=== PATIENT | female | born 1945 | race Caucasian/White ===

== ENCOUNTER 2021-02-02 10:59 | Inpatient (IN) | payer MEDICARE, OTHER ==
[~2021-02-02] VITALS: Ht 162.6 cm; Wt 61.1 kg
[~2021-02-02 10:59] MED LIST: CALC-80 PO; CALC3.7S2 NS; CHOL100011 PO; FEXO180T84 PO; GLUC500C2 PO; HYDR-3714 PO; MULT-974 PO; NAPR-689 PO; PANT40TA PO; TML.25OP OU
[2021-02-02] MEDS ORDERED: CALCIUM CARBONATE 500 MG (TUMS) TAB.CHEW PO PRN (11:15)
[2021-02-02] MEDS ORDERED: diphenhydrAMINE 25 MG TAB (BENADRYL) PO PRN (11:15)
[2021-02-02] MEDS ORDERED: ONDANSETRON 4 MG (ZOFRAN) ORAL DISSOLVE TAB PO PRN (11:15)
[2021-02-02] MEDS ORDERED: BISACODYL 10 MG SUPP (DULCOLAX) PR PRN (11:15)
[2021-02-02] MEDS ORDERED: ALPRAZolam 0.25 MG (XANAX) TAB PO PRN (11:15)
[2021-02-02] MEDS ORDERED: DOCUSATE SODIUM 100 MG (COLACE) CAP PO PRN (11:15)
[2021-02-02] MEDS ORDERED: LACTULOSE SYRUP 10GM/15ML (ENULOSE) 30ML UDC PO PRN (11:15)
[2021-02-02] MEDS ORDERED: MELATONIN 3 MG TABLET PO PRN (11:15)
[2021-02-02] MEDS ORDERED: LOPERAMIDE 2 MG (IMODIUM) TABLET PO PRN (11:15)
[2021-02-02] MEDS ORDERED: guaiFENesin/CODEINE (ROBITUSSIN AC) 10ML UDC PO PRN (11:15)
[2021-02-02] MEDS ORDERED: FLEET ENEMA ADULT 1 EA BTL PR PRN (11:15)
[2021-02-02] MEDS ORDERED: EST30C VG (13:31)
[2021-02-02] MEDS ORDERED: ASPI-999 PO (13:31)
[2021-02-02] MEDS ORDERED: TIMO5DRO27 OU (13:31)
[2021-02-02] MEDS ORDERED: PANT40TA52 PO (13:31)
[2021-02-02] MEDS ORDERED: ATOR40TA70 PO (13:31)
[2021-02-02] MEDS ORDERED: CHOL10007 PO (13:31)
[2021-02-02] MEDS ORDERED: FEXO-46 PO (13:31)
[2021-02-02] MEDS ORDERED: DENO60DI SQ (13:31)
[2021-02-02] MEDS ORDERED: CLOP75TA28 PO (13:31)
[2021-02-02] MEDS ORDERED: LISI2.5T PO (13:31)
[2021-02-02] MEDS ORDERED: GLUC1TAB20 PO (13:31)
[2021-02-02] MEDS ORDERED: PREG75CA PO (13:31)
[2021-02-02] MEDS ORDERED: CALC-935 PO (13:31)
[2021-02-02 16:23] VITALS: BP 113/70
--- NOTE | 2021-02-02 18:31 | PM&R Post Admission Assessment ---
PM&R Date of Visit: Feb 02, 2021 Time of Visit: 18:00 History of Present Illness Chief complaint: CVA with right-sided weakness HPI: This is a 75[address]WF pt of Dr[address] Amber Patricia in [place] who presents to the inpatient rehab unit from [facility] after suffering an acute ischemic stroke from new diagnosed PFO with subsequent right sided weakness, decreased vision of the left eye secondary to shingles September 2020. She has a history of dyslipidemia, GERD and glaucoma. 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 Current level of functioning is 15 feet, moderate assistance and she will go home with her spouse once her rehab is completed. Cardiology will be consulted. Past Ildhawa-Xuywyv-Njojgu Hx Past Med/Social Hx: Reviewed Nursing Past Med/Soc Hx, Reviewed and Corrections made Patient Social History Marrital Status: Employed/Student: retired Alcohol Use: Occasionally Uses Smoking Status: Former Smoker Immunizations Up To Date Date of Pneumonia Vaccine: Jun 21, 2013 Past Medical History Neurological: Stroke Gastrointestinal: Gastroesophageal Reflux Musculoskeletal: Osteoporosis HEENT: Glaucoma PM&R Allergy/Meds/Data Review Allergies Coded Allergies: meperidine (Unverified Allergy, Unknown, HALLUCINATIONS, 12/31/13) Home Medications Scheduled Aspirin (Aspirin), 81 MG PO DAILY, (Reported) Atorvastatin Calcium (Atorvastatin Calcium), 40 MG PO HS, (Reported) Calcium Carbonate/Vitamin D3 (Calcium 600 + Vit D3 Tablet), 1 EACH PO DAILY, (Reported) Cholecalciferol (Vitamin D3) (Vitamin D3), 25 MCG PO DAILY, (Reported) Clopidogrel Bisulfate (Clopidogrel), 75 MG PO DAILY, (Reported) Denosumab (Prolia), 60 MG SQ EVERY 6 MONTHS, (Reported) Fexofenadine HCl (Fexofenadine HCl), 180 MG PO DAILY, (Reported) Gluc Yanez/Chondro Yanez A/Vit C/Mn (Glucosamine Chondroitin Tab), 1 EACH PO DAILY, (Reported) Lisinopril (Lisinopril), 2.5 MG PO DAILY, (Reported) Pantoprazole Sodium (Pantoprazole Sodium), 40 MG PO DAILY, (Reported) Pregabalin (Lyrica), 75 MG PO BID, (Reported) Timolol (Betimol), 1 DROP OU HS, (Reported) Scheduled PRN Estrogens Conjugated (Premarin), 1 APPLIC VG HS PRN for DRYNESS,BURNING, IRRITATION, (Reported) Discontinued Medications Calcitonin (Calcitonin-Arnold), 1 SPRAY NS DAILY, (Reported) Discontinued Reason: No Longer Taking Calcium Carbonate/Vitamin D3 (Calcium 600 + D Caplet), 1 TAB PO DAILY, (Reported) Discontinued Reason: No Longer Taking Cholecalciferol (Vitamin D3), 1,000 UNIT PO DAILY, (Reported) Discontinued Reason: No Longer Taking Fexofenadine Hcl (Tracy Allergy), 180 MG PO DAILY, (Reported) Discontinued Reason: No Longer Taking Glucosamine Sulfate (Glucosamine), 500 MG PO DAILY, (Reported) Discontinued Reason: No Longer Taking Hydrocodone Bit/Acetaminophen (Hydrocodone-Apap 5-325 Tab), 1 TAB PO Q4H PRN for PAIN Discontinued Reason: No Longer Taking Multivitamin (Multi Vitamin Daily), 1 TAB PO DAILY, (Reported) Discontinued Reason: No Longer Taking Naproxen (Naproxen), 500 MG PO DAILY, (Reported) Discontinued Reason: No Longer Taking Pantoprazole Sodium (Pantoprazole Sodium), 40 MG PO DAILY, (Reported) Discontinued Reason: No Longer Taking Timolol (Betimol), 1 DROP OU HS, (Reported) Discontinued Reason: No Longer Taking Current Medications Current Medications Reviewed Review of Systems Constitutional: see HPI, malaise, weakness EENTM: blurred vision Respiratory: no symptoms reported Cardiovascular: no symptoms reported Gastrointestinal: no symptoms reported Genitourinary: no symptoms reported Musculoskeletal: back pain Skin: no symptoms reported Psychiatric/Neurological: Depressed, Weakness All Other Systems Reviewed Negative Unless Noted: Yes Physical Exam Physical Exam Vital Signs Vital Signs - First Documented 02/02/21 16:23 Temp 37.0 Pulse 79 Resp 18 B/P (MAP) 113/70 (84) Pulse Ox 92 O2 Delivery Room Air Capillary Refill : Height, Weight, BMI Height: 5'4.00" Weight: 130lbs. oz. 58.496707aq; 22.27 BMI Method: General Appearance: No Apparent Distress, WD/WN Eyes: Bilateral Eye Normal Inspection, Bilateral Eye PERRL HEENT: PERRL/EOMI, Normal ENT Inspection, Pharynx Normal Neck: Full Range of Motion, Normal Inspection, Non Tender, Supple, Carotid Bruit Respiratory: Chest Non Tender, Lungs Clear, Normal Breath Sounds, No Accessory Muscle Use, No Respiratory Distress Cardiovascular: Regular Rate, Rhythm, No Edema, No Gallop, No JVD, No Murmur, Normal Peripheral Pulses Gastrointestinal: Normal Bowel Sounds, No Organomegaly, No Pulsatile Mass, Non Tender, Soft Back: Normal Inspection, No CVA Tenderness, No Vertebral Tenderness Extremity: Normal Capillary Refill, Normal Inspection, Normal Range of Motion (Except right sided weakness 1/5), Non Tender, No Calf Tenderness, No Pedal Edema Neurologic/Psychiatric: Alert, Oriented x3, No Motor/Sensory Deficits, Normal Mood/Affect, Abnormal Gait, Facial Droop (Right-sided) Skin: Normal Color, Warm/Dry Lymphatic: No Adenopathy PM&R Medical Assessment & Plan REHAB/MEDICAL ASSESSMENT AND PLAN: REHAB IMPAIRMENT GROUP: CVA ETIOLOGIC DIAGNOSIS: CVA The comorbidities that impact the patients function and/or functional outcome by: Advanced age, postherpetic neuralgia, severe right-sided weakness fall risk, PFO REHAB PLAN: The patient is being admitted to our comprehensive inpatient rehabilitation facility and can tolerate the intensity of service consisting of at least: 180 minutes of therapy a day, 5 out of 7 days a week Rehab treatment will consist of: PT and OT will focus on regaining function of the right side with the use of assistive devices to be able to return to live independently with her The patient/family has a good understanding of our discharge process and will benefit from an interdisciplinary inpatient rehabilitation program. The patient has potential to make improvement and is in need of at least two of the following multidisciplinary therapies including but not limited to physical, occupational, speech, and prosthetics and orthotics. Additionally the patient will need services from respiratory, nutritional services, wound care, psychology, etc. (Customize this to each patient). Given the patients complex condition and risk of further medical complications, rehabilitation services cannot be safely or effectively provided at a lower level of care such as a fci facility. BARRIERS TO DISCHARGE: Severe right-sided weakness ESTIMATED LOS: 14 days DISPOSITION: Home RELEVANT CHANGES SINCE PREADMISSION SCREENING: I have compared the patients medical and functional status at the time of the preadmission screening and there are: no changes PROGNOSIS: Good REHABILITATION GOALS: 1. PT and OT will focus on regaining function of the right side with the use of assistive devices to be able to return to live independently with her All the above goals were reviewed with the patient and he/she is in agreement. By signing this document, I acknowledge that I have personally performed a full physical examination on this patient within 24 hours of admission to this inpatient rehabilitation facility and have determined the patient to be able to tolerate the above course of treatment at an intensive level for a reasonable period of time. I will be completing a detailed individualized Plan of Care for this patient by day #4 of the patients stay based upon the Preadmission Screen, the Post-Admission Evaluation, and the therapy evaluations. Admission Dx/Comorbidities: (1) CVA (cerebral vascular accident) ICD Codes: I63.9 - Cerebral infarction, unspecified (2) PFO (patent foramen ovale) ICD Codes: Q21.1 - Atrial septal defect (3) GERD (gastroesophageal reflux disease) ICD Codes: K21.9 - Gastro-esophageal reflux disease without esophagitis (4) Hypertension ICD Codes: I10 - Essential (primary) hypertension (5) Hyperlipidemia ICD Codes: E78.5 - Hyperlipidemia, unspecified (6) Right sided weakness ICD Codes: R53.1 - Weakness (7) Osteoporosis ICD Codes: M81.0 - Age-related osteoporosis without current pathological fracture (8) Postherpetic neuralgia ICD Codes: B02.29 - Other postherpetic nervous system involvement (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
[2021-02-02] MEDS ORDERED: ESTROGENS CONJ. CREAM 30 GM (PREMARIN) TUBE VG PRN (18:45)
[2021-02-02] MEDS ORDERED: PATIENT MAY USE OWN MED,SINGLE MED PO SCH (19:00)
[2021-02-02 20:00] VITALS: BP 113/55
[2021-02-02] MEDS: DOCUSATE SODIUM 100 MG (COLACE) CAP PO SCH (20:09)
[2021-02-02] MEDS: SENNA W/DOCUSATE (SENOKOT S) TABLET PO SCH (20:10)
[2021-02-02] MEDS: polyethylene glycoL POWDER 17 GM (MIRALAX) PACK PO SCH (20:10)
[2021-02-02] MEDS: PREGABALIN 75 MG (LYRICA) CAP PO SCH (20:12)
[2021-02-02] MEDS: TIMOLOL MALEATE 0.5% 5 ML (TIMOPTIC) BTL OU SCH (20:12)
[2021-02-02] MEDS: ACETAMINOPHEN 325 MG TABLET PO PRN (20:18)
[2021-02-03 05:59] LABS: BASOPHILS # (AUTO) 0.1 10^3/uL (0.0-0.1); BASOPHILS % (AUTO) 1 % (0-10); EOSINOPHILS # (AUTO) 0.1 10^3/uL (0.0-0.3); EOSINOPHILS % (AUTO) 1 % (0-10); HEMATOCRIT 47 % (35-52); HEMOGLOBIN 15.6 g/dL (11.5-16.0); LYMPHOCYTES # (AUTO) 1.8 10^3/uL (1.0-4.0); LYMPHOCYTES % (AUTO) 24 % (12-44); MEAN CORPUSCULAR HEMOGLOBIN 30 pg (25-34); MEAN CORPUSCULAR HGB CONC 33 g/dL (32-36); MEAN CORPUSCULAR VOLUME 91 fL (80-99); MEAN PLATELET VOLUME 11.1 fL (9.0-12.2); MONOCYTES # (AUTO) 0.7 10^3/uL (0.0-1.0); MONOCYTES % (AUTO) 9 % (0-12); NEUTROPHILS # (AUTO) 4.9 10^3/uL (1.8-7.8); NEUTROPHILS % (AUTO) 64 % (42-75); PLATELET COUNT 216 10^3/uL (130-400); WHITE BLOOD COUNT 7.6 10^3/uL (4.3-11.0)
[2021-02-03 06:02] LABS: ALBUMIN 3.9 GM/DL (3.2-4.5); CHLORIDE 102 MMOL/L (98-107); POTASSIUM 3.9 MMOL/L (3.6-5.0); SODIUM 139 MMOL/L (135-145)
[2021-02-03 06:03] LABS: CALCIUM 9.6 MG/DL (8.5-10.1)
[2021-02-03 06:04] LABS: GLUCOSE 98 MG/DL (70-105); TOTAL PROTEIN 6.7 GM/DL (6.4-8.2)
[2021-02-03 06:05] LABS: CARBON DIOXIDE 25 MMOL/L (21-32)
[2021-02-03 06:06] LABS: BILIRUBIN,TOTAL 0.8 MG/DL (0.1-1.0)
[2021-02-03 06:08] LABS: ALKALINE PHOSPHATASE 81 U/L (40-136); CREATININE SERUM 0.75 MG/DL (0.60-1.30); GFR ESTIMATED > 60
[2021-02-03 06:09] LABS: BUN/CREATININE RATIO 21
[2021-02-03 06:11] LABS: ALANINE AMINOTRANSFERASE 27 U/L (0-55)
--- NOTE | 2021-02-03 06:23 | PM&R Progress Note ---
Subjective HPI/CC On Admission Date Seen by Provider: Feb 03, 2021 Time Seen by Provider: 11:00 Subjective/Events-last exam 02/03/21: Pt doing really well Dr. Sanchez consulted Bowels are a bit loose Frustrated that her right leg didnt work too well today but I reassured her Review of Systems General: Fatigue, Malaise Neurological: Weakness, Incoordination Objective Exam Vital Signs Vital Signs Date Time Temp Pulse Resp B/P (MAP) Pulse Ox O2 Delivery O2 Flow Rate FiO2 02/04/21 01:00 80 02/03/21 21:00 Room Air 02/03/21 20:00 36.6 14 103/59 (74) 95 Capillary Refill : General Appearance: No Apparent Distress, WD/WN HEENT: PERRL/EOMI, Normal ENT Inspection, Pharynx Normal Neck: Full Range of Motion, Normal Inspection, Non Tender, Supple, Carotid Bruit Respiratory: Chest Non Tender, Lungs Clear, Normal Breath Sounds, No Accessory Muscle Use, No Respiratory Distress Cardiovascular: Regular Rate, Rhythm, No Edema, No Gallop, No JVD, No Murmur, Normal Peripheral Pulses Gastrointestinal: Normal Bowel Sounds, No Organomegaly, No Pulsatile Mass, Non Tender, Soft Back: Normal Inspection, No CVA Tenderness, No Vertebral Tenderness Extremity: Normal Capillary Refill, Normal Inspection, Normal Range of Motion (Except right sided weakness 1/5), Non Tender, No Calf Tenderness, No Pedal Edema Neurologic/Psychiatric: Alert, Oriented x3, No Motor/Sensory Deficits, Normal Mood/Affect, Abnormal Gait, Facial Droop (Right-sided) Skin: Normal Color, Warm/Dry Lymphatic: No Adenopathy Results/Procedures Lab Laboratory Tests 02/03/21 05:45 Patient resulted labs reviewed. FIM Transfers Therapy Code Descriptions/Definitions Functional [place] Measure: 0=Not Assessed/NA 4=Minimal Assistance 1=Total Assistance 5=Supervision or Setup 2=Maximal Assistance 6=Modified [place] 3=Moderate Assistance 7=Complete IndependenceSCALE: Activities may be completed with or without assistive devices. 4-Uxozsesxew-qxjqeep completes the activity by him/herself with no assistance from a helper. 5-Set-up or Clean-up Assistance-helper sets up or cleans up; patient completes a ctivity. [place] assists only prior to or following the activity. 4-Supervision or Touching Assistance-helper provides verbal cues and/or touching/steadying and/or contact guard assistance as patient completes activity. Assistance may be provided throughout the activity or intermittently. 3-Partial/Moderate Assistance-helper does LESS THAN HALF the effort. [place] lifts, holds or supports trunk or limbs, but provides less than half the effort. 2-Substantial/Maximal Assistance-helper does MORE THAN HALF the effort. [place] lifts or holds trunk or limbs and provides more than half the effort. 1-Ochlrkrob-hxfvhv does ALL the effort. Patient does none of the effort to complete the activity. Or, the assistance of 2 or more helpers is required for the patient to complete the activity. If activity was not attempted, code reason: 7-Patient Refused. 9-Not Applicable-not attempted and the patient did not perform the activity before the current illness, exacerbation or injury. 10-Not Attempted due to Environmental Limitations-(lack of equipment, weather restraints, etc.). 88-Not Attempted due to Medical Conditions or Safety Concerns. Assessment/Plan Assessment and Plan Assess & Plan/Chief Complaint Assessment: CVA with right sided weakness GERD Herpes ophtho left 10/11 OP HTN HLP Plan: Cardiology consultation Home meds Monitor closely (1) CVA (cerebral vascular accident) (2) PFO (patent foramen ovale) (3) GERD (gastroesophageal reflux disease) (4) Hypertension (5) Hyperlipidemia (6) Right sided weakness (7) Osteoporosis (8) Postherpetic neuralgia (9) Zoster ophthalmicus ALDEN CARCAMO DO Feb 03, 2021 06:23
[2021-02-03 07:55] VITALS: BP 126/84
[2021-02-03] MEDS: ASPIRIN 81 MG CHEW (CHILDREN'S ASA) PO SCH (08:48)
[2021-02-03] MEDS: LORATADINE (CLARITIN) 10 MG TAB PO SCH (08:48)
[2021-02-03] MEDS: PANTOPRAZOLE 40 MG (PROTONIX) TAB PO SCH (08:48)
[2021-02-03] MEDS: PREGABALIN 75 MG (LYRICA) CAP PO SCH ×2 (08:48→21:00)
[2021-02-03] MEDS: VITAMIN D3 25 MCG (1,000 UNITS) TABLET PO SCH (08:49)
[2021-02-03] MEDS: lisINopril 5 MG (PRINIVIL) TABLET PO SCH (08:49)
[2021-02-03] MEDS: CALCIUM CARB + VIT D 600 MG (CALCARB + D) TAB PO SCH (08:49)
[2021-02-03] MEDS: CLOPIDOGREL 75 MG (PLAVIX) TABLET PO SCH (08:49)
[2021-02-03] MEDS: SENNA W/DOCUSATE (SENOKOT S) TABLET PO SCH ×2 (08:50→21:00)
[2021-02-03] MEDS: polyethylene glycoL POWDER 17 GM (MIRALAX) PACK PO SCH ×2 (08:50→21:00)
[2021-02-03] MEDS: DOCUSATE SODIUM 100 MG (COLACE) CAP PO SCH ×2 (08:50→21:00)
[2021-02-03] MEDS ORDERED: NON-FORMULARY MEDICATION 1 EA EA (Gluc Su/Chondro Su A/Vit C/Mn (Glucosamine Chondroitin T PO SCH (09:00)
--- NOTE | 2021-02-03 10:39 | ST Cognitive Linguistic Eval ---
Speech Evaluation-General Medical Diagnosis CVA Onset Date: Jan 28, 2021 Therapy Diagnosis Therapy Diagnosis: Cognitive-communication Precautions Precautions/Isolations: Standard Precautions Referral Referring Physician: Dr. Ledbetter Medical History Pertinent Medical History: GERD, HTN Reviewed History: Yes Social History Current Living Status: Spouse Speech PLF-Current Status Prior Level of Function Patient lives in her own home with her . She was independent prior to CVA. Subjective Patient was pleasant and cooperative with the cognitive/speech assessment. Language Eval: Auditory Comprehends Simple Yes/No Ques: Functional Indent/Objects Multiple Powers: Functional Ident/Pics in Multiple Powers: Functional Follows 1-Step Commands: Functional Follows Complex Directions: Functional Follows General Conversations: Functional Language Eval: Verbal Language Completes Spontaneous Greeting: Functional Produces Auto, Serial Info: Functional Imitates Simple Words/Phrases: Functional Word Finding: Functional Requests Basic Needs: Functional States Basic Personal Info: Functional Expresses Complex Ideas: Functional Objective Cognitive Domain Attention: WNL Memory: WNL Problem Solving: Functional Executive Functions: WNL Visuospatial Skills: WNL Composite Severity Rating: WNL Clock Drawing Severity Rating: WNL Objective Formal/Standardized Tests [facility] Mental Status (UMS), informal speech tasks, chart review Results 28/30 within normal range of function Oral Motor/Speech Production Mild slurring due to right side facial weakness/droop, however she is able to exhibit intelligible speech. Impression Patient is a pleasant 75 y/o female who was admitted to the ARU s/p CVA. Patient exhibits right sided weakness including mild facial droop. Her speech is intelligible for effective communication. She does have a drool and decreased control on the right side with decreased buccal sensation. Patient's SLUMS score of 28/30 does not indicate the need for cognitive therapy. She would benefit from OM speech therapy with VItal Stim to improve right side oral function. Speech Patient Assess Expression of Ideas/Wants: Expression (4) Understanding Verbal Content: Understands (4) Brief Interview-Mental Status: Yes Repetition of Three Words: Three (3) Temporal Orientation: Year: Correct (3) Temporal Orientation: Month: Accurate within 5 days(2) Temporal Orientation: Day: Correct (1) Recall : Wear to say "Sock": Yes, no cue required (2) Recall : Color: Yes, no cue required (2) Recall : Bed: Yes, no cue required (2) Memory/Recall Ability: Current season, That he or she is in a hsp/hsp unit Speech Short Term Goals Short Term Goals Short Term Goals 1) Patient will complete OME x10 without cues at 90% or greater. 2) Patient will improve speech production at 100% intelligible. Speech Custodial Goals Ep Tech Goals Patient will demo effective communication and oral motor function at 100% intelligible. Speech-Plan Patient/Family Goals Patient/Family Goals: Patient plans on returning to her home where she lives with her . Treatment Plan Speech Therapy Treatment Plan: Continue Plan of Care Treatment Duration: Feb 17, 2021 Frequency: 4 times per week (Patient will receive skilled ST 4-5x per week) Estimated Hrs Per Day: .5 hour per day Rehab Potential: Good Barriers to Learning: Patient's recent CVA Pt/Family Agrees to Plan: Yes Safety Risks/Education Teaching Recipient: Patient Teaching Methods: Discussion Response to Teaching: Verbalize Understanding Education Topics Provided: Safety within her room, utilization of call light, communication of wants/needs Time Speech Therapy Time In: 10:00 Speech Therapy Time Out: 10:30 Total Billed Time: 30 Billed Treatment Time 1, JAKE ORTIZ [address] ST Feb 03, 2021 10:39
--- NOTE | 2021-02-03 11:01 | Physical Therapy Evaluation ---
PT Evaluation-General Medical Diagnosis Admission Date Feb 02, 2021 at 16:09 Medical Diagnosis: CVA Onset Date: Jan 28, 2021 Therapy Diagnosis Therapy Diagnosis: abnormal gait; right sided weakness Height/Weight Height (Feet): 5 Height (Inches): 4.00 Weight (Pounds): 130 Precautions Precautions/Isolations: Standard Precautions Referral Physician: Khloe Reason for Referral: Evaluation/Treatment Medical History Pertinent Medical History: GERD, HTN Additional Medical History Ocular shingles, Altamirano's esophagus Current History 01/26/2021 pt experienced right sided weakness and presented to her local hospital. She transferred to [facility] in . Found to have an ischemic CVA with resultant right sided weakness. She has transferred to this facility for continued skilled therapy services. Reviewed History: Yes Social History Home: Single Level Current Living Status: Spouse Entry Into Home: Ramp, Stairs With Railing PT Steps Into Home: 3 3 steps at her deck; ramp in her garage. Grab bars in her bathroom; she has a bed cane. Prior Prior Level of Function SCALE: Activities may be completed with or without assistive devices. 0-Qxhnvjqlvj-nieluaf completes the activity by him/herself with no assistance from a helper. 5-Set-up or Clean-up Assistance-helper sets up or cleans up; patient completes activity. [place] assists only prior to or following the activity. 4-Supervision or Touching Assistance-helper provides verbal cues and/or touching/steadying and/or contact guard assistance as patient completes activity. Assistance may be provided throughout the activity or intermittently. 3-Partial/Moderate Assistance-helper does LESS THAN HALF the effort. [place] lifts, holds or supports trunk or limbs, but provides less than half the effort. 2-Substantial/Maximal Assistance-helper does MORE THAN HALF the effort. [place] lifts or holds trunk or limbs and provides more than half the effort. 2-Ohrmppghl-revuqu does ALL the effort. Patient does none of the effort to complete the activity. Or, the assistance of 2 or more helpers is required for the patient to complete the activity. If activity was not attempted, code reason: 7-Patient Refused. 9-Not Applicable-not attempted and the patient did not perform the activity before the current illness, exacerbation or injury. 10-Not Attempted due to Environmental Limitations-(lack of equipment, weather restraints, etc.). 88-Not Attempted due to Medical Conditions or Safety Concerns. Bed Mobility: 6 Transfers (B,C,W/C): 6 Gait: 6 Stairs: 6 Indoor Mobility (Ambulation): Independent Stairs: Independent Prior Devices Use: None Community ambulator; able to work in her yard; drives; swims 3x/wk. PT Evaluation-Current Subjective Agrees to PT. Reports she has not had much therapy at the previous hospital. No complaints of pain. Reports intermittent double vision. Questions if her right UE will regain movement. Objective Patient Orientation: Person, Place, Time, Situation ROM/Strength ROM Lower Extremities ROM is WNL; unable to actively bend right knee but PROM is WNL unable to actively DF right foot but WNL ROM> Strength Lower Extremities LE LE Strength is WNL; right LE hip flexion 3/5; quads 2/5; hamstrings 2/5; DF 1/5. Integumentary/Posture Integumentary Intact Bowel Incontinence: No Bladder Incontinence: Yes (leaks) Posture Normal and symmetrical Neuromuscular (Tone, Coordination, Reflexes) Left LE WNL: right LE decreased coordinated movements with normal tone. Sensory Vision: OT to asse Hearing: Functional Hand Dominance: Right Sensation Right Lower Extremit: Intact Sensation Left Lower Extremity: Intact Transfers Roll Left & Right (QC): 3 Sit to Lying (QC): 3 Lying to Sitting/Side of Bed(Q: 3 Sit to Stand (QC): 3 Chair/Qzh-ni-Gcxpz Xfer(QC): 2 (max assist to manage walker and to turn safely) Toilet Transfer (QC): 2 Car Transfer (QC): 2 Max assist with transfers to manage walker as well as to coordinate LE movement and placement. Gait Does the Patient Walk?: Yes Mode of Locomotion: Walk Anticipated Mode of Locomotion: Walk Walk 10 feet (QC): 2 Walk 50 ft with 2 Turns(QC): 88 Walk 150 ft (QC): 88 Walking 10ft/uneven surface-QC: 88 Gait Assistive Device: FWW (platform) Comments/Gait Description Poor coordination and placement of right LE with gait; poor ability to selectively extend or flex right knee; lacks effective DF; Max assist for balance, walker management; difficulty with turning; requires rigid assist at times to maintain balance. Wheelchair Training Wheel 50 ft with 2 turns (QC): 9 Wheel 150 ft (QC): 9 Stairs 1 Step (curb) (QC): 88 4 Steps (QC): 88 12 Steps (QC): 88 unsafe to attempt steps this date due to poor coordination and use of right LE as well as impaired use of right UE Balance Sitting Static: Fair Sitting Dynamic: Fair Standing Static: Poor Standing Dynamic: Poor Picking up an Object (QC): 88 Treatment Co treat with OT as the skill of 2 clinicians to safely complete tasks. OT add ressed UE use and placement and management of right UE; PT managed gross transfers and gait as well as static and dynamic functional balance with transfers and toileting. Assessment/Needs Post CVA with right sided weakness; impaired coordinated movement rigth LE and strength deficits; impaired functional balance and requires assist with all bed mobility, transfers and gait. Requires use of FWW with platform with ambulation; and gait limited to short distances due to work effort for am bulation. Rehab Potential: Good PT Short Term Goals Short Term Goals Time Frame: Feb 17, 2021 Roll Left & Right: 5 Sit to lyin Lying to sitting on side of be: 5 Sit to stand: 4 Chair/edm-fg-ijrlu transfer: 4 Walk 50 feet with two turns: 4 Walk 150 feet: 4 PT Fruit Pitter Goals Halfway Goals PT Halfway Goals Time Frame: Mar 03, 2021 Roll Left & Right (QC): 6 Sit to Lying (QC): 6 Lying-Sitting on Side/Bed(QC): 6 Sit to Stand (QC): 6 Chair/Pfs-oy-Uetae Xfer(QC): 6 Toilet Transfer (QC): 6 Car Transfer (QC): 6 Does the Patient Walk: Yes Walk 10 feet (QC): 6 Walk 50ft with 2 Turns (QC): 6 Walk 150 ft (QC): 6 Walking 10ft on Uneven Surface: 5 1 Step (curb) (QC): 6 4 Steps (QC): 4 12 Steps (QC): 4 Picking up an Object (QC): 4 Does the Pt use WC or Scooter?: No Wheel 50 feet with 2 turns (QC: 9 Wheel 150 feet: 9 PT Plan Problem List Problem List: Activity Tolerance, Functional Strength, Safety, Balance, Gait, Transfer, Bed Mobility Treatment/Plan Treatment Plan: Continue Plan of Care Treatment Plan: Bed Mobility, Education, Functional Activity Marcos, Functional Strength, Group Therapy, Gait, Safety, Therapeutic Exercise Treatment Duration: Mar 03, 2021 Frequency: At least 5 of 7 days/Wk (IRF) Estimated Hrs Per Day: 1.5 hours per day Patient and/or Family Agrees t: Yes Safety Risks/Education Patient Education: Transfer Techniques, Safety Issues Teaching Recipient: Patient Teaching Methods: Demonstration, Discussion Response to Teaching: Reinforcement Needed Discharge Recommendations Therapy Discharge Recommendati: Post Acute PT Time/GCodes Time In: 900 Time Out: 910 (920-1000 (co treat with OT)) Total Billed Treatment Time: 50 Total Billed Treatment visit EVM 10 FA 20 NM 20 GILL JUAREZ PT Feb 03, 2021 11:01
--- NOTE | 2021-02-03 11:05 | Occupational Therapy Eval ---
OT Evaluation-General/PLF Medical Diagnosis Admission Date Feb 02, 2021 at 16:09 Medical Diagnosis: CVA/right sided weakness Onset Date: Jan 28, 2021 Therapy Diagnosis Therapy Diagnosis: Decreased ADL skills Height/Weight Height (Feet): 5 Height (Inches): 4.00 Weight (Pounds): 130 Precautions Precautions/Isolations: Standard Precautions Weight Bear Status Weight Bearing Restriction: Weight Bearing/Tolerated Referral Physician: Dr. Ledbetter Referral Reason: Activity Tolerance, Self Care, Evaluation/Treatment, Strengthening/ROM Medical History Pertinent Medical History: Atrial Fib, CAD, DM, GERD, HTN Additional Medical History Pt. had shingles in her left eye in Sep. Has since had weakness and scarring. States that when she gets tired, she doesn't track well and she has double vision. Pt. states that her stroke affected her right eye. Current History Pt. had CVA with onset on 01-28-21. Residual weakness in right UE/LE, and decreased vision/tracking in right eye. Reviewed History: Yes Social History Home: Single Level Current Living Status: Spouse Entry Into Home: Ramp (from [employer]) ADL-Prior Level of Function SCALE: Activities may be completed with or without assistive devices. 4-Qmqivqwmgz-sivihfr completes the activity by him/herself with no assistance from a helper. 5-Set-up or Clean-up Assistance-helper sets up or cleans up; patient completes activity. [place] assists only prior to or following the activity. 4-Supervision or Touching Assistance-helper provides verbal cues and/or to uching/steadying and/or contact guard assistance as patient completes activity. Assistance may be provided throughout the activity or intermittently. 3-Partial/Moderate Assistance-helper does LESS THAN HALF the effort. [place] lifts, holds or supports trunk or limbs, but provides less than half the effort. 2-Substantial/Maximal Assistance-helper does MORE THAN HALF the effort. [place] lifts or holds trunk or limbs and provides more than half the effort. 4-Osuponyzj-afyxwl does ALL the effort. Patient does none of the effort to complete the activity. Or, the assistance of 2 or more helpers is required for the patient to complete the activity. If activity was not attempted, code reason: 7-Patient Refused. 9-Not Applicable-not attempted and the patient did not perform the activity before the current illness, exacerbation or injury. 10-Not Attempted due to Environmental Limitations-(lack of equipment, weather restraints, etc.). 88-Not Attempted due to Medical Conditions or Safety Concerns. ADL PLOF Comments Pt. was fully independent with daily skills prior to this hospitalization and illness. She retired approximately one year ago. 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 Her spouse is a retired [employer], but still treats his 400 head of cattle. Self Care: Independent Functional Cognition: Independent DME/Equipment Comments Pt. does not have adaptive equipment such as walker. 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 Drive Self: Yes OT Current Status Subjective No pain reported. Mental Status/Objective Patient Orientation: Person, Place, Time, Situation Current Hand Dominance: Right Upper Extremity ROM Right- No active movement Left- intact Upper Extremity Coordination Left intact Right impaired. Upper Extremity Strength light touch intact Pt. has no active movement in right UE. She does detect light touch. No subluxation or pain noted. No abnormal tone. Good scapular glide. Pt. educated on and aware of proper positioning of right UE for best possible outcome. ADL-Treatment Eating (QC): 4 (per pt.) Oral Hygiene (QC): 88 Shower/Bathe Self (QC): 88 Upper Body Dressing (QC): 3 (Mod assist overall to don shirt.) Lower Body Dressing (QC): 1 (Mod assist to don pants over feet. Assist of one person to stand, and assist of another person to don over hips.) On/Off Footwear (QC): 2 Toileting Hygiene (QC): 1 (Pt. is able to cleanse self after urinating while seated on toilet, however, requires assistance of two people in stance to doff/don pants and brief over hips.) Other Treatments Pt. seen for co-treatment with PT/OT due to need of skilled assistance x 2 for fatigue, decreased movement, and overall functional abilities. OT facilitated ADL skills, visual assessment, and UE assessment while PT focused on transfers, mobility, and LE assessment. Pt. able to transfer supine-sit with mod assist. Stood at platform walker with mod assist, but requires max assist for support during ambulation, and assist of another person for wheelchair follow and control at times during transfers and turns. Pt. has difficulty picking up right LE when ambulating and progressing it forward. Fatigues very easily. Ambulated to toilet, but on way back, required for wheelchair to be placed for pt. to have ride. All needs met. Will complete full visual assessment at later date for increased insight into pt's visual deficits. Education OT Patient Education: Correct positioning, Exercise program, Modified ADL techniques, Progress toward Goal/Update tx plan, Purpose of tx/functional activities, Reviewed precautions, Rehab process, Transfer techniques Teaching Recipient: Patient Teaching Methods: Demonstration, Discussion Response to Teaching: Verbalize Understanding, Return Demonstration OT Short Term Goals Short Term Goals Time Frame: Feb 17, 2021 Eatin Oral hygiene: 4 Toileting hygiene: 4 Shower/bathe self: 3 Upper body dressin Lower body dressin Putting on/taking off footwear: 4 OT Data Entry Technician Goals Long-Term Goals Time Frame: Mar 03, 2021 Eating (QC): 6 Oral Hygiene (QC): 6 Toileting Hygiene (QC): 6 Shower/Bathe Self (QC): 4 Upper Body Dressing (QC): 5 Lower Body Dressing (QC): 5 On/Off Footwear (QC): 6 Pt. will participate in Occupational therapy visual assessment, and goals will be made as necessary. Additional Goals: 1-Demonstrate ADL Tasks, 2-Verbalize Understanding, 3- ImproveStrength/Marcos 1=Demonstrate adherence to instructed precautions during ADL tasks. 2=Patient will verbalize/demonstrate understanding of assistive devices/mod ifications for ADL. 3=Patient will improve strength/tolerance for activity to enable patient to perform ADL's. OT Education/Plan Problem List/Assessment Assessment: Decreased Activ Tolerance, Decreased UE Strength, Dependent Transfers, Impaired Bed Mobility, Impaired Coordination, Impaired Funct Balance, Impaired I ADL's, Impaired Self-Care Skills, Restricted Funct UE ROM, Visual- Perceptual Deficit Discharge Recommendations Plan/Recommendations: Continue POC Therapy Discharge Recommendati: Home & Family, Post Acute OT Comment To be determined. Treatment Plan/Plan of Care Treatment,Training & Education: Yes Patient would benefit from OT for education, treatment and training to promote independence in ADL's, mobility, safety and/or upper extremity function for ADL's. Plan of Care: ADL Retraining, Functional Mobility, UE Funct Exercise/Act Treatment Duration: Mar 03, 2021 Frequency: At least 5 of 7 days/Wk (IRF) Estimated Hrs Per Day: 1.5 hours per day Agreement: Yes Rehab Potential: Good Time/GCodes Start Time: 09:10 Stop Time: 10:00 Total Time Billed (hr/min): 50 Billed Treatment Time 2516-9806- 1, EVH x 10minutes [id number] ADL x 40minutes- Co-treat with PT. Please see above note for designated roles. MARKO DELACRUZ OT Feb 03, 2021 11:05
--- NOTE | 2021-02-03 13:33 | Consultation-Cardiology ---
HPI-Cardiology Cardiology Consultation Date of Consultation 02/03/21 Date of Admission Time Seen by Provider: 09:45 Indication: CVA HPI Patient is a 75 y/o female with history of HTN, GERD, osteoporosis. Was hospitalized at [facility] on 01/28/21 with acute CVA with right sided weakness. W/u done at [facility] showed PFO on echocardiogram, otherwise negative workup. Denies any chest pain, dypsnea, dizziness or lightheadedness. Still having right sided weakness. Denies any history of atrial fibrillation or CAD. PCP is Dr. Amber Patricia at [place], [place]. Home Medications & Allergies Allergies: Coded Allergies: meperidine (Unverified Allergy, Unknown, HALLUCINATIONS, 12/31/13) Home Medication List Reviewed: Yes [id number]-Hisfhq Hx Patient Social History Marital Status: Employed/Student: retired Smoking Status: Former Smoker Have you traveled recently?: No Alcohol Use?: No Immunizations Up To Date Date of Pneumonia Vaccine: Jun 21, 2013 Past Medical History HTN, GERD, osteoporosis Family Medical History Significant Family History: No Pertinent Family Hx Review of Systems-General Review of Systems Constitutional: see HPI, malaise, weakness EENTM: see HPI, blurred vision Respiratory: no symptoms reported, see HPI; No cough, No dyspnea on exertion, No short of breath Cardiovascular: no symptoms reported; No chest pain Gastrointestinal: no symptoms reported Genitourinary: no symptoms reported Musculoskeletal: back pain Skin: no symptoms reported Psychiatric/Neurological: Depressed, Weakness All Other Systems Reviewed Negative Unless Noted: Yes Reviewed Test Results Reviewed Test Results Lab Laboratory Tests 02/03/21 05:45: White Blood Count 7.6, Red Blood Count 5.15H, Hemoglobin 15.6, Hematocrit 47, Mean Corpuscular Volume 91, Mean Corpuscular Hemoglobin 30, Mean Corpuscular Hemoglobin Concent 33, Red Cell Distribution Width 12.5, Platelet Count 216, Mean Platelet Volume 11.1, Immature Granulocyte % (Auto) 0, Neutrophils (%) (Auto) 64, Lymphocytes (%) (Auto) 24, Monocytes (%) (Auto) 9, Eosinophils (%) (Auto) 1, Basophils (%) (Auto) 1, Neutrophils # (Auto) 4.9, Lymphocytes # (Auto) 1.8, Monocytes # (Auto) 0.7, Eosinophils # (Auto) 0.1, Basophils # (Auto) 0.1, Immature Granulocyte # (Auto) 0.0, Sodium Level 139, Potassium Level 3.9, Chloride Level 102, Carbon Dioxide Level 25, Anion Gap 12, Blood Urea Nitrogen 16, Creatinine 0.75, Estimat Glomerular Filtration Rate > 60, BUN/Creatinine Ratio 21, Glucose Level 98, Calcium Level 9.6, Corrected Calcium 9.7, Total Bilirubin 0.8, Aspartate Amino Transf (AST/SGOT) 29, Alanine Aminotransferase (ALT/SGPT) 27, Alkaline Phosphatase 81, Total Protein 6.7, Albumin 3.9 Physical Exam Physical Exam Vital Signs Vital Signs - First Documented 02/02/21 16:23 Temp 37.0 Pulse 79 Resp 18 B/P (MAP) 113/70 (84) Pulse Ox 92 O2 Delivery Room Air Capillary Refill : Height, Weight, BMI Height: 5'4.00" Weight: 130lbs. oz. 58.099744kl; 22.27 BMI Method: General Appearance: No Apparent Distress, WD/WN Eyes: Bilateral Eye Normal Inspection, Bilateral Eye PERRL HEENT: PERRL/EOMI, Normal ENT Inspection, Pharynx Normal Neck: Full Range of Motion, Normal Inspection, Non Tender, Supple, Carotid Bruit Respiratory: Chest Non Tender, Lungs Clear, Normal Breath Sounds, No Accessory Muscle Use, No Respiratory Distress Cardiovascular: Regular Rate, Rhythm, No Edema, No Gallop, No JVD, No Murmur, Normal Peripheral Pulses Gastrointestinal: Normal Bowel Sounds, No Organomegaly, No Pulsatile Mass, Non Tender, Soft Back: Normal Inspection, No CVA Tenderness, No Vertebral Tenderness Extremity: Normal Capillary Refill, Normal Inspection, Normal Range of Motion (Except right sided weakness 1/5), Non Tender, No Calf Tenderness, No Pedal Edema Neurologic/Psychiatric: Alert, Oriented x3, No Motor/Sensory Deficits, Normal Mood/Affect, Abnormal Gait, Facial Droop (Right-sided) Skin: Normal Color, Warm/Dry Lymphatic: No Adenopathy A/P-Cardiology Admission Diagnosis CVA HTN HLP GERD Assessment/Plan 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 No evidence of carotid artery stenosis per CTA Head/neck done at [facility]. 2D Echo done 01/29/21 showing normal LV size with EF 65%, mild to moderate mitral regurgitation, moderate tricuspid regurgitation. PFO present. Maintained on ASA and Plavix. Continues to have right sided weakness. Continue with PT/OT. Patient reports telemetry at [facility] revealed SR. HTN, controlled, continue to monitor. HLP, recently started on statin. Continue to monitor as outpatient GERD Hx of shingles resulting in decreased vision in left eye Osteoporosis Thank you for allowing us to participate in the management of Ms. Moss. This is Little Irby PA-C, as a scribe for Dr. Sanchez. Patient was seen and evaluated with Little, has been doing well, feeling bett er, still have right hemiplegia, worse on the upper extremity than the lower extremity Work-up showed PFO, could be the source of her stroke, patient is maintained on aspirin and Plavix Continue to monitor blood pressure and lipids, no other changes are recommended LITTLE BONILLA Feb 03, 2021 1:33 pm BARTOLO SANCHEZ MD Feb 03, 2021 6:59 pm
--- NOTE | 2021-02-03 14:50 | Therapy Group Daily Note ---
Therapy Daily Group Note Patient Education Topic Other List Below (memory) Exercises LE Seated Exercise, UE Exercise Session Ratio (pt:therapist): 4:1 Goal of Session: Education on ARU Expectations, Memory Strategies, UE/LE Strengthing Goal Met for this Session: Yes Pt Benefit of Group: Contributions to Others, F/U Use of Strategies @Home, Increased Functional Safety, Increased Functional Strength, Improved Cognition, Recognition of Peers, Socialization Other/Notes Pt transported via w/c to [facility] for OT/PT group. Group consisted of introductions (name, place living, happiest place), socialization, seated B UE/LE exercises, education on ARU and memory. Pt introduced self appropriately and actively listened to peers. Pt able to complete L UE and B UE exercises correctly and tolerated well. Pt acknowledged understanding of educational topics by affirmative gestures and giving own personal examples/strategies. After session, pt lying in bed with call light/phone in reach. All needs met in room. Start Time: 13:00 Stop Time: 14:15 Total Billed Treatment Time: 75 Total Billed Treatment 1-GILL GONZALEZ Feb 03, 2021 14:50
[2021-02-03] MEDS ORDERED: FOSAMAX 70 MG PO SCH (17:15)
[2021-02-03] MEDS: [UNRECOGNIZED DRUG - REMARK] PO SCH (18:39)
[2021-02-03 20:00] VITALS: BP 103/59
[2021-02-03] MEDS: TIMOLOL MALEATE 0.5% 5 ML (TIMOPTIC) BTL OU SCH (21:00)
--- NOTE | 2021-02-04 05:29 | Individualized Plan of Care ---
Individualized Plan of Care Rehab Nursing IPOC Order Admission Date Feb 02, 2021 at 16:09 Current Orders Orders Admission Order(Inpt,Obs,Sdc) (02/02/21 11:09) Vital Signs: Per Unit Policy ( (02/02/21 11:09) Sergio Painter (02/02/21 11:09) Sequential Compression Device .admit (02/02/21 11:09) Speech Pathology Teacher-Inpt Rehab Con (02/02/21 11:09) Rehab Nursing Orders-Ipoc (02/02/21 11:09) Physical Therapy Rehab Orders (02/02/21 11:09) Occupational Therapy Rehab Ord (02/02/21 11:09) Speech Therapy Rehab Orders (02/02/21 11:09) Cbc With Automated Diff (02/03/21 06:00) Comprehensive Metabolic Panel (02/03/21 06:00) Precautions (Aru) (02/02/21 11:09) Rehab-Intensity Of Therapy (02/02/21 11:09) Initiate Admission Nursing Pro .admission (02/02/21 11:09) Acetaminophen Tablet/Caplet (Tylenol T (02/02/21 11:15) Alprazolam Tablet (Xanax Tablet) (02/02/21 11:15) Calcium Carbonate Chew Tablet (Antacid C (02/02/21 11:15) Diphenhydramine Tablet (Benadryl Tablet) (02/02/21 11:15) Docusate Sodium Capsule (Colace Capsule) (02/02/21 21:00) Docusate Sodium Capsule (Colace Capsule) (02/02/21 11:15) Bisacodyl Suppository (Dulcolax Supposit (02/02/21 11:15) Lactulose Oral Solution (Enulose Oral So (02/02/21 11:15) Na Phos/Na Biphos Enema (Fleet Enema Willi (02/02/21 11:15) Guaifenesin/Codeine Syrup (Robitussin Ac (02/02/21 11:15) Hydrocodone/Apap 5/325 Tablet (Lortab 5 (02/02/21 11:15) Loperamide Tablet (Imodium Tablet) (02/02/21 11:15) Melatonin Tablet (Melatonin Tablet) (02/02/21 11:15) Polyethylene Glycol Powder Pkt (Miralax (02/02/21 21:00) Ondansetron Oral Dissolve Tab (Zofran (02/02/21 11:15) Senna S Tablet (Senokot S Tablet) (02/02/21 21:00) Initiate Admission Nursing Pro .admission (02/02/21 11:09) Admission Arrival Bed Request (02/02/21 16:13) General/Regular (02/02/21 Dinner) Aspirin Chewable Tablet (Baby Aspirin Ch (02/03/21 09:00) Atorvastatin Tablet (Lipitor) (02/02/21 21:00) Clopidogrel Tablet (Plavix Tablet) (02/03/21 09:00) Estrogens Conjugated Vag Cream (Premarin (02/02/21 18:45) Pantoprazole Tablet (Protonix Tablet) (02/03/21 09:00) Pregabalin Capsule (Lyrica Capsule) (02/02/21 21:00) Calcium Carbonate W/Vitamin D3 (Calcarb (02/03/21 09:00) Cholecalciferol Capsule/Tablet (Vitamin (02/03/21 09:00) Loratadine Tablet (Claritin Tablet) (02/03/21 09:00) (Nf) Gluc Yanez/Chondro Yanez A/Vit C/Mn (Gluc (02/03/21 09:00) Lisinopril Tablet (Zestril Tablet) (02/03/21 09:00) Timolol 0.5% Ophthalmic Soln (Timoptic 0 (02/02/21 21:00) Patient May Use Own Med,Single (Patient (02/02/21 19:00) Consult Cardiology (02/02/21 18:52) Patient Visit (02/03/21 ) Speech Sound Lang Comp (02/03/21 ) Treat. Speech/Lang/Voice (02/03/21 ) Patient Visit (02/03/21 ) Patient Visit (02/03/21 ) Pt Eval Moderate Complexity (02/03/21 ) Functional Activities, Ea 15 (02/03/21 ) Ex Neuromuscular, Ea 15 Min (02/03/21 ) (Nf) Fosamax (02/03/21 17:15) (Nf) Fosamax (02/03/21 17:15) Patient Visit (02/04/21 ) Treat. Speech/Lang/Voice (02/04/21 ) Telemetry (02/04/21 14:51) Telemetry Nursing Assessment ( (02/04/21 14:51) Telemetry Nursing Assessment ( (02/04/21 14:51) Patient Visit (02/04/21 ) Functional Activities, Ea 15 (02/04/21 ) Exercise Therap, Ea 15 Min (02/04/21 ) Rehab Nursing Orders: Ongoing Assess. of Cognitive Status, Ongoing Assess. of Function Status, Bladder Management, Bladder Scan, Bladder Training, Bowel Management, Bowel Training, Disease Management & Educaiton, DVT Prophylaxis, Fall Prevention, Fluid/Electrolyte/Nutrition Mgmt, Infection Prevention, Medication Management & Education, Management of Risks & Complications, Management of Skin Intergrity, Nutrition Management, Pain Management, Patient/Family Support, Safety Management Intensity of Therapy to be met Patient to be seen: Min.3h per day/5 of 7d PT IPOC Problem List: Activity Tolerance, Functional Strength, Safety, Balance, Gait, Transfer, Bed Mobility Treatment Plan: Continue Plan of Care Bed Mobility, Education, Functional Activity Marcos, Functional Strength, Group Therapy, Gait, Safety, Therapeutic Exercise Treatment Duration: Mar 03, 2021 Frequency: At least 5 of 7 days/Wk (IRF) Estimated Hrs Per Day: 1.5 hours per day OT IPOC Problems: Decreased Activ Tolerance, Decreased UE Strength, Dependent Transfers, Impaired Coordination, Impaired Funct Balance, Impaired I ADL's, Impaired Self-Care Skills, Restricted Funct UE ROM OT Treatment, Training and Edu: Yes Plan of Care: ADL Retraining, Functional Mobility, UE Funct Exercise/Act Treatment Duration: Mar 03, 2021 Frequency: At least 5 of 7 days/Wk (IRF) Estimated Hrs Per Day: 1.[address] IPOC Speech Therapy Treatment Plan: Continue Plan of Care Treatment Duration: Feb 17, 2021 Frequency: 4 times per week (Patient will receive skilled ST 4-5x per week) Estimated Hrs Per Day: .5 hour per day Speech Pathology Teacher/Case Mgmt Speech Pathology Teacher/Case Managemen: Discharge Planning Dietitian/Associate Professor Of Theatre Dietitian/Associate Professor Of Theatre to monitor nutritional status and make changes and/or recommendations as needed and work with speech pathology on dietary upgrades as the occur. Physician IPOC Medical Issues being managed closely and that require the 24 hour availability of a physician: Recent catastrophic stroke with right-sided weakness is at high risk for extension of stroke close monitoring from a cardiology standpoint for recurrent stroke from PFO Medical Issues: Bowel/Bladder Function, DVT Prophylaxis, Falls Precautions, Fluid/Electrolyte/Nutrition Balance, Infection Protection, Pain Management Brief Synthesis of Preadmission Screen, Post-Admission Evaluation, and Therapy Evaluations: PT and OT will focus on regaining function of the right sided weakness from stroke and learn how to use assistive devices to increase the independence in ADLs and ambulatory function with fall risk prevention Medical Prognosis: Good Anticipated Length of Stay: 10 days ALDEN CARCAMO DO Feb 04, 2021 05:29
--- NOTE | 2021-02-04 05:57 | PM&R Progress Note ---
Subjective HPI/CC On Admission Date Seen by Provider: Feb 04, 2021 Time Seen by Provider: 12:00 Subjective/Events-last exam 02/04/2021: Patient doing pretty well Right leg is cooperating today she reports Bowels moved yesterday Event monitor from [facility] was discussed We will reach out to Dr. Sanchez 02/03/21: Pt doing really well Dr. Sanchez consulted Bowels are a bit loose Frustrated that her right leg didnt work too well today but I reassured her Review of Systems General: Fatigue, Malaise Neurological: Weakness, Incoordination Objective Exam Vital Signs Vital Signs Date Time Temp Pulse Resp B/P (MAP) Pulse Ox O2 Delivery O2 Flow Rate FiO2 02/04/21 20:30 Room Air 02/04/21 20:00 36.6 85 18 108/59 (75) 97 Capillary Refill : General Appearance: No Apparent Distress, WD/WN HEENT: PERRL/EOMI, Normal ENT Inspection, Pharynx Normal Neck: Full Range of Motion, Normal Inspection, Non Tender, Supple, Carotid Bruit Respiratory: Chest Non Tender, Lungs Clear, Normal Breath Sounds, No Accessory Muscle Use, No Respiratory Distress Cardiovascular: Regular Rate, Rhythm, No Edema, No Gallop, No JVD, No Murmur, Normal Peripheral Pulses Gastrointestinal: Normal Bowel Sounds, No Organomegaly, No Pulsatile Mass, Non Tender, Soft Back: Normal Inspection, No CVA Tenderness, No Vertebral Tenderness Extremity: Normal Capillary Refill, Normal Inspection, Normal Range of Motion (Except right sided weakness 1/5), Non Tender, No Calf Tenderness, No Pedal Edema Neurologic/Psychiatric: Alert, Oriented x3, No Motor/Sensory Deficits, Normal Mood/Affect, Abnormal Gait, Facial Droop (Right-sided) Skin: Normal Color, Warm/Dry Lymphatic: No Adenopathy Results/Procedures Lab Patient resulted labs reviewed. FIM Transfers Therapy Code Descriptions/Definitions Functional [place] Measure: 0=Not Assessed/NA 4=Minimal Assistance 1=Total Assistance 5=Supervision or Setup 2=Maximal Assistance 6=Modified [place] 3=Moderate Assistance 7=Complete IndependenceSCALE: Activities may be completed with or without assistive devices. 1-Xfjsgonojk-blwljbg completes the activity by him/herself with no assistance from a helper. 5-Set-up or Clean-up Assistance-helper sets up or cleans up; patient completes activity. [place] assists only prior to or following the activity. 4-Supervision or Touching Assistance-helper provides verbal cues and/or touching/steadying and/or contact guard assistance as patient completes activity. Assistance may be provided throughout the activity or intermittently. 3-Partial/Moderate Assistance-helper does LESS THAN HALF the effort. [place] lifts, holds or supports trunk or limbs, but provides less than half the effort. 2-Substantial/Maximal Assistance-helper does MORE THAN HALF the effort. [place] lifts or holds trunk or limbs and provides more than half the effort. 0-Pxnkyzeve-mcotfu does ALL the effort. Patient does none of the effort to complete the activity. Or, the assistance of 2 or more helpers is required for the patient to complete the activity. If activity was not attempted, code reason: 7-Patient Refused. 9-Not Applicable-not attempted and the patient did not perform the activity before the current illness, exacerbation or injury. 10-Not Attempted due to Environmental Limitations-(lack of equipment, weather restraints, etc.). 88-Not Attempted due to Medical Conditions or Safety Concerns. Roll Left to Right (QC): 3 Sit to Lying (QC): 3 Sit to Stand (QC): 3 Chair/Xzy-mf-Kpzbl Xfer(QC): 2 (max assist to manage walker and to turn safely) Car Transfer (QC): 2 Gait Training Does the Patient Walk?: Yes Walk 10 feet (QC): 2 Walk 50 ft with 2 Turns(QC): 88 Walk 150 ft (QC): 88 Walking 10ft/uneven surface-QC: 88 Gait Assistive Device: FWW (platform) Wheelchair Training Wheel 50 ft with 2 turns (QC): 9 Wheel 150 ft (QC): 9 Stair Training 1 Step (curb) (QC): 88 4 Steps (QC): 88 12 Steps (QC): 88 Balance Picking up an Object (QC): 88 ADL-Treatment Eating (QC): 4 Oral Hygiene (QC): 88 Shower/Bathe Self (QC): 88 Upper Body Dressing (QC): 3 Lower Body Dressing (QC): 1 On/Off Footwear (QC): 2 Toileting Hygiene (QC): 1 Assessment/Plan Assessment and Plan Assess & Plan/Chief Complaint Assessment: CVA with right sided weakness GERD Herpes ophtho left 10/11 OP HTN HLP Plan: Cardiology consultation Home meds Monitor closely 02/04/2021: Monitor closely Blood pressure monitored Event monitor versus loop recorder (1) CVA (cerebral vascular accident) (2) PFO (patent foramen ovale) (3) GERD (gastroesophageal reflux disease) (4) Hypertension (5) Hyperlipidemia (6) Right sided weakness (7) Osteoporosis (8) Postherpetic neuralgia (9) Zoster ophthalmicus ALDEN CARCAMO DO Feb 04, 2021 05:57
[2021-02-04 07:46] VITALS: BP 169/77
--- NOTE | 2021-02-04 08:06 | Cardiology Progress Note ---
Subjective Date Seen by Provider: Feb 04, 2021 Time Seen by Provider: 08:05 Subjective/Events-last exam Patient sitting up in chair, no new complaints. Denies any chest pain or dy spnea. Denies any palpitations. Objective-Cardiology Exam Last Set of Vital Signs Vital Signs 02/04/21 02/04/21 08:10 09:00 Temp 36.0 Pulse 92 Resp 18 B/P (MAP) 113/72 (86) Pulse Ox 97 O2 Delivery Room Air Capillary Refill : General: Alert, Oriented X3, Cooperative HEENT: Atraumatic, PERRLA Neck: Supple, No JVD, No Thyromegaly Lungs: Clear to Auscultation, Normal Air Movement Heart: Regular Rate, Normal S1, Normal S2, No Murmurs Abdomen: Normal Bowel Sounds, Soft, No Tenderness, No Hepatosplenomegaly, No Masses Extremities: No Clubbing, No Cyanosis, No Edema, Normal Pulses, No Tenderness/Swelling Skin: No Rashes, No Breakdown, No Significant Lesion Neuro: Normal Gait, Normal Speech, Strength at 5/5 X4 Ext, Normal Tone, Sensation Intact Psych/Mental Status: Mental Status NL, Mood NL A/P-Cardiology Admission Diagnosis CVA HTN HLP GERD Assessment/Plan 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 No evidence of carotid artery stenosis per CTA Head/neck done at [facility]. 2D Echo done 01/29/21 showing normal LV size with EF 65%, mild to moderate mitral regurgitation, moderate tricuspid regurgitation. PFO present. Maintained on ASA and Plavix. Continues to have right sided weakness. Continue with PT/OT. Patient reports telemetry at [facility] revealed SR. 30 day event monitor ordered and being placed today. HTN, controlled, continue to monitor. HLP, recently started on statin. Continue to monitor as outpatient GERD Hx of shingles resulting in decreased vision in left eye Osteoporosis Patient was seen and evaluated with Smita today, has been doing better, receiving physical therapy, was concerned about her event recorder that was ordered by [facility] care attendant, it was mailed to her and she was asking about explanation about device, no way to place it. Explained to her that we will assign back to our freezer laboratory technician, overall continue with physical therapy and monitor. Continue to monitor blood pressure and lipids Supervisory-Addendum Brief Supervisory Addendum Participated in pt care: history, MDM, physical Personally performed: exam, history, MDM Care discussed with: SMITA DASH Feb 04, 2021 08:06 BARTOLO WESTON MD Feb 04, 2021 13:05
[2021-02-04 08:10] VITALS: BP 113/72
[2021-02-04] MEDS: CLOPIDOGREL 75 MG (PLAVIX) TABLET PO SCH (08:31)
[2021-02-04] MEDS: SENNA W/DOCUSATE (SENOKOT S) TABLET PO SCH ×2 (08:31→21:41)
[2021-02-04] MEDS: DOCUSATE SODIUM 100 MG (COLACE) CAP PO SCH ×2 (08:31→21:00)
[2021-02-04] MEDS: PREGABALIN 75 MG (LYRICA) CAP PO SCH ×2 (08:31→20:19)
[2021-02-04] MEDS: VITAMIN D3 25 MCG (1,000 UNITS) TABLET PO SCH (08:31)
[2021-02-04] MEDS: PANTOPRAZOLE 40 MG (PROTONIX) TAB PO SCH (08:31)
[2021-02-04] MEDS: CALCIUM CARB + VIT D 600 MG (CALCARB + D) TAB PO SCH (08:32)
[2021-02-04] MEDS: LORATADINE (CLARITIN) 10 MG TAB PO SCH (08:32)
[2021-02-04] MEDS: ASPIRIN 81 MG CHEW (CHILDREN'S ASA) PO SCH (08:32)
[2021-02-04] MEDS: lisINopril 5 MG (PRINIVIL) TABLET PO SCH (08:32)
--- NOTE | 2021-02-04 08:57 | Physical Therapy Daily Note ---
PT Daily Note-Current Subjective Patient in recliner pre tx, agrees to PT, has no complaints of pain. Appearance Patient in restroom post tx in WC to transfer to toilet, patient would rather not have a male therapist help her with this, nurse is aware and will be able to assist her soon. Mental Status Patient Orientation: Person, Place, Situation Transfers SCALE: Activities may be completed with or without assistive devices. 6-Mtnfjwwndx-aikbssv completes the activity by him/herself with no assistance from a helper. 5-Set-up or Clean-up Assistance-helper sets up or cleans up; patient completes activity. [place] assists only prior to or following the activity. 4-Supervision or Touching Assistance-helper provides verbal cues and/or touching/steadying and/or contact guard assistance as patient completes activity. Assistance may be provided throughout the activity or intermittently. 3-Partial/Moderate Assistance-helper does LESS THAN HALF the effort. [place] lifts, holds or supports trunk or limbs, but provides less than half the effort. 2-Substantial/Maximal Assistance-helper does MORE THAN HALF the effort. [place] lifts or holds trunk or limbs and provides more than half the effort. 5-Edlpefbku-epmgjh does ALL the effort. Patient does none of the effort to complete the activity. Or, the assistance of 2 or more helpers is required for the patient to complete the activity. If activity was not attempted, code reason: 7-Patient Refused. 9-Not Applicable-not attempted and the patient did not perform the activity before the current illness, exacerbation or injury. 10-Not Attempted due to Environmental Limitations-(lack of equipment, weather restraints, etc.). 88-Not Attempted due to Medical Conditions or Safety Concerns. Sit to Stand (QC): 3 Chair/Rjq-th-Xuhgn Xfer(QC): 3 Patient needs a lot of cues for positioning when turning to sit, she gets confused or tries to perform it in awkward positions Gait Training Distance: 20'x4 Walk 10 feet (QC): 3 Gait Persons Needed: 1 Gait Assistive Device: Walker Mauro Patient used a right AFO and cast shoe which also has some ankle support, without this her ankle will roll, patient needs a lot of cues for sequencing and step placement and weight shifting Wheelchair Training Does the Pt Use a Wheelchair?: Yes Wheel 50 ft with 2 turns (QC): 3 Type of Wheelchair: Manual 120'x2 Treatments transfers, ambulation, WC mobility Assessment Current Status: Fair Progress improving ambulation, has some right knee hyperextension PT Short Term Goals Short Term Goals Time Frame: Feb 17, 2021 Roll Left & Right: 5 Sit to lyin Lying to sitting on side of be: 5 Sit to stand: 4 Chair/djb-se-bctww transfer: 4 Walk 50 feet with two turns: 4 Walk 150 feet: 4 PT Bilingual [employer] Goals Bilingual [employer] Goals PT Bilingual [employer] Goals Time Frame: Mar 03, 2021 Roll Left & Right (QC): 6 Sit to Lying (QC): 6 Lying-Sitting on Side/Bed(QC): 6 Sit to Stand (QC): 6 Chair/Vzr-px-Mbozq Xfer(QC): 6 Toilet Transfer (QC): 6 Car Transfer (QC): 6 Does the Patient Walk: Yes Walk 10 feet (QC): 6 Walk 50ft with 2 Turns (QC): 6 Walk 150 ft (QC): 6 Walking 10ft on Uneven Surface: 5 1 Step (curb) (QC): 6 4 Steps (QC): 4 12 Steps (QC): 4 Picking up an Object (QC): 4 Does the Pt use WC or Scooter?: No Wheel 50 feet with 2 turns (QC: 9 Wheel 150 feet: 9 PT Plan Problem List Problem List: Activity Tolerance, Functional Strength, Safety, Balance, Gait, Transfer, Bed Mobility, ROM Treatment/Plan Treatment Plan: Continue Plan of Care Treatment Plan: Bed Mobility, Education, Functional Activity Marcos, Functional Strength, Group Therapy, Gait, Safety, Therapeutic Exercise, Transfers Treatment Duration: Mar 03, 2021 Frequency: At least 5 of 7 days/Wk (IRF) Estimated Hrs Per Day: 1.5 hours per day Patient and/or Family Agrees t: Yes Safety Risks/Education Patient Education: Gait Training, Transfer Techniques, Correct Positioning, W/C Management, Safety Issues Teaching Recipient: Patient Teaching Methods: Demonstration, Discussion Response to Teaching: Reinforcement Needed Time/GCodes Time In: 0800 Time Out: 0900 Total Billed Treatment Time: 60 Total Billed Treatment 1 visit FA 60' LAUREANO OTT PT Feb 04, 2021 08:57
[2021-02-04] MEDS: polyethylene glycoL POWDER 17 GM (MIRALAX) PACK PO SCH ×2 (09:19→21:41)
--- NOTE | 2021-02-04 09:50 | Speech Therapy Daily Note ---
Speech Daily Progress Note Subjective Date Seen by Provider: Feb 04, 2021 Time Seen by Provider: 00:30 Patient was resting in her recliner following her PT session. She states she feels like she did well with her walking today. Objective Patient completed a series of OME x10 with visual cues and Vital Stim at 4.0. Assessment Assessment Current Status: Good Progress Treatment Plan Continue Plan of Care Speech Short Term Goals Short Term Goals Short Term Goals 1) Patient will complete OME x10 without cues at 90% or greater. 2) Patient will improve speech production at 100% intelligible. Speech Usp Goals Usp Goals Patient will demo effective communication and oral motor function at 100% intelligible. Speech-Plan Patient/Family Goals Patient/Family Goals: Patient plans on returning home where she lives with the . Treatment Plan Speech Therapy Treatment Plan: Continue Plan of Care Treatment Duration: Feb 17, 2021 Frequency: 4 times per week (Patient will receive skilled ST 4-5x per week) Estimated Hrs Per Day: .5 hour per day Rehab Potential: Good Barriers to Learning: Patient's recent CVA Pt/Family Agrees to Plan: Yes Safety Risks/Education Teaching Recipient: Patient Teaching Methods: Demonstration, Discussion Response to Teaching: Verbalize Understanding, Return Demonstration Education Topics Provided: Safety with oral intake due to decreased sensation, safety within her room Time Speech Therapy Time In: 09:00 Speech Therapy Time Out: 09:30 Total Billed Time: 30 Billed Treatment Time 1, MARCELA Duong Feb 04, 2021 09:50
--- NOTE | 2021-02-04 12:46 | Occupational Ther Daily Note ---
OT Current Status-Daily Note Subjective No pain reported. Mental Status/Objective Patient Orientation: Person, Place, Time, Situation ADL-Treatment Therapy Code Descriptions/Definitions Functional [place] Measure: 0=Not Assessed/NA 4=Minimal Assistance 1=Total Assistance 5=Supervision or Setup 2=Maximal Assistance 6=Modified [place] 3=Moderate Assistance 7=Complete IndependenceSCALE: Activities may be completed with or without assistive devices. 9-Mqgrjbrkzr-hsmhlzw completes the activity by him/herself with no assistance from a helper. 5-Set-up or Clean-up Assistance-helper sets up or cleans up; patient completes activity. [place] assists only prior to or following the activity. 4-Supervision or Touching Assistance-helper provides verbal cues and/or touching/steadying and/or contact guard assistance as patient completes activity. Assistance may be provided throughout the activity or intermittently. 3-Partial/Moderate Assistance-helper does LESS THAN HALF the effort. [place] lifts, holds or supports trunk or limbs, but provides less than half the effort. 2-Substantial/Maximal Assistance-helper does MORE THAN HALF the effort. [place] lifts or holds trunk or limbs and provides more than half the effort. 3-Jopxzzbhk-jymesl does ALL the effort. Patient does none of the effort to complete the activity. Or, the assistance of 2 or more helpers is required for the patient to complete the activity. If activity was not attempted, code reason: 7-Patient Refused. 9-Not Applicable-not attempted and the patient did not perform the activity before the current illness, exacerbation or injury. 10-Not Attempted due to Environmental Limitations-(lack of equipment, weather restraints, etc.). 88-Not Attempted due to Medical Conditions or Safety Concerns. Eating (QC): 4 Oral Hygiene (QC): 4 (Seated at sink in wheelchair.) Shower/Bathe Self (QC): 3 (Mod assist overall. Requires assistance to wash rear rodolfo area and for balance in stance.) Upper Body Dressing (QC): 3 (Mod assist overall. Max assist for bra, and min assist to don shirt.) Lower Body Dressing (QC): 2 On/Off Footwear: 2 Toileting Hygiene (QC): 2 (Pt. able to cleanse self after urination, but required assistance to doff/don pants over hips.) Toilet Transfer (QC): 3 (Mod assist) Other Treatment Pt. doing better with transfers to left side than to right. She is able to pull up with left UE and pivot with min assist. Transferred into/out of shower and toilet. After ADLs, OT performed gentle PROM to right UE in all planes. Pt. has slight shoulder shrug, but no other functional movement. Pt. does indicate light touch, no pain, and no subluxation in shoulder. Transferred back to bed and transferred sit-supine with min assist. All needs met. Education OT Patient Education: Correct positioning, Exercise program, Modified ADL techniques, Progress toward Goal/Update tx plan, Purpose of tx/functional ac tivities, Reviewed precautions, Rehab process, Transfer techniques Teaching Recipient: Patient Teaching Methods: Demonstration, Discussion Response to Teaching: Verbalize Understanding, Return Demonstration OT Short Term Goals Short Term Goals Time Frame: Feb 17, 2021 Eatin Oral hygiene: 4 Toileting hygiene: 4 Shower/bathe self: 3 Upper body dressin Lower body dressin Putting on/taking off footwear: 4 OT Heading Matcher And Assembler Goals Penitentiary Goals Time Frame: Mar 03, 2021 Eating (QC): 6 Oral Hygiene (QC): 6 Toileting Hygiene (QC): 6 Shower/Bathe Self (QC): 4 Upper Body Dressing (QC): 5 Lower Body Dressing (QC): 5 On/Off Footwear (QC): 6 Pt. will participate in Occupational therapy visual assessment, and goals will be made as necessary. Additional Goals: 1-Demonstrate ADL Tasks, 2-Verbalize Understanding, 3- ImproveStrength/Marcos 1=Demonstrate adherence to instructed precautions during ADL tasks. 2=Patient will verbalize/demonstrate understanding of assistive devices/modifications for ADL. 3=Patient will improve strength/tolerance for activity to enable patient to perform ADL's. OT Education/Plan Problem List/Assessment Assessment: Decreased Activ Tolerance, Decreased UE Strength, Dependent Transfers, Impaired Bed Mobility, Impaired Coordination, Impaired Funct Balance, Impaired I ADL's, Impaired Self-Care Skills, Restricted Funct UE ROM, Visual- Perceptual Deficit Discharge Recommendations Plan/Recommendations: Continue POC Therapy Discharge Recommendati: Home & Family, Post Acute OT Treatment Plan/Plan of Care Treatment,Training & Education: Yes Patient would benefit from OT for education, treatment and training to promote independence in ADL's, mobility, safety and/or upper extremity function for ADL's. Plan of Care: ADL Retraining, Functional Mobility, UE Funct Exercise/Act Treatment Duration: Mar 03, 2021 Frequency: At least 5 of 7 days/Wk (IRF) Estimated Hrs Per Day: 1.5 hours per day Agreement: Yes Rehab Potential: Good Time/GCodes Start Time: 09:30 Stop Time: 10:45 Total Time Billed (hr/min): 75 Billed Treatment Time 1, ADL x 60minutes, Ex x 15minutes MARKO DELACRUZ OT Feb 04, 2021 12:46
--- NOTE | 2021-02-04 13:25 | Physical Therapy Daily Note ---
PT Daily Note-Current Subjective Patient in recliner pre tx, agrees to PT, has no complaints of pain. Appearance Patient in bed post tx with nurse call, phone, tray, all needs met. Mental Status Patient Orientation: Normal For Age Transfers SCALE: Activities may be completed with or without assistive devices. 5-Glwxpnlsnx-kxvxgur completes the activity by him/herself with no assistance from a helper. 5-Set-up or Clean-up Assistance-helper sets up or cleans up; patient completes activity. [place] assists only prior to or following the activity. 4-Supervision or Touching Assistance-helper provides verbal cues and/or touching/steadying and/or contact guard assistance as patient completes activity. Assistance may be provided throughout the activity or intermittently. 3-Partial/Moderate Assistance-helper does LESS THAN HALF the effort. [place] lifts, holds or supports trunk or limbs, but provides less than half the effort. 2-Substantial/Maximal Assistance-helper does MORE THAN HALF the effort. [place] lifts or holds trunk or limbs and provides more than half the effort. 0-Tulghvlyt-zhheap does ALL the effort. Patient does none of the effort to complete the activity. Or, the assistance of 2 or more helpers is required for the patient to complete the activity. If activity was not attempted, code reason: 7-Patient Refused. 9-Not Applicable-not attempted and the patient did not perform the activity before the current illness, exacerbation or injury. 10-Not Attempted due to Environmental Limitations-(lack of equipment, weather restraints, etc.). 88-Not Attempted due to Medical Conditions or Safety Concerns. Roll Left & Right (QC): 6 Sit to Lying (QC): 3 Sit to Stand (QC): 3 Chair/Ccr-zc-Plzxo Xfer(QC): 3 Wheelchair Training Does the Pt Use a Wheelchair?: Yes Wheel 50 ft with 2 turns (QC): 3 Type of Wheelchair: Manual 120'x2 Exercises NuStep Minutes: 15 NuStep Workload: 4 Treatments bed mobility and transfers, WC mobility, functional strengthening Assessment Current Status: Fair Progress improved transfers to the left side PT Short Term Goals Short Term Goals Time Frame: Feb 17, 2021 Roll Left & Right: 5 Sit to lyin Lying to sitting on side of be: 5 Sit to stand: 4 Chair/kca-gx-cygdd transfer: 4 Walk 50 feet with two turns: 4 Walk 150 feet: 4 PT Assisted Goals Bander Goals PT [place]ander Goals Time Frame: Mar 03, 2021 Roll Left & Right (QC): 6 Sit to Lying (QC): 6 Lying-Sitting on Side/Bed(QC): 6 Sit to Stand (QC): 6 Chair/Rkf-cn-Ljhrw Xfer(QC): 6 Toilet Transfer (QC): 6 Car Transfer (QC): 6 Does the Patient Walk: Yes Walk 10 feet (QC): 6 Walk 50ft with 2 Turns (QC): 6 Walk 150 ft (QC): 6 Walking 10ft on Uneven Surface: 5 1 Step (curb) (QC): 6 4 Steps (QC): 4 12 Steps (QC): 4 Picking up an Object (QC): 4 Does the Pt use WC or Scooter?: No Wheel 50 feet with 2 turns (QC: 9 Wheel 150 feet: 9 PT Plan Problem List Problem List: Activity Tolerance, Functional Strength, Safety, Balance, Gait, Transfer, Bed Mobility, ROM Treatment/Plan Treatment Plan: Continue Plan of Care Treatment Plan: Bed Mobility, Education, Functional Activity Marcos, Functional Strength, Group Therapy, Gait, Safety, Therapeutic Exercise, Transfers Treatment Duration: Mar 03, 2021 Frequency: At least 5 of 7 days/Wk (IRF) Estimated Hrs Per Day: 1.5 hours per day Patient and/or Family Agrees t: Yes Safety Risks/Education Patient Education: Transfer Techniques, Correct Positioning, W/C Management, Safety Issues Teaching Recipient: Patient Teaching Methods: Demonstration, Discussion Response to Teaching: Reinforcement Needed Time/GCodes Time In: 1300 Time Out: 1325 Total Billed Treatment Time: 25 Total Billed Treatment 1 visit EX 15' FA 10' LAUREANO OTT PT Feb 04, 2021 13:25
[2021-02-04] MEDS ORDERED: ALEN70TA80 PO (14:34)
[2021-02-04] MEDS ORDERED: ACET-2267 PO (14:34)
[2021-02-04] MEDS ORDERED: NAPR-1211 PO (14:34)
[2021-02-04] MEDS ORDERED: CALC600T80 PO (14:34)
[2021-02-04 20:00] VITALS: BP 108/59
[2021-02-04] MEDS: TIMOLOL MALEATE 0.5% 5 ML (TIMOPTIC) BTL OU SCH (20:20)
--- NOTE | 2021-02-05 05:51 | PM&R Progress Note ---
Subjective HPI/CC On Admission Date Seen by Provider: Feb 05, 2021 Time Seen by Provider: 12:00 Subjective/Events-last exam 02/05/2021: Patient doing really well Bowels moved yesterday No major issues Talked about her MRI and CT scan and November graciously sent me copies so we will discuss later 02/04/2021: Patient doing pretty well Right leg is cooperating today she reports Bowels moved yesterday Event monitor from [facility] was discussed We will reach out to Dr. Sanchez 02/03/21: Pt doing really well Dr. Sanchez consulted Bowels are a bit loose Frustrated that her right leg didnt work too well today but I reassured her Review of Systems General: Fatigue Neurological: Weakness, Incoordination Objective Exam Vital Signs Vital Signs Date Time Temp Pulse Resp B/P (MAP) Pulse Ox O2 Delivery O2 Flow Rate FiO2 02/05/21 20:54 Room Air 02/05/21 12:43 79 02/05/21 07:24 36.6 18 129/61 (83) 96 Capillary Refill : General Appearance: No Apparent Distress, WD/WN HEENT: PERRL/EOMI, Normal ENT Inspection, Pharynx Normal Neck: Full Range of Motion, Normal Inspection, Non Tender, Supple, Carotid Bruit Respiratory: Chest Non Tender, Lungs Clear, Normal Breath Sounds, No Accessory Muscle Use, No Respiratory Distress Cardiovascular: Regular Rate, Rhythm, No Edema, No Gallop, No JVD, No Murmur, Normal Peripheral Pulses Gastrointestinal: Normal Bowel Sounds, No Organomegaly, No Pulsatile Mass, Non Tender, Soft Back: Normal Inspection, No CVA Tenderness, No Vertebral Tenderness Extremity: Normal Capillary Refill, Normal Inspection, Normal Range of Motion (Except right sided weakness 1/5), Non Tender, No Calf Tenderness, No Pedal Edema Neurologic/Psychiatric: Alert, Oriented x3, No Motor/Sensory Deficits, Normal Mood/Affect, Abnormal Gait, Facial Droop (Right-sided) Skin: Normal Color, Warm/Dry Lymphatic: No Adenopathy Results/Procedures Lab Patient resulted labs reviewed. FIM Transfers Therapy Code Descriptions/Definitions Functional [place] Measure: 0=Not Assessed/NA 4=Minimal Assistance 1=Total Assistance 5=Supervision or Setup 2=Maximal Assistance 6=Modified [place] 3=Moderate Assistance 7=Complete IndependenceSCALE: Activities may be completed with or without assistive devices. 1-Cpftkzfcdo-faplftw completes the activity by him/herself with no assistance from a helper. 5-Set-up or Clean-up Assistance-helper sets up or cleans up; patient completes activity. [place] assists only prior to or following the activity. 4-Supervision or Touching Assistance-helper provides verbal cues and/or touching/steadying and/or contact guard assistance as patient completes activity. Assistance may be provided throughout the activity or intermittently. 3-Partial/Moderate Assistance-helper does LESS THAN HALF the effort. [place] lifts, holds or supports trunk or limbs, but provides less than half the effort. 2-Substantial/Maximal Assistance-helper does MORE THAN HALF the effort. [place] lifts or holds trunk or limbs and provides more than half the effort. 7-Neekccyzd-dabdbs does ALL the effort. Patient does none of the effort to complete the activity. Or, the assistance of 2 or more helpers is required for the patient to complete the activity. If activity was not attempted, code reason: 7-Patient Refused. 9-Not Applicable-not attempted and the patient did not perform the activity before the current illness, exacerbation or injury. 10-Not Attempted due to Environmental Limitations-(lack of equipment, weather restraints, etc.). 88-Not Attempted due to Medical Conditions or Safety Concerns. Roll Left to Right (QC): 6 Sit to Lying (QC): 3 Sit to Stand (QC): 3 Chair/Mle-ys-Hqhjm Xfer(QC): 3 Car Transfer (QC): 2 Gait Training Does the Patient Walk?: Yes Distance: 20'x4 Walk 10 feet (QC): 3 Walk 50 ft with 2 Turns(QC): 88 Walk 150 ft (QC): 88 Walking 10ft/uneven surface-QC: 88 Gait Persons Needed: 1 Gait Assistive Device: Walker Mauro Wheelchair Training Does the Pt Use a Wheelchair?: Yes Wheel 50 ft with 2 turns (QC): 3 Wheel 150 ft (QC): 9 Type of Wheelchair: Manual Stair Training 1 Step (curb) (QC): 88 4 Steps (QC): 88 12 Steps (QC): 88 Balance Picking up an Object (QC): 88 ADL-Treatment Eating (QC): 4 Oral Hygiene (QC): 4 (Seated at sink in wheelchair.) Shower/Bathe Self (QC): 3 (Mod assist overall. Requires assistance to wash rear rodolfo area and for balance in stance.) Upper Body Dressing (QC): 3 (Mod assist overall. Max assist for bra, and min assist to don shirt.) Lower Body Dressing (QC): 2 On/Off Footwear (QC): 2 Toileting Hygiene (QC): 2 (Pt. able to cleanse self after urination, but required assistance to doff/don pants over hips.) Toilet Transfer (QC): 3 (Mod assist) Assessment/Plan Assessment and Plan Assess & Plan/Chief Complaint Assessment: CVA with right sided weakness GERD Herpes ophtho left 10/11 OP HTN HLP Plan: Cardiology consultation Home meds Monitor closely 02/04/2021: Monitor closely Blood pressure monitored Event monitor versus loop recorder 02/05/2021: Monitor closely Discussed MRI and CT scans once obtained (1) CVA (cerebral vascular accident) (2) PFO (patent foramen ovale) (3) GERD (gastroesophageal reflux disease) (4) Hypertension (5) Hyperlipidemia (6) Right sided weakness (7) Osteoporosis (8) Postherpetic neuralgia (9) Zoster ophthalmicus ALDEN CARCAMO DO Feb 05, 2021 05:51
[2021-02-05] MEDS: lisINopril 5 MG (PRINIVIL) TABLET PO SCH (07:23)
[2021-02-05] MEDS: CALCIUM CARB + VIT D 600 MG (CALCARB + D) TAB PO SCH (07:23)
[2021-02-05] MEDS: VITAMIN D3 25 MCG (1,000 UNITS) TABLET PO SCH (07:23)
[2021-02-05] MEDS: CLOPIDOGREL 75 MG (PLAVIX) TABLET PO SCH (07:23)
[2021-02-05] MEDS: PANTOPRAZOLE 40 MG (PROTONIX) TAB PO SCH (07:23)
[2021-02-05] MEDS: PREGABALIN 75 MG (LYRICA) CAP PO SCH ×2 (07:23→20:14)
[2021-02-05] MEDS: ASPIRIN 81 MG CHEW (CHILDREN'S ASA) PO SCH (07:23)
[2021-02-05 07:24] VITALS: BP 129/61
[2021-02-05] MEDS: LORATADINE (CLARITIN) 10 MG TAB PO SCH (07:24)
[2021-02-05] MEDS: polyethylene glycoL POWDER 17 GM (MIRALAX) PACK PO SCH ×2 (07:35→20:14)
[2021-02-05] MEDS: SENNA W/DOCUSATE (SENOKOT S) TABLET PO SCH ×2 (07:38→20:14)
[2021-02-05] MEDS: DOCUSATE SODIUM 100 MG (COLACE) CAP PO SCH ×2 (07:38→20:14)
--- NOTE | 2021-02-05 08:53 | Physical Therapy Daily Note ---
PT Daily Note-Current Subjective Patient in recliner pre tx, agrees to PT, has no complaints of pain. Needs dressed, max assist with pants and shoes and AFO, female PT tech helps her with bra and shirt. Appearance Patient in WC in room post tx, wants a female nurse to help her use the restroom, nurse notified. Mental Status Patient Orientation: Person, Place, Situation Transfers SCALE: Activities may be completed with or without assistive devices. 3-Obpjgulxif-weglkgq completes the activity by him/herself with no assistance from a helper. 5-Set-up or Clean-up Assistance-helper sets up or cleans up; patient completes activity. [place] assists only prior to or following the activity. 4-Supervision or Touching Assistance-helper provides verbal cues and/or touc flavia/steadying and/or contact guard assistance as patient completes activity. Assistance may be provided throughout the activity or intermittently. 3-Partial/Moderate Assistance-helper does LESS THAN HALF the effort. [place] lifts, holds or supports trunk or limbs, but provides less than half the effort. 2-Substantial/Maximal Assistance-helper does MORE THAN HALF the effort. [place] lifts or holds trunk or limbs and provides more than half the effort. 2-Tnnmixgvw-pvtiup does ALL the effort. Patient does none of the effort to complete the activity. Or, the assistance of 2 or more helpers is required for the patient to complete the activity. If activity was not attempted, code reason: 7-Patient Refused. 9-Not Applicable-not attempted and the patient did not perform the activity before the current illness, exacerbation or injury. 10-Not Attempted due to Environmental Limitations-(lack of equipment, weather restraints, etc.). 88-Not Attempted due to Medical Conditions or Safety Concerns. Sit to Stand (QC): 3 Chair/Kab-ll-Zfusz Xfer(QC): 3 Practiced stand pivot transfers x4 to the left and x4 to the right. Cues for proper positioning, she can do it to the left with CGA and to the right with min assist. Gait Training Distance: 20'x4 Walk 10 feet (QC): 3 Gait Persons Needed: 1 Gait Assistive Device: Walker Mauro slow, has trouble with sequencing, min assist for balance, uses right AFO Wheelchair Training Does the Pt Use a Wheelchair?: Yes Wheel 50 ft with 2 turns (QC): 3 Wheel 150 ft (QC): 3 Type of Wheelchair: Manual 150'x2 Treatments transfers, ambulation, WC mobility, dressing Assessment Current Status: Fair Progress improved endurance, less fatigue PT Short Term Goals Short Term Goals Time Frame: Feb 17, 2021 Roll Left & Right: 5 Sit to lyin Lying to sitting on side of be: 5 Sit to stand: 4 Chair/zsx-qh-mvert transfer: 4 Walk 50 feet with two turns: 4 Walk 150 feet: 4 PT Movie Machine Operator Goals Usp Goals PT Movie Machine Operator Goals Time Frame: Mar 03, 2021 Roll Left & Right (QC): 6 Sit to Lying (QC): 6 Lying-Sitting on Side/Bed(QC): 6 Sit to Stand (QC): 6 Chair/Phf-lk-Xtepw Xfer(QC): 6 Toilet Transfer (QC): 6 Car Transfer (QC): 6 Does the Patient Walk: Yes Walk 10 feet (QC): 6 Walk 50ft with 2 Turns (QC): 6 Walk 150 ft (QC): 6 Walking 10ft on Uneven Surface: 5 1 Step (curb) (QC): 6 4 Steps (QC): 4 12 Steps (QC): 4 Picking up an Object (QC): 4 Does the Pt use WC or Scooter?: No Wheel 50 feet with 2 turns (QC: 9 Wheel 150 feet: 9 PT Plan Problem List Problem List: Activity Tolerance, Functional Strength, Safety, Balance, Gait, Transfer, Bed Mobility, ROM Treatment/Plan Treatment Plan: Continue Plan of Care Treatment Plan: Bed Mobility, Education, Functional Activity Marcos, Functional Strength, Group Therapy, Gait, Safety, Therapeutic Exercise, Transfers Treatment Duration: Mar 03, 2021 Frequency: At least 5 of 7 days/Wk (IRF) Estimated Hrs Per Day: 1.5 hours per day Patient and/or Family Agrees t: Yes Safety Risks/Education Patient Education: Gait Training, Transfer Techniques, Correct Positioning, W/C Management, Safety Issues Teaching Recipient: Patient Teaching Methods: Demonstration, Discussion Response to Teaching: Reinforcement Needed Time/GCodes Time In: 0800 Time Out: 0900 Total Billed Treatment Time: 60 Total Billed Treatment 1 visit FA Tera' LAUREANO OTT PT Feb 05, 2021 08:53
--- NOTE | 2021-02-05 10:05 | Occupational Ther Daily Note ---
OT Current Status-Daily Note Subjective Pt upright in w/c upon OT entering room, pt agreeable to OT tx. Mental Status/Objective Patient Orientation: Person, Place, Time, Situation ADL-Treatment Therapy Code Descriptions/Definitions Functional [place] Measure: 0=Not Assessed/NA 4=Minimal Assistance 1=Total Assistance 5=Supervision or Setup 2=Maximal Assistance 6=Modified [place] 3=Moderate Assistance 7=Complete IndependenceSCALE: Activities may be completed with or without assistive devices. 9-Eqxfjshsve-ryzvszv completes the activity by him/herself with no assistance from a helper. 5-Set-up or Clean-up Assistance-helper sets up or cleans up; patient completes activity. [place] assists only prior to or following the activity. 4-Supervision or Touching Assistance-helper provides verbal cues and/or touching/steadying and/or contact guard assistance as patient completes activity. Assistance may be provided throughout the activity or intermittently. 3-Partial/Moderate Assistance-helper does LESS THAN HALF the effort. [place] lifts, holds or supports trunk or limbs, but provides less than half the effort. 2-Substantial/Maximal Assistance-helper does MORE THAN HALF the effort. [place] lifts or holds trunk or limbs and provides more than half the effort. 9-Gvktgbyzk-pkyimt does ALL the effort. Patient does none of the effort to complete the activity. Or, the assistance of 2 or more helpers is required for the patient to complete the activity. If activity was not attempted, code reason: 7-Patient Refused. 9-Not Applicable-not attempted and the patient did not perform the activity before the current illness, exacerbation or injury. 10-Not Attempted due to Environmental Limitations-(lack of equipment, weather restraints, etc.). 88-Not Attempted due to Medical Conditions or Safety Concerns. Other Treatment Pt seated in w/c, propelled self to therapy gym. OT tx with focus on neuromuscular reeducation of RUE. OT performed PROM RUE all planes. Pt demo'd ability to complete shoulder shrugs, performing 2x5 reps BUEs. Pt attempted to perform shoulder protraction and retraction with limited movement noted. OT educated pt on self PROM for RUE in all planes, pt demo'd and verbalized unde rstanding, performing x5 reps each. Pt placed in gravity eliminated plane, completed x10 reps elbow flexion with tapping facilitation to biceps. Facilitation performed to triceps for extension, but no functional movement noted. In gravity eliminated plane, pt has some elbow flexion with towel, completing x2 reps without facilitation, pt reported fatigue. Pt propelled w/c back most of the way to her room, OT assisted the rest of the way due to pt's fatigue. Pt performed SPT from w/c to bed towards R side, min A. Post tx, pt laying in bed, call light in reach and all needs met. Education OT Patient Education: Correct positioning, Disease process, Energy conservation, Exercise program, Home exercise program, Modified ADL techniques, Progress toward Goal/Update tx plan, Purpose of tx/functional activities, Rehab process, Safety issues, Transfer techniques Teaching Recipient: Patient Teaching Methods: Demonstration, Discussion Response to Teaching: Verbalize Understanding, Return Demonstration OT Short Term Goals Short Term Goals Time Frame: Feb 17, 2021 Eatin Oral hygiene: 4 Toileting hygiene: 4 Shower/bathe self: 3 Upper body dressin Lower body dressin Putting on/taking off footwear: 4 OT Certified Pathology Assistant Goals Usp Goals Time Frame: Mar 03, 2021 Eating (QC): 6 Oral Hygiene (QC): 6 Toileting Hygiene (QC): 6 Shower/Bathe Self (QC): 4 Upper Body Dressing (QC): 5 Lower Body Dressing (QC): 5 On/Off Footwear (QC): 6 Pt. will participate in Occupational therapy visual assessment, and goals will be made as necessary. Additional Goals: 1-Demonstrate ADL Tasks, 2-Verbalize Understanding, 3- ImproveStrength/Marcos 1=Demonstrate adherence to instructed precautions during ADL tasks. 2=Patient will verbalize/demonstrate understanding of assistive devices/modif ications for ADL. 3=Patient will improve strength/tolerance for activity to enable patient to perform ADL's. OT Education/Plan Problem List/Assessment Assessment: Decreased Activ Tolerance, Decreased UE Strength, Impaired Bed Mobility, Impaired Coordination, Impaired Funct Balance, Impaired I ADL's, Impaired Self-Care Skills, Restricted Funct UE ROM Discharge Recommendations Plan/Recommendations: Continue POC Treatment Plan/Plan of Care Patient would benefit from OT for education, treatment and training to promote independence in ADL's, mobility, safety and/or upper extremity function for ADL's. Plan of Care: ADL Retraining, Functional Mobility, UE Funct Exercise/Act Treatment Duration: Mar 03, 2021 Frequency: At least 5 of 7 days/Wk (IRF) Estimated Hrs Per Day: 1.5 hours per day Agreement: Yes Rehab Potential: Good Time/GCodes Start Time: 09:00 Stop Time: 10:00 Total Time Billed (hr/min): 60 Billed Treatment Time 1, NM 4 MARIA LUISA BATISTA OT Feb 05, 2021 10:05
--- NOTE | 2021-02-05 11:47 | Speech Therapy Daily Note ---
Speech Daily Progress Note Subjective Date Seen by Provider: Feb 05, 2021 Time Seen by Provider: 00:30 Patient was resting in her recliner following her other therapies. Objective Patient completed OME x10 with minimal cues with Vital Stim at 4.5. Assessment Assessment Current Status: Good Progress Treatment Plan Continue Plan of Care Speech Short Term Goals Short Term Goals Short Term Goals 1) Patient will complete OME x10 without cues at 90% or greater. 2) Patient will improve speech production at 100% intelligible. Speech Heater Worker Goals Heater Worker Goals Patient will demo effective communication and oral motor function at 100% intelligible. Speech-Plan Patient/Family Goals Patient/Family Goals: Patient plans to return to her home where she lives with her . Treatment Plan Speech Therapy Treatment Plan: Continue Plan of Care Treatment Duration: Feb 17, 2021 Frequency: 4 times per week (Patient will receive skilled ST 4-5x per week) Estimated Hrs Per Day: .5 hour per day Rehab Potential: Good Barriers to Learning: Patient's recent CVA Pt/Family Agrees to Plan: Yes Safety Risks/Education Teaching Recipient: Patient Teaching Methods: Demonstration, Discussion Response to Teaching: Verbalize Understanding, Return Demonstration Education Topics Provided: Continued safety within her room Time Speech Therapy Time In: 11:00 Speech Therapy Time Out: 11:30 Total Billed Time: 30 Billed Treatment Time 1JAKE BETH[address] ST Feb 05, 2021 11:47
--- NOTE | 2021-02-05 13:05 | Cardiology Progress Note ---
Subjective Date Seen by Provider: Feb 05, 2021 Time Seen by Provider: 13:04 Subjective/Events-last exam Patient was seen at bedside sitting comfortably, still having weakness in the right side. No chest pain. Decided against proceeding with the event recorder Review of Systems General: No Chills, No Night Sweats, No Fatigue, No Malaise, No Appetite, No Other HEENT: No Head Aches, No Visual Changes, No Eye Pain, No Ear Pain, No Dysphasia, No Sinus Congestion, No Post Nasal Drip, No Sore Throat, No Other Pulmonary: No Dyspnea, No Cough, No Pleuritic Chest Pain, No Other Cardiovascular: No: Chest Pain, Palpitations, Orthopnea, Paroxysmal Noc. Dyspnea, Edema, Lt Headedness, Other Objective-Cardiology Exam Last Set of Vital Signs Vital Signs 02/05/21 02/05/21 02/05/21 07:24 09:00 12:43 Temp 36.6 Pulse 79 Resp 18 B/P (MAP) 129/61 (83) Pulse Ox 96 O2 Delivery Room Air Capillary Refill : General: Alert, Oriented X3, Cooperative HEENT: Atraumatic, PERRLA Neck: Supple, No JVD, No Thyromegaly Lungs: Clear to Auscultation, Normal Air Movement Heart: Regular Rate, Normal S1, Normal S2, No Murmurs Abdomen: Normal Bowel Sounds, Soft, No Tenderness, No Hepatosplenomegaly, No Masses Extremities: No Clubbing, No Cyanosis, No Edema, Normal Pulses, No Tenderness/Swelling Skin: No Rashes, No Breakdown, No Significant Lesion Neuro: Normal Gait, Normal Speech, Strength at 5/5 X4 Ext, Normal Tone, Sensation Intact Psych/Mental Status: Mental Status NL, Mood NL A/P-Cardiology Admission Diagnosis CVA HTN HLP GERD Assessment/Plan 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 No evidence of carotid artery stenosis per CTA Head[facility]neck done at [facility]. 2D Echo done 01/29/21 showing normal LV size with EF 65%, mild to moderate mitral regurgitation, moderate tricuspid regurgitation. PFO present. Maintained on ASA and Plavix. Continues to have right sided weakness. Continue with PT/OT. Patient reports telemetry at [facility] revealed SR. planning to proceed with loop monitor implant HTN, controlled, continue to monitor. HLP, recently started on statin. Continue to monitor as outpatient GERD Hx of shingles resulting in decreased vision in left eye Osteoporosis BARTOLO WESTON MD Feb 05, 2021 1:05 pm
--- NOTE | 2021-02-05 14:57 | Therapy Group Daily Note ---
Therapy Daily Group Note Patient Education Topic Home Safety, Exercises Exercises LE Seated Exercise, Gross Motor, UE Exercise Session Ratio (pt:therapist): 4:1 Goal of Session: Home Safety Strategies, UE/LE Strengthing Goal Met for this Session: Yes Pt Benefit of Group: Contributions to Others, Increased Functional Safety, Increased Functional Strength, Improved Cognition, Recognition of Peers, Socialization Other/Notes Patient transferred into and propelled to group therapy in the common area of rehab. Each patient introduced themselves and said where they were from and answered a question requiring recall and critical thinking. Each patient participated in a home safety activity involving flash cards and had to teach a couple of exercises (UE and LE) to the other patients from a card they were given, finally patients worked on UE strength with ball throw/catch. Patient then propelled back to her room and transferred to bed with nurse call, phone, tray, all needs met. Start Time: 13:00 Stop Time: 14:00 Total Billed Treatment Time: 60 Total Billed Treatment 1 visit [facility] LAUREANO GIRARD PT Feb 05, 2021 14:57
[2021-02-05 20:00] VITALS: BP 112/71
[2021-02-05] MEDS: TIMOLOL MALEATE 0.5% 5 ML (TIMOPTIC) BTL OU SCH (20:14)
[2021-02-06 07:30] VITALS: BP 123/63
--- NOTE | 2021-02-06 08:42 | PM&R Progress Note ---
Subjective HPI/CC On Admission Date Seen by Provider: Feb 06, 2021 Time Seen by Provider: 12:00 Subjective/Events-last exam 02/06/2021: Patient doing pretty well Working with therapy Bowels really moved very well Splint on right foot has been helpful Gave her a copy of her MRI as she requested 02/05/2021: Patient doing really well Bowels moved yesterday No major issues Talked about her MRI and CT scan and November graciously sent me copies so we will discuss later 02/04/2021: Patient doing pretty well Right leg is cooperating today she reports Bowels moved yesterday Event monitor from [facility] was discussed We will reach out to Dr. Sanchez 02/03/21: Pt doing really well Dr. Sanchez consulted Bowels are a bit loose Frustrated that her right leg didnt work too well today but I reassured her Review of Systems Neurological: Weakness, Incoordination Objective Exam Vital Signs Vital Signs Date Time Temp Pulse Resp B/P (MAP) Pulse Ox O2 Delivery O2 Flow Rate FiO2 02/06/21 13:00 80 02/06/21 09:00 Room Air 02/06/21 07:30 36.7 20 123/63 (83) 95 Capillary Refill : General Appearance: No Apparent Distress, WD/WN HEENT: PERRL/EOMI, Normal ENT Inspection, Pharynx Normal Neck: Full Range of Motion, Normal Inspection, Non Tender, Supple, Carotid Bruit Respiratory: Chest Non Tender, Lungs Clear, Normal Breath Sounds, No Accessory Muscle Use, No Respiratory Distress Cardiovascular: Regular Rate, Rhythm, No Edema, No Gallop, No JVD, No Murmur, Normal Peripheral Pulses Gastrointestinal: Normal Bowel Sounds, No Organomegaly, No Pulsatile Mass, Non Tender, Soft Back: Normal Inspection, No CVA Tenderness, No Vertebral Tenderness Extremity: Normal Capillary Refill, Normal Inspection, Normal Range of Motion (Except right sided weakness 1/5), Non Tender, No Calf Tenderness, No Pedal Edema Neurologic/Psychiatric: Alert, Oriented x3, No Motor/Sensory Deficits, Normal Mood/Affect, Abnormal Gait, Facial Droop (Right-sided) Skin: Normal Color, Warm/Dry Lymphatic: No Adenopathy Results/Procedures Lab Patient resulted labs reviewed. FIM Transfers Therapy Code Descriptions/Definitions Functional [place] Measure: 0=Not Assessed/NA 4=Minimal Assistance 1=Total Assistance 5=Supervision or Setup 2=Maximal Assistance 6=Modified Sellers 3=Moderate Assistance 7=Complete IndependenceSCALE: Activities may be completed with or without assistive devices. 4-Veytcqazlb-axedodo completes the activity by him/herself with no assistance from a helper. 5-Set-up or Clean-up Assistance-helper sets up or cleans up; patient completes activity. [place] assists only prior to or following the activity. 4-Supervision or Touching Assistance-helper provides verbal cues and/or touching/steadying and/or contact guard assistance as patient completes activity. Assistance may be provided throughout the activity or intermittently. 3-Partial/Moderate Assistance-helper does LESS THAN HALF the effort. [place] lifts, holds or supports trunk or limbs, but provides less than half the effort. 2-Substantial/Maximal Assistance-helper does MORE THAN HALF the effort. [place] lifts or holds trunk or limbs and provides more than half the effort. 7-Bxysmdwmd-ndwwxq does ALL the effort. Patient does none of the effort to complete the activity. Or, the assistance of 2 or more helpers is required for the patient to complete the activity. If activity was not attempted, code reason: 7-Patient Refused. 9-Not Applicable-not attempted and the patient did not perform the activity before the current illness, exacerbation or injury. 10-Not Attempted due to Environmental Limitations-(lack of equipment, weather restraints, etc.). 88-Not Attempted due to Medical Conditions or Safety Concerns. Roll Left to Right (QC): 6 Sit to Lying (QC): 3 Sit to Stand (QC): 3 Chair/Zfv-ft-Ckaco Xfer(QC): 3 Car Transfer (QC): 2 Gait Training Does the Patient Walk?: Yes Distance: 20'x4 Walk 10 feet (QC): 3 Walk 50 ft with 2 Turns(QC): 88 Walk 150 ft (QC): 88 Walking 10ft/uneven surface-QC: 88 Gait Persons Needed: 1 Gait Assistive Device: Walker Mauro Wheelchair Training Does the Pt Use a Wheelchair?: Yes Wheel 50 ft with 2 turns (QC): 3 Wheel 150 ft (QC): 3 Type of Wheelchair: Manual Stair Training 1 Step (curb) (QC): 88 4 Steps (QC): 88 12 Steps (QC): 88 Balance Picking up an Object (QC): 88 ADL-Treatment Eating (QC): 4 Oral Hygiene (QC): 4 (Seated at sink in wheelchair.) Shower/Bathe Self (QC): 3 (Mod assist overall. Requires assistance to wash rear rodolfo area and for balance in stance.) Upper Body Dressing (QC): 3 (Mod assist overall. Max assist for bra, and min assist to don shirt.) Lower Body Dressing (QC): 2 On/Off Footwear (QC): 2 Toileting Hygiene (QC): 2 (Pt. able to cleanse self after urination, but required assistance to doff/don pants over hips.) Toilet Transfer (QC): 3 (Mod assist) Assessment/Plan Assessment and Plan Assess & Plan/Chief Complaint Assessment: CVA with right sided weakness GERD Herpes ophtho left 10/11 OP HTN HLP Plan: Cardiology consultation Home meds Monitor closely 02/04/2021: Monitor closely Blood pressure monitored Event monitor versus loop recorder 02/05/2021: Monitor closely Discussed MRI and CT scans once obtained 02/06/2021: Continue aggressive therapy Splint on right foot (1) CVA (cerebral vascular accident) (2) PFO (patent foramen ovale) (3) GERD (gastroesophageal reflux disease) (4) Hypertension (5) Hyperlipidemia (6) Right sided weakness (7) Osteoporosis (8) Postherpetic neuralgia (9) Zoster ophthalmicus ALDEN CARCAMO DO Feb 06, 2021 08:42
[2021-02-06] MEDS: CALCIUM CARB + VIT D 600 MG (CALCARB + D) TAB PO SCH (08:59)
[2021-02-06] MEDS: VITAMIN D3 25 MCG (1,000 UNITS) TABLET PO SCH (08:59)
[2021-02-06] MEDS: lisINopril 5 MG (PRINIVIL) TABLET PO SCH (08:59)
[2021-02-06] MEDS: polyethylene glycoL POWDER 17 GM (MIRALAX) PACK PO SCH ×2 (08:59→20:10)
[2021-02-06] MEDS: ASPIRIN 81 MG CHEW (CHILDREN'S ASA) PO SCH (08:59)
[2021-02-06] MEDS: SENNA W/DOCUSATE (SENOKOT S) TABLET PO SCH ×2 (09:00→20:10)
[2021-02-06] MEDS: LORATADINE (CLARITIN) 10 MG TAB PO SCH (09:00)
[2021-02-06] MEDS: CLOPIDOGREL 75 MG (PLAVIX) TABLET PO SCH (09:00)
[2021-02-06] MEDS: DOCUSATE SODIUM 100 MG (COLACE) CAP PO SCH ×2 (09:00→20:10)
[2021-02-06] MEDS: PANTOPRAZOLE 40 MG (PROTONIX) TAB PO SCH (09:00)
[2021-02-06] MEDS: PREGABALIN 75 MG (LYRICA) CAP PO SCH ×2 (09:00→20:10)
--- NOTE | 2021-02-06 10:42 | Occupational Ther Daily Note ---
OT Current Status-Daily Note Subjective Pt seen in room, up in recliner, agreeable to OT. No pain mentioned. Appearance Alert and cooperative. Actively involved in her treatment. ADL-Treatment Pt transferred to the left from recliner to [facility] with CGA. Transported to bathroom where she positioned w/c at sink and brushed her teeth without help. She also washed her face and combed her hair unaided. Transferred to toilet SPT CGA using grab bar (going L and R), with OT help to manage clothing. She completed hygiene after BM and transferred back to [facility]. She helped position w/c to transfer to shower bench (L and R), with CGA. She was able to take her slipper socks off while seated in shower.She washed and dried all parts except back, seated using hand held shower) with setup, completed while sitting CGA to dry bottom. After transfer back to [facility] she donned briefs with mod assist (help with R leg and help pulling pants up while she stood with grab bar). Donned shirt and bra min assist each, following modified techniques. She was able to get her socks on but needed a little help holding R leg up. She also needed help to don AFO on R and temporary shoe. Therapy Code Descriptions/Definitions Functional [place] Measure: 0=Not Assessed/NA 4=Minimal Assistance 1=Total Assistance 5=Supervision or Setup 2=Maximal Assistance 6=Modified [place] 3=Moderate Assistance 7=Complete IndependenceSCALE: Activities may be completed with or without assistive devices. 5-Cmcxljqqvc-bfbaobf completes the activity by him/herself with no assistance from a helper. 5-Set-up or Clean-up Assistance-helper sets up or cleans up; patient completes activity. [place] assists only prior to or following the activity. 4-Supervision or Touching Assistance-helper provides verbal cues and/or touching/steadying and/or contact guard assistance as patient completes activity. Assistance may be provided throughout the activity or intermittently. 3-Partial/Moderate Assistance-helper does LESS THAN HALF the effort. [place] lifts, holds or supports trunk or limbs, but provides less than half the effort. 2-Substantial/Maximal Assistance-helper does MORE THAN HALF the effort. [place] lifts or holds trunk or limbs and provides more than half the effort. 5-Qsqvbhtbd-fxtmom does ALL the effort. Patient does none of the effort to complete the activity. Or, the assistance of 2 or more helpers is required for the patient to complete the activity. If activity was not attempted, code reason: 7-Patient Refused. 9-Not Applicable-not attempted and the patient did not perform the activity before the current illness, exacerbation or injury. 10-Not Attempted due to Environmental Limitations-(lack of equipment, weather restraints, etc.). 88-Not Attempted due to Medical Conditions or Safety Concerns. Oral Hygiene (QC): 6 Shower/Bathe Self (QC): 4 Upper Body Dressing (QC): 3 (min with bra and min with shirt) Lower Body Dressing (QC): 2 On/Off Footwear: 3 (Help with AFO/shoe and sock) Toileting Hygiene (QC): 3 (Help managing clothing) Toilet Transfer (QC): 4 (CGA) Other Treatment Pt education/review on self ranging techniques for R UE, which she competed with 10 reps each, Also worked in shoulder elevation, retraction, protraction and depression. Initially R shoulder lagged behind L and did not have equal range but, after repetitions and facilitation, R shoulder moved at same time as L and had almost equal active range. Pt encouraged to do these on her own in her room. Pt left up in w/c all needs met. Education OT Patient Education: Exercise program, Modified ADL techniques, Progress toward Goal/Update tx plan, Purpose of tx/functional activities, Transfer techniques Teaching Recipient: Patient Teaching Methods: Demonstration, Discussion Response to Teaching: Verbalize Understanding, Return Demonstration, Reinforcement Needed OT Short Term Goals Short Term Goals Time Frame: Feb 17, 2021 Eatin Oral hygiene: 4 Toileting hygiene: 4 Shower/bathe self: 3 Upper body dressin Lower body dressin Putting on/taking off footwear: 4 OT Mcfp Goals Air Hose Coupler Goals Time Frame: Mar 03, 2021 Eating (QC): 6 Oral Hygiene (QC): 6 Toileting Hygiene (QC): 6 Shower/Bathe Self (QC): 4 Upper Body Dressing (QC): 5 Lower Body Dressing (QC): 5 On/Off Footwear (QC): 6 Pt. will participate in Occupational therapy visual assessment, and goals will be made as necessary. Additional Goals: 1-Demonstrate ADL Tasks, 2-Verbalize Understanding, 3- ImproveStrength/Marcos 1=Demonstrate adherence to instructed precautions during ADL tasks. 2=Patient will verbalize/demonstrate understanding of assistive devices/modifications for ADL. 3=Patient will improve strength/tolerance for activity to enable patient to perform ADL's. OT Education/Plan Discharge Recommendations Plan/Recommendations: Continue POC Treatment Plan/Plan of Care Patient would benefit from OT for education, treatment and training to promote independence in ADL's, mobility, safety and/or upper extremity function for ADL's. Plan of Care: ADL Retraining, Functional Mobility, UE Funct Exercise/Act Treatment Duration: Mar 03, 2021 Frequency: At least 5 of 7 days/Wk (IRF) Estimated Hrs Per Day: 1.5 hours per day Agreement: Yes Rehab Potential: Good Time/GCodes Start Time: 08:45 Stop Time: 10:15 Total Time Billed (hr/min): 90 Billed Treatment Time visit, 70 minutes ADL, 20 minutes neuromotor SUJEY HUNT OT Feb 06, 2021 10:42
--- NOTE | 2021-02-06 10:58 | Physical Therapy Daily Note ---
PT Daily Note-Current Subjective Pt states "I'm pretty strong today". Pt denies pain. Mental Status Patient Orientation: Person, Place, Situation Transfers SCALE: Activities may be completed with or without assistive devices. 1-Gbuwuvdgew-msekani completes the activity by him/herself with no assistance from a helper. 5-Set-up or Clean-up Assistance-helper sets up or cleans up; patient completes activity. [place] assists only prior to or following the activity. 4-Supervision or Touching Assistance-helper provides verbal cues and/or touching/steadying and/or contact guard assistance as patient completes activity. Assistance may be provided throughout the activity or intermittently. 3-Partial/Moderate Assistance-helper does LESS THAN HALF the effort. [place] lifts, holds or supports trunk or limbs, but provides less than half the effort. 2-Substantial/Maximal Assistance-helper does MORE THAN HALF the effort. [place] lifts or holds trunk or limbs and provides more than half the effort. 6-Mkjdufrfp-wwiyjq does ALL the effort. Patient does none of the effort to complete the activity. Or, the assistance of 2 or more helpers is required for the patient to complete the activity. If activity was not attempted, code reason: 7-Patient Refused. 9-Not Applicable-not attempted and the patient did not perform the activity before the current illness, exacerbation or injury. 10-Not Attempted due to Environmental Limitations-(lack of equipment, weather restraints, etc.). 88-Not Attempted due to Medical Conditions or Safety Concerns. Exercises Seated Therapy Exercises: Ankle pumps, Sit to stand, Long arc quads, Hip flexion, Hip abd/add Seated Reps: 20 Assessment Current Status: Good Progress Pt russell ther ex well. Pt able to stand with min A for balance. Pt in care of OT post therapy session. PT Short Term Goals Short Term Goals Time Frame: Feb 17, 2021 Roll Left & Right: 5 Sit to lyin Lying to sitting on side of be: 5 Sit to stand: 4 Chair/thm-ut-ftxyv transfer: 4 Walk 50 feet with two turns: 4 Walk 150 feet: 4 PT Jail Goals Jail Goals PT Portfolio Director Goals Time Frame: Mar 03, 2021 Roll Left & Right (QC): 6 Sit to Lying (QC): 6 Lying-Sitting on Side/Bed(QC): 6 Sit to Stand (QC): 6 Chair/Hhb-wv-Uudlb Xfer(QC): 6 Toilet Transfer (QC): 6 Car Transfer (QC): 6 Does the Patient Walk: Yes Walk 10 feet (QC): 6 Walk 50ft with 2 Turns (QC): 6 Walk 150 ft (QC): 6 Walking 10ft on Uneven Surface: 5 1 Step (curb) (QC): 6 4 Steps (QC): 4 12 Steps (QC): 4 Picking up an Object (QC): 4 Does the Pt use WC or Scooter?: No Wheel 50 feet with 2 turns (QC: 9 Wheel 150 feet: 9 PT Plan Treatment/Plan Treatment Plan: Continue Plan of Care Treatment Plan: Bed Mobility, Education, Functional Activity Marcos, Functional Strength, Group Therapy, Gait, Safety, Therapeutic Exercise, Transfers Treatment Duration: Mar 03, 2021 Frequency: At least 5 of 7 days/Wk (IRF) Estimated Hrs Per Day: 1.5 hours per day Patient and/or Family Agrees t: Yes Time/GCodes Time In: 830 Time Out: 845 Total Billed Treatment Time: 15 Total Billed Treatment 1, ther ex 15' WICHO CHAN CPTA Feb 06, 2021 10:58
--- NOTE | 2021-02-06 11:23 | Cardiology Progress Note ---
Subjective Date Seen by Provider: Feb 06, 2021 Time Seen by Provider: 11:23 Subjective/Events-last exam Patient was seen at bedside, feeling better today, no new complaint Review of Systems General: No Chills, No Night Sweats, No Fatigue, No Malaise, No Appetite, No Other HEENT: No Head Aches, No Visual Changes, No Eye Pain, No Ear Pain, No Dysphasia, No Sinus Congestion, No Post Nasal Drip, No Sore Throat, No Other Pulmonary: No Dyspnea, No Cough, No Pleuritic Chest Pain, No Other Cardiovascular: No: Chest Pain, Palpitations, Orthopnea, Paroxysmal Noc. Dyspnea, Edema, Lt Headedness, Other Objective-Cardiology Exam Last Set of Vital Signs Vital Signs 02/06/21 02/06/21 07:30 09:00 Temp 36.7 Pulse 86 Resp 20 B/P (MAP) 123/63 (83) Pulse Ox 95 O2 Delivery Room Air Capillary Refill : General: Alert, Oriented X3, Cooperative HEENT: Atraumatic, PERRLA Neck: Supple, No JVD, No Thyromegaly Lungs: Clear to Auscultation, Normal Air Movement Heart: Regular Rate, Normal S1, Normal S2, No Murmurs Abdomen: Normal Bowel Sounds, Soft, No Tenderness, No Hepatosplenomegaly, No Masses Extremities: No Clubbing, No Cyanosis, No Edema, Normal Pulses, No Tenderness/Swelling Skin: No Rashes, No Breakdown, No Significant Lesion Neuro: Normal Gait, Normal Speech, Strength at 5/5 X4 Ext, Normal Tone, Sensation Intact Psych/Mental Status: Mental Status NL, Mood NL A/P-Cardiology Admission Diagnosis CVA HTN HLP GERD Assessment/Plan 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 No evidence of carotid artery stenosis per CTA Head/neck done at [facility]. 2D Echo done 01/29/21 showing normal LV size with EF 65%, mild to moderate mitral regurgitation, moderate tricuspid regurgitation. PFO present. Maintained on ASA and Plavix. Continues to have right sided weakness. Continue with PT/OT. Patient reports telemetry at [facility] revealed SR. planning to proceed with loop monitor implant HTN, controlled, continue to monitor. HLP, recently started on statin. Continue to monitor as outpatient GERD Hx of shingles resulting in decreased vision in left eye Osteoporosis BARTOLO WESTON MD Feb 06, 2021 11:23
--- NOTE | 2021-02-06 11:43 | Physical Therapy Daily Note ---
PT Daily Note-Current Subjective Pt agreeable. Pt denies pain. Mental Status Patient Orientation: Person, Place, Situation Transfers SCALE: Activities may be completed with or without assistive devices. 7-Ztzmrvapqq-yppfjfa completes the activity by him/herself with no assistance f rom a helper. 5-Set-up or Clean-up Assistance-helper sets up or cleans up; patient completes activity. [place] assists only prior to or following the activity. 4-Supervision or Touching Assistance-helper provides verbal cues and/or touching/steadying and/or contact guard assistance as patient completes activity. Assistance may be provided throughout the activity or intermittently. 3-Partial/Moderate Assistance-helper does LESS THAN HALF the effort. [place] lifts, holds or supports trunk or limbs, but provides less than half the effort. 2-Substantial/Maximal Assistance-helper does MORE THAN HALF the effort. [place] lifts or holds trunk or limbs and provides more than half the effort. 3-Ndnipxwch-dctcza does ALL the effort. Patient does none of the effort to complete the activity. Or, the assistance of 2 or more helpers is required for the patient to complete the activity. If activity was not attempted, code reason: 7-Patient Refused. 9-Not Applicable-not attempted and the patient did not perform the activity before the current illness, exacerbation or injury. 10-Not Attempted due to Environmental Limitations-(lack of equipment, weather restraints, etc.). 88-Not Attempted due to Medical Conditions or Safety Concerns. Exercises NuStep Minutes: 15 NuStep Workload: 1 Neuromuscular Used (R) LE and UE attachments for alignment Treatments Pt amb with PW and CGA, vc's for sequence and min A to stabilize knee. Pt wearing AFO (R) LE for all transfers and gait. Pt SPT at [facility]. Pt performed transfer training on plinth, requires mod A for sit to supine and min A for supine to sit. Pt performed SAQ, bridge on bolster, ham curl with YTB (L) LE, heel slide mod A (R) LE all x 20 reps Assessment Current Status: Good Progress PT back to recliner with call light and all needs met. PT Short Term Goals Short Term Goals Time Frame: Feb 17, 2021 Roll Left & Right: 5 Sit to lyin Lying to sitting on side of be: 5 Sit to stand: 4 Chair/hlz-ek-xzhrz transfer: 4 Walk 50 feet with two turns: 4 Walk 150 feet: 4 PT Detention Goals Detention Goals PT Brim Curler Goals Time Frame: Mar 03, 2021 Roll Left & Right (QC): 6 Sit to Lying (QC): 6 Lying-Sitting on Side/Bed(QC): 6 Sit to Stand (QC): 6 Chair/Olx-xk-Zhoim Xfer(QC): 6 Toilet Transfer (QC): 6 Car Transfer (QC): 6 Does the Patient Walk: Yes Walk 10 feet (QC): 6 Walk 50ft with 2 Turns (QC): 6 Walk 150 ft (QC): 6 Walking 10ft on Uneven Surface: 5 1 Step (curb) (QC): 6 4 Steps (QC): 4 12 Steps (QC): 4 Picking up an Object (QC): 4 Does the Pt use WC or Scooter?: No Wheel 50 feet with 2 turns (QC: 9 Wheel 150 feet: 9 PT Plan Treatment/Plan Treatment Plan: Continue Plan of Care Treatment Plan: Bed Mobility, Education, Functional Activity Marcos, Functional Strength, Group Therapy, Gait, Safety, Therapeutic Exercise, Transfers Treatment Duration: Mar 03, 2021 Frequency: At least 5 of 7 days/Wk (IRF) Estimated Hrs Per Day: 1.5 hours per day Patient and/or Family Agrees t: Yes Time/GCodes Time In: 1015 Time Out: 1130 Total Billed Treatment Time: 75 Total Billed Treatment 1, EX x 45', Gait x x 25', FA 5' WICHO CHAN CPTA Feb 06, 2021 11:43
[2021-02-06 20:00] VITALS: BP 93/54
[2021-02-06] MEDS: TIMOLOL MALEATE 0.5% 5 ML (TIMOPTIC) BTL OU SCH (20:10)
--- NOTE | 2021-02-07 05:58 | PM&R Progress Note ---
Subjective HPI/CC On Admission Date Seen by Provider: Feb 07, 2021 Time Seen by Provider: 12:00 Subjective/Events-last exam 02/07/2021: Patient doing really well today Moving her shoulder and elbow on the right side Had a large bowel movement this morning No other issues 02/06/2021: Patient doing pretty well Working with therapy Bowels really moved very well Splint on right foot has been helpful Gave her a copy of her MRI as she requested 02/05/2021: Patient doing really well Bowels moved yesterday No major issues Talked about her MRI and CT scan and November graciously sent me copies so we will discuss later 02/04/2021: Patient doing pretty well Right leg is cooperating today she reports Bowels moved yesterday Event monitor from [facility] was discussed We will reach out to Dr. Sanchez 02/03/21: Pt doing really well Dr. Sanchez consulted Bowels are a bit loose Frustrated that her right leg didnt work too well today but I reassured her Review of Systems Neurological: Weakness, Incoordination Objective Exam Vital Signs Vital Signs Date Time Temp Pulse Resp B/P (MAP) Pulse Ox O2 Delivery O2 Flow Rate FiO2 02/08/21 01:00 77 02/07/21 20:31 Room Air 02/07/21 20:00 37.1 18 138/55 (82) 92 Capillary Refill : General Appearance: No Apparent Distress, WD/WN HEENT: PERRL/EOMI, Normal ENT Inspection, Pharynx Normal Neck: Full Range of Motion, Normal Inspection, Non Tender, Supple, Carotid Bruit Respiratory: Chest Non Tender, Lungs Clear, Normal Breath Sounds, No Accessory Muscle Use, No Respiratory Distress Cardiovascular: Regular Rate, Rhythm, No Edema, No Gallop, No JVD, No Murmur, Normal Peripheral Pulses Gastrointestinal: Normal Bowel Sounds, No Organomegaly, No Pulsatile Mass, Non Tender, Soft Back: Normal Inspection, No CVA Tenderness, No Vertebral Tenderness Extremity: Normal Capillary Refill, Normal Inspection, Normal Range of Motion (Except right sided weakness 1/5), Non Tender, No Calf Tenderness, No Pedal Edema Neurologic/Psychiatric: Alert, Oriented x3, No Motor/Sensory Deficits, Normal Mood/Affect, Abnormal Gait, Facial Droop (Right-sided) Skin: Normal Color, Warm/Dry Lymphatic: No Adenopathy Results/Procedures Lab Laboratory Tests 02/08/21 06:25 Patient resulted labs reviewed. FIM Transfers Therapy Code Descriptions/Definitions Functional [place] Measure: 0=Not Assessed/NA 4=Minimal Assistance 1=Total Assistance 5=Supervision or Setup 2=Maximal Assistance 6=Modified [place] 3=Moderate Assistance 7=Complete IndependenceSCALE: Activities may be completed with or without assistive devices. 1-Qggotakdak-bzcrrok completes the activity by him/herself with no assistance from a helper. 5-Set-up or Clean-up Assistance-helper sets up or cleans up; patient completes activity. [place] assists only prior to or following the activity. 4-Supervision or Touching Assistance-helper provides verbal cues and/or touching/steadying and/or contact guard assistance as patient completes activity. Assistance may be provided throughout the activity or intermittently. 3-Partial/Moderate Assistance-helper does LESS THAN HALF the effort. [place] lifts, holds or supports trunk or limbs, but provides less than half the effort. 2-Substantial/Maximal Assistance-helper does MORE THAN HALF the effort. [place] lifts or holds trunk or limbs and provides more than half the effort. 1-Ruefavmei-bchdxr does ALL the effort. Patient does none of the effort to complete the activity. Or, the assistance of 2 or more helpers is required for the patient to complete the activity. If activity was not attempted, code reason: 7-Patient Refused. 9-Not Applicable-not attempted and the patient did not perform the activity before the current illness, exacerbation or injury. 10-Not Attempted due to Environmental Limitations-(lack of equipment, weather restraints, etc.). 88-Not Attempted due to Medical Conditions or Safety Concerns. Roll Left to Right (QC): 6 Sit to Lying (QC): 3 Sit to Stand (QC): 3 Chair/Gyt-gf-Wtfdp Xfer(QC): 3 Car Transfer (QC): 2 Gait Training Does the Patient Walk?: Yes Distance: 20'x4 Walk 10 feet (QC): 3 Walk 50 ft with 2 Turns(QC): 88 Walk 150 ft (QC): 88 Walking 10ft/uneven surface-QC: 88 Gait Persons Needed: 1 Gait Assistive Device: Walker Mauro Wheelchair Training Does the Pt Use a Wheelchair?: Yes Wheel 50 ft with 2 turns (QC): 3 Wheel 150 ft (QC): 3 Type of Wheelchair: Manual Stair Training 1 Step (curb) (QC): 88 4 Steps (QC): 88 12 Steps (QC): 88 Balance Picking up an Object (QC): 88 ADL-Treatment Eating (QC): 4 Oral Hygiene (QC): 6 Shower/Bathe Self (QC): 4 Upper Body Dressing (QC): 3 (min with bra and min with shirt) Lower Body Dressing (QC): 2 On/Off Footwear (QC): 3 (Help with AFO/shoe and sock) Toileting Hygiene (QC): 3 (Help managing clothing) Toilet Transfer (QC): 4 (CGA) Assessment/Plan Assessment and Plan Assess & Plan/Chief Complaint Assessment: CVA with right sided weakness GERD Herpes ophtho left 10/11 OP HTN HLP Plan: Cardiology consultation Home meds Monitor closely 02/04/2021: Monitor closely Blood pressure monitored Event monitor versus loop recorder 02/05/2021: Monitor closely Discussed MRI and CT scans once obtained 02/06/2021: Continue aggressive therapy Splint on right foot 02/07/2021: Continue bowel regimen Continue aggressive therapy Monitor blood pressure Telemetry (1) CVA (cerebral vascular accident) (2) PFO (patent foramen ovale) (3) GERD (gastroesophageal reflux disease) (4) Hypertension (5) Hyperlipidemia (6) Right sided weakness (7) Osteoporosis (8) Postherpetic neuralgia (9) Zoster ophthalmicus ALDEN CARCAMO DO Feb 07, 2021 05:58
[2021-02-07 07:30] VITALS: BP 118/60
[2021-02-07] MEDS: PREGABALIN 75 MG (LYRICA) CAP PO SCH ×2 (08:19→20:25)
[2021-02-07] MEDS: VITAMIN D3 25 MCG (1,000 UNITS) TABLET PO SCH (08:19)
[2021-02-07] MEDS: CALCIUM CARB + VIT D 600 MG (CALCARB + D) TAB PO SCH (08:19)
[2021-02-07] MEDS: ASPIRIN 81 MG CHEW (CHILDREN'S ASA) PO SCH (08:19)
[2021-02-07] MEDS: CLOPIDOGREL 75 MG (PLAVIX) TABLET PO SCH (08:19)
[2021-02-07] MEDS: PANTOPRAZOLE 40 MG (PROTONIX) TAB PO SCH (08:19)
[2021-02-07] MEDS: LORATADINE (CLARITIN) 10 MG TAB PO SCH (08:19)
[2021-02-07] MEDS: DOCUSATE SODIUM 100 MG (COLACE) CAP PO SCH ×2 (09:16→20:26)
[2021-02-07] MEDS: SENNA W/DOCUSATE (SENOKOT S) TABLET PO SCH ×2 (09:17→21:24)
[2021-02-07] MEDS: polyethylene glycoL POWDER 17 GM (MIRALAX) PACK PO SCH ×2 (09:17→21:24)
--- NOTE | 2021-02-07 09:47 | Cardiology Progress Note ---
Subjective Date Seen by Provider: Feb 07, 2021 Time Seen by Provider: 09:46 Subjective/Events-last exam Patient was seen at bedside, sitting comfortably, no new complaint Review of Systems General: No Chills, No Night Sweats, No Fatigue, No Malaise, No Appetite, No Other HEENT: No Head Aches, No Visual Changes, No Eye Pain, No Ear Pain, No Dysphasia, No Sinus Congestion, No Post Nasal Drip, No Sore Throat, No Other Pulmonary: No Dyspnea, No Cough, No Pleuritic Chest Pain, No Other Cardiovascular: No: Chest Pain, Palpitations, Orthopnea, Paroxysmal Noc. Dyspnea, Edema, Lt Headedness, Other Objective-Cardiology Exam Last Set of Vital Signs Vital Signs 02/07/21 02/07/21 07:30 09:18 Temp 36.8 Pulse 87 Resp 20 B/P (MAP) 118/60 (79) Pulse Ox 97 O2 Delivery Room Air Capillary Refill : General: Alert, Oriented X3, Cooperative HEENT: Atraumatic, PERRLA Neck: Supple, No JVD, No Thyromegaly Lungs: Clear to Auscultation, Normal Air Movement Heart: Regular Rate, Normal S1, Normal S2, No Murmurs Abdomen: Normal Bowel Sounds, Soft, No Tenderness, No Hepatosplenomegaly, No Masses Extremities: No Clubbing, No Cyanosis, No Edema, Normal Pulses, No Tenderness/Swelling Skin: No Rashes, No Breakdown, No Significant Lesion Neuro: Normal Gait, Normal Speech, Strength at 5/5 X4 Ext, Normal Tone, Sensation Intact Psych/Mental Status: Mental Status NL, Mood NL A/P-Cardiology Admission Diagnosis CVA HTN HLP GERD Assessment/Plan 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 No evidence of carotid artery stenosis per CTA Head/neck done at [facility]. 2D Echo done 01/29/21 showing normal LV size with EF 65%, mild to moderate mitral regurgitation, moderate tricuspid regurgitation. PFO present. Maintained on ASA and Plavix. Continues to have right sided weakness. Continue with PT/OT. Patient reports telemetry at [facility] revealed SR. planning to proceed with loop monitor implant Hypotension, I will discontinue lisinopril and monitor blood pressure Hyperlipidemia maintained on statin, continue to monitor Gastroesophageal reflux disease Hx of shingles resulting in decreased vision in left eye Osteoporosis BARTOLO WESTON MD Feb 07, 2021 09:47
[2021-02-07 20:00] VITALS: BP 138/55
[2021-02-07] MEDS: TIMOLOL MALEATE 0.5% 5 ML (TIMOPTIC) BTL OU SCH (20:26)
[2021-02-07] MEDS: ACETAMINOPHEN 325 MG TABLET PO PRN (21:50)
[2021-02-08 06:36] LABS: BASOPHILS % (AUTO) 1 % (0-10); EOSINOPHILS # (AUTO) 0.2 10^3/uL (0.0-0.3); EOSINOPHILS % (AUTO) 3 % (0-10); HEMATOCRIT 43 % (35-52); HEMOGLOBIN 14.5 g/dL (11.5-16.0); LYMPHOCYTES # (AUTO) 1.9 10^3/uL (1.0-4.0); LYMPHOCYTES % (AUTO) 33 % (12-44); MEAN CORPUSCULAR HEMOGLOBIN 31 pg (25-34); MEAN CORPUSCULAR HGB CONC 34 g/dL (32-36); MEAN CORPUSCULAR VOLUME 91 fL (80-99); MEAN PLATELET VOLUME 11.2 fL (9.0-12.2); MONOCYTES # (AUTO) 0.7 10^3/uL (0.0-1.0); MONOCYTES % (AUTO) 12 % (0-12); NEUTROPHILS % (AUTO) 51 % (42-75); PLATELET COUNT 220 10^3/uL (130-400); WHITE BLOOD COUNT 5.8 10^3/uL (4.3-11.0)
[2021-02-08 06:47] LABS: ALBUMIN 3.6 GM/DL (3.2-4.5); CHLORIDE 106 MMOL/L (98-107); POTASSIUM 3.7 MMOL/L (3.6-5.0); SODIUM 140 MMOL/L (135-145)
[2021-02-08 06:48] LABS: CALCIUM 8.9 MG/DL (8.5-10.1)
[2021-02-08 06:49] LABS: GLUCOSE 90 MG/DL (70-105)
[2021-02-08 06:50] LABS: TOTAL PROTEIN 6.2 GM/DL (6.4-8.2)
[2021-02-08 06:51] LABS: BILIRUBIN,TOTAL 0.6 MG/DL (0.1-1.0); CARBON DIOXIDE 25 MMOL/L (21-32)
[2021-02-08 06:53] LABS: ALKALINE PHOSPHATASE 82 U/L (40-136); CREATININE SERUM 0.69 MG/DL (0.60-1.30); GFR ESTIMATED > 60
[2021-02-08 06:54] LABS: BUN/CREATININE RATIO 19
[2021-02-08 06:56] LABS: ALANINE AMINOTRANSFERASE 27 U/L (0-55)
[2021-02-08 07:38] VITALS: BP 110/65
--- NOTE | 2021-02-08 08:34 | Cardiology Progress Note ---
Subjective Date Seen by Provider: Feb 08, 2021 Time Seen by Provider: 08:33 Subjective/Events-last exam Patient is sitting up in bed, no new complaints. Continues to have right sided weakness. Denies any chest pain Review of Systems General: No Chills, No Night Sweats, No Fatigue, No Malaise, No Appetite, No Other HEENT: No Head Aches, No Visual Changes, No Eye Pain, No Ear Pain, No Dysphasia, No Sinus Congestion, No Post Nasal Drip, No Sore Throat, No Other Pulmonary: No Dyspnea, No Cough, No Pleuritic Chest Pain, No Other Cardiovascular: No: Chest Pain, Palpitations, Orthopnea, Paroxysmal Noc. Dyspnea, Edema, Lt Headedness, Other Objective-Cardiology Exam Last Set of Vital Signs Vital Signs 02/08/21 07:38 Temp 36.3 Pulse 86 Resp 16 B/P (MAP) 110/65 (80) Pulse Ox 100 O2 Delivery Room Air Capillary Refill : General: Alert, Oriented X3, Cooperative HEENT: Atraumatic, PERRLA Neck: Supple, No JVD, No Thyromegaly Lungs: Clear to Auscultation, Normal Air Movement Heart: Regular Rate, Normal S1, Normal S2, No Murmurs Abdomen: Normal Bowel Sounds, Soft, No Tenderness, No Hepatosplenomegaly, No Masses Extremities: No Clubbing, No Cyanosis, No Edema, Normal Pulses, No Tenderness/Swelling Skin: No Rashes, No Breakdown, No Significant Lesion Neuro: Normal Gait, Normal Speech, Strength at 5/5 X4 Ext, Normal Tone, Sensati on Intact Psych/Mental Status: Mental Status NL, Mood NL Results Lab Laboratory Tests 02/08/21 06:25 A/P-Cardiology Admission Diagnosis CVA HTN HLP GERD Assessment/Plan 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 No evidence of carotid artery stenosis per CTA Head/neck done at [facility]. 2D Echo done 01/29/21 showing normal LV size with EF 65%, mild to moderate mitral regurgitation, moderate tricuspid regurgitation. PFO present. Maintained on ASA and Plavix. Continues to have right sided weakness. Continue with PT/OT. Patient reports telemetry at [facility] revealed SR. planning to proceed with loop monitor implant Hypotension, blood pressure improved after discontinuing lisinopril Hyperlipidemia maintained on statin, continue to monitor Gastroesophageal reflux disease Hx of shingles resulting in decreased vision in left eye Osteoporosis Patient was seen and evaluated with Smita, examination performed, management plan was discussed, agree with the current scribed note, I made few changes to the note using Italic font Patient was scheduled for loop monitor implant Reporting improvement of her symptoms, continue with physical therapy Monitor blood pressure and lipids SMITA BONILLA Feb 08, 2021 08:34 BARTOLO WESTON MD Feb 08, 2021 10:25
--- NOTE | 2021-02-08 08:54 | Physical Therapy Daily Note ---
PT Daily Note-Current Subjective Patient in recliner pre tx, agrees to PT, has no complaints of pain. Patient only has a gown on, needs dressed, nurse assists patient with shirt and bra Appearance Patient in therapy gym post tx, has OT right after PT Mental Status Patient Orientation: Person, Place, Situation Transfers SCALE: Activities may be completed with or without assistive devices. 8-Reuubxlcer-svxruer completes the activity by him/herself with no assistance from a helper. 5-Set-up or Clean-up Assistance-helper sets up or cleans up; patient completes activity. [place] assists only prior to or following the activity. 4-Supervision or Touching Assistance-helper provides verbal cues and/or touching/steadying and/or contact guard assistance as patient completes activity. Assistance may be provided throughout the activity or intermittently. 3-Partial/Moderate Assistance-helper does LESS THAN HALF the effort. [place] lifts, holds or supports trunk or limbs, but provides less than half the effort. 2-Substantial/Maximal Assistance-helper does MORE THAN HALF the effort. [place] lifts or holds trunk or limbs and provides more than half the effort. 9-Oezkqfuyr-rbcryj does ALL the effort. Patient does none of the effort to complete the activity. Or, the assistance of 2 or more helpers is required for the patient to complete the activity. If activity was not attempted, code reason: 7-Patient Refused. 9-Not Applicable-not attempted and the patient did not perform the activity before the current illness, exacerbation or injury. 10-Not Attempted due to Environmental Limitations-(lack of equipment, weather restraints, etc.). 88-Not Attempted due to Medical Conditions or Safety Concerns. Sit to Stand (QC): 3 Chair/Lsx-ct-Uaqwl Xfer(QC): 3 Gait Training Does the Patient Walk?: Yes Distance: 30'x3 Walk 10 feet (QC): 3 Gait Assistive Device: Cane Large Base Quad Exercises NuStep Minutes: 15 NuStep Workload: 4 Treatments dressing, toileting (patient had to use the restroom after dressing, nurse assisted with this also), ambulation, transfers, functional strengthening Assessment Current Status: Fair Progress slowly improving ambulation. Patient gets distracted with sequencing during ambulation and has a very deviated path or may approach chair in the wrong way. Also patient is very focused on dressing and making sure everything is just right instead of performing therapy. PT Short Term Goals Short Term Goals Time Frame: Feb 17, 2021 Roll Left & Right: 5 Sit to lyin Lying to sitting on side of be: 5 Sit to stand: 4 Chair/itd-vb-ywtng transfer: 4 Walk 50 feet with two turns: 4 Walk 150 feet: 4 PT Custodial Goals Custodial Goals PT Custodial Goals Time Frame: Mar 03, 2021 Roll Left & Right (QC): 6 Sit to Lying (QC): 6 Lying-Sitting on Side/Bed(QC): 6 Sit to Stand (QC): 6 Chair/Cps-qn-Oqrsf Xfer(QC): 6 Toilet Transfer (QC): 6 Car Transfer (QC): 6 Does the Patient Walk: Yes Walk 10 feet (QC): 6 Walk 50ft with 2 Turns (QC): 6 Walk 150 ft (QC): 6 Walking 10ft on Uneven Surface: 5 1 Step (curb) (QC): 6 4 Steps (QC): 4 12 Steps (QC): 4 Picking up an Object (QC): 4 Does the Pt use WC or Scooter?: No Wheel 50 feet with 2 turns (QC: 9 Wheel 150 feet: 9 PT Plan Problem List Problem List: Activity Tolerance, Functional Strength, Safety, Balance, Gait, Transfer, Bed Mobility, ROM Treatment/Plan Treatment Plan: Continue Plan of Care Treatment Plan: Bed Mobility, Education, Functional Activity Mar[place], Functional Strength, Group Therapy, Gait, Safety, Therapeutic Exercise, Transfers Treatment Duration: Mar 03, 2021 Frequency: At least 5 of 7 days/Wk (IRF) Estimated Hrs Per Day: 1.5 hours per day Patient and/or Family Agrees t: Yes Safety Risks/Education Patient Education: Gait Training, Transfer Techniques, Correct Positioning, Safety Issues Teaching Recipient: Patient Teaching Methods: Demonstration, Discussion Response to Teaching: Reinforcement Needed Time/GCodes Time In: 0800 Time Out: 0900 Total Billed Treatment Time: 60 Total Billed Treatment 1 visit EX 15' FA 45' LAUREANO OTT PT Feb 08, 2021 08:54
[2021-02-08] MEDS: PREGABALIN 75 MG (LYRICA) CAP PO SCH ×2 (09:45→21:03)
[2021-02-08] MEDS: ASPIRIN 81 MG CHEW (CHILDREN'S ASA) PO SCH (09:45)
[2021-02-08] MEDS: LORATADINE (CLARITIN) 10 MG TAB PO SCH (09:45)
[2021-02-08] MEDS: CALCIUM CARB + VIT D 600 MG (CALCARB + D) TAB PO SCH (09:46)
[2021-02-08] MEDS: DOCUSATE SODIUM 100 MG (COLACE) CAP PO SCH ×2 (09:46→21:03)
[2021-02-08] MEDS: CLOPIDOGREL 75 MG (PLAVIX) TABLET PO SCH (09:46)
[2021-02-08] MEDS: PANTOPRAZOLE 40 MG (PROTONIX) TAB PO SCH (09:48)
--- NOTE | 2021-02-08 10:15 | PM&R Progress Note ---
Subjective HPI/CC On Admission Date Seen by Provider: Feb 08, 2021 Time Seen by Provider: 10:20 Subjective/Events-last exam 02/08/2021: Patient doing really well Status post loop recorder Had 3 loose bowel movements so we will hold laxatives Right arm is moving now 02/07/2021: Patient doing really well today Moving her shoulder and elbow on the right side Had a large bowel movement this morning No other issues 02/06/2021: Patient doing pretty well Working with therapy Bowels really moved very well Splint on right foot has been helpful Gave her a copy of her MRI as she requested 02/05/2021: Patient doing really well Bowels moved yesterday No major issues Talked about her MRI and CT scan and November graciously sent me copies so we will discuss later 02/04/2021: Patient doing pretty well Right leg is cooperating today she reports Bowels moved yesterday Event monitor from [facility] was discussed We will reach out to Dr. Sanchez 02/03/21: Pt doing really well Dr. Sanchez consulted Bowels are a bit loose Frustrated that her right leg didnt work too well today but I reassured her Review of Systems Neurological: Weakness, Incoordination Objective Exam Vital Signs Vital Signs Date Time Temp Pulse Resp B/P (MAP) Pulse Ox O2 Delivery O2 Flow Rate FiO2 02/09/21 01:00 64 02/08/21 21:08 Room Air 02/08/21 20:00 36.3 16 118/63 (81) 95 Capillary Refill : General Appearance: No Apparent Distress, WD/WN HEENT: PERRL/EOMI, Normal ENT Inspection, Pharynx Normal Neck: Full Range of Motion, Normal Inspection, Non Tender, Supple, Carotid Bruit Respiratory: Chest Non Tender, Lungs Clear, Normal Breath Sounds, No Accessory Muscle Use, No Respiratory Distress Cardiovascular: Regular Rate, Rhythm, No Edema, No Gallop, No JVD, No Murmur, Normal Peripheral Pulses Gastrointestinal: Normal Bowel Sounds, No Organomegaly, No Pulsatile Mass, Non Tender, Soft Back: Normal Inspection, No CVA Tenderness, No Vertebral Tenderness Extremity: Normal Capillary Refill, Normal Inspection, Normal Range of Motion (Except right sided weakness 1/5), Non Tender, No Calf Tenderness, No Pedal Edema Neurologic/Psychiatric: Alert, Oriented x3, No Motor/Sensory Deficits, Normal Mood/Affect, Abnormal Gait, Facial Droop (Right-sided) Skin: Normal Color, Warm/Dry Lymphatic: No Adenopathy Results/Procedures Lab Laboratory Tests 02/08/21 06:25 Patient resulted labs reviewed. FIM Transfers Therapy Code Descriptions/Definitions Functional [place] Measure: 0=Not Assessed/NA 4=Minimal Assistance 1=Total Assistance 5=Supervision or Setup 2=Maximal Assistance 6=Modified [place] 3=Moderate Assistance 7=Complete IndependenceSCALE: Activities may be completed with or without assistive devices. 3-Pcsvbpsrrj-hhohhsg completes the activity by him/herself with no assistance from a helper. 5-Set-up or Clean-up Assistance-helper sets up or cleans up; patient completes activity. [place] assists only prior to or following the activity. 4-Supervision or Touching Assistance-helper provides verbal cues and/or touching/steadying and/or contact guard assistance as patient completes activity. Assistance may be provided throughout the activity or intermittently. 3-Partial/Moderate Assistance-helper does LESS THAN HALF the effort. [place] lifts, holds or supports trunk or limbs, but provides less than half the effort. 2-Substantial/Maximal Assistance-helper does MORE THAN HALF the effort. [place] lifts or holds trunk or limbs and provides more than half the effort. 0-Gygmszvgc-jiwasc does ALL the effort. Patient does none of the effort to complete the activity. Or, the assistance of 2 or more helpers is required for the patient to complete the activity. If activity was not attempted, code reason: 7-Patient Refused. 9-Not Applicable-not attempted and the patient did not perform the activity before the current illness, exacerbation or injury. 10-Not Attempted due to Environmental Limitations-(lack of equipment, weather restraints, etc.). 88-Not Attempted due to Medical Conditions or Safety Concerns. Roll Left to Right (QC): 6 Sit to Lying (QC): 3 Sit to Stand (QC): 3 Chair/Rdm-xr-Qpywb Xfer(QC): 3 Car Transfer (QC): 2 Gait Training Does the Patient Walk?: Yes Distance: 30'x3 Walk 10 feet (QC): 3 Walk 50 ft with 2 Turns(QC): 88 Walk 150 ft (QC): 88 Walking 10ft/uneven surface-QC: 88 Gait Persons Needed: 1 Gait Assistive Device: Cane Large Base Quad Wheelchair Training Does the Pt Use a Wheelchair?: Yes Wheel 50 ft with 2 turns (QC): 3 Wheel 150 ft (QC): 3 Type of Wheelchair: Manual Stair Training 1 Step (curb) (QC): 88 4 Steps (QC): 88 12 Steps (QC): 88 Balance Picking up an Object (QC): 88 ADL-Treatment Eating (QC): 4 Oral Hygiene (QC): 6 Shower/Bathe Self (QC): 4 Upper Body Dressing (QC): 3 (min with bra and min with shirt) Lower Body Dressing (QC): 2 On/Off Footwear (QC): 3 (Help with AFO/shoe and sock) Toileting Hygiene (QC): 3 (Help managing clothing) Toilet Transfer (QC): 4 (CGA) Assessment/Plan Assessment and Plan Assess & Plan/Chief Complaint Assessment: CVA with right sided weakness GERD Herpes ophtho left 10/11 OP HTN HLP Status post loop recorder on 02/08/2021 Plan: Cardiology consultation Home meds Monitor closely 02/04/2021: Monitor closely Blood pressure monitored Event monitor versus loop recorder 02/05/2021: Monitor closely Discussed MRI and CT scans once obtained 02/06/2021: Continue aggressive therapy Splint on right foot 02/07/2021: Continue bowel regimen Continue aggressive therapy Monitor blood pressure Telemetry 02/08/2021: DC telemetry since loop recorder in place Monitor closely (1) CVA (cerebral vascular accident) (2) PFO (patent foramen ovale) (3) GERD (gastroesophageal reflux disease) (4) Hypertension (5) Hyperlipidemia (6) Right sided weakness (7) Osteoporosis (8) Postherpetic neuralgia (9) Zoster ophthalmicus ALDEN CARCAMO DO Feb 08, 2021 10:15
--- NOTE | 2021-02-08 10:26 | Implantation of Loop Monitor ---
Implant of Loop Monitior IMPLANTATION OF LOOP MONITOR REPORT DATE OF PROCEDURE: 02/08/21 PREOP DIAGNOSIS: Cryptogenic stroke POSTOP DIAGNOSIS: Cryptogenic stroke PROCEDURE DETAILS: The patient is a 75 female with history of cryptogenic stroke. Therefore implantable loop recorder was discussed and agreed with the patient. Informed consent was taken. All risks and complications were discussed at length. The patient was draped and prepped in the usual sterile fashion. Local anesthesia was lidocaine, which was given in the substernal area close to the 4th intercostal space. Loop monitor Sensorly with serial number [id number] was implanted according to the protocol. Steri-Strips were placed at the end of the procedure. There were no complications and the patient tolerated the procedure well. The device was interrogated with a voltage of. ANESTHESIA: Local anesthesia with lidocaine. COMPLICATIONS: None CONTRAST/FLUOROSCOPY: None CONCLUSION: Successful implantation of loop monitor with no complication FINAL DIAGNOSIS: Cryptogenic stroke Hypertension Hyperlipidemia BARTOLO WESTON MD Feb 08, 2021 10:26
--- NOTE | 2021-02-08 12:00 | Occupational Ther Daily Note ---
OT Current Status-Daily Note Subjective No pain reported. Appearance Pt. up in chair in therapy gym. Agrees to work with OT. Mental Status/Objective Patient Orientation: Person, Place, Time, Situation ADL-Treatment Therapy Code Descriptions/Definitions Functional [place] Measure: 0=Not Assessed/NA 4=Minimal Assistance 1=Total Assistance 5=Supervision or Setup 2=Maximal Assistance 6=Modified [place] 3=Moderate Assistance 7=Complete IndependenceSCALE: Activities may be completed with or without assistive devices. 3-Pigugnjhpy-ctklaud completes the activity by him/herself with no assistance from a helper. 5-Set-up or Clean-up Assistance-helper sets up or cleans up; patient completes activity. [place] assists only prior to or following the activity. 4-Supervision or Touching Assistance-helper provides verbal cues and/or touching/steadying and/or contact guard assistance as patient completes activity. Assistance may be provided throughout the activity or intermittently. 3-Partial/Moderate Assistance-helper does LESS THAN HALF the effort. [place] lifts, holds or supports trunk or limbs, but provides less than half the effort. 2-Substantial/Maximal Assistance-helper does MORE THAN HALF the effort. [place] lifts or holds trunk or limbs and provides more than half the effort. 3-Qwcunmbqv-zwhoxm does ALL the effort. Patient does none of the effort to complete the activity. Or, the assistance of 2 or more helpers is required for the patient to complete the activity. If activity was not attempted, code reason: 7-Patient Refused. 9-Not Applicable-not attempted and the patient did not perform the activity before the current illness, exacerbation or injury. 10-Not Attempted due to Environmental Limitations-(lack of equipment, weather restraints, etc.). 88-Not Attempted due to Medical Conditions or Safety Concerns. On/Off Footwear: 2 Other Treatment Pt. is already dressed. PT assisted her as she has just finished working with them. Pt. stood with quad cane and ambulated to another chair with min assistance. OT provided gentle PROM to right UE in all planes, to all joints, with joint compressions at all joints. Facilitated scapular glides, muscle tapping, and forearm rotation, and passive stretch as she tolerated. Pt. demonstrated increased movement in right shoulder, as well as some trace elbow extension. Unable to demonstrate elbow flexion, wrist extension, or finger flexion. Facilitated movement at gravity eliminated plane with pillow case on arm and elevated surface. Weight bearing exercises provided and elastic laces placed in shoes. Pt. able to doff shoe and AFO with mod assist and cues, but unable to don. Ambulated approximately 20 feet back to room with min assist with quad cane, but fatigues and required wheelchair. All needs met back in room. Education OT Patient Education: Correct positioning, Exercise program, Modified ADL techniques, Progress toward Goal/Update tx plan, Purpose of tx/functional activities, Reviewed precautions, Rehab process, Transfer techniques Teaching Recipient: Patient Teaching Methods: Demonstration, Discussion Response to Teaching: Verbalize Understanding, Return Demonstration OT Short Term Goals Short Term Goals Time Frame: Feb 17, 2021 Eatin Oral hygiene: 4 Toileting hygiene: 4 Shower/bathe self: 3 Upper body dressin Lower body dressin Putting on/taking off footwear: 4 OT Shelter Goals Shelter Goals Time Frame: Mar 03, 2021 Eating (QC): 6 Oral Hygiene (QC): 6 Toileting Hygiene (QC): 6 Shower/Bathe Self (QC): 4 Upper Body Dressing (QC): 5 Lower Body Dressing (QC): 5 On/Off Footwear (QC): 6 Pt. will participate in Occupational therapy visual assessment, and goals will be made as necessary. Additional Goals: 1-Demonstrate ADL Tasks, 2-Verbalize Understanding, 3- ImproveStrength/Marcos 1=Demonstrate adherence to instructed precautions during ADL tasks. 2=Patient will verbalize/demonstrate understanding of assistive devices/modif ications for ADL. 3=Patient will improve strength/tolerance for activity to enable patient to perform ADL's. OT Education/Plan Problem List/Assessment Assessment: Decreased Activ Tolerance, Decreased UE Strength, Dependent Transfers, Impaired Funct Balance, Impaired I ADL's, Impaired Self-Care Skills, Restricted Funct UE ROM Discharge Recommendations Plan/Recommendations: Continue POC Treatment Plan/Plan of Care Treatment,Training & Education: Yes Patient would benefit from OT for education, treatment and training to promote independence in ADL's, mobility, safety and/or upper extremity function for ADL's. Plan of Care: ADL Retraining, Functional Mobility, UE Funct Exercise/Act Treatment Duration: Mar 03, 2021 Frequency: At least 5 of 7 days/Wk (IRF) Estimated Hrs Per Day: 1.5 hours per day Agreement: Yes Rehab Potential: Good Time/GCodes Start Time: 09:00 Stop Time: 10:00 Total Time Billed (hr/min): 60 Billed Treatment Time 1, FA x 45minutes, ADL x 15minutes MARKO DELACRUZ OT Feb 08, 2021 12:00
[2021-02-08] MEDS: SENNA W/DOCUSATE (SENOKOT S) TABLET PO SCH ×2 (14:10→21:06)
[2021-02-08] MEDS: polyethylene glycoL POWDER 17 GM (MIRALAX) PACK PO SCH ×2 (14:10→21:05)
--- NOTE | 2021-02-08 14:22 | Therapy Group Daily Note ---
Therapy Daily Group Note Patient Education Topic Home Safety, Fall Prevention, Exercises Exercises LE Seated Exercise, UE Exercise Session Ratio (pt:therapist): 3:1 Goal of Session: Home Safety Strategies, Safety with Transfers Goal Met for this Session: Yes Pt Benefit of Group: Contributions to Others, F/U Use of Strategies @Home, Increased Functional Safety, Increased Functional Strength, Improved Cognition, Recognition of Peers, Socialization Other/Notes Patient was transferred from bed to and propelled to therapy gym for group therapy. Each person had to introduce themselves and state where they were from and answer a question involving memory and critical thinking. Then patient's played home safety and fall prevention jeopardy with intermittent UE and LE exercises. When done patient propelled back to room and transferred back to bed with nurse call, phone, tray, all needs met. Start Time: 13:00 Stop Time: 14:00 Total Billed Treatment Time: 60 Total Billed Treatment 1 visit GRP 60LAUREANO BEAL PT Feb 08, 2021 14:22
[2021-02-08] MEDS: VITAMIN D3 25 MCG (1,000 UNITS) TABLET PO SCH (17:56)
[2021-02-08 20:00] VITALS: BP 118/63
[2021-02-08] MEDS: TIMOLOL MALEATE 0.5% 5 ML (TIMOPTIC) BTL OU SCH (21:03)
[2021-02-08] MEDS: HYDROcodone/APAP 5 MG/325 MG (LORTAB) TAB PO PRN (21:04)
[2021-02-09] MEDS: LORATADINE (CLARITIN) 10 MG TAB PO SCH (07:52)
[2021-02-09] MEDS: ASPIRIN 81 MG CHEW (CHILDREN'S ASA) PO SCH (07:52)
[2021-02-09] MEDS: PREGABALIN 75 MG (LYRICA) CAP PO SCH ×2 (07:52→20:45)
[2021-02-09] MEDS: PANTOPRAZOLE 40 MG (PROTONIX) TAB PO SCH (07:52)
[2021-02-09] MEDS: CLOPIDOGREL 75 MG (PLAVIX) TABLET PO SCH (07:52)
[2021-02-09] MEDS: CALCIUM CARB + VIT D 600 MG (CALCARB + D) TAB PO SCH (07:52)
[2021-02-09] MEDS: VITAMIN D3 25 MCG (1,000 UNITS) TABLET PO SCH (07:52)
[2021-02-09 07:53] VITALS: BP 110/75
--- NOTE | 2021-02-09 08:09 | Cardiology Progress Note ---
Subjective Date Seen by Provider: Feb 09, 2021 Time Seen by Provider: 08:08 Subjective/Events-last exam Patient was seen at bedside, sitting comfortably, feeling better. No new c omplaint Review of Systems General: No Chills, No Night Sweats, No Fatigue, No Malaise, No Appetite, No Other HEENT: No Head Aches, No Visual Changes, No Eye Pain, No Ear Pain, No Dysphasia, No Sinus Congestion, No Post Nasal Drip, No Sore Throat, No Other Pulmonary: No Dyspnea, No Cough, No Pleuritic Chest Pain, No Other Cardiovascular: No: Chest Pain, Palpitations, Orthopnea, Paroxysmal Noc. Dyspnea, Edema, Lt Headedness, Other Objective-Cardiology Exam Last Set of Vital Signs Vital Signs 02/09/21 07:53 Temp 36.0 Pulse 81 Resp 14 B/P (MAP) 110/75 (87) Pulse Ox 98 O2 Delivery Room Air Capillary Refill : General: Alert, Oriented X3, Cooperative HEENT: Atraumatic, PERRLA Neck: Supple, No JVD, No Thyromegaly Lungs: Clear to Auscultation, Normal Air Movement Heart: Regular Rate, Normal S1, Normal S2, No Murmurs Abdomen: Normal Bowel Sounds, Soft, No Tenderness, No Hepatosplenomegaly, No Masses Extremities: No Clubbing, No Cyanosis, No Edema, Normal Pulses, No Tenderness/Swelling Skin: No Rashes, No Breakdown, No Significant Lesion Neuro: Normal Speech, Normal Tone, Sensation Intact, Other (Weakness on the right side) Psych/Mental Status: Mental Status NL, Mood NL A/P-Cardiology Admission Diagnosis CVA HTN HLP GERD Assessment/Plan 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 No evidence of carotid artery stenosis per CTA Head/neck done at [facility]. 2D Echo done 01/29/21 showing normal LV size with EF 65%, mild to moderate mitral regurgitation, moderate tricuspid regurgitation. PFO present. Maintained on ASA and Plavix. Continues to have right sided weakness. Continue with PT/OT. Status post loop monitor implant on 02/08/2021, site is healing well Hypotension, blood pressure improved after discontinuing lisinopril Hyperlipidemia maintained on statin, continue to monitor Gastroesophageal reflux disease Hx of shingles resulting in decreased vision in left eye Osteoporosis BARTOLO WESTON MD Feb 09, 2021 08:09
[2021-02-09] MEDS: DOCUSATE SODIUM 100 MG (COLACE) CAP PO SCH ×2 (09:11→20:45)
[2021-02-09] MEDS: SENNA W/DOCUSATE (SENOKOT S) TABLET PO SCH ×2 (09:12→20:45)
[2021-02-09] MEDS: polyethylene glycoL POWDER 17 GM (MIRALAX) PACK PO SCH ×2 (09:12→20:43)
--- NOTE | 2021-02-09 09:40 | PM&R Progress Note ---
Subjective HPI/CC On Admission Date Seen by Provider: Feb 09, 2021 Time Seen by Provider: 09:00 Subjective/Events-last exam 02/09/2021: Patient having no problems since loop recorder was placed Had a nightmare last night Right shoulder is much improved as far as range of motion Denies any significant pain 02/08/2021: Patient doing really well Status post loop recorder Had 3 loose bowel movements so we will hold laxatives Right arm is moving now 02/07/2021: Patient doing really well today Moving her shoulder and elbow on the right side Had a large bowel movement this morning No other issues 02/06/2021: Patient doing pretty well Working with therapy Bowels really moved very well Splint on right foot has been helpful Gave her a copy of her MRI as she requested 02/05/2021: Patient doing really well Bowels moved yesterday No major issues Talked about her MRI and CT scan and November graciously sent me copies so we will discuss later 02/04/2021: Patient doing pretty well Right leg is cooperating today she reports Bowels moved yesterday Event monitor from [facility] was discussed We will reach out to Dr. Sanchez 02/03/21: Pt doing really well Dr. Sanchez consulted Bowels are a bit loose Frustrated that her right leg didnt work too well today but I reassured her Review of Systems General: Fatigue Neurological: Weakness, Incoordination Objective Exam Vital Signs Vital Signs Date Time Temp Pulse Resp B/P (MAP) Pulse Ox O2 Delivery O2 Flow Rate FiO2 02/09/21 20:45 Room Air 02/09/21 20:00 36.8 96 16 116/64 (81) 95 Capillary Refill : General Appearance: No Apparent Distress, WD/WN HEENT: PERRL/EOMI, Normal ENT Inspection, Pharynx Normal Neck: Full Range of Motion, Normal Inspection, Non Tender, Supple, Carotid Bruit Respiratory: Chest Non Tender, Lungs Clear, Normal Breath Sounds, No Accessory Muscle Use, No Respiratory Distress Cardiovascular: Regular Rate, Rhythm, No Edema, No Gallop, No JVD, No Murmur, Normal Peripheral Pulses Gastrointestinal: Normal Bowel Sounds, No Organomegaly, No Pulsatile Mass, Non Tender, Soft Back: Normal Inspection, No CVA Tenderness, No Vertebral Tenderness Extremity: Normal Capillary Refill, Normal Inspection, Normal Range of Motion (Except right sided weakness 1/5), Non Tender, No Calf Tenderness, No Pedal Edema Neurologic/Psychiatric: Alert, Oriented x3, No Motor/Sensory Deficits, Normal Mood/Affect, Abnormal Gait, Facial Droop (Right-sided) Skin: Normal Color, Warm/Dry Lymphatic: No Adenopathy Results/Procedures Lab Patient resulted labs reviewed. FIM Transfers Therapy Code Descriptions/Definitions Functional [place] Measure: 0=Not Assessed/NA 4=Minimal Assistance 1=Total Assistance 5=Supervision or Setup 2=Maximal Assistance 6=Modified [place] 3=Moderate Assistance 7=Complete IndependenceSCALE: Activities may be completed with or without assistive devices. 5-Djpdbaldsb-ymbfrlo completes the activity by him/herself with no assistance from a helper. 5-Set-up or Clean-up Assistance-helper sets up or cleans up; patient completes activity. [place] assists only prior to or following the activity. 4-Supervision or Touching Assistance-helper provides verbal cues and/or touching/steadying and/or contact guard assistance as patient completes activity. Assistance may be provided throughout the activity or intermittently. 3-Partial/Moderate Assistance-helper does LESS THAN HALF the effort. [place] lifts, holds or supports trunk or limbs, but provides less than half the effort. 2-Substantial/Maximal Assistance-helper does MORE THAN HALF the effort. [place] lifts or holds trunk or limbs and provides more than half the effort. 1-Opdtzpplv-chkkpd does ALL the effort. Patient does none of the effort to complete the activity. Or, the assistance of 2 or more helpers is required for the patient to complete the activity. If activity was not attempted, code reason: 7-Patient Refused. 9-Not Applicable-not attempted and the patient did not perform the activity before the current illness, exacerbation or injury. 10-Not Attempted due to Environmental Limitations-(lack of equipment, weather restraints, etc.). 88-Not Attempted due to Medical Conditions or Safety Concerns. Roll Left to Right (QC): 6 Sit to Lying (QC): 3 Sit to Stand (QC): 3 Chair/Yjy-ll-Ccsns Xfer(QC): 3 Car Transfer (QC): 2 Gait Training Does the Patient Walk?: Yes Distance: 30'x3 Walk 10 feet (QC): 3 Walk 50 ft with 2 Turns(QC): 88 Walk 150 ft (QC): 88 Walking 10ft/uneven surface-QC: 88 Gait Persons Needed: 1 Gait Assistive Device: Cane Large Base Quad Wheelchair Training Does the Pt Use a Wheelchair?: Yes Wheel 50 ft with 2 turns (QC): 3 Wheel 150 ft (QC): 3 Type of Wheelchair: Manual Stair Training 1 Step (curb) (QC): 88 4 Steps (QC): 88 12 Steps (QC): 88 Balance Picking up an Object (QC): 88 ADL-Treatment Eating (QC): 4 Oral Hygiene (QC): 6 Shower/Bathe Self (QC): 4 Upper Body Dressing (QC): 3 (min with bra and min with shirt) Lower Body Dressing (QC): 2 On/Off Footwear (QC): 2 Toileting Hygiene (QC): 3 (Help managing clothing) Toilet Transfer (QC): 4 (CGA) Assessment/Plan Assessment and Plan Assess & Plan/Chief Complaint Assessment: CVA with right sided weakness GERD Herpes ophtho left 10/11 OP HTN HLP Status post loop recorder on 02/08/2021 Plan: Cardiology consultation Home meds Monitor closely 02/04/2021: Monitor closely Blood pressure monitored Event monitor versus loop recorder 02/05/2021: Monitor closely Discussed MRI and CT scans once obtained 02/06/2021: Continue aggressive therapy Splint on right foot 02/07/2021: Continue bowel regimen Continue aggressive therapy Monitor blood pressure Telemetry 02/08/2021: DC telemetry since loop recorder in place Monitor closely 02/09/2021: Monitor Loop recorder data Monitor closely Aggressive treatment for right-sided weakness (1) CVA (cerebral vascular accident) (2) PFO (patent foramen ovale) (3) GERD (gastroesophageal reflux disease) (4) Hypertension (5) Hyperlipidemia (6) Right sided weakness (7) Osteoporosis (8) Postherpetic neuralgia (9) Zoster ophthalmicus ALDEN CARCAMO DO Feb 09, 2021 09:40
--- NOTE | 2021-02-09 09:48 | Occupational Ther Daily Note ---
OT Current Status-Daily Note Subjective Pt seen in room, up in recliner, agreeable to OT. No pain mentioned. Appearance Alert, cooperative ADL-Treatment At end of tx, pt needed to toilet. She transferred from [facility] to toilet with [facility], using grab bar. Once she had her balance, she was able to pull her pants down to her knees with her L arm, which she was not able to do last week. She also sat down on toilet without help. Pt left on toilet with call light, nursing notified. Therapy Code Descriptions/Definitions Functional [place] Measure: 0=Not Assessed/NA 4=Minimal Assistance 1=Total Assistance 5=Supervision or Setup 2=Maximal Assistance 6=Modified [place] 3=Moderate Assistance 7=Complete IndependenceSCALE: Activities may be completed with or without assistive devices. 2-Siktndgjee-akxsqkk completes the activity by him/herself with no assistance from a helper. 5-Set-up or Clean-up Assistance-helper sets up or cleans up; patient completes activity. [place] assists only prior to or following the activity. 4-Supervision or Touching Assistance-helper provides verbal cues and/or touching/steadying and/or contact guard assistance as patient completes activity. Assistance may be provided throughout the activity or intermittently. 3-Partial/Moderate Assistance-helper does LESS THAN HALF the effort. [place] lifts, holds or supports trunk or limbs, but provides less than half the effort. 2-Substantial/Maximal Assistance-helper does MORE THAN HALF the effort. [place] lifts or holds trunk or limbs and provides more than half the effort. 1-Gyixrqfgi-iaetoz does ALL the effort. Patient does none of the effort to complete the activity. Or, the assistance of 2 or more helpers is required for the patient to complete the activity. If activity was not attempted, code reason: 7-Patient Refused. 9-Not Applicable-not attempted and the patient did not perform the activity before the current illness, exacerbation or injury. 10-Not Attempted due to Environmental Limitations-(lack of equipment, weather restraints, etc.). 88-Not Attempted due to Medical Conditions or Safety Concerns. Other Treatment Pt got up from recliner with CGA and walked CGA with marie walker to transfer into [facility], [facility]. She propelled herself to the gym, using both feet (requiring deliberate attention on her part). Gentle PROM performed to R UE, monitoring passive range and also checking for increased tone. She has a little increased tone with wrist flexion. With mirror for visual feedback, she did 10 reps shoulder elevation and retraction. Completed another set of 10 with facilitation. At end, R shoulder moving almost equally to L in range and speed. Worked with shoulder flexion and extension with gravity decreased, elbow flex and ext, wrist flex and ext and finger flex. She demonstrated mid range shoulder flex, trace+ extension, mid range horizontal abd, trace+ horizontal add, mid range elbow flex, trace+ elbow ext, trace wrist flex and ext and active finger flex to almost touch finger tips to palm, but without finger extension. Pt very pleased with progress. Pt returned to her room and toileted. Education OT Patient Education: Correct positioning, Modified ADL techniques, Progress toward Goal/Update tx plan, Purpose of tx/functional activities, Other (facilitation) Teaching Recipient: Patient Teaching Methods: Demonstration, Discussion Response to Teaching: Verbalize Understanding, Return Demonstration, Reinforcement Needed OT Short Term Goals Short Term Goals Time Frame: Feb 17, 2021 Eatin Oral hygiene: 4 Toileting hygiene: 4 Shower/bathe self: 3 Upper body dressin Lower body dressin Putting on/taking off footwear: 4 OT Jacquard Fixer Goals Care Home Goals Time Frame: Mar 03, 2021 Eating (QC): 6 Oral Hygiene (QC): 6 Toileting Hygiene (QC): 6 Shower/Bathe Self (QC): 4 Upper Body Dressing (QC): 5 Lower Body Dressing (QC): 5 On/Off Footwear (QC): 6 Pt. will participate in Occupational therapy visual assessment, and goals will be made as necessary. Additional Goals: 1-Demonstrate ADL Tasks, 2-Verbalize Understanding, 3- ImproveStrength/Marcos 1=Demonstrate adherence to instructed precautions during ADL tasks. 2=Patient will verbalize/demonstrate understanding of assistive devices/modifications for ADL. 3=Patient will improve strength/tolerance for activity to enable patient to perform ADL's. OT Education/Plan Discharge Recommendations Plan/Recommendations: Continue POC Treatment Plan/Plan of Care Patient would benefit from OT for education, treatment and training to promote independence in ADL's, mobility, safety and/or upper extremity function for ADL's. Plan of Care: ADL Retraining, Functional Mobility, UE Funct Exercise/Act Treatment Duration: Mar 03, 2021 Frequency: At least 5 of 7 days/Wk (IRF) Estimated Hrs Per Day: 1.5 hours per day Agreement: Yes Rehab Potential: Good Time/GCodes Start Time: 08:32 Stop Time: 09:32 Total Time Billed (hr/min): 60 Billed Treatment Time visit, 58 minutes neuromotor, 2 minutes ADL SUJEY HUNT OT Feb 09, 2021 09:47
--- NOTE | 2021-02-09 11:51 | Physical Therapy Daily Note ---
PT Daily Note-Current Subjective Pt is laying Supine in bed upon arrival. Pt agrees to PT. Mental Status Patient Orientation: Person, Place, Time, Situation Attachments: Other-See Comments (AFO & Small boot for R LE) Transfers SCALE: Activities may be completed with or without assistive devices. 8-Mzadadfftc-wqusjbs completes the activity by him/herself with no assistance from a helper. 5-Set-up or Clean-up Assistance-helper sets up or cleans up; patient completes activity. [place] assists only prior to or following the activity. 4-Supervision or Touching Assistance-helper provides verbal cues and/or touching/steadying and/or contact guard assistance as patient completes activity. Assistance may be provided throughout the activity or intermittently. 3-Partial/Moderate Assistance-helper does LESS THAN HALF the effort. [place] lifts, holds or supports trunk or limbs, but provides less than half the effort. 2-Substantial/Maximal Assistance-helper does MORE THAN HALF the effort. [place] lifts or holds trunk or limbs and provides more than half the effort. 0-Dbiqdgwna-kaqtsd does ALL the effort. Patient does none of the effort to com plete the activity. Or, the assistance of 2 or more helpers is required for the patient to complete the activity. If activity was not attempted, code reason: 7-Patient Refused. 9-Not Applicable-not attempted and the patient did not perform the activity before the current illness, exacerbation or injury. 10-Not Attempted due to Environmental Limitations-(lack of equipment, weather restraints, etc.). 88-Not Attempted due to Medical Conditions or Safety Concerns. Lying to Sitting/Side of Bed(Q: 3 Sit to Stand (QC): 3 Chair/Kpz-ql-Wjdvj Xfer(QC): 3 Weight Bearing Full Weight Bearing Full Weight Bearing Gait Training Does the Patient Walk?: Yes Distance: 75' Walk 10 feet (QC): 3 Walk 50 ft with 2 Turns(QC): 3 Gait Persons Needed: 1 Gait Assistive Device: Cane Large Base Quad Attempted FWW since pt had improved with flexion of R hand but doesn't have enough sr vice president strength at this time. Pt continues to use LBQC when ambulating. Wheelchair Training Does the Pt Use a Wheelchair?: Yes Wheel 50 ft with 2 turns (QC): 4 Type of Wheelchair: Manual Exercises Seated Therapy Exercises: Ankle pumps, Long arc quads, Hip flexion, Hip abd/add, Glut set Seated Reps: 15 NuStep Minutes: 10 NuStep Workload: 3 Treatments TF to EOB then SPT to [facility]. Pt propels in hallway then attempts amb. w/FWW before changing to LBQC. Pt completes Seated EX as well as uses NuStep. Pt returns to room at end of tx with all needs met, call light in hand. Assessment Current Status: Good Progress Pt is able to catch herself when she missteps a couple times during ambulation. Pt has improved with movement in R hand but not enough to sr vice president FWW yet. PT Short Term Goals Short Term Goals Time Frame: Feb 17, 2021 Roll Left & Right: 5 Sit to lyin Lying to sitting on side of be: 5 Sit to stand: 4 Chair/lcy-ml-xfuzs transfer: 4 Walk 50 feet with two turns: 4 Walk 150 feet: 4 PT Cooker Syrup Goals [facility] Goals PT Cooker Syrup Goals Time Frame: Mar 03, 2021 Roll Left & Right (QC): 6 Sit to Lying (QC): 6 Lying-Sitting on Side/Bed(QC): 6 Sit to Stand (QC): 6 Chair/Gcs-jl-Weklg Xfer(QC): 6 Toilet Transfer (QC): 6 Car Transfer (QC): 6 Does the Patient Walk: Yes Walk 10 feet (QC): 6 Walk 50ft with 2 Turns (QC): 6 Walk 150 ft (QC): 6 Walking 10ft on Uneven Surface: 5 1 Step (curb) (QC): 6 4 Steps (QC): 4 12 Steps (QC): 4 Picking up an Object (QC): 4 Does the Pt use WC or Scooter?: No Wheel 50 feet with 2 turns (QC: 9 Wheel 150 feet: 9 PT Plan Problem List Problem List: Activity Tolerance, Functional Strength, Balance Treatment/Plan Treatment Plan: Continue Plan of Care Treatment Plan: Bed Mobility, Education, Functional Activity Marcos, Functional Strength, Group Therapy, Gait, Safety, Therapeutic Exercise, Transfers Treatment Duration: Mar 03, 2021 Frequency: At least 5 of 7 days/Wk (IRF) Estimated Hrs Per Day: 1.5 hours per day Patient and/or Family Agrees t: Yes Safety Risks/Education Patient Education: Gait Training, Transfer Techniques, Correct Positioning, Safety Issues Teaching Recipient: Patient Teaching Methods: Discussion Response to Teaching: Verbalize Understanding Time/GCodes Time In: 1000 Time Out: 1115 Total Billed Treatment Time: 75 Total Billed Treatment 1, FA (15m), GT x2 (25m) & EX x2 (35m) AME JOSHUA STAMPING DIE MAKER BENCH Feb 09, 2021 11:51
--- NOTE | 2021-02-09 14:24 | Occupational Ther Daily Note ---
OT Current Status-Daily Note Subjective Pt seen in room, up in recliner, agreeable to OT. No pain mentioned. Appearance Alert, cooperative ADL-Treatment Therapy Code Descriptions/Definitions Functional [place] Measure: 0=Not Assessed/NA 4=Minimal Assistance 1=Total Assistance 5=Supervision or Setup 2=Maximal Assistance 6=Modified [place] 3=Moderate Assistance 7=Complete IndependenceSCALE: Activities may be completed with or without assistive devices. 7-Fprveryynu-azktukj completes the activity by him/herself with no assistance from a helper. 5-Set-up or Clean-up Assistance-helper sets up or cleans up; patient completes activity. [place] assists only prior to or following the activity. 4-Supervision or Touching Assistance-helper provides verbal cues and/or touching/steadying and/or contact guard assistance as patient completes acti vity. Assistance may be provided throughout the activity or intermittently. 3-Partial/Moderate Assistance-helper does LESS THAN HALF the effort. [place] lifts, holds or supports trunk or limbs, but provides less than half the effort. 2-Substantial/Maximal Assistance-helper does MORE THAN HALF the effort. [place] lifts or holds trunk or limbs and provides more than half the effort. 4-Arnnwjsjg-mjssmz does ALL the effort. Patient does none of the effort to complete the activity. Or, the assistance of 2 or more helpers is required for the patient to complete the activity. If activity was not attempted, code reason: 7-Patient Refused. 9-Not Applicable-not attempted and the patient did not perform the activity before the current illness, exacerbation or injury. 10-Not Attempted due to Environmental Limitations-(lack of equipment, weather restraints, etc.). 88-Not Attempted due to Medical Conditions or Safety Concerns. Other Treatment Pt transferred with CGA, quad cane to w/c. Occasionally R foot did not move as she had planned and she became unsteady with narrow base of support. She was transported to gym per w/c. She worked on active functional movements of R UE, with added facilitation as indicated. She was able to coordinate shoulder and elbow movements to practice reaching R hand forward and toward additional points toward her L side, sliding UE on table top, with fair accuracy. Cues to avoid compensatory movements. Also practiced pronation/supination, gross grasp and finger extension. On one occasion thumb flexion was facilitated. She was also able to attempt lifting and placing small cones and was successful about 20%. Pt pleased with progress. Pt care transferred to PT. Education OT Patient Education: Progress toward Goal/Update tx plan, Purpose of tx/functional activities, Other (facilitation techniques) OT Short Term Goals Short Term Goals Time Frame: Feb 17, 2021 Eatin Oral hygiene: 4 Toileting hygiene: 4 Shower/bathe self: 3 Upper body dressin Lower body dressin Putting on/taking off footwear: 4 OT Custodial Goals Custodial Goals Time Frame: Mar 03, 2021 Eating (QC): 6 Oral Hygiene (QC): 6 Toileting Hygiene (QC): 6 Shower/Bathe Self (QC): 4 Upper Body Dressing (QC): 5 Lower Body Dressing (QC): 5 On/Off Footwear (QC): 6 Pt. will participate in Occupational therapy visual assessment, and goals will be made as necessary. Additional Goals: 1-Demonstrate ADL Tasks, 2-Verbalize Understanding, 3-Impro veStrength/Marcos 1=Demonstrate adherence to instructed precautions during ADL tasks. 2=Patient will verbalize/demonstrate understanding of assistive devices/modifications for ADL. 3=Patient will improve strength/tolerance for activity to enable patient to perform ADL's. OT Education/Plan Discharge Recommendations Plan/Recommendations: Continue POC Treatment Plan/Plan of Care Patient would benefit from OT for education, treatment and training to promote independence in ADL's, mobility, safety and/or upper extremity function for ADL's. Plan of Care: ADL Retraining, Functional Mobility, UE Funct Exercise/Act Treatment Duration: Mar 03, 2021 Frequency: At least 5 of 7 days/Wk (IRF) Estimated Hrs Per Day: 1.5 hours per day Agreement: Yes Rehab Potential: Good Time/GCodes Start Time: 13:00 Stop Time: 13:30 Total Time Billed (hr/min): 30 Billed Treatment Time visit, 30 minutes neuromotor SUJEY HUNT OT Feb 09, 2021 14:24
--- NOTE | 2021-02-09 15:24 | Physical Therapy Daily Note ---
PT Daily Note-Current Subjective Pt sitting in Therapy Gym after just finishing with OT. Mental Status Patient Orientation: Person, Place, Time, Situation Attachments: Other-See Comments (AFO & small boot for R LE) Transfers SCALE: Activities may be completed with or without assistive devices. 9-Zelvlmgzim-oidbage completes the activity by him/herself with no assistance from a helper. 5-Set-up or Clean-up Assistance-helper sets up or cleans up; patient completes activity. [place] assists only prior to or following the activity. 4-Supervision or Touching Assistance-helper provides verbal cues and/or touching/steadying and/or contact guard assistance as patient completes activity. Assistance may be provided throughout the activity or intermittently. 3-Partial/Moderate Assistance-helper does LESS THAN HALF the effort. [place] lifts, holds or supports trunk or limbs, but provides less than half the effort. 2-Substantial/Maximal Assistance-helper does MORE THAN HALF the effort. [place] lifts or holds trunk or limbs and provides more than half the effort. 2-Vaijhjqvc-ogcjmq does ALL the effort. Patient does none of the effort to complete the activity. Or, the assistance of 2 or more helpers is required for the patient to complete the activity. If activity was not attempted, code reason: 7-Patient Refused. 9-Not Applicable-not attempted and the patient did not perform the activity before the current illness, exacerbation or injury. 10-Not Attempted due to Environmental Limitations-(lack of equipment, weather restraints, etc.). 88-Not Attempted due to Medical Conditions or Safety Concerns. Sit to Lying (QC): 4 Sit to Stand (QC): 3 Weight Bearing Full Weight Bearing Full Weight Bearing Wheelchair Training Does the Pt Use a Wheelchair?: Yes Wheel 50 ft with 2 turns (QC): 5 Wheel 150 ft (QC): 5 Type of Wheelchair: Manual Exercises Supine Ex: Ankle pumps, Quad Set, Glut sets, Heel Slides, Straight leg raise, Hip abd/add Supine Reps: 10 Treatments Pt propels [facility] in hallway and back to room. TF to bed and completes Supine EX i n bed. Pt has all needs met, call light in hand. Assessment Current Status: Good Progress Pt is improving with strength but as pt fatigues she needs reminders to slow down suyapa. with transfers as they worsen with fatigue. PT Short Term Goals Short Term Goals Time Frame: Feb 17, 2021 Roll Left & Right: 5 Sit to lyin Lying to sitting on side of be: 5 Sit to stand: 4 Chair/rgp-ql-lgbrl transfer: 4 Walk 50 feet with two turns: 4 Walk 150 feet: 4 PT Group Home Goals Parole Supervisor Goals PT Group Home Goals Time Frame: Mar 03, 2021 Roll Left & Right (QC): 6 Sit to Lying (QC): 6 Lying-Sitting on Side/Bed(QC): 6 Sit to Stand (QC): 6 Chair/Pze-ha-Dfwzy Xfer(QC): 6 Toilet Transfer (QC): 6 Car Transfer (QC): 6 Does the Patient Walk: Yes Walk 10 feet (QC): 6 Walk 50ft with 2 Turns (QC): 6 Walk 150 ft (QC): 6 Walking 10ft on Uneven Surface: 5 1 Step (curb) (QC): 6 4 Steps (QC): 4 12 Steps (QC): 4 Picking up an Object (QC): 4 Does the Pt use WC or Scooter?: No Wheel 50 feet with 2 turns (QC: 9 Wheel 150 feet: 9 PT Plan Problem List Problem List: Activity Tolerance, Transfer Treatment/Plan Treatment Plan: Continue Plan of Care Treatment Plan: Bed Mobility, Education, Functional Activity Marcos, Functional Strength, Group Therapy, Gait, Safety, Therapeutic Exercise, Transfers Treatment Duration: Mar 03, 2021 Frequency: At least 5 of 7 days/Wk (IRF) Estimated Hrs Per Day: 1.5 hours per day Patient and/or Family Agrees t: Yes Safety Risks/Education Patient Education: Transfer Techniques, Correct Positioning, Safety Issues Teaching Recipient: Patient Teaching Methods: Discussion Response to Teaching: Verbalize Understanding Time/GCodes Time In: 1330 Time Out: 1350 Total Billed Treatment Time: 20 Total Billed Treatment 1, EX (20m) AME JOSHUA COMMUNICATIONS INSTRUCTOR Feb 09, 2021 15:24
[2021-02-09 20:00] VITALS: BP 116/64
[2021-02-09] MEDS: TIMOLOL MALEATE 0.5% 5 ML (TIMOPTIC) BTL OU SCH (20:46)
[2021-02-10 07:43] VITALS: BP 107/57
[2021-02-10] MEDS: PANTOPRAZOLE 40 MG (PROTONIX) TAB PO SCH (08:29)
[2021-02-10] MEDS: ASPIRIN 81 MG CHEW (CHILDREN'S ASA) PO SCH (08:29)
[2021-02-10] MEDS: SENNA W/DOCUSATE (SENOKOT S) TABLET PO SCH ×3 (08:29→21:15)
[2021-02-10] MEDS: VITAMIN D3 25 MCG (1,000 UNITS) TABLET PO SCH (08:29)
[2021-02-10] MEDS: CALCIUM CARB + VIT D 600 MG (CALCARB + D) TAB PO SCH (08:29)
[2021-02-10] MEDS: DOCUSATE SODIUM 100 MG (COLACE) CAP PO SCH ×3 (08:29→21:15)
[2021-02-10] MEDS: LORATADINE (CLARITIN) 10 MG TAB PO SCH (08:29)
[2021-02-10] MEDS: PREGABALIN 75 MG (LYRICA) CAP PO SCH ×2 (08:29→21:15)
[2021-02-10] MEDS: CLOPIDOGREL 75 MG (PLAVIX) TABLET PO SCH (08:29)
[2021-02-10] MEDS: polyethylene glycoL POWDER 17 GM (MIRALAX) PACK PO SCH ×2 (08:30→21:15)
--- NOTE | 2021-02-10 08:34 | Cardiology Progress Note ---
Subjective Date Seen by Provider: Feb 10, 2021 Time Seen by Provider: 08:33 Subjective/Events-last exam Patient in bathroom doing ADL's. Denies any chest pain, palpitations, dizziness or lightheadeness. Review of Systems General: No Chills, No Night Sweats, No Fatigue, No Malaise, No Appetite, No Other HEENT: No Head Aches, No Visual Changes, No Eye Pain, No Ear Pain, No Dyspha bao, No Sinus Congestion, No Post Nasal Drip, No Sore Throat, No Other Pulmonary: No Dyspnea, No Cough, No Pleuritic Chest Pain, No Other Cardiovascular: No: Chest Pain, Palpitations, Orthopnea, Paroxysmal Noc. D yspnea, Edema, Lt Headedness, Other Objective-Cardiology Exam Last Set of Vital Signs Vital Signs 02/10/21 02/10/21 07:43 09:00 Temp 36.2 Pulse 89 Resp 18 B/P (MAP) 107/57 (74) Pulse Ox 97 O2 Delivery Room Air Capillary Refill : General: Alert, Oriented X3, Cooperative HEENT: Atraumatic, PERRLA Neck: Supple, No JVD, No Thyromegaly Lungs: Clear to Auscultation, Normal Air Movement Heart: Regular Rate, Normal S1, Normal S2, No Murmurs Abdomen: Normal Bowel Sounds, Soft, No Tenderness, No Hepatosplenomegaly, No Masses Extremities: No Clubbing, No Cyanosis, No Edema, Normal Pulses, No Tenderness/Swelling Skin: No Rashes, No Breakdown, No Significant Lesion Neuro: Normal Speech, Normal Tone, Sensation Intact, Other (Weakness on the right side) Psych/Mental Status: Mental Status NL, Mood NL A/P-Cardiology Admission Diagnosis CVA HTN HLP GERD Assessment/Plan 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 No evidence of carotid artery stenosis per CTA Head/neck done at [facility]. 2D Echo done 01/29/21 showing normal LV size with EF 65%, mild to moderate mitral regurgitation, moderate tricuspid regurgitation. PFO present. Maintained on ASA and Plavix. Continues to have right sided weakness. Continue with PT/OT. Status post loop monitor implant on 02/08/2021, site is healing well Hypotension, blood pressure improved after discontinuing lisinopril Hyperlipidemia maintained on statin, continue to monitor Gastroesophageal reflux disease Hx of shingles resulting in decreased vision in left eye Osteoporosis Supervisory-Addendum Brief Supervisory Addendum Participated in pt care: history, MDM, physical Personally performed: exam, history, MDM Care discussed with: NIALL Notes: Patient was seen and evaluated, has been doing well. Denied any chest pain Heart rate is better Continue on current medication monitor blood pressure and lipids. No changes are recommended Loop monitor site is healing well LITTLE BONILLA Feb 10, 2021 8:34 am BARTOLO WESTON MD Feb 10, 2021 11:51 am
--- NOTE | 2021-02-10 09:47 | PM&R Progress Note ---
Subjective HPI/CC On Admission Date Seen by Provider: Feb 10, 2021 Time Seen by Provider: 10:00 Subjective/Events-last exam 02/10/2021: Pt is able to walk with assistance with cane Much improved status Overall pt is having no new issues She wants to go home on 02/19 to prepare for her grandchildren to visit 02/09/2021: Patient having no problems since loop recorder was placed Had a nightmare last night Right shoulder is much improved as far as range of motion Denies any significant pain 02/08/2021: Patient doing really well Status post loop recorder Had 3 loose bowel movements so we will hold laxatives Right arm is moving now 02/07/2021: Patient doing really well today Moving her shoulder and elbow on the right side Had a large bowel movement this morning No other issues 02/06/2021: Patient doing pretty well Working with therapy Bowels really moved very well Splint on right foot has been helpful Gave her a copy of her MRI as she requested 02/05/2021: Patient doing really well Bowels moved yesterday No major issues Talked about her MRI and CT scan and November graciously sent me copies so we will discuss later 02/04/2021: Patient doing pretty well Right leg is cooperating today she reports Bowels moved yesterday Event monitor from [facility] was discussed We will reach out to Dr. Sanchez 02/03/21: Pt doing really well Dr. Sanchez consulted Bowels are a bit loose Frustrated that her right leg didnt work too well today but I reassured her Review of Systems Neurological: Weakness, Incoordination Objective Exam Vital Signs Vital Signs Date Time Temp Pulse Resp B/P (MAP) Pulse Ox O2 Delivery O2 Flow Rate FiO2 02/10/21 20:00 96 Room Air 02/10/21 20:00 36.6 77 20 107/56 (73) Capillary Refill : General Appearance: No Apparent Distress, WD/WN HEENT: PERRL/EOMI, Normal ENT Inspection, Pharynx Normal Neck: Full Range of Motion, Normal Inspection, Non Tender, Supple, Carotid Bruit Respiratory: Chest Non Tender, Lungs Clear, Normal Breath Sounds, No Accessory Muscle Use, No Respiratory Distress Cardiovascular: Regular Rate, Rhythm, No Edema, No Gallop, No JVD, No Murmur, Normal Peripheral Pulses Gastrointestinal: Normal Bowel Sounds, No Organomegaly, No Pulsatile Mass, Non Tender, Soft Back: Normal Inspection, No CVA Tenderness, No Vertebral Tenderness Extremity: Normal Capillary Refill, Normal Inspection, Normal Range of Motion (Except right sided weakness 1/5), Non Tender, No Calf Tenderness, No Pedal Edema Neurologic/Psychiatric: Alert, Oriented x3, No Motor/Sensory Deficits, Normal Mood/Affect, Abnormal Gait, Facial Droop (Right-sided) Skin: Normal Color, Warm/Dry Lymphatic: No Adenopathy Results/Procedures Lab Patient resulted labs reviewed. FIM Transfers Therapy Code Descriptions/Definitions Functional [place] Measure: 0=Not Assessed/NA 4=Minimal Assistance 1=Total Assistance 5=Supervision or Setup 2=Maximal Assistance 6=Modified [place] 3=Moderate Assistance 7=Complete IndependenceSCALE: Activities may be completed with or without assistive devices. 9-Oovhzmtqyy-ivqdrck completes the activity by him/herself with no assistance from a helper. 5-Set-up or Clean-up Assistance-helper sets up or cleans up; patient completes activity. [place] assists only prior to or following the activity. 4-Supervision or Touching Assistance-helper provides verbal cues and/or touching/steadying and/or contact guard assistance as patient completes activity. Assistance may be provided throughout the activity or intermittently. 3-Partial/Moderate Assistance-helper does LESS THAN HALF the effort. [place] lifts, holds or supports trunk or limbs, but provides less than half the effort. 2-Substantial/Maximal Assistance-helper does MORE THAN HALF the effort. [place] lifts or holds trunk or limbs and provides more than half the effort. 9-Qwtrljwfc-ukcndo does ALL the effort. Patient does none of the effort to complete the activity. Or, the assistance of 2 or more helpers is required for the patient to complete the activity. If activity was not attempted, code reason: 7-Patient Refused. 9-Not Applicable-not attempted and the patient did not perform the activity before the current illness, exacerbation or injury. 10-Not Attempted due to Environmental Limitations-(lack of equipment, weather restraints, etc.). 88-Not Attempted due to Medical Conditions or Safety Concerns. Roll Left to Right (QC): 6 Sit to Lying (QC): 4 Sit to Stand (QC): 3 Chair/Ett-ny-Ssumg Xfer(QC): 3 Car Transfer (QC): 2 Gait Training Does the Patient Walk?: Yes Distance: 75' Walk 10 feet (QC): 3 Walk 50 ft with 2 Turns(QC): 3 Walk 150 ft (QC): 88 Walking 10ft/uneven surface-QC: 88 Gait Persons Needed: 1 Gait Assistive Device: Cane Large Base Quad Wheelchair Training Does the Pt Use a Wheelchair?: Yes Wheel 50 ft with 2 turns (QC): 5 Wheel 150 ft (QC): 5 Type of Wheelchair: Manual Stair Training 1 Step (curb) (QC): 88 4 Steps (QC): 88 12 Steps (QC): 88 Balance Picking up an Object (QC): 88 ADL-Treatment Eating (QC): 4 Oral Hygiene (QC): 6 Shower/Bathe Self (QC): 4 Upper Body Dressing (QC): 3 (min with bra and min with shirt) Lower Body Dressing (QC): 2 On/Off Footwear (QC): 2 Toileting Hygiene (QC): 3 (Help managing clothing) Toilet Transfer (QC): 4 (CGA) Assessment/Plan Assessment and Plan Assess & Plan/Chief Complaint Assessment: CVA with right sided weakness GERD Herpes ophtho left 10/11 OP HTN HLP Status post loop recorder on 02/08/2021 Plan: Cardiology consultation Home meds Monitor closely 02/04/2021: Monitor closely Blood pressure monitored Event monitor versus loop recorder 02/05/2021: Monitor closely Discussed MRI and CT scans once obtained 02/06/2021: Continue aggressive therapy Splint on right foot 02/07/2021: Continue bowel regimen Continue aggressive therapy Monitor blood pressure Telemetry 02/08/2021: DC telemetry since loop recorder in place Monitor closely 02/09/2021: Monitor Loop recorder data Monitor closely Aggressive treatment for right-sided weakness 02/10/2021: Much improved status Monitor closely Continue aggressive therapy for right-sided weakness (1) CVA (cerebral vascular accident) (2) PFO (patent foramen ovale) (3) GERD (gastroesophageal reflux disease) (4) Hypertension (5) Hyperlipidemia (6) Right sided weakness (7) Osteoporosis (8) Postherpetic neuralgia (9) Zoster ophthalmicus ALDEN CARCAMO DO Feb 10, 2021 09:47
--- NOTE | 2021-02-10 10:26 | Occupational Ther Daily Note ---
OT Current Status-Daily Note Subjective Pt seated on toilet, agreeable to OT tx with focus on ADLs. Mental Status/Objective Patient Orientation: Normal For Age ADL-Treatment Therapy Code Descriptions/Definitions Functional [place] Measure: 0=Not Assessed/NA 4=Minimal Assistance 1=Total Assistance 5=Supervision or Setup 2=Maximal Assistance 6=Modified [place] 3=Moderate Assistance 7=Complete IndependenceSCALE: Activities may be completed with or without assistive devices. 4-Nitlxtqlzz-kaymusc completes the activity by him/herself with no assistance from a helper. 5-Set-up or Clean-up Assistance-helper sets up or cleans up; patient completes activity. [place] assists only prior to or following the activity. 4-Supervision or Touching Assistance-helper provides verbal cues and/or touching/steadying and/or contact guard assistance as patient completes activity. Assistance may be provided throughout the activity or intermittently. 3-Partial/Moderate Assistance-helper does LESS THAN HALF the effort. [place] lifts, holds or supports trunk or limbs, but provides less than half the effort. 2-Substantial/Maximal Assistance-helper does MORE THAN HALF the effort. [place] lifts or holds trunk or limbs and provides more than half the effort. 8-Gwyhbkmrx-vojxgf does ALL the effort. Patient does none of the effort to complete the activity. Or, the assistance of 2 or more helpers is required for the patient to complete the activity. If activity was not attempted, code reason: 7-Patient Refused. 9-Not Applicable-not attempted and the patient did not perform the activity before the current illness, exacerbation or injury. 10-Not Attempted due to Environmental Limitations-(lack of equipment, weather restraints, etc.). 88-Not Attempted due to Medical Conditions or Safety Concerns. Oral Hygiene (QC): 6 (IND seated in chair.) Shower/Bathe Self (QC): 4 (CGA in stand to wash/dry buttocks.) Upper Body Dressing (QC): 3 (Mod A donning conductor pullman bra and long sleeve shirt.) Lower Body Dressing (QC): 3 (Mod A overall. Pt able to thread BLEs into pants/underwear with min A, CGA in stand for pant hike, she was able to complete pant hike on L side, assistance with R side.) On/Off Footwear: 3 (Pt able to don BLE socks, slight assist with holding RLE. Pt donned LLE slip on shoe, assist with RLE AFO and shoe.) Toileting Hygiene (QC): 3 (Min A with pant hike on R side, pt able to complete pericare.) Toilet Transfer (QC): 4 (CGA ) Other Treatment Pt on toilet, finished toileting, then used quad cane to transfer from toilet to VT, CGA. Pt doffed clothes, then completed shower. Pt dried off, then transferred to w/c (Min A to R side) to don clothes. Please refer to QC scores above for level of assistance required with ADLs. With LE dressing, OT educated pt on hemiplegic dressing techniques, instructing her to thread RLE first. She then sat at sink to brush her hair (min A with back/right side) and completed oral care IND. Pt used hair belt conveyor drier to dry hair, requiring min A overall with task. Pt taken back into her room. Post tx, pt seated in w/c, call light in reach and all needs met. Education OT Patient Education: Correct positioning, Modified ADL techniques, Progress toward Goal/Update tx plan, Purpose of tx/functional activities Teaching Recipient: Patient Teaching Methods: Discussion Response to Teaching: Verbalize Understanding OT Short Term Goals Short Term Goals Time Frame: Feb 17, 2021 Eatin Oral hygiene: 4 Toileting hygiene: 4 Shower/bathe self: 3 Upper body dressin Lower body dressin Putting on/taking off footwear: 4 OT Care Home Goals Truck Switcher Goals Time Frame: Mar 03, 2021 Eating (QC): 6 Oral Hygiene (QC): 6 Toileting Hygiene (QC): 6 Shower/Bathe Self (QC): 4 Upper Body Dressing (QC): 5 Lower Body Dressing (QC): 5 On/Off Footwear (QC): 6 Pt. will participate in Occupational therapy visual assessment, and goals will be made as necessary. Additional Goals: 1-Demonstrate ADL Tasks, 2-Verbalize Understanding, 3-I mproveStrength/Marcos 1=Demonstrate adherence to instructed precautions during ADL tasks. 2=Patient will verbalize/demonstrate understanding of assistive devices/modifications for ADL. 3=Patient will improve strength/tolerance for activity to enable patient to perform ADL's. OT Education/Plan Problem List/Assessment Assessment: Decreased Activ Tolerance, Decreased UE Strength, Impaired Funct Balance, Impaired I ADL's, Impaired Self-Care Skills, Restricted Funct UE ROM Discharge Recommendations Plan/Recommendations: Continue POC Treatment Plan/Plan of Care Patient would benefit from OT for education, treatment and training to promote independence in ADL's, mobility, safety and/or upper extremity function for ADL's. Plan of Care: ADL Retraining, Functional Mobility, UE Funct Exercise/Act Treatment Duration: Mar 03, 2021 Frequency: At least 5 of 7 days/Wk (IRF) Estimated Hrs Per Day: 1.5 hours per day Agreement: Yes Rehab Potential: Good Time/GCodes Start Time: 09:00 Stop Time: 10:00 Total Time Billed (hr/min): 60 Billed Treatment Time 1, ADL 4 MARIA LUISA BATISTA OT Feb 10, 2021 10:26
--- NOTE | 2021-02-10 11:57 | Physical Therapy Daily Note ---
PT Daily Note-Current Subjective Pt sitting in [facility] upon arrival. Pt agrees to PT. Pain Location: No Pain Reported Mental Status Patient Orientation: Person, Place, Time, Situation Attachments: Other-See Comments (AFO & small boot on R LE) Transfers SCALE: Activities may be completed with or without assistive devices. 7-Vjpklmqxxs-izqoirg completes the activity by him/herself with no assistance from a helper. 5-Set-up or Clean-up Assistance-helper sets up or cleans up; patient completes activity. [place] assists only prior to or following the activity. 4-Supervision or Touching Assistance-helper provides verbal cues and/or touching/steadying and/or contact guard assistance as patient completes activity. Assistance may be provided throughout the activity or intermittently. 3-Partial/Moderate Assistance-helper does LESS THAN HALF the effort. O[place] lifts, holds or supports trunk or limbs, but provides less than half the effort. 2-Substantial/Maximal Assistance-helper does MORE THAN HALF the effort. Ora lifts or holds trunk or limbs and provides more than half the effort. 9-Cslkxczov-udgzwm does ALL the effort. Patient does none of the effort to complete the activity. Or, the assistance of 2 or more helpers is required for the patient to complete the activity. If activity was not attempted, code reason: 7-Patient Refused. 9-Not Applicable-not attempted and the patient did not perform the activity before the current illness, exacerbation or injury. 10-Not Attempted due to Environmental Limitations-(lack of equipment, weather restraints, etc.). 88-Not Attempted due to Medical Conditions or Safety Concerns. Lying to Sitting/Side of Bed(Q: 3 Sit to Stand (QC): 4 Toilet Transfer (QC): 4 Weight Bearing Full Weight Bearing Full Weight Bearing Gait Training Does the Patient Walk?: Yes Distance: 75', 30' x2, 20' Walk 10 feet (QC): 4 Walk 50 ft with 2 Turns(QC): 4 Gait Persons Needed: 1 Gait Assistive Device: Cane Large Base Quad Pt needs VC for prevention of NBOS and to walk in straight line as pt tends to vear slightly R. Wheelchair Training Does the Pt Use a Wheelchair?: Yes Wheel 50 ft with 2 turns (QC): 5 Type of Wheelchair: Manual Exercises NuStep Minutes: 15 NuStep Workload: 4 Treatments Propels [facility] in hallway then amb. Pt uses NuStep then takes RB before amb. again. As patient fatigues, pt returns to [facility] and propels back to room. Pt transfers to bed to rest. All needs met, call light in hand. Assessment Current Status: Good Progress Pt's walking is improving but still requiring VC (see Gait). PT Short Term Goals Short Term Goals Time Frame: Feb 17, 2021 Roll Left & Right: 5 Sit to lyin Lying to sitting on side of be: 5 Sit to stand: 4 Chair/cmm-sv-fgmax transfer: 4 Walk 50 feet with two turns: 4 Walk 150 feet: 4 PT Longterm Goals Casting Trucker Goals PT Longterm Goals Time Frame: Mar 03, 2021 Roll Left & Right (QC): 6 Sit to Lying (QC): 6 Lying-Sitting on Side/Bed(QC): 6 Sit to Stand (QC): 6 Chair/Wdq-lg-Gxyer Xfer(QC): 6 Toilet Transfer (QC): 6 Car Transfer (QC): 6 Does the Patient Walk: Yes Walk 10 feet (QC): 6 Walk 50ft with 2 Turns (QC): 6 Walk 150 ft (QC): 6 Walking 10ft on Uneven Surface: 5 1 Step (curb) (QC): 6 4 Steps (QC): 4 12 Steps (QC): 4 Picking up an Object (QC): 4 Does the Pt use WC or Scooter?: No Wheel 50 feet with 2 turns (QC: 9 Wheel 150 feet: 9 PT Plan Problem List Problem List: Activity Tolerance, Balance, Gait Treatment/Plan Treatment Plan: Continue Plan of Care Treatment Plan: Bed Mobility, Education, Functional Activity Marcos, Functional Strength, Group Therapy, Gait, Safety, Therapeutic Exercise, Transfers Treatment Duration: Mar 03, 2021 Frequency: At least 5 of 7 days/Wk (IRF) Estimated Hrs Per Day: 1.5 hours per day Patient and/or Family Agrees t: Yes Safety Risks/Education Patient Education: Gait Training, Correct Positioning, Safety Issues Teaching Recipient: Patient Teaching Methods: Discussion Response to Teaching: Verbalize Understanding Time/GCodes Time In: 1000 Time Out: 1100 Total Billed Treatment Time: 60 Total Billed Treatment 1, GT x2 (25m), FA (15m) & EX (20m) AME JOSHUA MARKETING STRATEGY LEAD Feb 10, 2021 11:57
--- NOTE | 2021-02-10 14:36 | Therapy Group Daily Note ---
Therapy Daily Group Note Patient Education Topic Exercises Exercises LE Seated Exercise, UE Exercise Session Ratio (pt:therapist): 3:1 Goal of Session: UE/LE Strengthing Goal Met for this Session: Yes Pt Benefit of Group: Contributions to Others, F/U Use of Strategies @Home, Increased Functional Safety, Increased Functional Strength, Improved Cognition, Recognition of Peers, Socialization Other/Notes Pt propelled w/c to therapy gym for OT/PT group. Group consisted of introductions (name, place living, trivia question), socialization, B UE/LE seated exercises and education on benefits of exercise. Pt introduced self appropriately and actively listened to peers. Pt able to complete exercises with L UE and tolerated well. Pt given light resistance theraband and HEP for use in room and home. Pt gave personal strategies and examples of educational topics. After session, pt in bathroom, nrsg aware of position, call light in reach. All needs met in room. Start Time: 13:00 Stop Time: 14:00 Total Billed Treatment Time: 60 Total Billed Treatment 1-[facility] GILL PALACIOS Feb 10, 2021 14:36
[2021-02-10 20:00] VITALS: BP 107/56
[2021-02-10] MEDS: TIMOLOL MALEATE 0.5% 5 ML (TIMOPTIC) BTL OU SCH (21:19)
[2021-02-11 07:37] VITALS: BP 111/75
--- NOTE | 2021-02-11 08:21 | Cardiology Progress Note ---
Subjective Date Seen by Provider: Feb 11, 2021 Time Seen by Provider: 08:21 Subjective/Events-last exam Patient was seen at bedside, has been feeling well. No new complaint Review of Systems General: No Chills, No Night Sweats, No Fatigue, No Malaise, No Appetite, No Other HEENT: No Head Aches, No Visual Changes, No Eye Pain, No Ear Pain, No Dysphasia, No Sinus Congestion, No Post Nasal Drip, No Sore Throat, No Other Pulmonary: No Dyspnea, No Cough, No Pleuritic Chest Pain, No Other Cardiovascular: No: Chest Pain, Palpitations, Orthopnea, Paroxysmal Noc. Dyspnea, Edema, Lt Headedness, Other Objective-Cardiology Exam Last Set of Vital Signs Vital Signs 02/11/21 07:37 Temp 36.0 Pulse 83 Resp 14 B/P (MAP) 111/75 (87) Pulse Ox 100 O2 Delivery Room Air Capillary Refill : General: Alert, Oriented X3, Cooperative HEENT: Atraumatic, PERRLA Neck: Supple, No JVD, No Thyromegaly Lungs: Clear to Auscultation, Normal Air Movement Heart: Regular Rate, Normal S1, Normal S2, No Murmurs Abdomen: Normal Bowel Sounds, Soft, No Tenderness, No Hepatosplenomegaly, No Masses Extremities: No Clubbing, No Cyanosis, No Edema, Normal Pulses, No Tenderness/Swelling Skin: No Rashes, No Breakdown, No Significant Lesion Neuro: Normal Speech, Normal Tone, Sensation Intact, Other (Weakness on the right side) Psych/Mental Status: Mental Status NL, Mood NL A/P-Cardiology Admission Diagnosis CVA HTN HLP GERD Assessment/Plan 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 No evidence of carotid artery stenosis per CTA Head/neck done at [facility]. 2D Echo done 01/29/21 showing normal LV size with EF 65%, mild to moderate mitral regurgitation, moderate tricuspid regurgitation. PFO present. Maintained on ASA and Plavix. Continues to have right sided weakness. Continue with PT/OT. Status post loop monitor implant on 02/08/2021, site is healing well Hypotension, blood pressure improved after discontinuing lisinopril Hyperlipidemia maintained on statin, continue to monitor Gastroesophageal reflux disease Hx of shingles resulting in decreased vision in left eye Osteoporosis BARTOLO WESTON MD Feb 11, 2021 8:21 am
[2021-02-11] MEDS: SENNA W/DOCUSATE (SENOKOT S) TABLET PO SCH ×2 (08:38→21:30)
[2021-02-11] MEDS: DOCUSATE SODIUM 100 MG (COLACE) CAP PO SCH ×2 (08:38→21:30)
--- NOTE | 2021-02-11 09:04 | Speech Therapy Progress Note ---
Therapy Progress Note Patient did not receive ST 02/08 to 02/10 due to unavailability of clinician. Resumed care 02/11/2021. MARCELA MANTILLA Feb 11, 2021 09:04
--- NOTE | 2021-02-11 09:08 | Speech Therapy Daily Note ---
Speech Daily Progress Note Subjective Date Seen by Provider: Feb 11, 2021 Time Seen by Provider: 00:30 Patient resting in her recliner when I entered her room. Objective Patient completed oral motor exercises x10 with Vital Stim on at 5.0 for 25 minutes. Assessment Assessment Current Status: Good Progress Treatment Plan Continue Plan of Care Speech Short Term Goals Short Term Goals Short Term Goals 1) Patient will complete OME x10 without cues at 90% or greater. 2) Patient will improve speech production at 100% intelligible. Speech Cosmetic Surgeon Goals Halfway Goals Patient will demo effective communication and oral motor function at 100% intelligible. Speech-Plan Patient/Family Goals Patient/Family Goals: Patient will return to her home upon discharge. Treatment Plan Speech Therapy Treatment Plan: Continue Plan of Care Treatment Duration: Feb 17, 2021 Frequency: 4 times per week (Patient will receive skilled ST 4-5x per week) Estimated Hrs Per Day: .5 hour per day Rehab Potential: Good Barriers to Learning: None at this time. Pt/Family Agrees to Plan: Yes Safety Risks/Education Teaching Recipient: Patient Teaching Methods: Demonstration, Discussion Response to Teaching: Verbalize Understanding, Return Demonstration Education Topics Provided: Continued safety and communication Time Speech Therapy Time In: 08:30 Speech Therapy Time Out: 09:00 Total Billed Time: 30 Billed Treatment Time 1, MARCELA Duong Feb 11, 2021 09:08
[2021-02-11] MEDS: polyethylene glycoL POWDER 17 GM (MIRALAX) PACK PO SCH ×2 (09:12→21:30)
[2021-02-11] MEDS: PANTOPRAZOLE 40 MG (PROTONIX) TAB PO SCH (09:12)
[2021-02-11] MEDS: LORATADINE (CLARITIN) 10 MG TAB PO SCH (09:12)
[2021-02-11] MEDS: CALCIUM CARB + VIT D 600 MG (CALCARB + D) TAB PO SCH (09:12)
[2021-02-11] MEDS: ASPIRIN 81 MG CHEW (CHILDREN'S ASA) PO SCH (09:12)
[2021-02-11] MEDS: VITAMIN D3 25 MCG (1,000 UNITS) TABLET PO SCH (09:12)
[2021-02-11] MEDS: PREGABALIN 75 MG (LYRICA) CAP PO SCH ×2 (09:12→21:44)
[2021-02-11] MEDS: CLOPIDOGREL 75 MG (PLAVIX) TABLET PO SCH (09:12)
--- NOTE | 2021-02-11 10:10 | Occupational Ther Daily Note ---
OT Current Status-Daily Note Subjective Pt agreeable to OT Tx. Mental Status/Objective Patient Orientation: Normal For Age ADL-Treatment Therapy Code Descriptions/Definitions Functional [place] Measure: 0=Not Assessed/NA 4=Minimal Assistance 1=Total Assistance 5=Supervision or Setup 2=Maximal Assistance 6=Modified [place] 3=Moderate Assistance 7=Complete IndependenceSCALE: Activities may be completed with or without assistive devices. 2-Frrzlxnkzv-txnlgjy completes the activity by him/herself with no assistance from a helper. 5-Set-up or Clean-up Assistance-helper sets up or cleans up; patient completes activity. [place] assists only prior to or following the activity. 4-Supervision or Touching Assistance-helper provides verbal cues and/or touching/steadying and/or contact guard assistance as patient completes activity . Assistance may be provided throughout the activity or intermittently. 3-Partial/Moderate Assistance-helper does LESS THAN HALF the effort. [place] lifts, holds or supports trunk or limbs, but provides less than half the effort. 2-Substantial/Maximal Assistance-helper does MORE THAN HALF the effort. [place] lifts or holds trunk or limbs and provides more than half the effort. 1-Gehwyyejy-xwpihu does ALL the effort. Patient does none of the effort to complete the activity. Or, the assistance of 2 or more helpers is required for the patient to complete the activity. If activity was not attempted, code reason: 7-Patient Refused. 9-Not Applicable-not attempted and the patient did not perform the activity before the current illness, exacerbation or injury. 10-Not Attempted due to Environmental Limitations-(lack of equipment, weather restraints, etc.). 88-Not Attempted due to Medical Conditions or Safety Concerns. Upper Body Dressing (QC): 3 (Min A overall with bra and t-shirt, min cues for sequencing of hemiplegic technique) Lower Body Dressing (QC): 4 (SBA, min verbal cues required to recall hemiplegic dressing techniques) On/Off Footwear: 3 (Pt able to don BLE socks, LLE shoe, assist donning RLE AFO and shoe.) Toileting Hygiene (QC): 4 (CGA, pt able to manage clothing and perform hygiene) Toilet Transfer (QC): 4 (CGA SPT to/from w/c and toilet.) Other Treatment Pt seated in recliner, SPT to w/c, CGA. Pt taken into bathroom, transferring to toilet. Pt completed toileting, then transferred back to w/c. Pt completed dressing as outlined above at w/c level. OT provided pt with dycem to assist with holding her R leg up in figure 4 method in order to don socks. She propelled w/c to therapy gym. Pt completed x15 reps AROM for shoulder elevation/depression, protraction/retraction. x5 reps towel slides on elevated surface, gravity eliminated plane for shoulder flexion, scaption, elbow flexion, and wrist flexion. Pt completed towel slides on table, reaching towards cones in various planes in gravity eliminated plane. OT provided gentle PROM and joint compression in all planes and all joints. Post tx, pt seated in w/c in therapy gym, PT present to take over tx. All needs met. Education OT Patient Education: Correct positioning, Modified ADL techniques, Progress toward Goal/Update tx plan, Purpose of tx/functional activities, Rehab process Teaching Recipient: Patient Teaching Methods: Discussion Response to Teaching: Verbalize Understanding OT Short Term Goals Short Term Goals Time Frame: Feb 17, 2021 Eatin Oral hygiene: 4 Toileting hygiene: 4 Shower/bathe self: 3 Upper body dressin Lower body dressin Putting on/taking off footwear: 4 OT Cat Sitter Goals Senior Care Goals Time Frame: Mar 03, 2021 Eating (QC): 6 Oral Hygiene (QC): 6 Toileting Hygiene (QC): 6 Shower/Bathe Self (QC): 4 Upper Body Dressing (QC): 5 Lower Body Dressing (QC): 5 On/Off Footwear (QC): 6 Pt. will participate in Occupational therapy visual assessment, and goals will be made as necessary. Additional Goals: 1-Demonstrate ADL Tasks, 2-Verbalize Understanding, 3- ImproveStrength/Marcos 1=Demonstrate adherence to instructed precautions during ADL tasks. 2=Patient will verbalize/demonstrate understanding of assistive devices/modifications for ADL. 3=Patient will improve strength/tolerance for activity to enable patient to perform ADL's. OT Education/Plan Problem List/Assessment Assessment: Decreased Activ Tolerance, Decreased UE Strength, Impaired Funct Balance, Impaired I ADL's, Impaired Self-Care Skills, Restricted Funct UE ROM Discharge Recommendations Plan/Recommendations: Continue POC Treatment Plan/Plan of Care Patient would benefit from OT for education, treatment and training to promote independence in ADL's, mobility, safety and/or upper extremity function for ADL's. Plan of Care: ADL Retraining, Functional Mobility, UE Funct Exercise/Act Treatment Duration: Mar 03, 2021 Frequency: At least 5 of 7 days/Wk (IRF) Estimated Hrs Per Day: 1.5 hours per day Agreement: Yes Rehab Potential: Good Time/GCodes Start Time: 09:15 Stop Time: 10:30 Total Time Billed (hr/min): 75 Billed Treatment Time 1, ADL (15'), EX 2 (30'), FA 2 (30') MARIA LUISA BATISTA OT Feb 11, 2021 10:10
--- NOTE | 2021-02-11 10:56 | PM&R Progress Note ---
Subjective HPI/CC On Admission Date Seen by Provider: Feb 11, 2021 Time Seen by Provider: 11:00 Subjective/Events-last exam 02/11/2021: Patient having no new issues Progressing nicely Has received a lot of quinones from her friends Check meds and labs Bowels are moving well 02/10/2021: Pt is able to walk with assistance with cane Much improved status Overall pt is having no new issues She wants to go home on 02/19 to prepare for her grandchildren to visit 02/09/2021: Patient having no problems since loop recorder was placed Had a nightmare last night Right shoulder is much improved as far as range of motion Denies any significant pain 02/08/2021: Patient doing really well Status post loop recorder Had 3 loose bowel movements so we will hold laxatives Right arm is moving now 02/07/2021: Patient doing really well today Moving her shoulder and elbow on the right side Had a large bowel movement this morning No other issues 02/06/2021: Patient doing pretty well Working with therapy Bowels really moved very well Splint on right foot has been helpful Gave her a copy of her MRI as she requested 02/05/2021: Patient doing really well Bowels moved yesterday No major issues Talked about her MRI and CT scan and November graciously sent me copies so we will discuss later 02/04/2021: Patient doing pretty well Right leg is cooperating today she reports Bowels moved yesterday Event monitor from [facility] was discussed We will reach out to Dr. Sanchez 02/03/21: Pt doing really well Dr. Sanchez consulted Bowels are a bit loose Frustrated that her right leg didnt work too well today but I reassured her Review of Systems General: Fatigue, Malaise Neurological: Weakness, Incoordination Objective Exam Vital Signs Vital Signs Date Time Temp Pulse Resp B/P (MAP) Pulse Ox O2 Delivery O2 Flow Rate FiO2 02/11/21 20:00 36.9 91 20 115/69 (84) 95 Room Air Capillary Refill : General Appearance: No Apparent Distress, WD/WN HEENT: PERRL/EOMI, Normal ENT Inspection, Pharynx Normal Neck: Full Range of Motion, Normal Inspection, Non Tender, Supple, Carotid Bruit Respiratory: Chest Non Tender, Lungs Clear, Normal Breath Sounds, No Accessory Muscle Use, No Respiratory Distress Cardiovascular: Regular Rate, Rhythm, No Edema, No Gallop, No JVD, No Murmur, Normal Peripheral Pulses Gastrointestinal: Normal Bowel Sounds, No Organomegaly, No Pulsatile Mass, Non Tender, Soft Back: Normal Inspection, No CVA Tenderness, No Vertebral Tenderness Extremity: Normal Capillary Refill, Normal Inspection, Normal Range of Motion (Except right sided weakness 1/5), Non Tender, No Calf Tenderness, No Pedal Edema Neurologic/Psychiatric: Alert, Oriented x3, No Motor/Sensory Deficits, Normal Mood/Affect, Abnormal Gait, Facial Droop (Right-sided) Skin: Normal Color, Warm/Dry Lymphatic: No Adenopathy Results/Procedures Lab Patient resulted labs reviewed. FIM Transfers Therapy Code Descriptions/Definitions Functional [place] Measure: 0=Not Assessed/NA 4=Minimal Assistance 1=Total Assistance 5=Supervision or Setup 2=Maximal Assistance 6=Modified [place] 3=Moderate Assistance 7=Complete IndependenceSCALE: Activities may be completed with or without assistive devices. 1-Gopmtrknwj-qqjaxsp completes the activity by him/herself with no assistance from a helper. 5-Set-up or Clean-up Assistance-helper sets up or cleans up; patient completes activity. [place] assists only prior to or following the activity. 4-Supervision or Touching Assistance-helper provides verbal cues and/or touching/steadying and/or contact guard assistance as patient completes activity. Assistance may be provided throughout the activity or intermittently. 3-Partial/Moderate Assistance-helper does LESS THAN HALF the effort. [place] lifts, holds or supports trunk or limbs, but provides less than half the effort. 2-Substantial/Maximal Assistance-helper does MORE THAN HALF the effort. [place] lifts or holds trunk or limbs and provides more than half the effort. 9-Rfderekan-vphmus does ALL the effort. Patient does none of the effort to complete the activity. Or, the assistance of 2 or more helpers is required for the patient to complete the activity. If activity was not attempted, code reason: 7-Patient Refused. 9-Not Applicable-not attempted and the patient did not perform the activity before the current illness, exacerbation or injury. 10-Not Attempted due to Environmental Limitations-(lack of equipment, weather restraints, etc.). 88-Not Attempted due to Medical Conditions or Safety Concerns. Roll Left to Right (QC): 6 Sit to Lying (QC): 4 Sit to Stand (QC): 4 Chair/Wlr-qk-Hwanl Xfer(QC): 3 Car Transfer (QC): 2 Gait Training Does the Patient Walk?: Yes Distance: 75', 30' x2, 20' Walk 10 feet (QC): 4 Walk 50 ft with 2 Turns(QC): 4 Walk 150 ft (QC): 88 Walking 10ft/uneven surface-QC: 88 Gait Persons Needed: 1 Gait Assistive Device: Cane Large Base Quad Wheelchair Training Does the Pt Use a Wheelchair?: Yes Wheel 50 ft with 2 turns (QC): 5 Wheel 150 ft (QC): 5 Type of Wheelchair: Manual Stair Training 1 Step (curb) (QC): 88 4 Steps (QC): 88 12 Steps (QC): 88 Balance Picking up an Object (QC): 88 ADL-Treatment Eating (QC): 4 Oral Hygiene (QC): 6 (IND seated in chair.) Shower/Bathe Self (QC): 4 (CGA in stand to wash/dry buttocks.) Upper Body Dressing (QC): 3 (Min A overall with bra and t-shirt, min cues for sequencing of hemiplegic technique) Lower Body Dressing (QC): 4 (SBA, min verbal cues required to recall hemiplegic dressing techniques) On/Off Footwear (QC): 3 (Pt able to don BLE socks, LLE shoe, assist donning RLE AFO and shoe.) Toileting Hygiene (QC): 4 (CGA, pt able to manage clothing and perform hygiene) Toilet Transfer (QC): 4 (CGA SPT to/from w/c and toilet.) Assessment/Plan Assessment and Plan Assess & Plan/Chief Complaint Assessment: CVA with right sided weakness GERD Herpes ophtho left 10/11 OP HTN HLP Status post loop recorder on 02/08/2021 Plan: Cardiology consultation Home meds Monitor closely 02/04/2021: Monitor closely Blood pressure monitored Event monitor versus loop recorder 02/05/2021: Monitor closely Discussed MRI and CT scans once obtained 02/06/2021: Continue aggressive therapy Splint on right foot 02/07/2021: Continue bowel regimen Continue aggressive therapy Monitor blood pressure Telemetry 02/08/2021: DC telemetry since loop recorder in place Monitor closely 02/09/2021: Monitor Loop recorder data Monitor closely Aggressive treatment for right-sided weakness 02/10/2021: Much improved status Monitor closely Continue aggressive therapy for right-sided weakness 02/11/2021: Monitor closely Fall risk Aggressive therapy (1) CVA (cerebral vascular accident) (2) PFO (patent foramen ovale) (3) GERD (gastroesophageal reflux disease) (4) Hypertension (5) Hyperlipidemia (6) Right sided weakness (7) Osteoporosis (8) Postherpetic neuralgia (9) Zoster ophthalmicus ALDEN CARCAMO DO Feb 11, 2021 10:56
--- NOTE | 2021-02-11 12:03 | Physical Therapy Daily Note ---
PT Daily Note-Current Subjective Pt sitting in [facility] in Therapy Gym after just finishing with OT. Pt agrees to PT. Pain Location: No Pain Reported Mental Status Patient Orientation: Person, Place, Time, Situation Attachments: Other-See Comments (Sling for R UE when walking) Transfers SCALE: Activities may be completed with or without assistive devices. 5-Crkpgqvbhj-gdehqpm completes the activity by him/herself with no assistance from a helper. 5-Set-up or Clean-up Assistance-helper sets up or cleans up; patient completes activity. [place] assists only prior to or following the activity. 4-Supervision or Touching Assistance-helper provides verbal cues and/or touching/steadying and/or contact guard assistance as patient completes activity. Assistance may be provided throughout the activity or intermittently. 3-Partial/Moderate Assistance-helper does LESS THAN HALF the effort. [place] lifts, holds or supports trunk or limbs, but provides less than half the effort. 2-Substantial/Maximal Assistance-helper does MORE THAN HALF the effort. [place] lifts or holds trunk or limbs and provides more than half the effort. 0-Lrteksygj-lxuomm does ALL the effort. Patient does none of the effort to complete the activity. Or, the assistance of 2 or more helpers is required for the patient to complete the activity. If activity was not attempted, code reason: 7-Patient Refused. 9-Not Applicable-not attempted and the patient did not perform the activity before the current illness, exacerbation or injury. 10-Not Attempted due to Environmental Limitations-(lack of equipment, weather restraints, etc.). 88-Not Attempted due to Medical Conditions or Safety Concerns. Sit to Stand (QC): 4 Toilet Transfer (QC): 4 Weight Bearing Full Weight Bearing Full Weight Bearing Gait Training Does the Patient Walk?: Yes Distance: 25' x 5 Walk 10 feet (QC): 4 Walk 50 ft with 2 Turns(QC): 3 Gait Persons Needed: 1 Gait Assistive Device: Cane Large Base Quad Pt needs VC to prevent NBOS as well safety as fatigues. Wheelchair Training Does the Pt Use a Wheelchair?: Yes Wheel 50 ft with 2 turns (QC): 5 Wheel 150 ft (QC): 5 Type of Wheelchair: Manual Exercises Seated Therapy Exercises: Ankle pumps, Long arc quads, Hip flexion, Glut set Seated Reps: 15 NuStep Minutes: 10 NuStep Workload: 4 Treatments Pt uses NuStep (several adjustments made to comfort including washcloth inside AFO) then takes short RB before completing Seated Ex. Pt ambulates in Therapy Gym x5 with RB as needed. Pt returns to room to use BR before TF back to bed to rest. All needs met, call light in hand. Assessment Current Status: Good Progress Pt is improving with transfers and ambulation although still needing VC for NBOS and occasionally mistepping. PT Short Term Goals Short Term Goals Time Frame: Feb 17, 2021 Roll Left & Right: 5 Sit to lyin Lying to sitting on side of be: 5 Sit to stand: 4 Chair/qln-xc-mdqmb transfer: 4 Walk 50 feet with two turns: 4 Walk 150 feet: 4 PT Group Home Goals Manager Metrology Goals PT Group Home Goals Time Frame: Mar 03, 2021 Roll Left & Right (QC): 6 Sit to Lying (QC): 6 Lying-Sitting on Side/Bed(QC): 6 Sit to Stand (QC): 6 Chair/Sqo-mr-Vzbkd Xfer(QC): 6 Toilet Transfer (QC): 6 Car Transfer (QC): 6 Does the Patient Walk: Yes Walk 10 feet (QC): 6 Walk 50ft with 2 Turns (QC): 6 Walk 150 ft (QC): 6 Walking 10ft on Uneven Surface: 5 1 Step (curb) (QC): 6 4 Steps (QC): 4 12 Steps (QC): 4 Picking up an Object (QC): 4 Does the Pt use WC or Scooter?: No Wheel 50 feet with 2 turns (QC: 9 Wheel 150 feet: 9 PT Plan Problem List Problem List: Functional Strength, Gait Treatment/Plan Treatment Plan: Continue Plan of Care Treatment Plan: Bed Mobility, Education, Functional Activity Marcos, Functional Strength, Group Therapy, Gait, Safety, Therapeutic Exercise, Transfers Treatment Duration: Mar 03, 2021 Frequency: At least 5 of 7 days/Wk (IRF) Estimated Hrs Per Day: 1.5 hours per day Patient and/or Family Agrees t: Yes Safety Risks/Education Patient Education: Gait Training, Correct Positioning, Safety Issues Teaching Recipient: Patient Teaching Methods: Discussion Response to Teaching: Verbalize Understanding Time/GCodes Time In: 1030 Time Out: 1145 Total Billed Treatment Time: 75 Total Billed Treatment 1, GT x2 (30m), EX x2 (25m) & FA (20m) AME JOSHUA OLDER WORKER SPECIALIST Feb 11, 2021 12:03
[2021-02-11] MEDS: [UNRECOGNIZED DRUG - REMARK] PO SCH (12:37)
[2021-02-11 20:00] VITALS: BP 115/69
[2021-02-11] MEDS: TIMOLOL MALEATE 0.5% 5 ML (TIMOPTIC) BTL OU SCH (21:44)
[2021-02-11] MEDS: HYDROcodone/APAP 5 MG/325 MG (LORTAB) TAB PO PRN (21:55)
[2021-02-12 07:25] VITALS: BP 124/72
[2021-02-12 07:33] VITALS: BP 124/72
[2021-02-12] MEDS: CALCIUM CARB + VIT D 600 MG (CALCARB + D) TAB PO SCH (07:38)
[2021-02-12] MEDS: CLOPIDOGREL 75 MG (PLAVIX) TABLET PO SCH (07:38)
[2021-02-12] MEDS: LORATADINE (CLARITIN) 10 MG TAB PO SCH (07:38)
[2021-02-12] MEDS: PREGABALIN 75 MG (LYRICA) CAP PO SCH ×2 (07:38→20:06)
[2021-02-12] MEDS: VITAMIN D3 25 MCG (1,000 UNITS) TABLET PO SCH (07:38)
[2021-02-12] MEDS: PANTOPRAZOLE 40 MG (PROTONIX) TAB PO SCH (07:38)
[2021-02-12] MEDS: ASPIRIN 81 MG CHEW (CHILDREN'S ASA) PO SCH (07:38)
[2021-02-12] MEDS: DOCUSATE SODIUM 100 MG (COLACE) CAP PO SCH ×2 (08:11→19:50)
[2021-02-12] MEDS: polyethylene glycoL POWDER 17 GM (MIRALAX) PACK PO SCH ×2 (08:12→19:50)
[2021-02-12] MEDS: SENNA W/DOCUSATE (SENOKOT S) TABLET PO SCH ×2 (08:12→19:50)
--- NOTE | 2021-02-12 09:27 | Speech Therapy Daily Note ---
Speech Daily Progress Note Subjective Date Seen by Provider: Feb 12, 2021 Time Seen by Provider: 00:30 Patient was sitting up in her wheelchair following breakfast, waiting on ST to begin. Objective Patient completed a series of OME x15 with minimal visual cuing, Vital Stim set on 4.0 to the lower buccal area. Assessment Assessment Current Status: Good Progress Treatment Plan Continue Plan of Care Speech Short Term Goals Short Term Goals Short Term Goals 1) Patient will complete OME x10 without cues at 90% or greater. 2) Patient will improve speech production at 100% intelligible. Speech Grain Grader Goals [facility] Goals Patient will demo effective communication and oral motor function at 100% intelligible. Speech-Plan Patient/Family Goals Patient/Family Goals: Patient will return to her home where she lives with her . Treatment Plan Speech Therapy Treatment Plan: Continue Plan of Care Treatment Duration: Feb 17, 2021 Frequency: 4 times per week (Patient will receive skilled ST 4-5x per week) Estimated Hrs Per Day: .5 hour per day Rehab Potential: Good Barriers to Learning: None identified Pt/Family Agrees to Plan: Yes Safety Risks/Education Teaching Recipient: Patient Teaching Methods: Demonstration, Discussion Response to Teaching: Verbalize Understanding, Return Demonstration Education Topics Provided: Continued safety within her room and communication Time Speech Therapy Time In: 08:30 Speech Therapy Time Out: 09:00 Total Billed Time: 30 Billed Treatment Time 1[address] [address] Feb 12, 2021 09:27
--- NOTE | 2021-02-12 11:01 | Occupational Ther Daily Note ---
OT Current Status-Daily Note Subjective Pt upright in w/c, agreeable to OT tx. Mental Status/Objective Patient Orientation: Normal For Age ADL-Treatment Therapy Code Descriptions/Definitions Functional [place] Measure: 0=Not Assessed/NA 4=Minimal Assistance 1=Total Assistance 5=Supervision or Setup 2=Maximal Assistance 6=Modified [place] 3=Moderate Assistance 7=Complete IndependenceSCALE: Activities may be completed with or without assistive devices. 2-Jzsixwercj-xeheffc completes the activity by him/herself with no assistance from a helper. 5-Set-up or Clean-up Assistance-helper sets up or cleans up; patient completes activity. [place] assists only prior to or following the activity. 4-Supervision or Touching Assistance-helper provides verbal cues and/or touching/steadying and/or contact guard assistance as patient completes activity. Assistance may be provided throughout the activity or intermittently. 3-Partial/Moderate Assistance-helper does LESS THAN HALF the effort. [place] lifts, holds or supports trunk or limbs, but provides less than half the effort. 2-Substantial/Maximal Assistance-helper does MORE THAN HALF the effort. [place] lifts or holds trunk or limbs and provides more than half the effort. 3-Oveawgotn-ozdmjf does ALL the effort. Patient does none of the effort to complete the activity. Or, the assistance of 2 or more helpers is required for the patient to complete the activity. If activity was not attempted, code reason: 7-Patient Refused. 9-Not Applicable-not attempted and the patient did not perform the activity before the current illness, exacerbation or injury. 10-Not Attempted due to Environmental Limitations-(lack of equipment, weather restraints, etc.). 88-Not Attempted due to Medical Conditions or Safety Concerns. Upper Body Dressing (QC): 3 (Min A with bra and caul fat puller shirt. ) Toileting Hygiene (QC): 4 (CGA, pt able to manage hygiene and clothing) Toilet Transfer (QC): 4 (CGA SPT from w/c to/from toilet using GBs.) Other Treatment Pt seated in w/c, agreeable to OT tx. Pt completed UE dressing at w/c level. OT educated pt on adaptive techniques to don bra, including fastening bra in lap, then donning overhead. Pt required min A with donning bra using this technique. Pt then donned caul fat puller t-shirt, requiring min A. Pt required moderate verbal cues for sequencing and to recall hemiplegic dressing technique. Pt propelled w/c to therapy gym. OT tx focused on increasing RUE strength, activity tolerance, and neuromuscular reeducation. Pt completed x15 reps AROM shoulder elevation/depression, protraction/retraction. x10 reps towel slides on elevated surface, gravity eliminated plane for shoulder flexion and scaption. 2x5 reps each for elbow flexion/extension, wrist flexion/extension, finger flexion/extension, and thumb opposition/extension. Noted trace movements for elbow extension, wrist extension and finger extension on this date. OT provided gentle PROM and joint compression in all planes and all joints. Pt propelled w/c back to her room, requests toilet. Pt completed SPT to toilet using grab bars, completed toileting, then transferred back to w/c. Post tx, pt seated upright in w/c in room, all needs met, call light in reach Education OT Patient Education: Correct positioning, Modified ADL techniques, Progress toward Goal/Update tx plan, Purpose of tx/functional activities Teaching Recipient: Patient Teaching Methods: Discussion Response to Teaching: Verbalize Understanding OT Short Term Goals Short Term Goals Time Frame: Feb 17, 2021 Eatin Oral hygiene: 4 Toileting hygiene: 4 Shower/bathe self: 3 Upper body dressin Lower body dressin Putting on/taking off footwear: 4 OT [employer] Hand Goals Senior Living Goals Time Frame: Mar 03, 2021 Eating (QC): 6 Oral Hygiene (QC): 6 Toileting Hygiene (QC): 6 Shower/Bathe Self (QC): 4 Upper Body Dressing (QC): 5 Lower Body Dressing (QC): 5 On/Off Footwear (QC): 6 Pt. will participate in Occupational therapy visual assessment, and goals will be made as necessary. Additional Goals: 1-Demonstrate ADL Tasks, 2-Verbalize Understanding, 3- ImproveStrength/Marcos 1=Demonstrate adherence to instructed precautions during ADL tasks. 2=Patient will verbalize/demonstrate understanding of assistive devices/modifications for ADL. 3=Patient will improve strength/tolerance for activity to enable patient to perform ADL's. OT Education/Plan Problem List/Assessment Assessment: Decreased Activ Tolerance, Decreased UE Strength, Impaired I ADL's, Impaired Self-Care Skills, Restricted Funct UE ROM Discharge Recommendations Plan/Recommendations: Continue POC Treatment Plan/Plan of Care Patient would benefit from OT for education, treatment and training to promote independence in ADL's, mobility, safety and/or upper extremity function for ADL's. Plan of Care: ADL Retraining, Functional Mobility, UE Funct Exercise/Act Treatment Duration: Mar 03, 2021 Frequency: At least 5 of 7 days/Wk (IRF) Estimated Hrs Per Day: 1.5 hours per day Agreement: Yes Rehab Potential: Good Time/GCodes Start Time: 09:15 Stop Time: 10:30 Total Time Billed (hr/min): 75 Billed Treatment Time 1, ADL 2 (30'), FA 3 (45') MARIA LUISA BATISTA OT Feb 12, 2021 11:01
--- NOTE | 2021-02-12 12:00 | Physical Therapy Daily Note ---
PT Daily Note-Current Subjective Pt. agrees to Rx. States she is noticing increased RUE strength. Pt. shared her home situation at home. Entrance in garage is a steep ramp at steps as they had an arthritic pet who used this ramp. The pet is now . This PLATE SENSITIZER suggested pt. now put rails at steps Pain Location: No Pain Reported Mental Status Patient Orientation: Normal For Age Attachments: Other-See Comments (AFO right) Transfers SCALE: Activities may be completed with or without assistive devices. 7-Xfwuemjhsp-woprisj completes the activity by him/herself with no assistance from a helper. 5-Set-up or Clean-up Assistance-helper sets up or cleans up; patient completes activity. [place] assists only prior to or following the activity. 4-Supervision or Touching Assistance-helper provides verbal cues and/or touching/steadying and/or contact guard assistance as patient completes activity. Assistance may be provided throughout the activity or intermittently. 3-Partial/Moderate Assistance-helper does LESS THAN HALF the effort. [place] lifts, holds or supports trunk or limbs, but provides less than half the effort. 2-Substantial/Maximal Assistance-helper does MORE THAN HALF the effort. [place] lifts or holds trunk or limbs and provides more than half the effort. 4-Jwilexvlx-gespct does ALL the effort. Patient does none of the effort to complete the activity. Or, the assistance of 2 or more helpers is required for the patient to complete the activity. If activity was not attempted, code reason: 7-Patient Refused. 9-Not Applicable-not attempted and the patient did not perform the activity before the current illness, exacerbation or injury. 10-Not Attempted due to Environmental Limitations-(lack of equipment, weather restraints, etc.). 88-Not Attempted due to Medical Conditions or Safety Concerns. Roll Left & Right (QC): 6 Sit to Lying (QC): 6 Lying to Sitting/Side of Bed(Q: 6 Sit to Stand (QC): 4 Chair/Dji-zh-Ymzqu Xfer(QC): 4 Toilet Transfer (QC): 4 Weight Bearing Full Weight Bearing Full Weight Bearing Gait Training Does the Patient Walk?: Yes Walk 10 feet (QC): 4 Walk 50 ft with 2 Turns(QC): 4 Gait Persons Needed: 1 Gait Assistive Device: Cane Large Base Quad small steps, good sequence, needs reminded of glancing up to destination, pt. fatigues and needs rest after approx 40 ft, x 5 trials Wheelchair Training Does the Pt Use a Wheelchair?: Yes Wheel 50 ft with 2 turns (QC): 4 Exercises Supine Ex: Bridging, Ankle pumps, Quad Set, Glut sets, Heel Slides, Short Arc Quads, Scooting, Straight leg raise, Hip abd/add Supine Reps: 20 Seated Therapy Exercises: Ankle pumps, Sit to stand, Long arc quads, Hip flexion Seated Reps: 12 NuStep Minutes: 10 NuStep Workload: 3 Treatments pt. utilized Nustep to focus on right knee and hip alignment as well as right hand cruise director and shoulder protraction retraction all with assist occas Assessment Current Status: Good Progress PT Short Term Goals Short Term Goals Time Frame: Feb 17, 2021 Roll Left & Right: 5 Sit to lyin Lying to sitting on side of be: 5 Sit to stand: 4 Chair/pvy-ur-rcvaz transfer: 4 Walk 50 feet with two turns: 4 Walk 150 feet: 4 PT Retirement Goals Head Tennis Professional Goals PT Retirement Goals Time Frame: Mar 03, 2021 Roll Left & Right (QC): 6 Sit to Lying (QC): 6 Lying-Sitting on Side/Bed(QC): 6 Sit to Stand (QC): 6 Chair/Kyt-oj-Mqvge Xfer(QC): 6 Toilet Transfer (QC): 6 Car Transfer (QC): 6 Does the Patient Walk: Yes Walk 10 feet (QC): 6 Walk 50ft with 2 Turns (QC): 6 Walk 150 ft (QC): 6 Walking 10ft on Uneven Surface: 5 1 Step (curb) (QC): 6 4 Steps (QC): 4 12 Steps (QC): 4 Picking up an Object (QC): 4 Does the Pt use WC or Scooter?: No Wheel 50 feet with 2 turns (QC: 9 Wheel 150 feet: 9 PT Plan Treatment/Plan Treatment Plan: Continue Plan of Care Treatment Plan: Bed Mobility, Education, Functional Activity Marcos, Functional Strength, Group Therapy, Gait, Safety, Therapeutic Exercise, Transfers Treatment Duration: Mar 03, 2021 Frequency: At least 5 of 7 days/Wk (IRF) Estimated Hrs Per Day: 1.5 hours per day Patient and/or Family Agrees t: Yes Safety Risks/Education Patient Education: Gait Training, Transfer Techniques, Correct Positioning, Disease Process, Safety Issues Teaching Recipient: Patient Teaching Methods: Demonstration, Discussion Response to Teaching: Verbalize Understanding, Return Demonstration, Reinforcement Needed Time/GCodes Time In: 1030 Time Out: 1145 Total Billed Treatment Time: 75 Total Billed Treatment 1,GT25m,FA20m,EX30m ARCHANA DUNN PLATE SENSITIZER Feb 12, 2021 12:00
--- NOTE | 2021-02-12 14:13 | PM&R Progress Note ---
Subjective HPI/CC On Admission Date Seen by Provider: Feb 12, 2021 Time Seen by Provider: 14:20 Subjective/Events-last exam 02/12/2021: Patient doing pretty well Bowels moved yesterday Moving right hand more No concerns 02/11/2021: Patient having no new issues Progressing nicely Has received a lot of quinones from her friends Check meds and labs Bowels are moving well 02/10/2021: Pt is able to walk with assistance with cane Much improved status Overall pt is having no new issues She wants to go home on 02/19 to prepare for her grandchildren to visit 02/09/2021: Patient having no problems since loop recorder was placed Had a nightmare last night Right shoulder is much improved as far as range of motion Denies any significant pain 02/08/2021: Patient doing really well Status post loop recorder Had 3 loose bowel movements so we will hold laxatives Right arm is moving now 02/07/2021: Patient doing really well today Moving her shoulder and elbow on the right side Had a large bowel movement this morning No other issues 02/06/2021: Patient doing pretty well Working with therapy Bowels really moved very well Splint on right foot has been helpful Gave her a copy of her MRI as she requested 02/05/2021: Patient doing really well Bowels moved yesterday No major issues Talked about her MRI and CT scan and November graciously sent me copies so we will discuss later 02/04/2021: Patient doing pretty well Right leg is cooperating today she reports Bowels moved yesterday Event monitor from [facility] was discussed We will reach out to Dr. Sanchez 02/03/21: Pt doing really well Dr. Sanchez consulted Bowels are a bit loose Frustrated that her right leg didnt work too well today but I reassured her Review of Systems General: Fatigue, Malaise Neurological: Weakness, Incoordination Objective Exam Vital Signs Vital Signs Date Time Temp Pulse Resp B/P (MAP) Pulse Ox O2 Delivery O2 Flow Rate FiO2 02/12/21 20:14 Room Air 02/12/21 20:00 37.2 91 18 119/66 (83) 95 Capillary Refill : General Appearance: No Apparent Distress, WD/WN HEENT: PERRL/EOMI, Normal ENT Inspection, Pharynx Normal Neck: Full Range of Motion, Normal Inspection, Non Tender, Supple, Carotid Bruit Respiratory: Chest Non Tender, Lungs Clear, Normal Breath Sounds, No Accessory Muscle Use, No Respiratory Distress Cardiovascular: Regular Rate, Rhythm, No Edema, No Gallop, No JVD, No Murmur, Normal Peripheral Pulses Gastrointestinal: Normal Bowel Sounds, No Organomegaly, No Pulsatile Mass, Non Tender, Soft Back: Normal Inspection, No CVA Tenderness, No Vertebral Tenderness Extremity: Normal Capillary Refill, Normal Inspection, Normal Range of Motion (Except right sided weakness 1/5), Non Tender, No Calf Tenderness, No Pedal Edema Neurologic/Psychiatric: Alert, Oriented x3, No Motor/Sensory Deficits, Normal Mood/Affect, Abnormal Gait, Facial Droop (Right-sided) Skin: Normal Color, Warm/Dry Lymphatic: No Adenopathy Results/Procedures Lab Patient resulted labs reviewed. FIM Transfers Therapy Code Descriptions/Definitions Functional [place] Measure: 0=Not Assessed/NA 4=Minimal Assistance 1=Total Assistance 5=Supervision or Setup 2=Maximal Assistance 6=Modified [place] 3=Moderate Assistance 7=Complete IndependenceSCALE: Activities may be completed with or without assistive devices. 5-Ysqwkifomr-oykhxif completes the activity by him/herself with no assistance from a helper. 5-Set-up or Clean-up Assistance-helper sets up or cleans up; patient completes activity. [place] assists only prior to or following the activity. 4-Supervision or Touching Assistance-helper provides verbal cues and/or touchi ng/steadying and/or contact guard assistance as patient completes activity. Assistance may be provided throughout the activity or intermittently. 3-Partial/Moderate Assistance-helper does LESS THAN HALF the effort. [place] lifts, holds or supports trunk or limbs, but provides less than half the effort. 2-Substantial/Maximal Assistance-helper does MORE THAN HALF the effort. [place] lifts or holds trunk or limbs and provides more than half the effort. 9-Pzlmsputt-spfdph does ALL the effort. Patient does none of the effort to complete the activity. Or, the assistance of 2 or more helpers is required for the patient to complete the activity. If activity was not attempted, code reason: 7-Patient Refused. 9-Not Applicable-not attempted and the patient did not perform the activity before the current illness, exacerbation or injury. 10-Not Attempted due to Environmental Limitations-(lack of equipment, weather restraints, etc.). 88-Not Attempted due to Medical Conditions or Safety Concerns. Roll Left to Right (QC): 6 Sit to Lying (QC): 6 Sit to Stand (QC): 4 Chair/Xvt-ie-Geblm Xfer(QC): 4 Car Transfer (QC): 2 Gait Training Does the Patient Walk?: Yes Distance: 25' x 5 Walk 10 feet (QC): 4 Walk 50 ft with 2 Turns(QC): 4 Walk 150 ft (QC): 88 Walking 10ft/uneven surface-QC: 88 Gait Persons Needed: 1 Gait Assistive Device: Cane Large Base Quad Wheelchair Training Does the Pt Use a Wheelchair?: Yes Wheel 50 ft with 2 turns (QC): 4 Wheel 150 ft (QC): 5 Type of Wheelchair: Manual Stair Training 1 Step (curb) (QC): 88 4 Steps (QC): 88 12 Steps (QC): 88 Balance Picking up an Object (QC): 88 ADL-Treatment Eating (QC): 4 Oral Hygiene (QC): 6 (IND seated in chair.) Shower/Bathe Self (QC): 4 (CGA in stand to wash/dry buttocks.) Upper Body Dressing (QC): 3 (Min A with bra and pulling unit floorhand shirt. ) Lower Body Dressing (QC): 4 (SBA, min verbal cues required to recall hemiplegic dressing techniques) On/Off Footwear (QC): 3 (Pt able to don BLE socks, LLE shoe, assist donning RLE AFO and shoe.) Toileting Hygiene (QC): 4 (CGA, pt able to manage hygiene and clothing) Toilet Transfer (QC): 4 (CGA SPT from w/c to/from toilet using GBs.) Assessment/Plan Assessment and Plan Assess & Plan/Chief Complaint Assessment: CVA with right sided weakness GERD Herpes ophtho left 10/11 OP HTN HLP Status post loop recorder on 02/08/2021 Plan: Cardiology consultation Home meds Monitor closely 02/04/2021: Monitor closely Blood pressure monitored Event monitor versus loop recorder 02/05/2021: Monitor closely Discussed MRI and CT scans once obtained 02/06/2021: Continue aggressive therapy Splint on right foot 02/07/2021: Continue bowel regimen Continue aggressive therapy Monitor blood pressure Telemetry 02/08/2021: DC telemetry since loop recorder in place Monitor closely 02/09/2021: Monitor Loop recorder data Monitor closely Aggressive treatment for right-sided weakness 02/10/2021: Much improved status Monitor closely Continue aggressive therapy for right-sided weakness 02/11/2021: Monitor closely Fall risk Aggressive therapy 02/12/2021: Aggressive therapy Monitor for pain (1) CVA (cerebral vascular accident) (2) PFO (patent foramen ovale) (3) GERD (gastroesophageal reflux disease) (4) Hypertension (5) Hyperlipidemia (6) Right sided weakness (7) Osteoporosis (8) Postherpetic neuralgia (9) Zoster ophthalmicus ALDEN CARCAMO DO Feb 12, 2021 14:13
[2021-02-12 20:00] VITALS: BP 119/66
[2021-02-12] MEDS: TIMOLOL MALEATE 0.5% 5 ML (TIMOPTIC) BTL OU SCH (20:07)
--- NOTE | 2021-02-13 05:02 | PM&R Progress Note ---
Subjective HPI/CC On Admission Date Seen by Provider: Feb 13, 2021 Time Seen by Provider: 07:45 Subjective/Events-last exam 02/13/21: Patient doing better each day BM+ No issues reported Moving right hand 02/12/2021: Patient doing pretty well Bowels moved yesterday Moving right hand more No concerns 02/11/2021: Patient having no new issues Progressing nicely Has received a lot of quinones from her friends Check meds and labs Bowels are moving well 02/10/2021: Pt is able to walk with assistance with cane Much improved status Overall pt is having no new issues She wants to go home on 02/19 to prepare for her grandchildren to visit 02/09/2021: Patient having no problems since loop recorder was placed Had a nightmare last night Right shoulder is much improved as far as range of motion Denies any significant pain 02/08/2021: Patient doing really well Status post loop recorder Had 3 loose bowel movements so we will hold laxatives Right arm is moving now 02/07/2021: Patient doing really well today Moving her shoulder and elbow on the right side Had a large bowel movement this morning No other issues 02/06/2021: Patient doing pretty well Working with therapy Bowels really moved very well Splint on right foot has been helpful Gave her a copy of her MRI as she requested 02/05/2021: Patient doing really well Bowels moved yesterday No major issues Talked about her MRI and CT scan and November graciously sent me copies so we will discuss later 02/04/2021: Patient doing pretty well Right leg is cooperating today she reports Bowels moved yesterday Event monitor from [facility] was discussed We will reach out to Dr. Sanchez 02/03/21: Pt doing really well Dr. Sanchez consulted Bowels are a bit loose Frustrated that her right leg didnt work too well today but I reassured her Review of Systems General: Fatigue, Malaise Neurological: Weakness, Incoordination Objective Exam Vital Signs Vital Signs Date Time Temp Pulse Resp B/P (MAP) Pulse Ox O2 Delivery O2 Flow Rate FiO2 02/13/21 09:00 Room Air 02/13/21 07:30 36.4 75 20 110/76 (87) 96 Capillary Refill : General Appearance: No Apparent Distress, WD/WN HEENT: PERRL/EOMI, Normal ENT Inspection, Pharynx Normal Neck: Full Range of Motion, Normal Inspection, Non Tender, Supple, Carotid Bruit Respiratory: Chest Non Tender, Lungs Clear, Normal Breath Sounds, No Accessory Muscle Use, No Respiratory Distress Cardiovascular: Regular Rate, Rhythm, No Edema, No Gallop, No JVD, No Murmur, Normal Peripheral Pulses Gastrointestinal: Normal Bowel Sounds, No Organomegaly, No Pulsatile Mass, Non Tender, Soft Back: Normal Inspection, No CVA Tenderness, No Vertebral Tenderness Extremity: Normal Capillary Refill, Normal Inspection, Normal Range of Motion (Except right sided weakness 1/5), Non Tender, No Calf Tenderness, No Pedal Edema Neurologic/Psychiatric: Alert, Oriented x3, No Motor/Sensory Deficits, Normal Mood/Affect, Abnormal Gait, Facial Droop (Right-sided) Skin: Normal Color, Warm/Dry Lymphatic: No Adenopathy Results/Procedures Lab Patient resulted labs reviewed. FIM Transfers Therapy Code Descriptions/Definitions Functional [place] Measure: 0=Not Assessed/NA 4=Minimal Assistance 1=Total Assistance 5=Supervision or Setup 2=Maximal Assistance 6=Modified [place] 3=Moderate Assistance 7=Complete IndependenceSCALE: Activities may be completed with or without assistive devices. 5-Qyjbltrdpf-xyllywd completes the activity by him/herself with no assistance from a helper. 5-Set-up or Clean-up Assistance-helper sets up or cleans up; patient completes activity. [place] assists only prior to or following the activity. 4-Supervision or Touching Assistance-helper provides verbal cues and/or touching/steadying and/or contact guard assistance as patient completes activity. Assistance may be provided throughout the activity or intermittently. 3-Partial/Moderate Assistance-helper does LESS THAN HALF the effort. [place] lifts, holds or supports trunk or limbs, but provides less than half the effort. 2-Substantial/Maximal Assistance-helper does MORE THAN HALF the effort. [place] lifts or holds trunk or limbs and provides more than half the effort. 1-Tbofpedvi-xyamhm does ALL the effort. Patient does none of the effort to complete the activity. Or, the assistance of 2 or more helpers is required for the patient to complete the activity. If activity was not attempted, code reason: 7-Patient Refused. 9-Not Applicable-not attempted and the patient did not perform the activity before the current illness, exacerbation or injury. 10-Not Attempted due to Environmental Limitations-(lack of equipment, weather restraints, etc.). 88-Not Attempted due to Medical Conditions or Safety Concerns. Roll Left to Right (QC): 6 Sit to Lying (QC): 6 Sit to Stand (QC): 4 Chair/Oyr-fd-Ujkcm Xfer(QC): 4 Car Transfer (QC): 2 Gait Training Does the Patient Walk?: Yes Distance: 25' x 5 Walk 10 feet (QC): 4 Walk 50 ft with 2 Turns(QC): 4 Walk 150 ft (QC): 88 Walking 10ft/uneven surface-QC: 88 Gait Persons Needed: 1 Gait Assistive Device: Cane Large Base Quad Wheelchair Training Does the Pt Use a Wheelchair?: Yes Wheel 50 ft with 2 turns (QC): 4 Wheel 150 ft (QC): 5 Type of Wheelchair: Manual Stair Training 1 Step (curb) (QC): 88 4 Steps (QC): 88 12 Steps (QC): 88 Balance Picking up an Object (QC): 88 ADL-Treatment Eating (QC): 4 Oral Hygiene (QC): 6 (IND seated in chair.) Shower/Bathe Self (QC): 4 (CGA in stand to wash/dry buttocks.) Upper Body Dressing (QC): 3 (Min A with bra and ear pull machine operator shirt. ) Lower Body Dressing (QC): 4 (SBA, min verbal cues required to recall hemiplegic dressing techniques) On/Off Footwear (QC): 3 (Pt able to don BLE socks, LLE shoe, assist donning RLE AFO and shoe.) Toileting Hygiene (QC): 4 (CGA, pt able to manage hygiene and clothing) Toilet Transfer (QC): 4 (CGA SPT from w/c to/from toilet using GBs.) Assessment/Plan Assessment and Plan Assess & Plan/Chief Complaint Assessment: CVA with right sided weakness GERD Herpes ophtho left 10/11 OP HTN HLP Status post loop recorder on 02/08/2021 Plan: Cardiology consultation Home meds Monitor closely 02/04/2021: Monitor closely Blood pressure monitored Event monitor versus loop recorder 02/05/2021: Monitor closely Discussed MRI and CT scans once obtained 02/06/2021: Continue aggressive therapy Splint on right foot 02/07/2021: Continue bowel regimen Continue aggressive therapy Monitor blood pressure Telemetry 02/08/2021: DC telemetry since loop recorder in place Monitor closely 02/09/2021: Monitor Loop recorder data Monitor closely Aggressive treatment for right-sided weakness 02/10/2021: Much improved status Monitor closely Continue aggressive therapy for right-sided weakness 02/11/2021: Monitor closely Fall risk Aggressive therapy 02/12/2021: Aggressive therapy Monitor for pain 02/13/21: Monitor for falls Balance management (1) CVA (cerebral vascular accident) (2) PFO (patent foramen ovale) (3) GERD (gastroesophageal reflux disease) (4) Hypertension (5) Hyperlipidemia (6) Right sided weakness (7) Osteoporosis (8) Postherpetic neuralgia (9) Zoster ophthalmicus ALDEN CARCAMO DO Feb 13, 2021 05:02
[2021-02-13 07:30] VITALS: BP 110/76
[2021-02-13] MEDS: ASPIRIN 81 MG CHEW (CHILDREN'S ASA) PO SCH (09:00)
[2021-02-13] MEDS: CLOPIDOGREL 75 MG (PLAVIX) TABLET PO SCH (09:01)
[2021-02-13] MEDS: PANTOPRAZOLE 40 MG (PROTONIX) TAB PO SCH (09:01)
[2021-02-13] MEDS: VITAMIN D3 25 MCG (1,000 UNITS) TABLET PO SCH (09:01)
[2021-02-13] MEDS: PREGABALIN 75 MG (LYRICA) CAP PO SCH ×2 (09:01→20:04)
[2021-02-13] MEDS: CALCIUM CARB + VIT D 600 MG (CALCARB + D) TAB PO SCH (09:01)
[2021-02-13] MEDS: LORATADINE (CLARITIN) 10 MG TAB PO SCH (09:01)
[2021-02-13] MEDS: polyethylene glycoL POWDER 17 GM (MIRALAX) PACK PO SCH ×2 (09:03→19:20)
[2021-02-13] MEDS: DOCUSATE SODIUM 100 MG (COLACE) CAP PO SCH ×2 (09:03→19:20)
[2021-02-13] MEDS: SENNA W/DOCUSATE (SENOKOT S) TABLET PO SCH ×2 (09:03→19:21)
--- NOTE | 2021-02-13 09:36 | Physical Therapy Daily Note ---
PT Daily Note-Current Subjective Agrees . No complaints. Transfers SCALE: Activities may be completed with or without assistive devices. 4-Jntrkanmih-pdjszjm completes the activity by him/herself with no assistance from a helper. 5-Set-up or Clean-up Assistance-helper sets up or cleans up; patient completes activity. [place] assists only prior to or following the activity. 4-Supervision or Touching Assistance-helper provides verbal cues and/or touching/steadying and/or contact guard assistance as patient completes activity. Assistance may be provided throughout the activity or intermittently. 3-Partial/Moderate Assistance-helper does LESS THAN HALF the effort. [place] lifts, holds or supports trunk or limbs, but provides less than half the effort. 2-Substantial/Maximal Assistance-helper does MORE THAN HALF the effort. [place] lifts or holds trunk or limbs and provides more than half the effort. 2-Ldjlnplhd-texavj does ALL the effort. Patient does none of the effort to complete the activity. Or, the assistance of 2 or more helpers is required for the patient to complete the activity. If activity was not attempted, code reason: 7-Patient Refused. 9-Not Applicable-not attempted and the patient did not perform the activity before the current illness, exacerbation or injury. 10-Not Attempted due to Environmental Limitations-(lack of equipment, weather restraints, etc.). 88-Not Attempted due to Medical Conditions or Safety Concerns. Sit to Stand (QC): 4 (CGA for safety) Chair/Haw-dv-Osgrc Xfer(QC): 4 Weight Bearing Full Weight Bearing Full Weight Bearing Gait Training Walk 50 ft with 2 Turns(QC): 4 Gait Assistive Device: FWW 75 ft x 3 with QC (wide base) with CGA. Slow gait and tends to watch her feet. Difficulty looking up due to need to see where to place the cane and to place her feet. Assessment Current Status: Good Progress Good safety awareness. Steady mostly and if her balance is perterbed, she stops and regroups well. Progressing with functional mobility PT Short Term Goals Short Term Goals Time Frame: Feb 17, 2021 Roll Left & Right: 5 Sit to lyin Lying to sitting on side of be: 5 Sit to stand: 4 (met) Chair/vey-rm-npcvv transfer: 4 (met) Walk 50 feet with two turns: 4 Walk 150 feet: 4 PT [employer] Machine Operator Goals [employer] Machine Operator Goals PT [employer] Machine Operator Goals Time Frame: Mar 03, 2021 Roll Left & Right (QC): 6 Sit to Lying (QC): 6 Lying-Sitting on Side/Bed(QC): 6 Sit to Stand (QC): 6 Chair/Ynh-oo-Vkwni Xfer(QC): 6 Toilet Transfer (QC): 6 Car Transfer (QC): 6 Does the Patient Walk: Yes Walk 10 feet (QC): 6 Walk 50ft with 2 Turns (QC): 6 Walk 150 ft (QC): 6 Walking 10ft on Uneven Surface: 5 1 Step (curb) (QC): 6 4 Steps (QC): 4 12 Steps (QC): 4 Picking up an Object (QC): 4 Does the Pt use WC or Scooter?: No Wheel 50 feet with 2 turns (QC: 9 Wheel 150 feet: 9 PT Plan Problem List Problem List: Activity Tolerance, Functional Strength, Safety, Balance, Gait, Transfer, Bed Mobility Treatment/Plan Treatment Plan: Continue Plan of Care Treatment Plan: Bed Mobility, Education, Functional Activity [place], Functional Strength, Group Therapy, Gait, Safety, Therapeutic Exercise, Transfers Treatment Duration: Mar 03, 2021 Frequency: At least 5 of 7 days/Wk (IRF) Estimated Hrs Per Day: 1.5 hours per day Patient and/or Family Agrees t: Yes Safety Risks/Education Patient Education: Gait Training Teaching Recipient: Patient Teaching Methods: Demonstration, Discussion Response to Teaching: Reinforcement Needed Time/GCodes Time In: 905 Time Out: 933 Total Billed Treatment Time: 28 Total Billed Treatment visit GT 28 GILL JUAREZ PT Feb 13, 2021 09:36
[2021-02-13] MEDS: TIMOLOL MALEATE 0.5% 5 ML (TIMOPTIC) BTL OU SCH (20:04)
[2021-02-13 20:13] VITALS: BP 109/73
[2021-02-14 08:00] VITALS: BP 116/56
[2021-02-14] MEDS: CLOPIDOGREL 75 MG (PLAVIX) TABLET PO SCH (09:08)
[2021-02-14] MEDS: LORATADINE (CLARITIN) 10 MG TAB PO SCH (09:08)
[2021-02-14] MEDS: ASPIRIN 81 MG CHEW (CHILDREN'S ASA) PO SCH (09:08)
[2021-02-14] MEDS: CALCIUM CARB + VIT D 600 MG (CALCARB + D) TAB PO SCH (09:08)
[2021-02-14] MEDS: VITAMIN D3 25 MCG (1,000 UNITS) TABLET PO SCH (09:08)
[2021-02-14] MEDS: PREGABALIN 75 MG (LYRICA) CAP PO SCH ×2 (09:08→20:46)
[2021-02-14] MEDS: PANTOPRAZOLE 40 MG (PROTONIX) TAB PO SCH (09:09)
[2021-02-14] MEDS: polyethylene glycoL POWDER 17 GM (MIRALAX) PACK PO SCH ×2 (09:10→19:23)
[2021-02-14] MEDS: SENNA W/DOCUSATE (SENOKOT S) TABLET PO SCH ×2 (09:10→19:23)
[2021-02-14] MEDS: DOCUSATE SODIUM 100 MG (COLACE) CAP PO SCH ×2 (09:10→19:23)
--- NOTE | 2021-02-14 17:19 | PM&R Progress Note ---
Subjective HPI/CC On Admission Date Seen by Provider: Feb 14, 2021 Time Seen by Provider: 17:20 Subjective/Events-last exam 02/14/21: Patient doing well Put on her own sweater today No pain reported BM+ 02/13/21: Patient doing better each day BM+ No issues reported Moving right hand 02/12/2021: Patient doing pretty well Bowels moved yesterday Moving right hand more No concerns 02/11/2021: Patient having no new issues Progressing nicely Has received a lot of quinones from her friends Check meds and labs Bowels are moving well 02/10/2021: Pt is able to walk with assistance with cane Much improved status Overall pt is having no new issues She wants to go home on 02/19 to prepare for her grandchildren to visit 02/09/2021: Patient having no problems since loop recorder was placed Had a nightmare last night Right shoulder is much improved as far as range of motion Denies any significant pain 02/08/2021: Patient doing really well Status post loop recorder Had 3 loose bowel movements so we will hold laxatives Right arm is moving now 02/07/2021: Patient doing really well today Moving her shoulder and elbow on the right side Had a large bowel movement this morning No other issues 02/06/2021: Patient doing pretty well Working with therapy Bowels really moved very well Splint on right foot has been helpful Gave her a copy of her MRI as she requested 02/05/2021: Patient doing really well Bowels moved yesterday No major issues Talked about her MRI and CT scan and November graciously sent me copies so we will discuss later 02/04/2021: Patient doing pretty well Right leg is cooperating today she reports Bowels moved yesterday Event monitor from [facility] was discussed We will reach out to Dr. Sanchez 02/03/21: Pt doing really well Dr. Sanchez consulted Bowels are a bit loose Frustrated that her right leg didnt work too well today but I reassured her Review of Systems General: Fatigue, Malaise Neurological: Weakness, Incoordination Objective Exam Vital Signs Vital Signs Date Time Temp Pulse Resp B/P (MAP) Pulse Ox O2 Delivery O2 Flow Rate FiO2 02/14/21 20:00 Room Air 02/14/21 20:00 36.8 91 18 110/60 (77) 95 Capillary Refill : General Appearance: No Apparent Distress, WD/WN HEENT: PERRL/EOMI, Normal ENT Inspection, Pharynx Normal Neck: Full Range of Motion, Normal Inspection, Non Tender, Supple, Carotid Bruit Respiratory: Chest Non Tender, Lungs Clear, Normal Breath Sounds, No Accessory Muscle Use, No Respiratory Distress Cardiovascular: Regular Rate, Rhythm, No Edema, No Gallop, No JVD, No Murmur, Normal Peripheral Pulses Gastrointestinal: Normal Bowel Sounds, No Organomegaly, No Pulsatile Mass, Non Tender, Soft Back: Normal Inspection, No CVA Tenderness, No Vertebral Tenderness Extremity: Normal Capillary Refill, Normal Inspection, Normal Range of Motion (Except right sided weakness 1/5), Non Tender, No Calf Tenderness, No Pedal Edema Neurologic/Psychiatric: Alert, Oriented x3, No Motor/Sensory Deficits, Normal Mood/Affect, Abnormal Gait, Facial Droop (Right-sided) Skin: Normal Color, Warm/Dry Lymphatic: No Adenopathy Results/Procedures Lab Laboratory Tests 02/15/21 05:36 Patient resulted labs reviewed. FIM Transfers Therapy Code Descriptions/Definitions Functional [place] Measure: 0=Not Assessed/NA 4=Minimal Assistance 1=Total Assistance 5=Supervision or Setup 2=Maximal Assistance 6=Modified [place] 3=Moderate Assistance 7=Complete IndependenceSCALE: Activities may be completed with or without assistive devices. 8-Hujraqzqog-ijgykdy completes the activity by him/herself with no assistance from a helper. 5-Set-up or Clean-up Assistance-helper sets up or cleans up; patient completes activity. [place] assists only prior to or following the activity. 4-Supervision or Touching Assistance-helper provides verbal cues and/or touching/steadying and/or contact guard assistance as patient completes activity. Assistance may be provided throughout the activity or intermittently. 3-Partial/Moderate Assistance-helper does LESS THAN HALF the effort. [place] lifts, holds or supports trunk or limbs, but provides less than half the effort. 2-Substantial/Maximal Assistance-helper does MORE THAN HALF the effort. [place] lifts or holds trunk or limbs and provides more than half the effort. 1-Ckwefsfty-upenkv does ALL the effort. Patient does none of the effort to complete the activity. Or, the assistance of 2 or more helpers is required for the patient to complete the activity. If activity was not attempted, code reason: 7-Patient Refused. 9-Not Applicable-not attempted and the patient did not perform the activity before the current illness, exacerbation or injury. 10-Not Attempted due to Environmental Limitations-(lack of equipment, weather restraints, etc.). 88-Not Attempted due to Medical Conditions or Safety Concerns. Roll Left to Right (QC): 6 Sit to Lying (QC): 6 Sit to Stand (QC): 4 (CGA for safety) Chair/Qxa-nw-Ofixv Xfer(QC): 4 Car Transfer (QC): 2 Gait Training Does the Patient Walk?: Yes Distance: 25' x 5 Walk 10 feet (QC): 4 Walk 50 ft with 2 Turns(QC): 4 Walk 150 ft (QC): 88 Walking 10ft/uneven surface-QC: 88 Gait Persons Needed: 1 Gait Assistive Device: FWW Wheelchair Training Does the Pt Use a Wheelchair?: Yes Wheel 50 ft with 2 turns (QC): 4 Wheel 150 ft (QC): 5 Type of Wheelchair: Manual Stair Training 1 Step (curb) (QC): 88 4 Steps (QC): 88 12 Steps (QC): 88 Balance Picking up an Object (QC): 88 ADL-Treatment Eating (QC): 4 Oral Hygiene (QC): 6 (IND seated in chair.) Shower/Bathe Self (QC): 4 (CGA in stand to wash/dry buttocks.) Upper Body Dressing (QC): 3 (Min A with bra and pull socket assembler shirt. ) Lower Body Dressing (QC): 4 (SBA, min verbal cues required to recall hemiplegic dressing techniques) On/Off Footwear (QC): 3 (Pt able to don BLE socks, LLE shoe, assist donning RLE AFO and shoe.) Toileting Hygiene (QC): 4 (CGA, pt able to manage hygiene and clothing) Toilet Transfer (QC): 4 (CGA SPT from w/c to/from toilet using GBs.) Assessment/Plan Assessment and Plan Assess & Plan/Chief Complaint Assessment: CVA with right sided weakness GERD Herpes ophtho left 10/11 OP HTN HLP Status post loop recorder on 02/08/2021 Plan: Cardiology consultation Home meds Monitor closely 02/04/2021: Monitor closely Blood pressure monitored Event monitor versus loop recorder 02/05/2021: Monitor closely Discussed MRI and CT scans once obtained 02/06/2021: Continue aggressive therapy Splint on right foot 02/07/2021: Continue bowel regimen Continue aggressive therapy Monitor blood pressure Telemetry 02/08/2021: DC telemetry since loop recorder in place Monitor closely 02/09/2021: Monitor Loop recorder data Monitor closely Aggressive treatment for right-sided weakness 02/10/2021: Much improved status Monitor closely Continue aggressive therapy for right-sided weakness 02/11/2021: Monitor closely Fall risk Aggressive therapy 02/12/2021: Aggressive therapy Monitor for pain 02/13/21: Monitor for falls Balance management 02/14/21: Monitor therapy progress Improved status (1) CVA (cerebral vascular accident) (2) PFO (patent foramen ovale) (3) GERD (gastroesophageal reflux disease) (4) Hypertension (5) Hyperlipidemia (6) Right sided weakness (7) Osteoporosis (8) Postherpetic neuralgia (9) Zoster ophthalmicus ALDEN CARCAMO DO Feb 14, 2021 17:19
[2021-02-14 20:00] VITALS: BP 110/60
[2021-02-14] MEDS: TIMOLOL MALEATE 0.5% 5 ML (TIMOPTIC) BTL OU SCH (20:46)
[2021-02-15 05:49] LABS: BASOPHILS % (AUTO) 1 % (0-10); EOSINOPHILS # (AUTO) 0.1 10^3/uL (0.0-0.3); EOSINOPHILS % (AUTO) 2 % (0-10); HEMATOCRIT 41 % (35-52); HEMOGLOBIN 13.6 g/dL (11.5-16.0); LYMPHOCYTES # (AUTO) 1.6 10^3/uL (1.0-4.0); LYMPHOCYTES % (AUTO) 27 % (12-44); MEAN CORPUSCULAR HEMOGLOBIN 31 pg (25-34); MEAN CORPUSCULAR HGB CONC 33 g/dL (32-36); MEAN CORPUSCULAR VOLUME 93 fL (80-99); MONOCYTES # (AUTO) 0.6 10^3/uL (0.0-1.0); MONOCYTES % (AUTO) 10 % (0-12); NEUTROPHILS # (AUTO) 3.7 10^3/uL (1.8-7.8); NEUTROPHILS % (AUTO) 61 % (42-75); PLATELET COUNT 222 10^3/uL (130-400); WHITE BLOOD COUNT 6.2 10^3/uL (4.3-11.0)
[2021-02-15 06:00] LABS: ALBUMIN 3.2 GM/DL (3.2-4.5)
[2021-02-15 06:01] LABS: CHLORIDE 107 MMOL/L (98-107); POTASSIUM 3.7 MMOL/L (3.6-5.0); SODIUM 143 MMOL/L (135-145)
[2021-02-15 06:02] LABS: CALCIUM 8.9 MG/DL (8.5-10.1)
[2021-02-15 06:03] LABS: GLUCOSE 92 MG/DL (70-105); TOTAL PROTEIN 5.8 GM/DL (6.4-8.2)
[2021-02-15 06:04] LABS: CARBON DIOXIDE 26 MMOL/L (21-32)
[2021-02-15 06:05] LABS: BILIRUBIN,TOTAL 0.5 MG/DL (0.1-1.0)
[2021-02-15 06:06] LABS: ALKALINE PHOSPHATASE 78 U/L (40-136)
[2021-02-15 06:07] LABS: CREATININE SERUM 0.71 MG/DL (0.60-1.30); GFR ESTIMATED > 60
[2021-02-15 06:08] LABS: BUN/CREATININE RATIO 18
[2021-02-15 06:10] LABS: ALANINE AMINOTRANSFERASE 29 U/L (0-55)
--- NOTE | 2021-02-15 06:32 | PM&R Progress Note ---
Subjective HPI/CC On Admission Date Seen by Provider: Feb 15, 2021 Time Seen by Provider: 11:00 Subjective/Events-last exam 02/15/2021: Pt doing well Having a little blood in her stool Miralax ordered due to constipation Discharge on Monday02/14/21: Patient doing well Put on her own sweater today No pain reported BM+ 02/13/21: Patient doing better each day BM+ No issues reported Moving right hand 02/12/2021: Patient doing pretty well Bowels moved yesterday Moving right hand more No concerns 02/11/2021: Patient having no new issues Progressing nicely Has received a lot of quinones from her friends Check meds and labs Bowels are moving well 02/10/2021: Pt is able to walk with assistance with cane Much improved status Overall pt is having no new issues She wants to go home on 02/19 to prepare for her grandchildren to visit 02/09/2021: Patient having no problems since loop recorder was placed Had a nightmare last night Right shoulder is much improved as far as range of motion Denies any significant pain 02/08/2021: Patient doing really well Status post loop recorder Had 3 loose bowel movements so we will hold laxatives Right arm is moving now 02/07/2021: Patient doing really well today Moving her shoulder and elbow on the right side Had a large bowel movement this morning No other issues 02/06/2021: Patient doing pretty well Working with therapy Bowels really moved very well Splint on right foot has been helpful Gave her a copy of her MRI as she requested 02/05/2021: Patient doing really well Bowels moved yesterday No major issues Talked about her MRI and CT scan and November graciously sent me copies so we will discuss later 02/04/2021: Patient doing pretty well Right leg is cooperating today she reports Bowels moved yesterday Event monitor from [facility] was discussed We will reach out to Dr. Sanchez 02/03/21: Pt doing really well Dr. Sanchez consulted Bowels are a bit loose Frustrated that her right leg didnt work too well today but I reassured her Review of Systems General: Fatigue, Malaise Gastrointestinal: Constipation Neurological: Weakness, Incoordination Objective Exam Vital Signs Vital Signs Date Time Temp Pulse Resp B/P (MAP) Pulse Ox O2 Delivery O2 Flow Rate FiO2 02/15/21 20:27 Room Air 02/15/21 20:25 36.5 89 18 115/61 (79) 96 Capillary Refill : General Appearance: No Apparent Distress, WD/WN HEENT: PERRL/EOMI, Normal ENT Inspection, Pharynx Normal Neck: Full Range of Motion, Normal Inspection, Non Tender, Supple, Carotid Bruit Respiratory: Chest Non Tender, Lungs Clear, Normal Breath Sounds, No Accessory Muscle Use, No Respiratory Distress Cardiovascular: Regular Rate, Rhythm, No Edema, No Gallop, No JVD, No Murmur, Normal Peripheral Pulses Gastrointestinal: Normal Bowel Sounds, No Organomegaly, No Pulsatile Mass, Non Tender, Soft Back: Normal Inspection, No CVA Tenderness, No Vertebral Tenderness Extremity: Normal Capillary Refill, Normal Inspection, Normal Range of Motion (Except right sided weakness 1/5), Non Tender, No Calf Tenderness, No Pedal Edema Neurologic/Psychiatric: Alert, Oriented x3, No Motor/Sensory Deficits, Normal Mood/Affect, Abnormal Gait, Facial Droop (Right-sided) Skin: Normal Color, Warm/Dry Lymphatic: No Adenopathy Results/Procedures Lab Laboratory Tests 02/15/21 05:36 Patient resulted labs reviewed. FIM Transfers Therapy Code Descriptions/Definitions Functional [place] Measure: 0=Not Assessed/NA 4=Minimal Assistance 1=Total Assistance 5=Supervision or Setup 2=Maximal Assistance 6=Modified [place] 3=Moderate Assistance 7=Complete IndependenceSCALE: Activities may be completed with or without assistive devices. 3-Fnvbjrxpjm-gfnifyh completes the activity by him/herself with no assistance from a helper. 5-Set-up or Clean-up Assistance-helper sets up or cleans up; patient completes activity. [place] assists only prior to or following the activity. 4-Supervision or Touching Assistance-helper provides verbal cues and/or touching/steadying and/or contact guard assistance as patient completes activity. Assistance may be provided throughout the activity or intermittently. 3-Partial/Moderate Assistance-helper does LESS THAN HALF the effort. [place] lifts, holds or supports trunk or limbs, but provides less than half the effort. 2-Substantial/Maximal Assistance-helper does MORE THAN HALF the effort. [place] lifts or holds trunk or limbs and provides more than half the effort. 0-Eksbjfjqd-obgclu does ALL the effort. Patient does none of the effort to complete the activity. Or, the assistance of 2 or more helpers is required for the patient to complete the activity. If activity was not attempted, code reason: 7-Patient Refused. 9-Not Applicable-not attempted and the patient did not perform the activity before the current illness, exacerbation or injury. 10-Not Attempted due to Environmental Limitations-(lack of equipment, weather restraints, etc.). 88-Not Attempted due to Medical Conditions or Safety Concerns. Roll Left to Right (QC): 6 Sit to Lying (QC): 6 Sit to Stand (QC): 4 (CGA for safety) Chair/Lrg-sw-Uvkxn Xfer(QC): 4 Car Transfer (QC): 2 Gait Training Does the Patient Walk?: Yes Distance: 25' x 5 Walk 10 feet (QC): 4 Walk 50 ft with 2 Turns(QC): 4 Walk 150 ft (QC): 88 Walking 10ft/uneven surface-QC: 88 Gait Persons Needed: 1 Gait Assistive Device: FWW Wheelchair Training Does the Pt Use a Wheelchair?: Yes Wheel 50 ft with 2 turns (QC): 4 Wheel 150 ft (QC): 5 Type of Wheelchair: Manual Stair Training 1 Step (curb) (QC): 88 4 Steps (QC): 88 12 Steps (QC): 88 Balance Picking up an Object (QC): 88 ADL-Treatment Eating (QC): 4 Oral Hygiene (QC): 6 (IND seated in chair.) Shower/Bathe Self (QC): 4 (CGA in stand to wash/dry buttocks.) Upper Body Dressing (QC): 3 (Min A with bra and rib puller shirt. ) Lower Body Dressing (QC): 4 (SBA, min verbal cues required to recall hemiplegic dressing techniques) On/Off Footwear (QC): 3 (Pt able to don BLE socks, LLE shoe, assist donning RLE AFO and shoe.) Toileting Hygiene (QC): 4 (CGA, pt able to manage hygiene and clothing) Toilet Transfer (QC): 4 (CGA SPT from w/c to/from toilet using GBs.) Assessment/Plan Assessment and Plan Assess & Plan/Chief Complaint Assessment: CVA with right sided weakness GERD Herpes ophtho left 10/11 OP HTN HLP Status post loop recorder on 02/08/2021 Plan: Cardiology consultation Home meds Monitor closely 02/04/2021: Monitor closely Blood pressure monitored Event monitor versus loop recorder 02/05/2021: Monitor closely Discussed MRI and CT scans once obtained 02/06/2021: Continue aggressive therapy Splint on right foot 02/07/2021: Continue bowel regimen Continue aggressive therapy Monitor blood pressure Telemetry 02/08/2021: DC telemetry since loop recorder in place Monitor closely 02/09/2021: Monitor Loop recorder data Monitor closely Aggressive treatment for right-sided weakness 02/10/2021: Much improved status Monitor closely Continue aggressive therapy for right-sided weakness 02/11/2021: Monitor closely Fall risk Aggressive therapy 02/12/2021: Aggressive therapy Monitor for pain 02/13/21: Monitor for falls Balance management 02/14/21: Monitor therapy progress Improved status 02/15/2021: Continue aggressive therapy Dramatic improvement since admission (1) CVA (cerebral vascular accident) (2) PFO (patent foramen ovale) (3) GERD (gastroesophageal reflux disease) (4) Hypertension (5) Hyperlipidemia (6) Right sided weakness (7) Osteoporosis (8) Postherpetic neuralgia (9) Zoster ophthalmicus ALDEN CARCAMO DO Feb 15, 2021 06:32
[2021-02-15 07:22] VITALS: BP 106/66
[2021-02-15] MEDS: CALCIUM CARB + VIT D 600 MG (CALCARB + D) TAB PO SCH (07:27)
[2021-02-15] MEDS: VITAMIN D3 25 MCG (1,000 UNITS) TABLET PO SCH (07:27)
[2021-02-15] MEDS: CLOPIDOGREL 75 MG (PLAVIX) TABLET PO SCH (07:27)
[2021-02-15] MEDS: PREGABALIN 75 MG (LYRICA) CAP PO SCH ×2 (07:27→20:20)
[2021-02-15] MEDS: ASPIRIN 81 MG CHEW (CHILDREN'S ASA) PO SCH (07:27)
[2021-02-15] MEDS: LORATADINE (CLARITIN) 10 MG TAB PO SCH (07:27)
[2021-02-15] MEDS: PANTOPRAZOLE 40 MG (PROTONIX) TAB PO SCH (07:27)
[2021-02-15] MEDS: DOCUSATE SODIUM 100 MG (COLACE) CAP PO SCH ×2 (07:48→20:14)
[2021-02-15] MEDS: polyethylene glycoL POWDER 17 GM (MIRALAX) PACK PO SCH ×2 (07:48→20:14)
[2021-02-15] MEDS: SENNA W/DOCUSATE (SENOKOT S) TABLET PO SCH ×2 (07:49→20:14)
--- NOTE | 2021-02-15 11:10 | Speech Therapy Daily Note ---
Speech Daily Progress Note Subjective Date Seen by Provider: Feb 15, 2021 Time Seen by Provider: 00:30 Patient was resting in her recliner following her other therapies. Objective Patient completed OME x10 with ital Stim on 5.0 for 25 minutes. Minimal cuing needed. Assessment Assessment Current Status: Good Progress Treatment Plan Continue Plan of Care Speech Short Term Goals Short Term Goals Short Term Goals 1) Patient will complete OME x10 without cues at 90% or greater. 2) Patient will improve speech production at 100% intelligible. Speech Steward/Stewardess [employer] Goals Steward/Stewardess [employer] Goals Patient will demo effective communication and oral motor function at 100% intelligible. Speech-Plan Patient/Family Goals Patient/Family Goals: Patient will return to her home where she lives with her . Treatment Plan Speech Therapy Treatment Plan: Continue Plan of Care Treatment Duration: Feb 19, 2021 Frequency: 4 times per week (Patient will receive skilled ST 4-5x per week) Estimated Hrs Per Day: .5 hour per day Rehab Potential: Good Barriers to Learning: Patient's medical status, age Pt/Family Agrees to Plan: Yes Safety Risks/Education Teaching Recipient: Patient Teaching Methods: Demonstration, Discussion Response to Teaching: Verbalize Understanding, Return Demonstration Education Topics Provided: Continued safety and communication Time Speech Therapy Time In: 11:30 Speech Therapy Time Out: 12:00 Total Billed Time: 30 Billed Treatment Time [address] Feb 15, 2021 11:10
--- NOTE | 2021-02-15 11:32 | Occupational Ther Daily Note ---
OT Current Status-Daily Note Subjective Pt seated in recliner, agreeable to OT Tx. States she is a little tired from PT. Mental Status/Objective Patient Orientation: Normal For Age ADL-Treatment Therapy Code Descriptions/Definitions Functional [place] Measure: 0=Not Assessed/NA 4=Minimal Assistance 1=Total Assistance 5=Supervision or Setup 2=Maximal Assistance 6=Modified [place] 3=Moderate Assistance 7=Complete IndependenceSCALE: Activities may be completed with or without assistive devices. 7-Tewpsianxz-xqgkhbp completes the activity by him/herself with no assistance from a helper. 5-Set-up or Clean-up Assistance-helper sets up or cleans up; patient completes activity. [place] assists only prior to or following the activity. 4-Supervision or Touching Assistance-helper provides verbal cues and/or touching/steadying and/or contact guard assistance as patient completes activity. Assistance may be provided throughout the activity or intermittently. 3-Partial/Moderate Assistance-helper does LESS THAN HALF the effort. [place] lifts, holds or supports trunk or limbs, but provides less than half the effort. 2-Substantial/Maximal Assistance-helper does MORE THAN HALF the effort. [place] lifts or holds trunk or limbs and provides more than half the effort. 0-Wdyhfksuj-lxtpte does ALL the effort. Patient does none of the effort to complete the activity. Or, the assistance of 2 or more helpers is required for the patient to complete the activity. If activity was not attempted, code reason: 7-Patient Refused. 9-Not Applicable-not attempted and the patient did not perform the activity before the current illness, exacerbation or injury. 10-Not Attempted due to Environmental Limitations-(lack of equipment, weather restraints, etc.). 88-Not Attempted due to Medical Conditions or Safety Concerns. Upper Body Dressing (QC): 3 (Pt able to don bra with min A, SBA for overhead tshirt.) Other Treatment Pt seated in recliner, able to doff UE clothing with SBA. Pt donned bra, threading BUEs into arm holes, she then asked this therapist to fasten. OT reminded pt about adaptive technique from previous session, clasping bra first then putting on overhead. Pt required min A with donning bra, and step by step cues. Pt able to don loop puller shirt with SBA. Pt used quad cane to perform functional mobility to therapy gym, 2 seated rest breaks, CGA. OT tx with focus on increasing RUE strength, activity tolerance and neuromuscular reeducation. Pt completed x15 reps AROM shoulder elevation/depression, protraction/retraction. 2x5 reps each for elbow flexion/extension, wrist flexion/extension, and finger flexion/extension in gravity eliminated plane. OT performed joint compression t o all joints. Pt used quad cane to return to room, 2 seated rest breaks. Pt practiced sit/stand from chair without arm rests, requiring CGA. Post tx, pt seated in recliner, call light in reach and all needs met. Education OT Patient Education: Correct positioning, Modified ADL techniques, Progress toward Goal/Update tx plan, Purpose of tx/functional activities Teaching Recipient: Patient Teaching Methods: Discussion Response to Teaching: Verbalize Understanding, Reinforcement Needed OT Short Term Goals Short Term Goals Time Frame: Feb 17, 2021 Eatin Oral hygiene: 4 Toileting hygiene: 4 Shower/bathe self: 3 Upper body dressin Lower body dressin Putting on/taking off footwear: 4 OT Skilled Nursing Goals Ditcher Operator Goals Time Frame: Mar 03, 2021 Eating (QC): 6 Oral Hygiene (QC): 6 Toileting Hygiene (QC): 6 Shower/Bathe Self (QC): 4 Upper Body Dressing (QC): 5 Lower Body Dressing (QC): 5 On/Off Footwear (QC): 6 Pt. will participate in Occupational therapy visual assessment, and goals will be made as necessary. Additional Goals: 1-Demonstrate ADL Tasks, 2-Verbalize Understanding, 3- ImproveStrength/[place] 1=Demonstrate adherence to instructed precautions during ADL tasks. 2=Patient will verbalize/demonstrate understanding of assistive devices/modifications for ADL. 3=Patient will improve strength/tolerance for activity to enable patient to perform ADL's. OT Education/Plan Problem List/Assessment Assessment: Decreased Activ Tolerance, Decreased UE Strength, Impaired Funct Balance, Impaired I ADL's, Impaired Self-Care Skills, Restricted Funct UE ROM Discharge Recommendations Plan/Recommendations: Continue POC Treatment Plan/Plan of Care Patient would benefit from OT for education, treatment and training to promote independence in ADL's, mobility, safety and/or upper extremity function for ADL's. Plan of Care: ADL Retraining, Functional Mobility, UE Funct Exercise/Act Treatment Duration: Mar 03, 2021 Frequency: At least 5 of 7 days/Wk (IRF) Estimated Hrs Per Day: 1.5 hours per day Agreement: Yes Rehab Potential: Good Time/GCodes Start Time: 10:15 Stop Time: 11:30 Total Time Billed (hr/min): 75 Billed Treatment Time 1, ADL (15'), FA 4 (60') MARIA LUISA BATISTA OT Feb 15, 2021 11:32
--- NOTE | 2021-02-15 12:05 | Physical Therapy Daily Note ---
PT Daily Note-Current Subjective Pt. agrees to Rx, expresses interest in what DC planning will hold. c/o fatigue with gait and requests rest breaks Pain Location: No Pain Reported Mental Status Patient Orientation: Normal For Age Transfers SCALE: Activities may be completed with or without assistive devices. 2-Blwzgrxdzd-rlnlsdn completes the activity by him/herself with no assistance from a helper. 5-Set-up or Clean-up Assistance-helper sets up or cleans up; patient completes activity. [place] assists only prior to or following the activity. 4-Supervision or Touching Assistance-helper provides verbal cues and/or touching/steadying and/or contact guard assistance as patient completes activity. Assistance may be provided throughout the activity or intermittently. 3-Partial/Moderate Assistance-helper does LESS THAN HALF the effort. [place] lifts, holds or supports trunk or limbs, but provides less than half the effort. 2-Substantial/Maximal Assistance-helper does MORE THAN HALF the effort. [place] lifts or holds trunk or limbs and provides more than half the effort. 7-Clkubbxhf-ndnnwg does ALL the effort. Patient does none of the effort to complete the activity. Or, the assistance of 2 or more helpers is required for the patient to complete the activity. If activity was not attempted, code reason: 7-Patient Refused. 9-Not Applicable-not attempted and the patient did not perform the activity before the current illness, exacerbation or injury. 10-Not Attempted due to Environmental Limitations-(lack of equipment, weather restraints, etc.). 88-Not Attempted due to Medical Conditions or Safety Concerns. Roll Left & Right (QC): 6 Sit to Lying (QC): 6 Lying to Sitting/Side of Bed(Q: 6 Sit to Stand (QC): 6 Chair/Bmi-sd-Lpjcz Xfer(QC): 6 Toilet Transfer (QC): 6 Weight Bearing Full Weight Bearing Full Weight Bearing Gait Training Does the Patient Walk?: Yes Walk 10 feet (QC): 4 Walk 50 ft with 2 Turns(QC): 4 Gait Persons Needed: 1 Gait Assistive Device: Cane Large Base Quad pt. looks down at feet and floor for gait , has difficulty focusing at destination unless cued. no LOB, small stp length , step to gait Exercises Supine Ex: Bridging, Ankle pumps, Quad Set, Rolling, Glut sets, Heel Slides, Short Arc Quads, Scooting, Straight leg raise, Hip abd/add Supine Reps: 20 (assisted) Seated Therapy Exercises: Ankle pumps, Sit to stand, Long arc quads, Hip flexion, Hip abd/add Seated Reps: 15 Standing: Hip Abduction, Heel/toe raises, Marching Standing Reps: 15 NuStep Minutes: 8 NuStep Workload: 2 Assessment Current Status: Good Progress PT Short Term Goals Short Term Goals Time Frame: Feb 17, 2021 Roll Left & Right: 5 Sit to lyin Lying to sitting on side of be: 5 Sit to stand: 4 (met) Chair/hhd-ba-hawxs transfer: 4 (met) Walk 50 feet with two turns: 4 Walk 150 feet: 4 PT Jailkeeper Goals [facility] Goals PT [facility] Goals Time Frame: Mar 03, 2021 Roll Left & Right (QC): 6 Sit to Lying (QC): 6 Lying-Sitting on Side/Bed(QC): 6 Sit to Stand (QC): 6 Chair/Rde-zi-Mkxyh Xfer(QC): 6 Toilet Transfer (QC): 6 Car Transfer (QC): 6 Does the Patient Walk: Yes Walk 10 feet (QC): 6 Walk 50ft with 2 Turns (QC): 6 Walk 150 ft (QC): 6 Walking 10ft on Uneven Surface: 5 1 Step (curb) (QC): 6 4 Steps (QC): 4 12 Steps (QC): 4 Picking up an Object (QC): 4 Does the Pt use WC or Scooter?: No Wheel 50 feet with 2 turns (QC: 9 Wheel 150 feet: 9 PT Plan Treatment/Plan Treatment Plan: Continue Plan of Care Treatment Plan: Bed Mobility, Education, Functional Activity Marcos, Functional Strength, Group Therapy, Gait, Safety, Therapeutic Exercise, Transfers Treatment Duration: Mar 03, 2021 Frequency: At least 5 of 7 days/Wk (IRF) Estimated Hrs Per Day: 1.5 hours per day Patient and/or Family Agrees t: Yes Safety Risks/Education Patient Education: Gait Training, Transfer Techniques, Correct Positioning, Disease Process, Safety Issues Teaching Recipient: Patient Teaching Methods: Demonstration, Discussion Response to Teaching: Verbalize Understanding, Return Demonstration, Reinforcement Needed Time/GCodes Time In: 915 Time Out: 1015 Total Billed Treatment Time: 60 Total Billed Treatment 1,GT25m,EX20m,FA15m ARCHANA DUNN CORK CUTTER Feb 15, 2021 12:05
--- NOTE | 2021-02-15 13:46 | Physical Therapy Daily Note ---
PT Daily Note-Current Subjective Pt. states her is looking in to a ramp at home but it will be steep. Pt. is concerned about steps and car TRFs and wants to wok on both this aftn Pain Numeric Pain Scale: 0-No Pain Mental Status Patient Orientation: Normal For Age Attachments: Other-See Comments (AFO right) Transfers SCALE: Activities may be completed with or without assistive devices. 3-Ihuyttgesk-xqpisxn completes the activity by him/herself with no assistance from a helper. 5-Set-up or Clean-up Assistance-helper sets up or cleans up; patient completes activity. [place] assists only prior to or following the activity. 4-Supervision or Touching Assistance-helper provides verbal cues and/or touching/steadying and/or contact guard assistance as patient completes activity. Assistance may be provided throughout the activity or intermittently. 3-Partial/Moderate Assistance-helper does LESS THAN HALF the effort. [place] lifts, holds or supports trunk or limbs, but provides less than half the effort. 2-Substantial/Maximal Assistance-helper does MORE THAN HALF the effort. [place] lifts or holds trunk or limbs and provides more than half the effort. 6-Eebckynqa-lhsimg does ALL the effort. Patient does none of the effort to complete the activity. Or, the assistance of 2 or more helpers is required for the patient to complete the activity. If activity was not attempted, code reason: 7-Patient Refused. 9-Not Applicable-not attempted and the patient did not perform the activity before the current illness, exacerbation or injury. 10-Not Attempted due to Environmental Limitations-(lack of equipment, weather restraints, etc.). 88-Not Attempted due to Medical Conditions or Safety Concerns. Car Transfer (QC): 5 sit to stand and stnd to sit all CGA to min with instruction. toilet TRFs CGA Weight Bearing Full Weight Bearing Full Weight Bearing Gait Training Gait Assistive Device: Cane Large Base Quad 50ft, 35ftx2 CGA, decreased stride length Stair Training Stair Training: Handrails/: 1 handrail #of Steps: 4 4 Steps (QC): 4 Stairs: Pattern: Step to instructed in sequence and safety and recommend steps for pts home/garage Treatments gait , TRFs, steps and car TRF all improved Assessment Current Status: Good Progress PT Short Term Goals Short Term Goals Time Frame: Feb 17, 2021 Roll Left & Right: 5 Sit to lyin Lying to sitting on side of be: 5 Sit to stand: 4 (met) Chair/wtf-aq-zagkk transfer: 4 (met) Walk 50 feet with two turns: 4 Walk 150 feet: 4 PT Construction Job Cost Estimator Goals Group Home Goals PT Construction Job Cost Estimator Goals Time Frame: Mar 03, 2021 Roll Left & Right (QC): 6 Sit to Lying (QC): 6 Lying-Sitting on Side/Bed(QC): 6 Sit to Stand (QC): 6 Chair/Avo-rn-Rrjlg Xfer(QC): 6 Toilet Transfer (QC): 6 Car Transfer (QC): 6 Does the Patient Walk: Yes Walk 10 feet (QC): 6 Walk 50ft with 2 Turns (QC): 6 Walk 150 ft (QC): 6 Walking 10ft on Uneven Surface: 5 1 Step (curb) (QC): 6 4 Steps (QC): 4 12 Steps (QC): 4 Picking up an Object (QC): 4 Does the Pt use WC or Scooter?: No Wheel 50 feet with 2 turns (QC: 9 Wheel 150 feet: 9 PT Plan Treatment/Plan Treatment Plan: Continue Plan of Care Treatment Plan: Bed Mobility, Education, Functional Activity Marcos, Functional Strength, Group Therapy, Gait, Safety, Therapeutic Exercise, Transfers Treatment Duration: Mar 03, 2021 Frequency: At least 5 of 7 days/Wk (IRF) Estimated Hrs Per Day: 1.5 hours per day Patient and/or Family Agrees t: Yes Safety Risks/Education Patient Education: Gait Training, Transfer Techniques, Steps, Correct Positioning, Disease Process, Safety Issues Teaching Recipient: Patient Teaching Methods: Demonstration, Discussion Response to Teaching: Verbalize Understanding, Return Demonstration, Reinforcement Needed Time/GCodes Time In: 1300 Time Out: 1340 Total Billed Treatment Time: 40 Total Billed Treatment 1,GT15m,FA25m ARCHANA DUNN COLLECTION ADVISOR Feb 15, 2021 13:46
[2021-02-15] MEDS: TIMOLOL MALEATE 0.5% 5 ML (TIMOPTIC) BTL OU SCH (20:20)
[2021-02-15 20:25] VITALS: BP 115/61
--- NOTE | 2021-02-16 06:43 | PM&R Progress Note ---
Subjective HPI/CC On Admission Date Seen by Provider: Feb 16, 2021 Time Seen by Provider: 10:30 Subjective/Events-last exam 02/16/2021: Pt doing really well Set for discharge on Monday Bowels are moving okay MiraLax ordered 02/15/2021: Pt doing well Having a little blood in her stool Miralax ordered due to constipation Discharge on Monday02/14/21: Patient doing well Put on her own sweater today No pain reported BM+ 02/13/21: Patient doing better each day BM+ No issues reported Moving right hand 02/12/2021: Patient doing pretty well Bowels moved yesterday Moving right hand more No concerns 02/11/2021: Patient having no new issues Progressing nicely Has received a lot of quinones from her friends Check meds and labs Bowels are moving well 02/10/2021: Pt is able to walk with assistance with cane Much improved status Overall pt is having no new issues She wants to go home on 02/19 to prepare for her grandchildren to visit 02/09/2021: Patient having no problems since loop recorder was placed Had a nightmare last night Right shoulder is much improved as far as range of motion Denies any significant pain 02/08/2021: Patient doing really well Status post loop recorder Had 3 loose bowel movements so we will hold laxatives Right arm is moving now 02/07/2021: Patient doing really well today Moving her shoulder and elbow on the right side Had a large bowel movement this morning No other issues 02/06/2021: Patient doing pretty well Working with therapy Bowels really moved very well Splint on right foot has been helpful Gave her a copy of her MRI as she requested 02/05/2021: Patient doing really well Bowels moved yesterday No major issues Talked about her MRI and CT scan and November graciously sent me copies so we will discuss later 02/04/2021: Patient doing pretty well Right leg is cooperating today she reports Bowels moved yesterday Event monitor from [facility] was discussed We will reach out to Dr. Sanchez 02/03/21: Pt doing really well Dr. Sanchez consulted Bowels are a bit loose Frustrated that her right leg didnt work too well today but I reassured her Review of Systems Neurological: Weakness, Incoordination Objective Exam Vital Signs Vital Signs Date Time Temp Pulse Resp B/P (MAP) Pulse Ox O2 Delivery O2 Flow Rate FiO2 02/16/21 21:00 Room Air 02/16/21 20:00 36.8 86 16 109/68 (82) 94 Capillary Refill : General Appearance: No Apparent Distress, WD/WN HEENT: PERRL/EOMI, Normal ENT Inspection, Pharynx Normal Neck: Full Range of Motion, Normal Inspection, Non Tender, Supple, Carotid Bruit Respiratory: Chest Non Tender, Lungs Clear, Normal Breath Sounds, No Accessory Muscle Use, No Respiratory Distress Cardiovascular: Regular Rate, Rhythm, No Edema, No Gallop, No JVD, No Murmur, Normal Peripheral Pulses Gastrointestinal: Normal Bowel Sounds, No Organomegaly, No Pulsatile Mass, Non Tender, Soft Back: Normal Inspection, No CVA Tenderness, No Vertebral Tenderness Extremity: Normal Capillary Refill, Normal Inspection, Normal Range of Motion (Except right sided weakness 1/5), Non Tender, No Calf Tenderness, No Pedal Edema Neurologic/Psychiatric: Alert, Oriented x3, No Motor/Sensory Deficits, Normal Mood/Affect, Abnormal Gait, Facial Droop (Right-sided) Skin: Normal Color, Warm/Dry Lymphatic: No Adenopathy Results/Procedures Lab Patient resulted labs reviewed. [facility]IM Transfers Therapy Code Descriptions/Definitions Functional [place] Measure: 0=Not Assessed/NA 4=Minimal Assistance 1=Total Assistance 5=Supervision or Setup 2=Maximal Assistance 6=Modified [place] 3=Moderate Assistance 7=Complete IndependenceSCALE: Activities may be completed with or without assistive devices. 5-Xhlpdtrjkn-ccjmmds completes the activity by him/herself with no assistance from a helper. 5-Set-up or Clean-up Assistance-helper sets up or cleans up; patient completes activity. [place] assists only prior to or following the activity. 4-Supervision or Touching Assistance-helper provides verbal cues and/or touching/steadying and/or contact guard assistance as patient completes activity. Assistance may be provided throughout the activity or intermittently. 3-Partial/Moderate Assistance-helper does LESS THAN HALF the effort. [place] lifts, holds or supports trunk or limbs, but provides less than half the effort. 2-Substantial/Maximal Assistance-helper does MORE THAN HALF the effort. [place] lifts or holds trunk or limbs and provides more than half the effort. 2-Xirtpeqbq-tszlim does ALL the effort. Patient does none of the effort to complete the activity. Or, the assistance of 2 or more helpers is required for the patient to complete the activity. If activity was not attempted, code reason: 7-Patient Refused. 9-Not Applicable-not attempted and the patient did not perform the activity before the current illness, exacerbation or injury. 10-Not Attempted due to Environmental Limitations-(lack of equipment, weather restraints, etc.). 88-Not Attempted due to Medical Conditions or Safety Concerns. Roll Left to Right (QC): 6 Sit to Lying (QC): 6 Sit to Stand (QC): 6 Chair/Bri-mo-Vvhfd Xfer(QC): 6 Car Transfer (QC): 5 Gait Training Does the Patient Walk?: Yes Distance: 25' x 5 Walk 10 feet (QC): 4 Walk 50 ft with 2 Turns(QC): 4 Walk 150 ft (QC): 88 Walking 10ft/uneven surface-QC: 88 Gait Persons Needed: 1 Gait Assistive Device: Cane Large Base Quad Wheelchair Training Does the Pt Use a Wheelchair?: Yes Wheel 50 ft with 2 turns (QC): 4 Wheel 150 ft (QC): 5 Type of Wheelchair: Manual Stair Training Stair Training: Handrails/: 1 handrail #of Steps: 4 1 Step (curb) (QC): 88 4 Steps (QC): 4 12 Steps (QC): 88 Stairs: Pattern: Step to Balance Picking up an Object (QC): 88 ADL-Treatment Eating (QC): 4 Oral Hygiene (QC): 6 (IND seated in chair.) Shower/Bathe Self (QC): 4 (CGA in stand to wash/dry buttocks.) Upper Body Dressing (QC): 3 (Pt able to don bra with min A, SBA for overhead tshirt.) Lower Body Dressing (QC): 4 (SBA, min verbal cues required to recall hemiplegic dressing techniques) On/Off Footwear (QC): 3 (Pt able to don BLE socks, LLE shoe, assist donning RLE AFO and shoe.) Toileting Hygiene (QC): 4 (CGA, pt able to manage hygiene and clothing) Toilet Transfer (QC): 4 (CGA SPT from w/c to/from toilet using GBs.) Assessment/Plan Assessment and Plan Assess & Plan/Chief Complaint Assessment: CVA with right sided weakness GERD Herpes ophtho left 10/11 OP HTN HLP Status post loop recorder on 02/08/2021 Plan: Cardiology consultation Home meds Monitor closely 02/04/2021: Monitor closely Blood pressure monitored Event monitor versus loop recorder 02/05/2021: Monitor closely Discussed MRI and CT scans once obtained 02/06/2021: Continue aggressive therapy Splint on right foot 02/07/2021: Continue bowel regimen Continue aggressive therapy Monitor blood pressure Telemetry 02/08/2021: DC telemetry since loop recorder in place Monitor closely 02/09/2021: Monitor Loop recorder data Monitor closely Aggressive treatment for right-sided weakness 02/10/2021: Much improved status Monitor closely Continue aggressive therapy for right-sided weakness 02/11/2021: Monitor closely Fall risk Aggressive therapy 02/12/2021: Aggressive therapy Monitor for pain 02/13/21: Monitor for falls Balance management 02/14/21: Monitor therapy progress Improved status 02/15/2021: Continue aggressive therapy Dramatic improvement since admission 02/16/2021: Continue current treatment Monitor closely Fall risk (1) CVA (cerebral vascular accident) (2) PFO (patent foramen ovale) (3) GERD (gastroesophageal reflux disease) (4) Hypertension (5) Hyperlipidemia (6) Right sided weakness (7) Osteoporosis (8) Postherpetic neuralgia (9) Zoster ophthalmicus ALDEN CARCAMO DO Feb 16, 2021 06:43
[2021-02-16 07:59] VITALS: BP 109/65
[2021-02-16] MEDS: DOCUSATE SODIUM 100 MG (COLACE) CAP PO SCH ×2 (08:13→21:00)
[2021-02-16] MEDS: SENNA W/DOCUSATE (SENOKOT S) TABLET PO SCH ×2 (08:13→21:00)
[2021-02-16] MEDS: ASPIRIN 81 MG CHEW (CHILDREN'S ASA) PO SCH (08:18)
[2021-02-16] MEDS: VITAMIN D3 25 MCG (1,000 UNITS) TABLET PO SCH (08:18)
[2021-02-16] MEDS: CLOPIDOGREL 75 MG (PLAVIX) TABLET PO SCH (08:18)
[2021-02-16] MEDS: polyethylene glycoL POWDER 17 GM (MIRALAX) PACK PO SCH ×2 (08:18→21:00)
[2021-02-16] MEDS: PREGABALIN 75 MG (LYRICA) CAP PO SCH ×2 (08:18→20:14)
[2021-02-16] MEDS: PANTOPRAZOLE 40 MG (PROTONIX) TAB PO SCH (08:18)
[2021-02-16] MEDS: LORATADINE (CLARITIN) 10 MG TAB PO SCH (08:18)
[2021-02-16] MEDS: CALCIUM CARB + VIT D 600 MG (CALCARB + D) TAB PO SCH (08:34)
--- NOTE | 2021-02-16 10:56 | Occupational Ther Daily Note ---
OT Current Status-Daily Note Subjective Pt seated in recliner, agreeable to OT tx. Mental Status/Objective Patient Orientation: Normal For Age ADL-Treatment Therapy Code Descriptions/Definitions Functional [place] Measure: 0=Not Assessed/NA 4=Minimal Assistance 1=Total Assistance 5=Supervision or Setup 2=Maximal Assistance 6=Modified [place] 3=Moderate Assistance 7=Complete IndependenceSCALE: Activities may be completed with or without assistive devices. 1-Rwfwmfztfj-xiisrpj completes the activity by him/herself with no assistance from a helper. 5-Set-up or Clean-up Assistance-helper sets up or cleans up; patient completes activity. [place] assists only prior to or following the activity. 4-Supervision or Touching Assistance-helper provides verbal cues and/or touching/steadying and/or contact guard assistance as patient completes activity. Assistance may be provided throughout the activity or intermittently. 3-Partial/Moderate Assistance-helper does LESS THAN HALF the effort. [place] lifts, holds or supports trunk or limbs, but provides less than half the effort. 2-Substantial/Maximal Assistance-helper does MORE THAN HALF the effort. [place] lifts or holds trunk or limbs and provides more than half the effort. 9-Neqpkafga-hovvhb does ALL the effort. Patient does none of the effort to complete the activity. Or, the assistance of 2 or more helpers is required for the patient to complete the activity. If activity was not attempted, code reason: 7-Patient Refused. 9-Not Applicable-not attempted and the patient did not perform the activity before the current illness, exacerbation or injury. 10-Not Attempted due to Environmental Limitations-(lack of equipment, weather restraints, etc.). 88-Not Attempted due to Medical Conditions or Safety Concerns. Shower/Bathe Self (QC): 5 (set up assist) Upper Body Dressing (QC): 3 (Min A with bra, poor recall of adaptive technique. SBA wtih truss puller helper shirt.) Lower Body Dressing (QC): 4 (CGA in stand.) On/Off Footwear: 4 (SBA, pt required increased time to don socks, R AFO, and shoes.) Toileting Hygiene (QC): 4 (CGA, pt able to complete hygiene and clothing management.) Toilet Transfer (QC): 4 (CGA) Other Treatment Pt seated in recliner, used quad cane to perform functional mobility into bathroom and onto shower chair. Pt doffed clothes, completed shower, then transferred to w/c to get dressed. Pt donned bra, poor recall of adaptive technique from previous sessions, required step by step verbal cues and min A to don bra. Pt also donned underwear then requests to use toilet. OT positioned w/c for transfer, pt stood without warning, prior to brakes being locked, then transferred to toilet. OT educated pt on safety aspect of making sure brakes are locked prior to transfers, she verbalized understanding. Pt donned pants, then transferred back to w/c. She donned truss puller helper shirt and footwear. Pt propelled w/c to therapy gym, OT performed joint compression to all joints in order to increase proprioceptive input and neuromuscular reeducation. [id number] OT/PT cotreat due to skill of 2 clinicians required which a homemaking rehabilitation consultant could not perform in order to coordinate UE/LEs with task, decrease fall risk, and to focus on higher level balance task. OT focused on UE placement, cues for sequencing and safety, PT focused on LE placement, dynamic balance, and transfers. Pt stood in parallel bars, holding onto bar with RUE. Pt hit balloon back and forth with OT in all planes x2 rounds, requiring seated rest break. Post tx, pt seated in w/c, PT present to continue tx, all needs met. Education OT Patient Education: Correct positioning, Modified ADL techniques, Progress toward Goal/Update tx plan, Purpose of tx/functional activities, Rehab process, Safety issues, Transfer techniques Teaching Recipient: Patient Teaching Methods: Discussion Response to Teaching: Verbalize Understanding OT Short Term Goals Short Term Goals Time Frame: Feb 17, 2021 Eatin Oral hygiene: 4 Toileting hygiene: 4 Shower/bathe self: 3 Upper body dressin Lower body dressin Putting on/taking off footwear: 4 OT Long-Term Goals Long-Term Goals Time Frame: Mar 03, 2021 Eating (QC): 6 Oral Hygiene (QC): 6 Toileting Hygiene (QC): 6 Shower/Bathe Self (QC): 4 Upper Body Dressing (QC): 5 Lower Body Dressing (QC): 5 On/Off Footwear (QC): 6 Pt. will participate in Occupational therapy visual assessment, and goals will be made as necessary. Additional Goals: 1-Demonstrate ADL Tasks, 2-Verbalize Understanding, 3-ImproveStrength/Marcos 1=Demonstrate adherence to instructed precautions during ADL tasks. 2=Patient will verbalize/demonstrate understanding of assistive devices/modifications for ADL. 3=Patient will improve strength/tolerance for activity to enable patient to perform ADL's. OT Education/Plan Problem List/Assessment Assessment: Decreased Activ Tolerance, Decreased UE Strength, Impaired Funct Balance, Impaired I ADL's, Impaired Self-Care Skills, Restricted Funct UE ROM Discharge Recommendations Plan/Recommendations: Continue POC Treatment Plan/Plan of Care Patient would benefit from OT for education, treatment and training to promote independence in ADL's, mobility, safety and/or upper extremity function for ADL's. Plan of Care: ADL Retraining, Functional Mobility, UE Funct Exercise/Act Treatment Duration: Mar 03, 2021 Frequency: At least 5 of 7 days/Wk (IRF) Estimated Hrs Per Day: 1.5 hours per day Agreement: Yes Rehab Potential: Good Time/GCodes Start Time: 08:00 Stop Time: 09:15 Total Time Billed (hr/min): 75 Billed Treatment Time 3034-4031 OT tx, [id number] OT/PT cotreat 1, ADL 4 (55'), FA (20') MARIA LUISA BATISTA OT Feb 16, 2021 10:56
--- NOTE | 2021-02-16 11:19 | Physical Therapy Daily Note ---
PT Daily Note-Current Subjective Pt sitting in [facility] working with OT upon arrival. Pt agrees to to short co-treat then individual PT tx. Mental Status Patient Orientation: Person, Place, Time, Situation Attachments: Other-See Comments (Sling for R UE while walking) Transfers SCALE: Activities may be completed with or without assistive devices. 1-Vizzlnlxhy-lwpigwd completes the activity by him/herself with no assistance from a helper. 5-Set-up or Clean-up Assistance-helper sets up or cleans up; patient completes activity. [place] assists only prior to or following the activity. 4-Supervision or Touching Assistance-helper provides verbal cues and/or touching/steadying and/or contact guard assistance as patient completes activity. Assistance may be provided throughout the activity or intermittently. 3-Partial/Moderate Assistance-helper does LESS THAN HALF the effort. [place] lifts, holds or supports trunk or limbs, but provides less than half the effort. 2-Substantial/Maximal Assistance-helper does MORE THAN HALF the effort. [place] lifts or holds trunk or limbs and provides more than half the effort. 1-Iihvksdtk-xipnqr does ALL the effort. Patient does none of the effort to complete the activity. Or, the assistance of 2 or more helpers is required for the patient to complete the activity. If activity was not attempted, code reason: 7-Patient Refused. 9-Not Applicable-not attempted and the patient did not perform the activity before the current illness, exacerbation or injury. 10-Not Attempted due to Environmental Limitations-(lack of equipment, weather restraints, etc.). 88-Not Attempted due to Medical Conditions or Safety Concerns. Sit to Stand (QC): 5 Weight Bearing Full Weight Bearing Full Weight Bearing Gait Training Does the Patient Walk?: Yes Distance: 75', 125', 125', 200' Walk 10 feet (QC): 4 Walk 50 ft with 2 Turns(QC): 4 Walk 150 ft (QC): 4 Gait Persons Needed: 1 Gait Assistive Device: Cane Large Base Quad Wheelchair Training Does the Pt Use a Wheelchair?: Yes Wheel 50 ft with 2 turns (QC): 6 Type of Wheelchair: Manual Exercises Seated Therapy Exercises: Ankle pumps, Long arc quads, Hip flexion, Kicking activity, Hip abd/add, Glut set Seated Reps: 15 Treatments [id number]: OT/PT cotreat due to skill of 2 clinicians required which a rehabilitation director could not perform in order to coordinate UE/LEs with task, decrease fall risk, and to focus on higher level balance task. OT focused on UE placement, cues for sequencing and safety, PT focused on LE placement, dynamic balance, and transfers. Pt stood in parallel bars, holding onto bar with RUE. Pt hit balloon back and forth with OT in all planes x2 rounds, requiring seated rest break. OT departs & FRAMEWORK DEVELOPER continues tx. [id number]: Pt completes Seated EX then takes short RB before walking. Pt amb. in hallway taking RB as needed. Pt completes transfer to Tub Transfer Bench x2 for practice for home. Pt again amb. in hallway before returning to room to rest and use BR. All needs met, call light in hand & pt resting in recliner at end of tx. Assessment Current Status: Good Progress Pt is improving with activity tolerance and balance. PT Short Term Goals Short Term Goals Time Frame: Feb 17, 2021 Roll Left & Right: 5 Sit to lyin Lying to sitting on side of be: 5 Sit to stand: 4 (met) Chair/sft-zc-hfeab transfer: 4 (met) Walk 50 feet with two turns: 4 Walk 150 feet: 4 PT Plant Specialist Goals Nursing Home Goals PT Plant Specialist Goals Time Frame: Mar 03, 2021 Roll Left & Right (QC): 6 Sit to Lying (QC): 6 Lying-Sitting on Side/Bed(QC): 6 Sit to Stand (QC): 6 Chair/Kyd-fo-Suqkm Xfer(QC): 6 Toilet Transfer (QC): 6 Car Transfer (QC): 6 Does the Patient Walk: Yes Walk 10 feet (QC): 6 Walk 50ft with 2 Turns (QC): 6 Walk 150 ft (QC): 6 Walking 10ft on Uneven Surface: 5 1 Step (curb) (QC): 6 4 Steps (QC): 4 12 Steps (QC): 4 Picking up an Object (QC): 4 Does the Pt use WC or Scooter?: No Wheel 50 feet with 2 turns (QC: 9 Wheel 150 feet: 9 PT Plan Problem List Problem List: Functional Strength, Balance, Gait Treatment/Plan Treatment Plan: Continue Plan of Care Treatment Plan: Bed Mobility, Education, Functional Activity Mar[place], Functional Strength, Group Therapy, Gait, Safety, Therapeutic Exercise, Transfers Treatment Duration: Mar 03, 2021 Frequency: At least 5 of 7 days/Wk (IRF) Estimated Hrs Per Day: 1.5 hours per day Patient and/or Family Agrees t: Yes Safety Risks/Education Patient Education: Gait Training, Correct Positioning, Safety Issues Teaching Recipient: Patient Teaching Methods: Discussion Response to Teaching: Verbalize Understanding Time/GCodes Time In: 900 Time Out: 1015 Total Billed Treatment Time: 75 Total Billed Treatment Co-treat w/OT for 15m (900-915) & Ind. for 60m 1, GT x3 (40m), FA (20m) & EX (15m) AME JOSHUA FRAMEWORK DEVELOPER Feb 16, 2021 11:19
--- NOTE | 2021-02-16 11:55 | Speech Therapy Daily Note ---
Speech Daily Progress Note Subjective Date Seen by Provider: Feb 16, 2021 Time Seen by Provider: 00:30 Patient was resting in her bed following OT. Patient demo putting on her cardigan over the head method without assistance. Objective Patient completed OME with sets of 15x, without cues and Vital Stim set at 5.0. Assessment Assessment Current Status: Good Progress Treatment Plan Continue Plan of Care Speech Short Term Goals Short Term Goals Short Term Goals 1) Patient will complete OME x10 without cues at 90% or greater. 2) Patient will improve speech production at 100% intelligible. Speech Penitentiary Goals Penitentiary Goals Patient will demo effective communication and oral motor function at 100% intelligible. Speech-Plan Patient/Family Goals Patient/Family Goals: Patient plans on returning home this week to her home where she llives with her . Treatment Plan Speech Therapy Treatment Plan: Continue Plan of Care Treatment Duration: Feb 19, 2021 Frequency: 4 times per week (Patient will receive skilled ST 4-5x per week) Estimated Hrs Per Day: .5 hour per day Rehab Potential: Good Barriers to Learning: None identified Pt/Family Agrees to Plan: Yes Safety Risks/Education Teaching Recipient: Patient Teaching Methods: Demonstration, Discussion Response to Teaching: Verbalize Understanding, Return Demonstration Education Topics Provided: Continued safety awareness, communication Time Speech Therapy Time In: 10:30 Speech Therapy Time Out: 11:00 Total Billed Time: 30 Billed Treatment Time 1JAKE BETHAN[address] ST Feb 16, 2021 11:55
[2021-02-16 20:00] VITALS: BP 109/68
[2021-02-16] MEDS: TIMOLOL MALEATE 0.5% 5 ML (TIMOPTIC) BTL OU SCH (20:14)
--- NOTE | 2021-02-17 06:39 | PM&R Progress Note ---
Subjective HPI/CC On Admission Date Seen by Provider: Feb 17, 2021 Time Seen by Provider: 11:15 Subjective/Events-last exam 02/17/2021: Pt doing really well Bowels are moving Discharge on Monday Dr. Sanchez appointment will be set up Using a quad-cane 02/16/2021: Pt doing really well Set for discharge on Monday Bowels are moving okay MiraLax ordered 02/15/2021: Pt doing well Having a little blood in her stool Miralax ordered due to constipation Discharge on Monday02/14/21: Patient doing well Put on her own sweater today No pain reported BM+ 02/13/21: Patient doing better each day BM+ No issues reported Moving right hand 02/12/2021: Patient doing pretty well Bowels moved yesterday Moving right hand more No concerns 02/11/2021: Patient having no new issues Progressing nicely Has received a lot of quinones from her friends Check meds and labs Bowels are moving well 02/10/2021: Pt is able to walk with assistance with cane Much improved status Overall pt is having no new issues She wants to go home on 02/19 to prepare for her grandchildren to visit 02/09/2021: Patient having no problems since loop recorder was placed Had a nightmare last night Right shoulder is much improved as far as range of motion Denies any significant pain 02/08/2021: Patient doing really well Status post loop recorder Had 3 loose bowel movements so we will hold laxatives Right arm is moving now 02/07/2021: Patient doing really well today Moving her shoulder and elbow on the right side Had a large bowel movement this morning No other issues 02/06/2021: Patient doing pretty well Working with therapy Bowels really moved very well Splint on right foot has been helpful Gave her a copy of her MRI as she requested 02/05/2021: Patient doing really well Bowels moved yesterday No major issues Talked about her MRI and CT scan and November graciously sent me copies so we will discuss later 02/04/2021: Patient doing pretty well Right leg is cooperating today she reports Bowels moved yesterday Event monitor from [facility] was discussed We will reach out to Dr. Sanchez 02/03/21: Pt doing really well Dr. Sanchez consulted Bowels are a bit loose Frustrated that her right leg didnt work too well today but I reassured her Review of Systems General: Fatigue Neurological: Weakness, Incoordination Objective Exam Vital Signs Vital Signs Date Time Temp Pulse Resp B/P (MAP) Pulse Ox O2 Delivery O2 Flow Rate FiO2 02/17/21 21:00 Room Air 02/17/21 20:00 36.6 85 16 101/67 (78) 96 Capillary Refill : General Appearance: No Apparent Distress, WD/WN HEENT: PERRL/EOMI, Normal ENT Inspection, Pharynx Normal Neck: Full Range of Motion, Normal Inspection, Non Tender, Supple, Carotid Bruit Respiratory: Chest Non Tender, Lungs Clear, Normal Breath Sounds, No Accessory Muscle Use, No Respiratory Distress Cardiovascular: Regular Rate, Rhythm, No Edema, No Gallop, No JVD, No Murmur, Normal Peripheral Pulses Gastrointestinal: Normal Bowel Sounds, No Organomegaly, No Pulsatile Mass, Non Tender, Soft Back: Normal Inspection, No CVA Tenderness, No Vertebral Tenderness Extremity: Normal Capillary Refill, Normal Inspection, Normal Range of Motion (Except right sided weakness 1/5), Non Tender, No Calf Tenderness, No Pedal Edema Neurologic/Psychiatric: Alert, Oriented x3, No Motor/Sensory Deficits, Normal Mood/Affect, Abnormal Gait, Facial Droop (Right-sided) Skin: Normal Color, Warm/Dry Lymphatic: No Adenopathy Results/Procedures Lab Patient resulted labs reviewed. FIM Transfers Therapy Code Descriptions/Definitions Functional [place] Measure: 0=Not Assessed/NA 4=Minimal Assistance 1=Total Assistance 5=Supervision or Setup 2=Maximal Assistance 6=Modified [place] 3=Moderate Assistance 7=Complete IndependenceSCALE: Activities may be completed with or without assistive devices. 9-Adlofworbw-eknyymv completes the activity by him/herself with no assistance from a helper. 5-Set-up or Clean-up Assistance-helper sets up or cleans up; patient completes activity. [place] assists only prior to or following the activity. 4-Supervision or Touching Assistance-helper provides verbal cues and/or touching/steadying and/or contact guard assistance as patient completes activity. Assistance may be provided throughout the activity or intermittently. 3-Partial/Moderate Assistance-helper does LESS THAN HALF the effort. [place] lifts, holds or supports trunk or limbs, but provides less than half the effort. 2-Substantial/Maximal Assistance-helper does MORE THAN HALF the effort. [place] lifts or holds trunk or limbs and provides more than half the effort. 5-Nsfwtytji-rhwpbw does ALL the effort. Patient does none of the effort to complete the activity. Or, the assistance of 2 or more helpers is required for the patient to complete the activity. If activity was not attempted, code reason: 7-Patient Refused. 9-Not Applicable-not attempted and the patient did not perform the activity before the current illness, exacerbation or injury. 10-Not Attempted due to Environmental Limitations-(lack of equipment, weather restraints, etc.). 88-Not Attempted due to Medical Conditions or Safety Concerns. Roll Left to Right (QC): 6 Sit to Lying (QC): 6 Sit to Stand (QC): 5 Chair/Elq-uy-Hngsq Xfer(QC): 6 Car Transfer (QC): 5 Gait Training Does the Patient Walk?: Yes Distance: 75', 125', 125', 200' Walk 10 feet (QC): 4 Walk 50 ft with 2 Turns(QC): 4 Walk 150 ft (QC): 4 Walking 10ft/uneven surface-QC: 88 Gait Persons Needed: 1 Gait Assistive Device: Cane Large Base Quad Wheelchair Training Does the Pt Use a Wheelchair?: Yes Wheel 50 ft with 2 turns (QC): 6 Wheel 150 ft (QC): 5 Type of Wheelchair: Manual Stair Training Stair Training: Handrails/: 1 handrail #of Steps: 4 1 Step (curb) (QC): 88 4 Steps (QC): 4 12 Steps (QC): 88 Stairs: Pattern: Step to Balance Picking up an Object (QC): 88 ADL-Treatment Eating (QC): 4 Oral Hygiene (QC): 6 (IND seated in chair.) Shower/Bathe Self (QC): 5 (set up assist) Upper Body Dressing (QC): 3 (Min A with bra, poor recall of adaptive technique. SBA wtih lumber puller shirt.) Lower Body Dressing (QC): 4 (CGA in stand.) On/Off Footwear (QC): 4 (SBA, pt required increased time to don socks, R AFO, and shoes.) Toileting Hygiene (QC): 4 (CGA, pt able to complete hygiene and clothing management.) Toilet Transfer (QC): 4 (CGA) Assessment/Plan Assessment and Plan Assess & Plan/Chief Complaint Assessment: CVA with right sided weakness GERD Herpes ophtho left 10/11 OP HTN HLP Status post loop recorder on 02/08/2021 Plan: Cardiology consultation Home meds Monitor closely 02/04/2021: Monitor closely Blood pressure monitored Event monitor versus loop recorder 02/05/2021: Monitor closely Discussed MRI and CT scans once obtained 02/06/2021: Continue aggressive therapy Splint on right foot 02/07/2021: Continue bowel regimen Continue aggressive therapy Monitor blood pressure Telemetry 02/08/2021: DC telemetry since loop recorder in place Monitor closely 02/09/2021: Monitor Loop recorder data Monitor closely Aggressive treatment for right-sided weakness 02/10/2021: Much improved status Monitor closely Continue aggressive therapy for right-sided weakness 02/11/2021: Monitor closely Fall risk Aggressive therapy 02/12/2021: Aggressive therapy Monitor for pain 02/13/21: Monitor for falls Balance management 02/14/21: Monitor therapy progress Improved status 02/15/2021: Continue aggressive therapy Dramatic improvement since admission 02/16/2021: Continue current treatment Monitor closely Fall risk 02/17/2021: Continue aggressive rehab Discharge on Monday (1) CVA (cerebral vascular accident) (2) PFO (patent foramen ovale) (3) GERD (gastroesophageal reflux disease) (4) Hypertension (5) Hyperlipidemia (6) Right sided weakness (7) Osteoporosis (8) Postherpetic neuralgia (9) Zoster ophthalmicus ALDEN CARCAMO DO Feb 17, 2021 06:39
[2021-02-17 07:37] VITALS: BP 109/61
[2021-02-17] MEDS: DOCUSATE SODIUM 100 MG (COLACE) CAP PO SCH ×2 (07:43→21:40)
[2021-02-17] MEDS: polyethylene glycoL POWDER 17 GM (MIRALAX) PACK PO SCH ×2 (07:43→21:41)
[2021-02-17] MEDS: SENNA W/DOCUSATE (SENOKOT S) TABLET PO SCH ×2 (07:43→21:41)
[2021-02-17] MEDS: ASPIRIN 81 MG CHEW (CHILDREN'S ASA) PO SCH (07:47)
[2021-02-17] MEDS: VITAMIN D3 25 MCG (1,000 UNITS) TABLET PO SCH (07:47)
[2021-02-17] MEDS: LORATADINE (CLARITIN) 10 MG TAB PO SCH (07:47)
[2021-02-17] MEDS: PANTOPRAZOLE 40 MG (PROTONIX) TAB PO SCH (07:47)
[2021-02-17] MEDS: CLOPIDOGREL 75 MG (PLAVIX) TABLET PO SCH (07:47)
[2021-02-17] MEDS: PREGABALIN 75 MG (LYRICA) CAP PO SCH ×2 (07:47→20:54)
[2021-02-17] MEDS: CALCIUM CARB + VIT D 600 MG (CALCARB + D) TAB PO SCH (07:47)
--- NOTE | 2021-02-17 09:35 | Occupational Ther Daily Note ---
OT Current Status-Daily Note Subjective Pt seated in recliner, agreeable to OT tx. Mental Status/Objective Patient Orientation: Normal For Age ADL-Treatment Therapy Code Descriptions/Definitions Functional [place] Measure: 0=Not Assessed/NA 4=Minimal Assistance 1=Total Assistance 5=Supervision or Setup 2=Maximal Assistance 6=Modified [place] 3=Moderate Assistance 7=Complete IndependenceSCALE: Activities may be completed with or without assistive devices. 1-Atmkhkpyog-euusfmt completes the activity by him/herself with no assistance from a helper. 5-Set-up or Clean-up Assistance-helper sets up or cleans up; patient completes activity. [place] assists only prior to or following the activity. 4-Supervision or Touching Assistance-helper provides verbal cues and/or touching/steadying and/or contact guard assistance as patient completes activity. Assistance may be provided throughout the activity or intermittently. 3-Partial/Moderate Assistance-helper does LESS THAN HALF the effort. [place] lifts, holds or supports trunk or limbs, but provides less than half the effort. 2-Substantial/Maximal Assistance-helper does MORE THAN HALF the effort. [place] lifts or holds trunk or limbs and provides more than half the effort. 3-Ycouvkvwz-edzwff does ALL the effort. Patient does none of the effort to complete the activity. Or, the assistance of 2 or more helpers is required for the patient to complete the activity. If activity was not attempted, code reason: 7-Patient Refused. 9-Not Applicable-not attempted and the patient did not perform the activity before the current illness, exacerbation or injury. 10-Not Attempted due to Environmental Limitations-(lack of equipment, weather restraints, etc.). 88-Not Attempted due to Medical Conditions or Safety Concerns. Toileting Hygiene (QC): 4 (CGA) Toilet Transfer (QC): 4 (CGA) Other Treatment Pt seated in recliner, pt used quad cane to perform functional mobility into bathroom and onto toilet. Pt completed toileting, then stood at sink to wash hands, min A standing balance. Pt transferred back to recliner, changed battery of hearing aide with set up assist, then SPT to w/c, slight LOB with transfer requiring min A. Pt propelled w/c to therapy gym, then SPT to therapy mat. OT tx with focus on increasing RUE strength, activity tolerance and neuromuscular reeducation. Pt completed x15 reps RUE AROM shoulder elevation/depression, protraction/retraction. 2x5 reps each RUE AROM for elbow flexion/extension, wrist flexion/extension, pronation/supination, finger flexion/extension, and thumb opposition/extension. Pt then performed weight bearing through extended arm, and through forearm on bent elbow. Pt transferred back to w/, propelled back to room, SPT to toilet. Pt completed toileting, then transferred back to w/c, washed hands at sink, then transferred supine. Post tx, pt laying in bed, call light in reach and all needs met. Education OT Patient Education: Correct positioning, Modified ADL techniques, Progress toward Goal/Update tx plan, Purpose of tx/functional activities, Safety issues, Transfer techniques Teaching Recipient: Patient Teaching Methods: Discussion Response to Teaching: Verbalize Understanding OT Short Term Goals Short Term Goals Time Frame: Feb 17, 2021 Eatin Oral hygiene: 4 Toileting hygiene: 4 Shower/bathe self: 3 Upper body dressin Lower body dressin Putting on/taking off footwear: 4 OT Mcfp Goals [employer] Science Tutor Goals Time Frame: Mar 03, 2021 Eating (QC): 6 Oral Hygiene (QC): 6 Toileting Hygiene (QC): 6 Shower/Bathe Self (QC): 4 Upper Body Dressing (QC): 5 Lower Body Dressing (QC): 5 On/Off Footwear (QC): 6 Pt. will participate in Occupational therapy visual assessment, and goals will be made as necessary. Additional Goals: 1-Demonstrate ADL Tasks, 2-Verbalize Understanding, 3-ImproveStrength/Marcos 1=Demonstrate adherence to instructed precautions during ADL tasks. 2=Patient will verbalize/demonstrate understanding of assistive devices/modifications for ADL. 3=Patient will improve strength/tolerance for activity to enable patient to perform ADL's. OT Education/Plan Problem List/Assessment Assessment: Decreased Activ Tolerance, Decreased UE Strength, Impaired Self- Care Skills, Restricted Funct UE ROM Discharge Recommendations Plan/Recommendations: Continue POC Treatment Plan/Plan of Care Patient would benefit from OT for education, treatment and training to promote independence in ADL's, mobility, safety and/or upper extremity function for ADL 's. Plan of Care: ADL Retraining, Functional Mobility, UE Funct Exercise/Act Treatment Duration: Mar 03, 2021 Frequency: At least 5 of 7 days/Wk (IRF) Estimated Hrs Per Day: 1.5 hours per day Agreement: Yes Rehab Potential: Good Time/GCodes Start Time: 08:00 Stop Time: 09:00 Total Time Billed (hr/min): 60 Billed Treatment Time 1, ADL (15'), FA 3 (45') MARIA ULISA BATISTA OT Feb 17, 2021 09:35
--- NOTE | 2021-02-17 13:31 | Speech Therapy Daily Note ---
Speech Daily Progress Note Subjective Date Seen by Provider: Feb 17, 2021 Time Seen by Provider: 00:30 Patient was resting in her recliner following her PT session. Objective Patient completed OME x15 with Vital Stim at 5/0 for 25 minutes. Assessment Assessment Current Status: Good Progress Treatment Plan Continue Plan of Care Speech Short Term Goals Short Term Goals Short Term Goals 1) Patient will complete OME x10 without cues at 90% or greater. 2) Patient will improve speech production at 100% intelligible. Speech Alf Goals Alf Goals Patient will demo effective communication and oral motor function at 100% intelligible. Speech-Plan Patient/Family Goals Patient/Family Goals: Patient is scheduled to return to her home where she lives with her on 02/19/2021. Treatment Plan Speech Therapy Treatment Plan: Continue Plan of Care Treatment Duration: Feb 19, 2021 Frequency: 4 times per week (Patient will receive skilled ST 4-5x per week) Estimated Hrs Per Day: .5 hour per day Rehab Potential: Good Barriers to Learning: None identified Pt/Family Agrees to Plan: Yes Safety Risks/Education Teaching Recipient: Patient Teaching Methods: Demonstration, Discussion Response to Teaching: Verbalize Understanding, Return Demonstration Education Topics Provided: Continued safety and communication Time Speech Therapy Time In: 11:00 Speech Therapy Time Out: 11:30 Total Billed Time: 30 Billed Treatment Time 1JAKE BETH[address] ST Feb 17, 2021 13:30
--- NOTE | 2021-02-17 14:49 | Therapy Group Daily Note ---
Therapy Daily Group Note Patient Education Topic Other List Below (memory) Exercises LE Seated Exercise, UE Exercise Session Ratio (pt:therapist): 6:2 Goal of Session: Memory Strategies, UE/LE Strengthing Goal Met for this Session: Yes Pt Benefit of Group: Contributions to Others, F/U Use of Strategies @Home, Increased Functional Safety, Increased Functional Strength, Improved Cognition, Recognition of Peers, Socialization Other/Notes Pt ambulated using FWW to [facility] for OT/PT group. Group consisted of introductions (name, place born, most trouble in childhood), socialization, seated B UE/LE exercises, memory activity and education on memory strategies. Pt introduced self appropriately and actively listened to peers. Pt able to complete B UE/LE seated exercises without difficulty, 1 set 10 reps of each. Pt acknowledged understanding of memory education and gave personal strategies for memory aides. Pt participated fully in memory activity and was able to complete 3 out 4 attempts. After therapy, pt lying in bed with call light/phone in reach. All needs met in room. Start Time: 13:00 Stop Time: 14:15 Total Billed Treatment Time: 75 Total Billed Treatment 1-GRP GILL PALACIOS Feb 17, 2021 14:49
--- NOTE | 2021-02-17 15:26 | Physical Therapy Daily Note ---
PT Daily Note-Current Subjective Pt laying Supine in bed upon arrival. Pt had taken a nap as both pt & OT reported it was a day with less body control and a few LOB. Pt agrees to PT. Pain Location: No Pain Reported Mental Status Patient Orientation: Person, Place, Time, Situation Transfers SCALE: Activities may be completed with or without assistive devices. 0-Vgxfvyzxtl-suaxgwi completes the activity by him/herself with no assistance from a helper. 5-Set-up or Clean-up Assistance-helper sets up or cleans up; patient completes activity. [place] assists only prior to or following the activity. 4-Supervision or Touching Assistance-helper provides verbal cues and/or touching/steadying and/or contact guard assistance as patient completes activity. Assistance may be provided throughout the activity or intermittently. 3-Partial/Moderate Assistance-helper does LESS THAN HALF the effort. [place] lifts, holds or supports trunk or limbs, but provides less than half the effort. 2-Substantial/Maximal Assistance-helper does MORE THAN HALF the effort. [place] lifts or holds trunk or limbs and provides more than half the effort. 1-Tipamvuhz-tfkmsx does ALL the effort. Patient does none of the effort to complete the activity. Or, the assistance of 2 or more helpers is required for the patient to complete the activity. If activity was not attempted, code reason: 7-Patient Refused. 9-Not Applicable-not attempted and the patient did not perform the activity before the current illness, exacerbation or injury. 10-Not Attempted due to Environmental Limitations-(lack of equipment, weather restraints, etc.). 88-Not Attempted due to Medical Conditions or Safety Concerns. Lying to Sitting/Side of Bed(Q: 5 Sit to Stand (QC): 5 Toilet Transfer (QC): 5 Weight Bearing Full Weight Bearing Full Weight Bearing Gait Training Does the Patient Walk?: Yes Distance: 150' Walk 10 feet (QC): 5 Walk 50 ft with 2 Turns(QC): 5 Walk 150 ft (QC): 5 Gait Persons Needed: 1 Gait Assistive Device: Cane Large Base Quad Attempted SBQC but pt feels more comfortable with larger base. Wheelchair Training Does the Pt Use a Wheelchair?: Yes Wheel 50 ft with 2 turns (QC): 5 Wheel 150 ft (QC): 5 Type of Wheelchair: Manual Exercises Seated Therapy Exercises: Ankle pumps, Long arc quads, Hip flexion, Glut set Seated Reps: 15 NuStep Minutes: 15 NuStep Workload: 4 Treatments TF to standing and uses BR. Pt amb. in hallway, takes short RB then completes Seated EX. Pt uses NuStep then amb. in hallway before returning to room with all needs met, call light in hand. Assessment Current Status: Fair Progress Today was a more difficult day for body control, balance and even standing at times. PT Short Term Goals Short Term Goals Time Frame: Feb 17, 2021 Roll Left & Right: 5 Sit to lyin Lying to sitting on side of be: 5 Sit to stand: 4 (met) Chair/ypk-be-reswt transfer: 4 (met) Walk 50 feet with two turns: 4 Walk 150 feet: 4 PT Mitigation Supervisor Goals Mitigation Supervisor Goals PT Custodial Goals Time Frame: Mar 03, 2021 Roll Left & Right (QC): 6 Sit to Lying (QC): 6 Lying-Sitting on Side/Bed(QC): 6 Sit to Stand (QC): 6 Chair/Ynd-av-Tfali Xfer(QC): 6 Toilet Transfer (QC): 6 Car Transfer (QC): 6 Does the Patient Walk: Yes Walk 10 feet (QC): 6 Walk 50ft with 2 Turns (QC): 6 Walk 150 ft (QC): 6 Walking 10ft on Uneven Surface: 5 1 Step (curb) (QC): 6 4 Steps (QC): 4 12 Steps (QC): 4 Picking up an Object (QC): 4 Does the Pt use WC or Scooter?: No Wheel 50 feet with 2 turns (QC: 9 Wheel 150 feet: 9 PT Plan Problem List Problem List: Safety, Balance, Gait Treatment/Plan Treatment Plan: Continue Plan of Care Treatment Plan: Bed Mobility, Education, Functional Activity Mar[place], Functional Strength, Group Therapy, Gait, Safety, Therapeutic Exercise, Transfers Treatment Duration: Mar 03, 2021 Frequency: At least 5 of 7 days/Wk (IRF) Estimated Hrs Per Day: 1.5 hours per day Patient and/or Family Agrees t: Yes Safety Risks/Education Patient Education: Gait Training, Correct Positioning, Safety Issues Teaching Recipient: Patient Teaching Methods: Discussion Response to Teaching: Verbalize Understanding Time/GCodes Time In: 1000 Time Out: 1100 Total Billed Treatment Time: 60 Total Billed Treatment 1, GT x2 (25m), EX (20m) & FA (15m) AME JOSHUA FORK LIFT MECHANIC Feb 17, 2021 15:26
[2021-02-17 20:00] VITALS: BP 101/67
[2021-02-17] MEDS: TIMOLOL MALEATE 0.5% 5 ML (TIMOPTIC) BTL OU SCH (20:55)
[2021-02-18] MEDS: HYDROcodone/APAP 5 MG/325 MG (LORTAB) TAB PO PRN (00:49)
--- NOTE | 2021-02-18 06:11 | PM&R Progress Note ---
Subjective HPI/CC On Admission Date Seen by Provider: Feb 18, 2021 Time Seen by Provider: 11:30 Subjective/Events-last exam 02/18/2021: Pt doing pretty well DC is planned for tomorrow Dr. Sanchez will give her follow up Bowels moved today Hydrocodone will be prescribed to take occasionally 02/17/2021: Pt doing really well Bowels are moving Discharge on Monday Dr. Sanchez appointment will be set up Using a quad-cane 02/16/2021: Pt doing really well Set for discharge on Monday Bowels are moving okay MiraLax ordered 02/15/2021: Pt doing well Having a little blood in her stool Miralax ordered due to constipation Discharge on Monday02/14/21: Patient doing well Put on her own sweater today No pain reported BM+ 02/13/21: Patient doing better each day BM+ No issues reported Moving right hand 02/12/2021: Patient doing pretty well Bowels moved yesterday Moving right hand more No concerns 02/11/2021: Patient having no new issues Progressing nicely Has received a lot of quinones from her friends Check meds and labs Bowels are moving well 02/10/2021: Pt is able to walk with assistance with cane Much improved status Overall pt is having no new issues She wants to go home on 02/19 to prepare for her grandchildren to visit 02/09/2021: Patient having no problems since loop recorder was placed Had a nightmare last night Right shoulder is much improved as far as range of motion Denies any significant pain 02/08/2021: Patient doing really well Status post loop recorder Had 3 loose bowel movements so we will hold laxatives Right arm is moving now 02/07/2021: Patient doing really well today Moving her shoulder and elbow on the right side Had a large bowel movement this morning No other issues 02/06/2021: Patient doing pretty well Working with therapy Bowels really moved very well Splint on right foot has been helpful Gave her a copy of her MRI as she requested 02/05/2021: Patient doing really well Bowels moved yesterday No major issues Talked about her MRI and CT scan and November graciously sent me copies so we will discuss later 02/04/2021: Patient doing pretty well Right leg is cooperating today she reports Bowels moved yesterday Event monitor from [facility] was discussed We will reach out to Dr. Sanchez 02/03/21: Pt doing really well Dr. Sanchez consulted Bowels are a bit loose Frustrated that her right leg didnt work too well today but I reassured her Review of Systems Neurological: Weakness, Incoordination Objective Exam Vital Signs Vital Signs Date Time Temp Pulse Resp B/P (MAP) Pulse Ox O2 Delivery O2 Flow Rate FiO2 02/18/21 21:35 Room Air 02/18/21 20:00 36.6 93 16 113/65 (81) 94 Capillary Refill : General Appearance: No Apparent Distress, WD/WN HEENT: PERRL/EOMI, Normal ENT Inspection, Pharynx Normal Neck: Full Range of Motion, Normal Inspection, Non Tender, Supple, Carotid Bruit Respiratory: Chest Non Tender, Lungs Clear, Normal Breath Sounds, No Accessory Muscle Use, No Respiratory Distress Cardiovascular: Regular Rate, Rhythm, No Edema, No Gallop, No JVD, No Murmur, Normal Peripheral Pulses Gastrointestinal: Normal Bowel Sounds, No Organomegaly, No Pulsatile Mass, Non Tender, Soft Back: Normal Inspection, No CVA Tenderness, No Vertebral Tenderness Extremity: Normal Capillary Refill, Normal Inspection, Normal Range of Motion (Except right sided weakness 1/5), Non Tender, No Calf Tenderness, No Pedal Edema Neurologic/Psychiatric: Alert, Oriented x3, No Motor/Sensory Deficits, Normal M ood/Affect, Abnormal Gait, Facial Droop (Right-sided) Skin: Normal Color, Warm/Dry Lymphatic: No Adenopathy Results/Procedures Lab Patient resulted labs reviewed. FIM Transfers Therapy Code Descriptions/Definitions Functional [place] Measure: 0=Not Assessed/NA 4=Minimal Assistance 1=Total Assistance 5=Supervision or Setup 2=Maximal Assistance 6=Modified [place] 3=Moderate Assistance 7=Complete IndependenceSCALE: Activities may be completed with or without assistive devices. 9-Ppeekruvff-cfvoglp completes the activity by him/herself with no assistance from a helper. 5-Set-up or Clean-up Assistance-helper sets up or cleans up; patient completes activity. [place] assists only prior to or following the activity. 4-Supervision or Touching Assistance-helper provides verbal cues and/or touching/steadying and/or contact guard assistance as patient completes activity. Assistance may be provided throughout the activity or intermittently. 3-Partial/Moderate Assistance-helper does LESS THAN HALF the effort. [place] lifts, holds or supports trunk or limbs, but provides less than half the effort. 2-Substantial/Maximal Assistance-helper does MORE THAN HALF the effort. [place] lifts or holds trunk or limbs and provides more than half the effort. 4-Tapqidbll-ctelsh does ALL the effort. Patient does none of the effort to complete the activity. Or, the assistance of 2 or more helpers is required for the patient to complete the activity. If activity was not attempted, code reason: 7-Patient Refused. 9-Not Applicable-not attempted and the patient did not perform the activity before the current illness, exacerbation or injury. 10-Not Attempted due to Environmental Limitations-(lack of equipment, weather restraints, etc.). 88-Not Attempted due to Medical Conditions or Safety Concerns. Roll Left to Right (QC): 6 Sit to Lying (QC): 6 Sit to Stand (QC): 5 Chair/Vdr-dn-Iumvb Xfer(QC): 6 Car Transfer (QC): 5 Gait Training Does the Patient Walk?: Yes Distance: 150' Walk 10 feet (QC): 5 Walk 50 ft with 2 Turns(QC): 5 Walk 150 ft (QC): 5 Walking 10ft/uneven surface-QC: 88 Gait Persons Needed: 1 Gait Assistive Device: Cane Large Base Quad Wheelchair Training Does the Pt Use a Wheelchair?: Yes Wheel 50 ft with 2 turns (QC): 5 Wheel 150 ft (QC): 5 Type of Wheelchair: Manual Stair Training Stair Training: Handrails/: 1 handrail #of Steps: 4 1 Step (curb) (QC): 88 4 Steps (QC): 4 12 Steps (QC): 88 Stairs: Pattern: Step to Balance Picking up an Object (QC): 88 ADL-Treatment Eating (QC): 4 Oral Hygiene (QC): 6 (IND seated in chair.) Shower/Bathe Self (QC): 5 (set up assist) Upper Body Dressing (QC): 3 (Min A with bra, poor recall of adaptive technique. SBA wtih nail puller shirt.) Lower Body Dressing (QC): 4 (CGA in stand.) On/Off Footwear (QC): 4 (SBA, pt required increased time to don socks, R AFO, and shoes.) Toileting Hygiene (QC): 4 (CGA) Toilet Transfer (QC): 4 (CGA) Assessment/Plan Assessment and Plan Assess & Plan/Chief Complaint Assessment: CVA with right sided weakness GERD Herpes ophtho left 10/11 OP HTN HLP Status post loop recorder on 02/08/2021 Plan: Cardiology consultation Home meds Monitor closely 02/04/2021: Monitor closely Blood pressure monitored Event monitor versus loop recorder 02/05/2021: Monitor closely Discussed MRI and CT scans once obtained 02/06/2021: Continue aggressive therapy Splint on right foot 02/07/2021: Continue bowel regimen Continue aggressive therapy Monitor blood pressure Telemetry 02/08/2021: DC telemetry since loop recorder in place Monitor closely 02/09/2021: Monitor Loop recorder data Monitor closely Aggressive treatment for right-sided weakness 02/10/2021: Much improved status Monitor closely Continue aggressive therapy for right-sided weakness 02/11/2021: Monitor closely Fall risk Aggressive therapy 02/12/2021: Aggressive therapy Monitor for pain 02/13/21: Monitor for falls Balance management 02/14/21: Monitor therapy progress Improved status 02/15/2021: Continue aggressive therapy Dramatic improvement since admission 02/16/2021: Continue current treatment Monitor closely Fall risk 02/17/2021: Continue aggressive rehab Discharge on Monday02/18/2021: Discharge plan for tomorrow (1) CVA (cerebral vascular accident) (2) PFO (patent foramen ovale) (3) GERD (gastroesophageal reflux disease) (4) Hypertension (5) Hyperlipidemia (6) Right sided weakness (7) Osteoporosis (8) Postherpetic neuralgia (9) Zoster ophthalmicus ALDEN CARCAMO DO Feb 18, 2021 06:10
[2021-02-18 07:27] VITALS: BP 108/76
--- NOTE | 2021-02-18 08:12 | Speech Therapy Daily Note ---
Speech Daily Progress Note Subjective Date Seen by Provider: Feb 18, 2021 Time Seen by Provider: 00:30 Patient was resting in her chair following her PT session. She states she is eager to return home tomorrow. Objective Patient completed OME x15 with Vital Stim on 5.0. No cuing needed. Assessment Assessment Current Status: Good Progress Treatment Plan Discontinue ST, Goals Met Speech Short Term Goals Short Term Goals Short Term Goals 1) Patient will complete OME x10 without cues at 90% or greater. 2) Patient will improve speech production at 100% intelligible. Speech Car Jockey Goals Car Jockey Goals Patient will demo effective communication and oral motor function at 100% intelligible. Speech-Plan Patient/Family Goals Patient/Family Goals: Patient is discharging to her home on 02/19/2021 where she lives with her . She will receive home health to continue therapy. Treatment Plan Speech Therapy Treatment Plan: Discontinue ST, Goals Met Treatment Duration: Feb 19, 2021 Frequency: 4 times per week (Patient will receive skilled ST 4-5x per week) Estimated Hrs Per Day: .5 hour per day Rehab Potential: Good Barriers to Learning: None identified Pt/Family Agrees to Plan: Yes Safety Risks/Education Teaching Recipient: Patient Teaching Methods: Demonstration, Discussion Response to Teaching: Verbalize Understanding, Return Demonstration Time Speech Therapy Time In: 09:30 Speech Therapy Time Out: 10:00 Total Billed Time: 30 Billed Treatment Time 1, SLTS No QUALITY CODES: EXPRESSION OF IDEAS/WANTS: 4 UNDERSTANDING VERBAL CONTENT: 4 BRIEF INTERVIEW MENTAL STATUS: YES REPETITION OF 3 WORDS: 3 TEMPORAL ORIENTATION: YEAR: CORRECT, MONTH: CORRECT, DAY: CORRECT RECALL SOCK: YES, COLOR: YES, BED: YES MEMORY/RECALL ABILITY: SEASON, LOCATION OF ROOM, THAT SHE IS IN THE HOSPITAL, STAFF NAMES MARCELA MANTILLA Feb 18, 2021 08:12
[2021-02-18] MEDS: CLOPIDOGREL 75 MG (PLAVIX) TABLET PO SCH (08:37)
[2021-02-18] MEDS: ASPIRIN 81 MG CHEW (CHILDREN'S ASA) PO SCH (08:37)
[2021-02-18] MEDS: PREGABALIN 75 MG (LYRICA) CAP PO SCH ×2 (08:37→21:32)
[2021-02-18] MEDS: CALCIUM CARB + VIT D 600 MG (CALCARB + D) TAB PO SCH (08:37)
[2021-02-18] MEDS: PANTOPRAZOLE 40 MG (PROTONIX) TAB PO SCH (08:37)
[2021-02-18] MEDS: VITAMIN D3 25 MCG (1,000 UNITS) TABLET PO SCH (08:37)
[2021-02-18] MEDS: LORATADINE (CLARITIN) 10 MG TAB PO SCH (08:37)
[2021-02-18] MEDS: polyethylene glycoL POWDER 17 GM (MIRALAX) PACK PO SCH ×2 (08:38→21:34)
[2021-02-18] MEDS: DOCUSATE SODIUM 100 MG (COLACE) CAP PO SCH ×2 (08:38→21:34)
[2021-02-18] MEDS: SENNA W/DOCUSATE (SENOKOT S) TABLET PO SCH ×2 (08:38→21:34)
--- NOTE | 2021-02-18 08:56 | Cardiology Progress Note ---
Subjective Date Seen by Provider: Feb 18, 2021 Time Seen by Provider: 08:15 Subjective/Events-last exam Patient is sitting up in wheelchair, denies any chest pain or dyspnea. Objective-Cardiology Exam Last Set of Vital Signs Vital Signs 02/18/21 02/18/21 07:27 09:21 Temp 36.0 Pulse 77 Resp 16 B/P (MAP) 108/76 (87) Pulse Ox 97 O2 Delivery Room Air General: Alert, Oriented X3, Cooperative HEENT: Atraumatic, PERRLA Neck: Supple, No JVD, No Thyromegaly Lungs: Clear to Auscultation, Normal Air Movement Heart: Regular Rate, Normal S1, Normal S2, No Murmurs Abdomen: Normal Bowel Sounds, Soft, No Tenderness, No Hepatosplenomegaly, No Masses Extremities: No Clubbing, No Cyanosis, No Edema, Normal Pulses, No Tenderness/Swelling Skin: No Rashes, No Breakdown, No Significant Lesion Neuro: Normal Speech, Normal Tone, Sensation Intact, Other (Weakness on the right side) Psych/Mental Status: Mental Status NL, Mood NL A/P-Cardiology Admission Diagnosis CVA HTN HLP GERD Assessment/Plan 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 No evidence of carotid artery stenosis per CTA Head/neck done at [facility]. 2D Echo done 01/29/21 showing normal LV size with EF 65%, mild to moderate mitral regurgitation, moderate tricuspid regurgitation. PFO present. Maintained on ASA and Plavix. Continues to have right sided weakness. Continue with PT/OT. Status post loop monitor implant on 02/08/2021, site is healing well Hypotension, blood pressure improved after discontinuing lisinopril Hyperlipidemia maintained on statin, continue to monitor Gastroesophageal reflux disease Hx of shingles resulting in decreased vision in left eye Osteoporosis Patient was seen and evaluated with Smita, examination performed, management plan was discussed, agree with the current scribed note, I made few changes to the note using Italic font Patient was seen sitting in a chair, feeling better, no new complaint Planning for possible discharge tomorrow Loop monitor site is healing well We will arrange for follow-up as an outpatient SMITA BONILLA Feb 18, 2021 8:56 am BARTOLO WESTON MD Feb 18, 2021 12:19 pm
--- NOTE | 2021-02-18 09:17 | Occupational Ther Daily Note ---
OT Current Status-Daily Note Subjective Pt seated in recliner, agreeable to OT tx. Mental Status/Objective Patient Orientation: Normal For Age ADL-Treatment Therapy Code Descriptions/Definitions Functional [place] Measure: 0=Not Assessed/NA 4=Minimal Assistance 1=Total Assistance 5=Supervision or Setup 2=Maximal Assistance 6=Modified [place] 3=Moderate Assistance 7=Complete IndependenceSCALE: Activities may be completed with or without assistive devices. 4-Svzczsdqvx-slzqoog completes the activity by him/herself with no assistance from a helper. 5-Set-up or Clean-up Assistance-helper sets up or cleans up; patient completes activity. [place] assists only prior to or following the activity. 4-Supervision or Touching Assistance-helper provides verbal cues and/or touching/steadying and/or contact guard assistance as patient completes activity. Assistance may be provided throughout the activity or intermittently. 3-Partial/Moderate Assistance-helper does LESS THAN HALF the effort. [place] lifts, holds or supports trunk or limbs, but provides less than half the effort. 2-Substantial/Maximal Assistance-helper does MORE THAN HALF the effort. [place] lifts or holds trunk or limbs and provides more than half the effort. 4-Rhujpwppy-dxhhjk does ALL the effort. Patient does none of the effort to complete the activity. Or, the assistance of 2 or more helpers is required for the patient to complete the activity. If activity was not attempted, code reason: 7-Patient Refused. 9-Not Applicable-not attempted and the patient did not perform the activity before the current illness, exacerbation or injury. 10-Not Attempted due to Environmental Limitations-(lack of equipment, weather restraints, etc.). 88-Not Attempted due to Medical Conditions or Safety Concerns. Eating (QC): 6 Oral Hygiene (QC): 6 Shower/Bathe Self (QC): 5 (set up, pt washed/dried all parts seated on SC) Upper Body Dressing (QC): 4 (SBA, min verbal cues for adaptive technique) Lower Body Dressing (QC): 4 (CGA in pant hike.) On/Off Footwear: 4 (SBA for min verbal cues, pt able to don BLE socks, AFO, and shoes) Toileting Hygiene (QC): 4 (CGA in stand for pant hike.) Toilet Transfer (QC): 4 (SBA) Other Treatment Pt seated in recliner, used quad cane to ambulate into bathroom and onto [place], CGA. Pt doffed clothes, completed showering, then transferred to / to don clothes. Pt requests to use bathroom, transferred to toilet to complete toileting. She then transferred back to / to dry/style her hair at sink. Pt finished with grooming tasks at sink, IND, then dons footwear. Pt requests to complete toileting again, transfers to toilet using GBs, completes toileting, then transfers back to /. Pt sat at sink to wash hands, then SPT to recliner, SBA. OT performed joint compression to all joints, then provided pt with written exercises for pt to complete throughout the day and when she returns home. Pt demo'd understanding on HEP, completing x5 reps for the following: shoulder elevation/depression, protraction/retraction, shoulder flexion, elbow flexion/extension, pronation/supination, wrist flexion/extension, ulnar/radial deviation, finger flexion/extension and thumb opposition/extension. Pt had slight movement with each exercise, but fatigued with session so she did not perform full ROM with all movements. Post tx, pt seated in recliner, call light in reach and all needs met. Education OT Patient Education: Correct positioning, Energy conservation, Exercise program, Home exercise program, Modified ADL techniques, Progress toward Goal/Update tx plan, Purpose of tx/functional activities, Rehab process Teaching Recipient: Patient Teaching Methods: Discussion Response to Teaching: Verbalize Understanding OT Short Term Goals Short Term Goals Time Frame: Feb 17, 2021 Eatin Oral hygiene: 4 Toileting hygiene: 4 Shower/bathe self: 3 Upper body dressin Lower body dressin Putting on/taking off footwear: 4 OT Halfway Goals Floor Helper Goals Time Frame: Mar 03, 2021 Eating (QC): 6 (met) Oral Hygiene (QC): 6 (met) Toileting Hygiene (QC): 6 (not met, CGA) Shower/Bathe Self (QC): 4 (met) Upper Body Dressing (QC): 5 (not met, SBA) Lower Body Dressing (QC): 5 (not met, CGA) On/Off Footwear (QC): 6 (not met, SBA) Pt. will participate in Occupational therapy visual assessment, and goals will be made as necessary. Additional Goals: 1-Demonstrate ADL Tasks, 2-Verbalize Understanding, 3- ImproveStrength/[place] 1=Demonstrate adherence to instructed precautions during ADL tasks. 2=Patient will verbalize/demonstrate understanding of assistive devices/modifications for ADL. 3=Patient will improve strength/tolerance for activity to enable patient to perform ADL's. OT Education/Plan Problem List/Assessment Assessment: Decreased Activ Tolerance, Decreased UE Strength, Impaired Funct Balance, Impaired I ADL's, Impaired Self-Care Skills, Restricted Funct UE ROM Discharge Recommendations Plan/Recommendations: Continue POC Treatment Plan/Plan of Care Patient would benefit from OT for education, treatment and training to promote independence in ADL's, mobility, safety and/or upper extremity function for AD L's. Plan of Care: ADL Retraining, Functional Mobility, UE Funct Exercise/Act Treatment Duration: Mar 03, 2021 Frequency: At least 5 of 7 days/Wk (IRF) Estimated Hrs Per Day: 1.5 hours per day Agreement: Yes Rehab Potential: Good Time/GCodes Start Time: 08:00 Stop Time: 09:15 Total Time Billed (hr/min): 75 Billed Treatment Time 1, ADL 4 (60'), EX (15') MARIA LUISA BATISTA OT Feb 18, 2021 09:17
--- NOTE | 2021-02-18 10:23 | Therapy Team Discharge Summary ---
Therapy Discharge Summary Discharge Recommendations Date of Discharge Occupational Therapy Decreased Activ Tolerance, Decreased UE Strength, Impaired Funct Balance, Impaired I ADL's, Impaired Self-Care Skills, Restricted Funct UE ROM Speech-Language Pathology Patient was admitted to the ARU s/p CVA with the right side affected. Patient's cognitive function was within normal range. She did receive skilled ST for OM improvement utilizing the Vital Stim which did show progress. Buccal function and decreased drooling were noted to improve. Patient is discharging tomorrow to her her home where she lives with her . She will continue services with home health. PT Mixing Tumbler Operator Goals Chcf Goals PT Chcf Goals Time Frame: Mar 03, 2021 Roll Left to Right (QC): 6 Sit to Lying (QC): 6 Lying-Sitting on Side/Bed(QC): 6 Sit to Stand (QC): 6 Chair/Vhf-wj-Pqqbr Xfer(QC): 6 Car Transfer (QC): 6 Does the Patient Walk: Yes Walk 10 feet (QC): 6 Walk 10ft-Uneven Surface(QC): 5 Walk 50ft with 2 Turns (QC): 6 Walk 150 ft (QC): 6 Does the Pt use WC or Scooter?: No Wheel 50 feet with 2 turns (QC: 9 1 Step (curb) (QC): 6 4 Steps (QC): 4 12 Steps (QC): 4 Picking up an Object (QC): 4 OT Mixing Tumbler Operator Goals Mixing Tumbler Operator Goals Time Frame: Mar 03, 2021 Eating (QC): 6 (met) Oral Hygiene (QC): 6 (met) Shower/Bathe Self (QC): 4 (met) Upper Body Dressing (QC): 5 (not met, SBA) Lower Body Dressing (QC): 5 (not met, CGA) On/Off Footwear (QC): 6 (not met, SBA) Toileting Hygiene (QC): 6 (not met, CGA) Toilet/Commode Transfer (QC): 6 Pt. will participate in Occupational therapy visual assessment, and goals will be made as necessary. Additional Goals: 1-Demonstrate ADL Tasks, 2-Verbalize Understanding, 3- ImproveStrength/Marcos 1=Demonstrate adherence to instructed precautions during ADL tasks. 2=Patient will verbalize/demonstrate understanding of assistive devices/modifications for ADL. 3=Patient will improve strength/tolerance for activity to enable patient to perform ADL's. Speech Mixing Tumbler Operator Goals Chcf Goals Patient will demo effective communication and oral motor function at 100% intelligible. MARCELA MANTILLA Feb 18, 2021 10:23
--- NOTE | 2021-02-18 11:27 | Physical Therapy Daily Note ---
PT Daily Note-Current Subjective Pt sitting in recliner upon arrival. Pt agrees to PT. Pain Location: No Pain Reported Mental Status Patient Orientation: Person, Place, Time, Situation Transfers SCALE: Activities may be completed with or without assistive devices. 7-Ndieqahdbh-ioujarp completes the activity by him/herself with no assistance from a helper. 5-Set-up or Clean-up Assistance-helper sets up or cleans up; patient completes activity. Sterling assists only prior to or following the activity. 4-Supervision or Touching Assistance-helper provides verbal cues and/or touching/steadying and/or contact guard assistance as patient completes activity. Assistance may be provided throughout the activity or intermittently. 3-Partial/Moderate Assistance-helper does LESS THAN HALF the effort. Sterling lifts, holds or supports trunk or limbs, but provides less than half the effort. 2-Substantial/Maximal Assistance-helper does MORE THAN HALF the effort. Sterling lifts or holds trunk or limbs and provides more than half the effort. 8-Bidcjeuab-dvimut does ALL the effort. Patient does none of the effort to complete the activity. Or, the assistance of 2 or more helpers is required for the patient to complete the activity. If activity was not attempted, code reason: 7-Patient Refused. 9-Not Applicable-not attempted and the patient did not perform the activity bef ore the current illness, exacerbation or injury. 10-Not Attempted due to Environmental Limitations-(lack of equipment, weather r estraints, etc.). 88-Not Attempted due to Medical Conditions or Safety Concerns. Roll Left & Right (QC): 6 Sit to Lying (QC): 6 Lying to Sitting/Side of Bed(Q: 6 Sit to Stand (QC): 5 Chair/Chv-bu-Rkztm Xfer(QC): 5 Toilet Transfer (QC): 5 Car Transfer (QC): 5 Weight Bearing Full Weight Bearing Full Weight Bearing Gait Training Does the Patient Walk?: Yes Distance: 150', 250' Walk 10 feet (QC): 5 Walk 50 ft with 2 Turns(QC): 5 Walk 150 ft (QC): 5 Walking 10ft/uneven surface-QC: 5 Gait Persons Needed: 1 Gait Assistive Device: Cane Large Base Quad Wheelchair Training Does the Pt Use a Wheelchair?: No Stair Training Stair Training: Handrails/: 2 handrails #of Steps: 4 1 Step (curb) (QC): 5 4 Steps (QC): 5 12 Steps (QC): 7 Stairs: Pattern: Step to Balance Picking up an Object (QC): 88 Special Test Comments Pt can complete from sitting but not standing. 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 Treatments Pt completes QC scoring items listed above. Pt returns to room to rest in bed at end of tx. All needs met, call light in hand. Assessment Current Status: Good Progress Pt has improved with strength and mobility although she still needs rest breaks due to fatigue. PT Short Term Goals Short Term Goals Time Frame: Feb 17, 2021 Roll Left & Right: 5 Sit to lyin Lying to sitting on side of be: 5 Sit to stand: 4 (met) Chair/ani-kb-jokgd transfer: 4 (met) Walk 50 feet with two turns: 4 Walk 150 feet: 4 PT Mcfp Goals Mcfp Goals PT Mcfp Goals Time Frame: Mar 03, 2021 Roll Left & Right (QC): 6 Sit to Lying (QC): 6 Lying-Sitting on Side/Bed(QC): 6 Sit to Stand (QC): 6 Chair/Rpf-pi-Fmlbc Xfer(QC): 6 Toilet Transfer (QC): 6 Car Transfer (QC): 6 Does the Patient Walk: Yes Walk 10 feet (QC): 6 Walk 50ft with 2 Turns (QC): 6 Walk 150 ft (QC): 6 Walking 10ft on Uneven Surface: 5 1 Step (curb) (QC): 6 4 Steps (QC): 4 12 Steps (QC): 4 Picking up an Object (QC): 4 Does the Pt use WC or Scooter?: No Wheel 50 feet with 2 turns (QC: 9 Wheel 150 feet: 9 PT Plan Problem List Problem List: Activity Tolerance Treatment/Plan Treatment Plan: Continue Plan of Care Treatment Plan: Bed Mobility, Education, Functional Activity Marcos, Functional Strength, Group Therapy, Gait, Safety, Therapeutic Exercise, Transfers Treatment Duration: Mar 03, 2021 Frequency: At least 5 of 7 days/Wk (IRF) Estimated Hrs Per Day: 1.5 hours per day Patient and/or Family Agrees t: Yes Safety Risks/Education Patient Education: Gait Training, Transfer Techniques, Steps, Correct Positioning, Safety Issues Teaching Recipient: Patient Teaching Methods: Demonstration, Discussion Response to Teaching: Verbalize Understanding Time/GCodes Time In: 1000 Time Out: 1115 Total Billed Treatment Time: 75 Total Billed Treatment 1, GT x2 (35m), FA x3 (40m) AME JOSHUA MOBILITY SCOOTER REPAIRER Feb 18, 2021 11:27
[2021-02-18 20:00] VITALS: BP 113/65
[2021-02-18] MEDS: TIMOLOL MALEATE 0.5% 5 ML (TIMOPTIC) BTL OU SCH (21:33)
[2021-02-18] MEDS ORDERED: CLOP75TA28 PO (21:44)
[2021-02-18] MEDS ORDERED: ASPI81TA64 PO (21:44)
[2021-02-18] MEDS ORDERED: ALPR.25T PO (21:44)
[2021-02-18] MEDS ORDERED: POLY17PO54 PO (21:44)
[2021-02-18] MEDS ORDERED: ACHD5005 PO (21:44)
[2021-02-18] MEDS ORDERED: ATOR40TA PO (21:44)
--- NOTE | 2021-02-18 21:46 | D/C HH Face to Face Order ---
D/C Face to Face Orders Reconcile Patient Problems Problems Reviewed?: Yes Instructions for [facility] Patient Instructions/FollowUp: PCP [address] Sanchez as scheduled Physician to follow Patient: PCP Discharge Diet for Home: No Restrictions Patient Problems: CVA Patient Data-Allergies,Ht & Wt Patient Allergies: Coded Allergies: meperidine (Unverified Allergy, Unknown, HALLUCINATIONS, 12/31/13) Height (Feet): 5 Height (Inches): 4.00 Weight (Pounds): 130 Home Health Need/Face to Face Date of Face to Face: Feb 18, 2021 Clinical Findings: Generalized weakness and fatigue, Instability, Muscle weakness, Unsteady gait I have seen Pt sroz-tk-[id number]: Yes Discharged To: Home Diagnosis/Conditions: CVA Patient is Homebound due to: Félix fall risk due to instabilty, Muscle weakness Homebound Status Due to the above stated illness, injury or surgical procedure (medical condition or diagnosis) and associated clinical findings, the patient is homebound because of his/her inability to leave home except with aid of a supportive device and/or person AND leaving the home requires a considerable and taxing effort or is medically contraindicated. Pt req the following assistanc: [facility] Nursing Orders Home Health Services Order: Nursing Services, Parts Driver-Evaluate & Treat, Physical Therapy-Evaluate & Treat Certify Stmt I certify that this patient is under my care and that I, a nurse practitioner or a physician; a school psychologist assistant working with me, had a face to face encounter that - meets the physician face to face encounter requirements with this patient as dated. ALDEN CARCAMO DO Feb 18, 2021 21:46
--- NOTE | 2021-02-19 06:51 | Discharge Summary ---
Diagnosis/Chief Complaint Date of Admission Feb 02, 2021 at 16:09 Date of Discharge Discharge Date: Feb 19, 2021 Discharge Diagnosis Assessment: CVA with right sided weakness GERD Herpes ophtho left 10/11 OP HTN HLP Status post loop recorder on 02/08/2021 Plan: Cardiology consultation Home meds Monitor closely 02/04/2021: Monitor closely Blood pressure monitored Event monitor versus loop recorder 02/05/2021: Monitor closely Discussed MRI and CT scans once obtained 02/06/2021: Continue aggressive therapy Splint on right foot 02/07/2021: Continue bowel regimen Continue aggressive therapy Monitor blood pressure Telemetry 02/08/2021: DC telemetry since loop recorder in place Monitor closely 02/09/2021: Monitor Loop recorder data Monitor closely Aggressive treatment for right-sided weakness 02/10/2021: Much improved status Monitor closely Continue aggressive therapy for right-sided weakness 02/11/2021: Monitor closely Fall risk Aggressive therapy 02/12/2021: Aggressive therapy Monitor for pain 02/13/21: Monitor for falls Balance management 02/14/21: Monitor therapy progress Improved status 02/15/2021: Continue aggressive therapy Dramatic improvement since admission 02/16/2021: Continue current treatment Monitor closely Fall risk 02/17/2021: Continue aggressive rehab Discharge on Monday02/18/2021: Discharge plan for tomorrow (1) CVA (cerebral vascular accident) (2) PFO (patent foramen ovale) (3) GERD (gastroesophageal reflux disease) (4) Hypertension (5) Hyperlipidemia (6) Right sided weakness (7) Osteoporosis (8) Postherpetic neuralgia (9) Zoster ophthalmicus Discharge Summary Discharge Physical Examination Allergies: Coded Allergies: meperidine (Unverified Allergy, Unknown, HALLUCINATIONS, 12/31/13) Vitals & I&Os Vital Signs Date Time Temp Pulse Resp B/P (MAP) Pulse Ox O2 Delivery O2 Flow Rate FiO2 02/19/21 11:57 36.2 82 14 113/75 97 Room Air General Appearance: Alert, Oriented X3, Cooperative Respiratory: Clear to Auscultation Cardiovascular: Regular Rate Psych/Mental Status: Mental Status NL Hospital Course Was the Problem List Reviewed?: Yes Uneventful course while in IRF. She had no clinical decompensation during stay. Cardiology consulted and loop recorder was placed for CVA source evaluation. BP remained stable. Pain meds were taken occasionally. No falls occurred. BM regimen maintained with good results. Therapy was helpful to get patient to ambulatory status with quad cane. Patient improved dramatically and will continue recovery at home. Labs (last 24 hrs) Laboratory Tests 02/03/21 05:45: White Blood Count 7.6, Red Blood Count 5.15H, Hemoglobin 15.6, Hematocrit 47, Mean Corpuscular Volume 91, Mean Corpuscular Hemoglobin 30, Mean Corpuscular H emoglobin Concent 33, Red Cell Distribution Width 12.5, Platelet Count 216, Mean Platelet Volume 11.1, Immature Granulocyte % (Auto) 0, Neutrophils (%) (Auto) 64, Lymphocytes (%) (Auto) 24, Monocytes (%) (Auto) 9, Eosinophils (%) (Auto) 1, Basophils (%) (Auto) 1, Neutrophils # (Auto) 4.9, Lymphocytes # (Auto) 1.8, Monocytes # (Auto) 0.7, Eosinophils # (Auto) 0.1, Basophils # (Auto) 0.1, Immature Granulocyte # (Auto) 0.0, Sodium Level 139, Potassium Level 3.9, Chloride Level 102, Carbon Dioxide Level 25, Anion Gap 12, Blood Urea Nitrogen 16, Creatinine 0.75, Estimat Glomerular Filtration Rate > 60, BUN/Creatinine Ratio 21, Glucose Level 98, Calcium Level 9.6, Corrected Calcium 9.7, Total Bilirubin 0.8, Aspartate Amino Transf (AST/SGOT) 29, Alanine Aminotransferase (ALT/SGPT) 27, Alkaline Phosphatase 81, Total Protein 6.7, Albumin 3.9 02/08/21 06:25: White Blood Count 5.8, Red Blood Count 4.72, Hemoglobin 14.5, Hematocrit 43, Mean Corpuscular Volume 91, Mean Corpuscular Hemoglobin 31, Mean Corpuscular Hemoglobin Concent 34, Red Cell Distribution Width 12.0, Platelet Count 220, Mean Platelet Volume 11.2, Immature Granulocyte % (Auto) 1, Neutrophils (%) (Auto) 51, Lymphocytes (%) (Auto) 33, Monocytes (%) (Auto) 12, Eosinophils (%) (Auto) 3, Basophils (%) (Auto) 1, Neutrophils # (Auto) 3.0, Lymphocytes # (Auto) 1.9, Monocytes # (Auto) 0.7, Eosinophils # (Auto) 0.2, Basophils # (Auto) 0.0, Immature Granulocyte # (Auto) 0.0, Sodium Level 140, Potassium Level 3.7, Chloride Level 106, Carbon Dioxide Level 25, Anion Gap 9, Blood Urea Nitrogen 13, Creatinine 0.69, Estimat Glomerular Filtration Rate > 60, BUN/Creatinine Ratio 19, Glucose Level 90, Calcium Level 8.9, Corrected Calcium 9.2, Total Bilirubin 0.6, Aspartate Amino Transf (AST/SGOT) 22, Alanine Aminotransferase (ALT/SGPT) 27, Alkaline Phosphatase 82, Total Protein 6.2L, Albumin 3.6 02/15/21 05:36: White Blood Count 6.2, Red Blood Count 4.40, Hemoglobin 13.6, Hematocrit 41, Mean Corpuscular Volume 93, Mean Corpuscular Hemoglobin 31, Mean Corpuscular Hemoglobin Concent 33, Red Cell Distribution Width 12.1, Platelet Count 222, Mean Platelet Volume 11.0, Immature Granulocyte % (Auto) 0, Neutrophils (%) (Auto) 61, Lymphocytes (%) (Auto) 27, Monocytes (%) (Auto) 10, Eosinophils (%) (Auto) 2, Basophils (%) (Auto) 1, Neutrophils # (Auto) 3.7, Lymphocytes # (Auto) 1.6, Monocytes # (Auto) 0.6, Eosinophils # (Auto) 0.1, Basophils # (Auto) 0.0, Immature Granulocyte # (Auto) 0.0, Sodium Level 143, Potassium Level 3.7, Chloride Level 107, Carbon Dioxide Level 26, Anion Gap 10, Blood Urea Nitrogen 13, Creatinine 0.71, Estimat Glomerular Filtration Rate > 60, BUN/Creatinine Ratio 18, Glucose Level 92, Calcium Level 8.9, Corrected Calcium 9.5, Total Bilirubin 0.5, Aspartate Amino Transf (AST/SGOT) 29, Alanine Aminotransferase (ALT/SGPT) 29, Alkaline Phosphatase 78, Total Protein 5.8L, Albumin 3.2 Pending Labs Laboratory Tests 02/03/21 05:45: White Blood Count 7.6, Red Blood Count 5.15, Hemoglobin 15.6, Hematocrit 47, Mean Corpuscular Volume 91, Mean Corpuscular Hemoglobin 30, Mean Corpuscular Hemoglobin Concent 33, Red Cell Distribution Width 12.5, Platelet Count 216, Mean Platelet Volume 11.1, Immature Granulocyte % (Auto) 0, Neutrophils (%) (Auto) 64, Lymphocytes (%) (Auto) 24, Monocytes (%) (Auto) 9, Eosinophils (%) (Auto) 1, Basophils (%) (Auto) 1, Neutrophils # (Auto) 4.9, Lymphocytes # (Auto) 1.8, Monocytes # (Auto) 0.7, Eosinophils # (Auto) 0.1, Basophils # (Auto) 0.1, Immature Granulocyte # (Auto) 0.0, Sodium Level 139, Potassium Level 3.9, Chloride Level 102, Carbon Dioxide Level 25, Anion Gap 12, Blood Urea Nitrogen 16, Creatinine 0.75, Estimat Glomerular Filtration Rate > 60, BUN/Creatinine Ratio 21, Glucose Level 98, Calcium Level 9.6, Corrected Calcium 9.7, Total Bilirubin 0.8, Aspartate Amino Transf (AST/SGOT) 29, Alanine Aminotransferase (ALT/SGPT) 27, Alkaline Phosphatase 81, Total Protein 6.7, Albumin 3.9 02/08/21 06:25: White Blood Count 5.8, Red Blood Count 4.72, Hemoglobin 14.5, Hematocrit 43, Mean Corpuscular Volume 91, Mean Corpuscular Hemoglobin 31, Mean Corpuscular Hemoglobin Concent 34, Red Cell Distribution Width 12.0, Platelet Count 220, Mean Platelet Volume 11.2, Immature Granulocyte % (Auto) 1, Neutrophils (%) (Auto) 51, Lymphocytes (%) (Auto) 33, Monocytes (%) (Auto) 12, Eosinophils (%) (Auto) 3, Basophils (%) (Auto) 1, Neutrophils # (Auto) 3.0, Lymphocytes # (Auto) 1.9, Monocytes # (Auto) 0.7, Eosinophils # (Auto) 0.2, Basophils # (Auto) 0.0, Immature Granulocyte # (Auto) 0.0, Sodium Level 140, Potassium Level 3.7, Chloride Level 106, Carbon Dioxide Level 25, Anion Gap 9, Blood Urea Nitrogen 13, Creatinine 0.69, Estimat Glomerular Filtration Rate > 60, BUN/Creatinine Ratio 19, Glucose Level 90, Calcium Level 8.9, Corrected Calcium 9.2, Total Bilirubin 0.6, Aspartate Amino Transf (AST/SGOT) 22, Alanine Aminotransferase (ALT/SGPT) 27, Alkaline Phosphatase 82, Total Protein 6.2, Albumin 3.6 02/15/21 05:36: White Blood Count 6.2, Red Blood Count 4.40, Hemoglobin 13.6, Hematocrit 41, Mean Corpuscular Volume 93, Mean Corpuscular Hemoglobin 31, Mean Corpuscular Hemoglobin Concent 33, Red Cell Distribution Width 12.1, Platelet Count 222, Mean Platelet Volume 11.0, Immature Granulocyte % (Auto) 0, Neutrophils (%) (Auto) 61, Lymphocytes (%) (Auto) 27, Monocytes (%) (Auto) 10, Eosinophils (%) (Auto) 2, Basophils (%) (Auto) 1, Neutrophils # (Auto) 3.7, Lymphocytes # (Auto) 1.6, Monocytes # (Auto) 0.6, Eosinophils # (Auto) 0.1, Basophils # (Auto) 0.0, Immature Granulocyte # (Auto) 0.0, Sodium Level 143, Potassium Level 3.7, Chloride Level 107, Carbon Dioxide Level 26, Anion Gap 10, Blood Urea Nitrogen 13, Creatinine 0.71, Estimat Glomerular Filtration Rate > 60, BUN/Creatinine Ratio 18, Glucose Level 92, Calcium Level 8.9, Corrected Calcium 9.5, Total Bilirubin 0.5, Aspartate Amino Transf (AST/SGOT) 29, Alanine Aminotransferase (ALT/SGPT) 29, Alkaline Phosphatase 78, Total Protein 5.8, Albumin 3.2 Discharge Home Medications: Active Scripts Active Polyethylene Glycol 3350 17 Gm Powd.pack 17 Gm PO BID Xanax Tablet (Alprazolam) 0.25 Mg Tab 0.25 Mg PO Q8H PRN HYDROcodone/APAP 5 MG/325 MG TAB (Acetaminophen/Hydrocodone Bitart) 1 Tab Tab 1 Ea PO Q4H PRN Children's Aspirin (Aspirin) 81 Mg Tab.chew 81 Mg PO DAILY Lipitor (Atorvastatin Calcium) 40 Mg Tablet 40 Mg PO HS Clopidogrel (Clopidogrel Bisulfate) 75 Mg Tablet 75 Mg PO DAILY Reported Tylenol Extra Strength (Acetaminophen) 500 Mg Tablet 500-1,000 Mg PO Q8H PRN Alendronate Sodium 70 Mg Tablet 70 Mg PO MON Calcium Carbonate 600 Mg Tablet 600 Mg PO DAILY Vitamin D3 (Cholecalciferol (Vitamin D3)) 25 Mcg Capsule 25 Mcg PO DAILY Lyrica (Pregabalin) 75 Mg Capsule 75 Mg PO BID Pantoprazole Sodium 40 Mg Tablet.dr 40 Mg PO DAILY Glucosamine Chondroitin Tab (Gluc Yanez/Chondro Yanez A/Vit C/Mn) 1 Each Tablet 1 Each PO DAILY Fexofenadine HCl 180 Mg Tablet 180 Mg PO DAILY Betimol (Timolol) 5 Ml Drops 1 Drop OU HS Instructions to patient/family Please see electronic discharge instructions given to patient. Diagnosis/Problems Diagnosis/Problems (1) CVA (cerebral vascular accident) (2) PFO (patent foramen ovale) (3) GERD (gastroesophageal reflux disease) (4) Hypertension (5) Hyperlipidemia (6) Right sided weakness (7) Osteoporosis (8) Postherpetic neuralgia (9) Zoster ophthalmicus ALDEN CARCAMO DO Feb 19, 2021 06:51
[2021-02-19 08:00] VITALS: BP 113/75
--- NOTE | 2021-02-19 08:22 | Cardiology Progress Note ---
Subjective Date Seen by Provider: Feb 19, 2021 Time Seen by Provider: 08:22 Subjective/Events-last exam Patient is sitting up in WC. Denies any chest pain or dyspnea. Objective-Cardiology Exam Last Set of Vital Signs Vital Signs 02/19/21 11:57 Temp 36.2 Pulse 82 Resp 14 B/P (MAP) 113/75 Pulse Ox 97 O2 Delivery Room Air General: Alert, Oriented X3, Cooperative HEENT: Atraumatic, PERRLA Neck: Supple, No JVD, No Thyromegaly Lungs: Clear to Auscultation, Normal Air Movement Heart: Regular Rate, Normal S1, Normal S2, No Murmurs Abdomen: Normal Bowel Sounds, Soft, No Tenderness, No Hepatosplenomegaly, No Masses Extremities: No Clubbing, No Cyanosis, No Edema, Normal Pulses, No Tenderness/Swelling Skin: No Rashes, No Breakdown, No Significant Lesion Neuro: Normal Speech, Normal Tone, Sensation Intact, Other (Weakness on the right side) Psych/Mental Status: Mental Status NL, Mood NL A/P-Cardiology Admission Diagnosis CVA HTN HLP GERD Assessment/Plan 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 No evidence of carotid artery stenosis per CTA Head[facility] done at [facility]. 2D Echo done 01/29/21 showing normal LV size with EF 65%, mild to moderate mitral regurgitation, moderate tricuspid regurgitation. PFO present. Maintained on ASA and Plavix. Continues to have right sided weakness. Continue with PT/OT. Status post loop monitor implant on 02/08/2021, site is healing well Hypotension, blood pressure improved after discontinuing lisinopril Hyperlipidemia maintained on statin, continue to monitor Gastroesophageal reflux disease Hx of shingles resulting in decreased vision in left eye Osteoporosis Patient was seen and evaluated with Smita, examination performed, management plan was discussed, agree with the current scribed note, I made few changes to the note using Italic font Patient was seen at bedside sitting comfortably, educated about the use of the loop monitor recorder Monitor blood pressure and lipids Continue current medication Arrange for follow-up as an outpatient SMITA BONILLA Feb 19, 2021 08:22 BARTOLO WESTON MD Feb 19, 2021 13:53
[2021-02-19] MEDS: DOCUSATE SODIUM 100 MG (COLACE) CAP PO SCH (08:34)
[2021-02-19] MEDS: VITAMIN D3 25 MCG (1,000 UNITS) TABLET PO SCH (08:34)
[2021-02-19] MEDS: PREGABALIN 75 MG (LYRICA) CAP PO SCH (08:34)
[2021-02-19] MEDS: LORATADINE (CLARITIN) 10 MG TAB PO SCH (08:34)
[2021-02-19] MEDS: PANTOPRAZOLE 40 MG (PROTONIX) TAB PO SCH (08:34)
[2021-02-19] MEDS: ASPIRIN 81 MG CHEW (CHILDREN'S ASA) PO SCH (08:34)
[2021-02-19] MEDS: CALCIUM CARB + VIT D 600 MG (CALCARB + D) TAB PO SCH (08:34)
[2021-02-19] MEDS: CLOPIDOGREL 75 MG (PLAVIX) TABLET PO SCH (08:34)
[2021-02-19] MEDS: SENNA W/DOCUSATE (SENOKOT S) TABLET PO SCH (08:35)
[2021-02-19] MEDS: polyethylene glycoL POWDER 17 GM (MIRALAX) PACK PO SCH (08:35)
[2021-02-19 11:57] VITALS: BP 113/75
--- NOTE | 2021-02-19 14:09 | Therapy Team Discharge Summary ---
Therapy Discharge Summary Discharge Recommendations Date of Discharge Feb 19, 2021 at 11:30 Occupational Therapy Pt admitted to ARU s/p CVA. At PLOF, pt was independent with all ADLs and func tional mobility, no AD/AE. Upon initial evaluation, pt required SBA with eating and oral care, mod A showering, mod A upper body dressing, total assist lower body dressing (Assist x2), max A footwear, and total assist toileting (assist x2). OT tx focused on increasing BUE strength and activity tolerance, RUE neuromuscular reeducation, and increasing independence with ADLs and functional mobility. At discharge, pt independent with eating and oral care. set up showering, SBA upper body dressing, CGA lower body dressing, SBA footwear and CGA toileting. Pt made good progress towards goals, meeting LTGs for eating, oral care and showering. Pt made functional progress towards other LTGs but did not attain. OT recommends home health OT and a tub bench. Pt discharged from facility, d/c from OT. Decreased Activ Tolerance, Decreased UE Strength, Impaired Funct Balance, Impaired I ADL's, Impaired Self-Care Skills, Restricted Funct UE ROM PT Penitentiary Goals Penitentiary Goals PT Buffer Copper Goals Time Frame: Mar 03, 2021 Roll Left to Right (QC): 6 Sit to Lying (QC): 6 Lying-Sitting on Side/Bed(QC): 6 Sit to Stand (QC): 6 Chair/Wrl-vh-Xjino Xfer(QC): 6 Car Transfer (QC): 6 Does the Patient Walk: Yes Walk 10 feet (QC): 6 Walk 10ft-Uneven Surface(QC): 5 Walk 50ft with 2 Turns (QC): 6 Walk 150 ft (QC): 6 Does the Pt use WC or Scooter?: No Wheel 50 feet with 2 turns (QC: 9 1 Step (curb) (QC): 6 4 Steps (QC): 4 12 Steps (QC): 4 Picking up an Object (QC): 4 OT Penitentiary Goals Buffer Copper Goals Time Frame: Mar 03, 2021 Eating (QC): 6 (met) Oral Hygiene (QC): 6 (met) Shower/Bathe Self (QC): 4 (met) Upper Body Dressing (QC): 5 (not met, SBA) Lower Body Dressing (QC): 5 (not met, CGA) On/Off Footwear (QC): 6 (not met, SBA) Toileting Hygiene (QC): 6 (not met, CGA) Toilet/Commode Transfer (QC): 6 Pt. will participate in Occupational therapy visual assessment, and goals will be made as necessary. Additional Goals: 1-Demonstrate ADL Tasks, 2-Verbalize Understanding, 3- ImproveStrength/Marcos 1=Demonstrate adherence to instructed precautions during ADL tasks. 2=Patient will verbalize/demonstrate understanding of assistive devices/modifications for ADL. 3=Patient will improve strength/tolerance for activity to enable patient to perform ADL's. Speech Buffer Copper Goals Penitentiary Goals Patient will demo effective communication and oral motor function at 100% intelligible. MARIA LUISA BATISTA OT Feb 19, 2021 14:09
--- NOTE | 2021-02-19 14:21 | Therapy Team Discharge Summary ---
Therapy Discharge Summary Discharge Recommendations Date of Discharge Feb 19, 2021 at 11:30 Physical Therapy Patient came to rehab following a CVA. Upon admission patient performed bed mobility and supine <-> sit with mod/min assist, sit <-> stand with mod/min assist, transfers with max assist, car transfer max assist, and ambulated 10' with a platform walker with max assist. Patient has been performing bed mobility and transfer training, balance and endurance training, functional strengthening, stair training, gait training, and education. 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 Now, patient performs bed mobility and supine <-> sit with independence, sit <-> stand and transfers with setup, car transfer with setup, ambulates 250' with a quad cane with setup (including 50' with at least 2 turns of 90 degrees and 10' over an uneven surface), and can go up and down 4 steps using 2 handrails with setup. Patient has been discharged from this facility and will be discharged from PT at this time. Occupational Therapy Decreased Activ Tolerance, Decreased UE Strength, Impaired Funct Balance, Impaired I ADL's, Impaired Self-Care Skills, Restricted Funct UE ROM PT Block And Case Maker Goals Block And Case Maker Goals PT Correction Goals Time Frame: Mar 03, 2021 Roll Left to Right (QC): 6 Sit to Lying (QC): 6 Lying-Sitting on Side/Bed(QC): 6 Sit to Stand (QC): 6 Chair/Uxg-am-[id number] Xfer(QC): 6 Car Transfer (QC): 6 Does the Patient Walk: Yes Walk 10 feet (QC): 6 Walk 10ft-Uneven Surface(QC): 5 Walk 50ft with 2 Turns (QC): 6 Walk 150 ft (QC): 6 Does the Pt use WC or Scooter?: No Wheel 50 feet with 2 turns (QC: 9 1 Step (curb) (QC): 6 4 Steps (QC): 4 12 Steps (QC): 4 Picking up an Object (QC): 4 OT Block And Case Maker Goals Correction Goals Time Frame: Mar 03, 2021 Eating (QC): 6 (met) Oral Hygiene (QC): 6 (met) Shower/Bathe Self (QC): 4 (met) Upper Body Dressing (QC): 5 (not met, SBA) Lower Body Dressing (QC): 5 (not met, CGA) On/Off Footwear (QC): 6 (not met, SBA) Toileting Hygiene (QC): 6 (not met, CGA) Toilet/Commode Transfer (QC): 6 Pt. will participate in Occupational therapy visual assessment, and goals will be made as necessary. Additional Goals: 1-Demonstrate ADL Tasks, 2-Verbalize Understanding, 3- ImproveStrength/Marcos 1=Demonstrate adherence to instructed precautions during ADL tasks. 2=Patient will verbalize/demonstrate understanding of assistive devices/modifications for ADL. 3=Patient will improve strength/tolerance for activity to enable patient to perform ADL's. Speech Block And Case Maker Goals Correction Goals Patient will demo effective communication and oral motor function at 100% intelligible. LAUREANO OTT PT Feb 19, 2021 14:21
== END 2021-02-19 11:30 | disposition home health service (06) | DRG 41 ==
PROVIDERS: ADMIT Internal Medicine; ATTEND Internal Medicine
PROC: 0JH632Z Insertion of Monitoring Device into Chest Subcutaneous Tissue and Fascia, Percutaneous Approach (ICD-10-PCS; principal; 2021-02-08)
DX: I69.351 Hemiplegia and hemiparesis following cerebral infarction affecting right dominant side (principal); Q21.1 Atrial septal defect; B02.30 Zoster ocular disease, unspecified; B02.29 Other postherpetic nervous system involvement; I69.392 Facial weakness following cerebral infarction; I69.398 Other sequelae of cerebral infarction; R26.89 Other abnormalities of gait and mobility; H54.62 Unqualified visual loss, left eye, normal vision right eye; B94.8 Sequelae of other specified infectious and parasitic diseases; E78.5 Hyperlipidemia, unspecified; K21.9 Gastro-esophageal reflux disease without esophagitis; H40.9 Unspecified glaucoma; I08.1 Rheumatic disorders of both mitral and tricuspid valves; I95.9 Hypotension, unspecified; M81.0 Age-related osteoporosis without current pathological fracture; F32.9 Major depressive disorder, single episode, unspecified; Z88.6 Allergy status to analgesic agent; Z87.891 Personal history of nicotine dependence; Z79.82 Long term (current) use of aspirin; I10 Essential (primary) hypertension
CPT/HCPCS: 36415; 80053; 85025

== ENCOUNTER → 2021-02-08 | Outpatient (CLI) | payer MEDICARE, OTHER ==
[~2021-02-08] MED LIST changes: +ACET-2267 PO; +ALEN70TA80 PO; +ASPI-999 PO; +ATOR40TA70 PO; +CALC-935 PO; +CALC600T80 PO; +CHOL10007 PO; +CLOP75TA28 PO; +DENO60DI SQ; +EST30C VG; +FEXO-46 PO; +GLUC1TAB20 PO; +LIDOCAINE 1% INJ 20 ML 20 ML VIAL INJ ONE; +LIDOCAINE 1% INJ 20 ML 20 ML VIAL ONE; +LISI2.5T PO; +NAPR-1211 PO; +PANT40TA52 PO; +PREG75CA PO; +TIMO5DRO27 OU
== END ==
LOC: CATH 10:26
PROVIDERS: ATTEND Internal Medicine Cardiovascular Disease
DX: I63.9 Cerebral infarction, unspecified (principal)
CPT/HCPCS: 33285; C1764

== ENCOUNTER → 2021-09-10 | Outpatient (CLI) | payer MEDICARE, OTHER ==
[~2021-09-10] MED LIST changes: +ACHD5005 PO; +ALPR.25T PO; +ASPI81TA64 PO; +ATOR40TA PO; -LIDOCAINE 1% INJ 20 ML 20 ML VIAL INJ ONE; -LIDOCAINE 1% INJ 20 ML 20 ML VIAL ONE; -LISI2.5T PO; +LISI2.5T13 PO; +POLY17PO54 PO
== END ==
LOC: CARD 12:54
PROVIDERS: ATTEND Internal Medicine Cardiovascular Disease
DX: I08.0 Rheumatic disorders of both mitral and aortic valves (principal); I10 Essential (primary) hypertension
CPT/HCPCS: 93306

== ENCOUNTER → 2022-05-30 | Outpatient (CLI) | payer MEDICARE, OTHER ==
[~2022-05-30] VITALS: Ht 162 cm; Wt 56.0 kg
[~2022-05-30] MED LIST changes: -FEXO-46 PO; -GLUC1TAB20 PO; +GLUC1TAB21 PO; +NF-ALLE180 PO; +REGADENOSON 0.4 MG/5 ML SYR (LEXISCAN) IV ONE
[2022-05-30] MEDS: CATHETER FLUSH 10 ML SYR IVP PRN ×2 (07:37→09:12)
[2022-05-30 09:11] VITALS: BP 139/78
--- NOTE | 2022-05-30 11:57 | Cardiology Stress Test Report ---
Stress Test Report Date of Procedure/Referring: Date of Procedure: May 30, 2022 PCP No,Local Physician Admitting Physician Admitting Physician: Attending Physician: Smita Brantley Indications: HTN Baseline Heart Rate: 63 Baseline Blood Pressure: Blood Pressure Systolic: 139 Blood Pressure Diastolic: 78 Baseline Vitals Vital Signs Date Time Temp Pulse Resp B/P (MAP) Pulse Ox O2 Delivery O2 Flow Rate FiO2 05/30/22 09:11 63 139/78 (98) Baseline EKG: Baseline EKG: NSR Summary After explaining the procedure to the patient, she signed a consent and then brought to the stress nuclear laboratory. Patient received 0.4 mg Lexiscan for stress test, ECG, heart rate and blood pressure were monitored continuously. Resting and stress dose of radio tracer were injected, imaging was acquired and reviewed in short axis, horizontal long axis and vertical long axis views. TID: 1.03 SSS: 6 SDS: 1 EF: 82 1. Patient tolerated Lexiscan well 2. Breast attenuation with mild decrease uptake at the mid to apical inferolateral wall with no significant reversibility. Overall there is no significant ischemia or infarction on SPECT images 3. Normal left ventricular size, ejection fraction 82% BARTOLO WESTON MD May 30, 2022 11:57
== END ==
LOC: CARD 07:45
PROVIDERS: ATTEND Physician Assistant
DX: I10 Essential (primary) hypertension (principal)
CPT/HCPCS: 78452; 93017; A9502